=== PATIENT | female | born 1945 | race Caucasian/White ===

== ENCOUNTER 2018-06-06 05:02 | Emergency (ER) | payer OTHER ==
[2018-06-06] MEDS ORDERED: MECLIZINE HCL 12.5 MG TAB ONE (05:48)
[2018-06-06] MEDS ORDERED: NA CHLORIDE 0.9% 1,000 ML ONE ×2 (05:49→08:16)
[2018-06-06 06:10] LABS: Protime INR 0.97
[2018-06-06 06:11] LABS: Absolute Lymphocytes (CBC) 1.8 K/uL (0.7-4.9); Absolute Monocytes 0.5 K/uL (0.1-1.3); Absolute Neutrophil 6.1 K/uL (1.8-8.0); Basophils % 0.5 % (0-1.3); Eosinophils % 2.4 % (0-4.4); Hematocrit 37.3 % (36.0-45.0); MCH 29.4 pg (27.0-35.0); MCV 86.2 fL (80-100); MPV 7.7 fL (7.6-11.3); Monocytes % 5.7 % (3.3-12.3); RBC Red Blood Cell Count 4.32 M/uL (3.86-4.86)
[2018-06-06 06:13] LABS: Potassium 3.7 mmol/L (3.5-5.1)
[2018-06-06 07:41] LABS: Barbiturates NEGATIVE (NEGATIVE); Benzodiazepines NEGATIVE (NEGATIVE); Cocaine NEGATIVE (NEGATIVE); METHAMPHETAM NEGATIVE (NEGATIVE); Methadone NEGATIVE (NEGATIVE); Opiates NEGATIVE (NEGATIVE); Phencyclidine NEGATIVE (NEGATIVE); THC Cannibis NEGATIVE (NEGATIVE)
--- NOTE | 2018-06-06 08:03 | ER ---
Nurse's Notes [facility] Name: Sherry Russ Age: 72 yrs Sex: Female : 1945 Arrival Date: 06/06/2018 Time: 05:04 Bed 15 Private MD: Dandre Gaming F Diagnosis: Acute dizziness Presentation: 06/06 05:09 Presenting complaint: EMS states: Dizziness, vomiting and blurrier vision since 2300 ao last night. Symptoms are getting worst. Patient reports some type treatment in the eyes where they use "Quemo" a mix of medications injected in the eyes or the eye area. Transition of care: patient was not received from another setting of care. Onset of symptoms was June 05, 2018 at 23:00. Risk Assessment: Do you want to hurt yourself or someone else? Patient reports no desire to harm self or others. Initial Sepsis Screen: Does the patient meet any 2 criteria? No. Patient's initial sepsis screen is negative. Does the patient have a suspected source of infection? No. Patient's initial sepsis screen is negative. Care prior to arrival: Medication(s) given: Phenergan, 6.25. 05:09 Method Of Arrival: EMS: [facility] ao 05:09 Acuity: CHAD 3 ao Triage Assessment: 05:19 GI: Reports. ao Historical: - Allergies: 05:18 No Known Allergies; ao - Home Meds: 05:18 fluoxetine 10 mg Oral cap 2 caps once daily [Active]; ao - PMHx: 05:18 Anxiety; Depression; eye problems; ao - PSHx: 05:18 None; ao - Immunization history:: Adult Immunizations up to date. - Social history:: Smoking status: Patient/guardian denies using tobacco, Patient/guardian denies using alcohol, street drugs. - Ebola Screening: : Patient negative for fever greater than or equal to 101.5 degrees Fahrenheit, and additional compatible Ebola Virus Disease symptoms Patient denies exposure to infectious person Patient denies travel to an Ebola-affected area in the 21 days before illness onset. - Family history:: not pertinent. - Hospitalizations: : No recent hospitalization is reported. Screenin:18 Abuse screen: Denies threats or abuse. Denies injuries from another. Nutritional ao screening: No deficits noted. Tuberculosis screening: No symptoms or risk factors identified. Fall Risk None identified. 05:30 The patient has not been NPO before screening. The patient is alert, able to follow ao commands. The patient does not exhibit slurred or garbled speech The patient is not exhibiting difficulty speaking. The patient is exhibiting difficulty understanding words. The patient is able to swallow own secretions with no drooling or need for suction. Patient tolerated one teaspoon of water. No drooling, immediate coughing, gurgling, or clearing of the throat was noted. The patient tolerated 90mL of water. No drooling, immediate coughing, gurgling, or clearing of the throat was noted. The patient passed the bedside swallow screening. Oral medications may be given as ordered. Contact Physician for further diet orders. Assessment: 05:19 General: Appears in no apparent distress. comfortable, Behavior is calm, cooperative, ao appropriate for age. Pain: Denies pain. Neuro: Level of Consciousness is awake, alert, obeys commands, Oriented to person, place, time, situation, Appropriate for age Moves all extremities. Full function Speech is normal, Facial symmetry appears normal. Cardiovascular: Capillary refill < 3 seconds Patient's skin is warm and dry. Respiratory: Airway is patent Respiratory effort is even, unlabored, Respiratory pattern is regular, symmetrical. GI: Abdomen is non-distended. : No signs and/or symptoms were reported regarding the genitourinary system. EENT: Reports blurred vision in left eye. Derm: No signs and/or symptoms reported regarding the dermatologic system. Musculoskeletal: Circulation, motion, and sensation intact. Range of motion: limited in all extremities. 06:30 Reassessment: Patient appears in no apparent distress at this time. Patient and/or cc3 family updated on plan of care and expected duration. Pain level reassessed. Patient is alert, oriented x 3, equal unlabored respirations, skin warm/dry/pink. 07:28 Reassessment: Patient appears in no apparent distress at this time. No changes from la1 previously documented assessment. Patient and/or family updated on plan of care and expected duration. Pain level reassessed. Patient is alert, oriented x 3, equal unlabored respirations, skin warm/dry/pink. 07:55 Reassessment: Patient appears in no apparent distress at this time. No changes from la1 previously documented assessment. Patient and/or family updated on plan of care and expected duration. Pain level reassessed. Patient is alert, oriented x 3, equal unlabored respirations, skin warm/dry/pink. Vital Signs: 05:14 BP 159 / 59; Pulse 82; Resp 16; Temp 98.8(O); Pulse Ox 97% on R/A; Weight 74.84 kg (R); ao Height 5 ft. 4 in. (162.56 cm) (R); Pain 0/10; 06:45 BP 138 / 70; Pulse 86; Resp 19 S; Pulse Ox 96% on R/A; cc3 07:56 BP 124 / 74; Pulse 81; Resp 16; Pulse Ox 97% on R/A; la1 09:04 BP 120 / 80; Pulse 86; Resp 17; Pulse Ox 99% on R/A; la1 05:14 Body Mass Index 28.32 (74.84 kg, 162.56 cm) ao NIH Stroke Scale Scores: 08:19 NIHSS Score: 0 la1 ED Course: 05:04 Patient arrived in ED. am2 05:04 Dandre Gaming MD is Private Physician. am2 05:09 Chevy Mi RN is Primary Nurse. ao 05:09 Cedric Collins MD is Attending Physician. wa 05:14 Triage completed. ao 05:16 Arm band placed on right wrist. Patient placed in an exam room, on a stretcher, on ao pulse oximetry, Patient notified of wait time. 05:20 Patient has correct armband on for positive identification. Pulse ox on. NIBP on. ao 05:43 X-ray completed. Portable x-ray completed in exam room. Patient tolerated procedure jb2 well. 05:43 Stroke CXR 1 View In Process Unspecified. EDMS 06:[address] stretcher. kw1 06:04 Maintain EMS IV. Dressing intact. Good blood return noted. Site clean \\T\\ dry. Gauge \\T\\ ao site: 22 R Ac. 06:05 Report given to JERMAINE Fisher. ao 06:13 CT Stroke Brain w/o Contrast In Process Unspecified. EDMS 06:14 CT completed. Patient tolerated procedure well. Patient moved back from CT. kw1 07:00 Report given to JERMAINE Marie. cc3 07:03 Frank Pedraza RN is Primary Nurse. la1 08:39 Urine Dipstick--Ancillary (enter results) Sent. la1 09:41 No provider procedures requiring assistance completed. Patient transferred, IV remains la1 in place. Administered Medications: 05:45 Drug: NS 0.9% 1000 ml Route: IV; Rate: 1 bolus; Site: right antecubital; ao 08:18 Follow up: IV Status: Completed infusion la1 05:45 Drug: Meclizine 25 mg Route: PO; ao 06:30 Follow up: Response: No adverse reaction cc3 08:18 Drug: Aspirin Chewable Tablet 324 mg Route: PO; la1 08:18 Follow up: Response: No adverse reaction la1 08:18 Drug: foLIC Acid 1 mg Route: IVPB; Site: right antecubital; la1 08:18 Follow up: IV Status: Completed infusion la1 08:18 Drug: NS 0.9% 500 ml Route: IV; Rate: bolus; Site: right antecubital; la1 08:19 Follow up: IV Status: Completed infusion la1 08:18 Drug: NS 0.9% 1000 ml Route: IV; Rate: 125 ml/hr; Site: right antecubital; la1 08:19 Follow up: IV Status: Infusion continued upon transfer la1 Point of Care Testing: Blood Glucose: 06:03 Blood Glucose: 113 mg/dL; ao Ranges: Outcome: 08:02 ER care complete, transfer ordered by . jeniffer 09:41 Transferred by ground EMS to [facility]. la1 09:41 Condition: stable 09:41 Instructed on the need for transfer. 09:43 Patient left the ED. la1 NIH Stroke Scale - NIH Stroke Score Date: 06/06/2018 Time: 08:19 Total Score = 0 1a. Level of Consciousness (LOC) - 0(Alert) 1b. Level of Consciousness (LOC) (Year \\T\\ Age) - 0(Both) 1c. LOC Commands (Open \\T\\ Closes Eyes/Civil Drafting Technician) - 0(Both) 2. Best Gaze (Lateral Gaze Paresis) - 0(Normal) 3. Visual Field Loss - 0(No visual loss) 4. Facial Palsy - 0(Normal) 5a. Left Arm: Motor (10-second hold) - 0(No drift) 5b. Right Arm: Motor (10-second hold) - 0(No drift) 6a. Left Leg: Motor (5-second hold - always test supine) - 0(No drift) 6b. Right Leg: Motor (5-second hold - always test supine) - 0(No drift) 7. Limb Ataxia (finger/nose \\T\\ heel/rust - test with eyes open) - 0(Absent) 8. Sensory Loss (pinprick arms/legs/face) - 0(Normal) 9. Best Language: Aphasia (description/naming/reading) - 0(No aphasia) 10. Dysarthria (speech clarity - read or repeat words) - 0(Normal) 11. Extinction and Inattention (visual/tactile/auditory/spatial/personal) - 0(No abnormality) Initials: la1 Signatures: Dispatcher [employer] Todd Young2 Frank Pedraza RN RN la1 Chevy Mi RN RN ao Moreno, Amanda am2 Cedric Collins MD MD wa Wilhelm, Kimberly kw1 Natalia Vail cc3 Corrections: (The following items were deleted from the chart) 05:16 05:09 Care prior to arrival: None. ysabel grady
--- NOTE | 2018-06-06 08:04 | EDPHYS ---
Physician Documentation [facility] Name: Sherry Russ Age: 72 yrs Sex: Female : 1945 Arrival Date: 06/06/2018 Time: 05:04 Bed 15 Private MD: Dandre Gaming F ED Physician Cedric Collins HPI: 06/06 07:45 This 72 yrs old Female presents to ER via EMS with complaints of dizziness, wa Vomiting. 07:45 The patient presents with dizziness, sense of spinning. Onset: The symptoms/episode wa began/occurred just prior to arrival. Context: occurred at home, occurred while the patient was at rest, just prior to the episode the patient experienced no apparent symptoms, per EMS, pt began vomiting at their arrival. Modifying factors: The symptoms are alleviated by nothing, the symptoms are aggravated by movement of head. Associated signs and symptoms: Pertinent positives: vomiting, Pertinent negatives: focal weakness, headache. Severity of symptoms: At their worst the symptoms were moderate in the emergency department the symptoms are worse moderately. Patient's baseline: Neuro: alert and fully oriented, Motor: no deficits, Ambulation: walks without assistance, Speech: normal. The patient has not experienced similar symptoms in the past. The patient has not recently seen a physician. Historical: - Allergies: 05:18 No Known Allergies; ao - Home Meds: 05:18 fluoxetine 10 mg Oral cap 2 caps once daily [Active]; ao - PMHx: 05:18 Anxiety; Depression; eye problems; ao - PSHx: 05:18 None; ao - Immunization history:: Adult Immunizations up to date. - Social history:: Smoking status: Patient/guardian denies using tobacco, Patient/guardian denies using alcohol, street drugs. - Ebola Screening: : Patient negative for fever greater than or equal to 101.5 degrees Fahrenheit, and additional compatible Ebola Virus Disease symptoms Patient denies exposure to infectious person Patient denies travel to an Ebola-affected area in the 21 days before illness onset. - Family history:: not pertinent. - Hospitalizations: : No recent hospitalization is reported. ROS: 07:55 Constitutional: Negative for fever, chills, and weight loss, Eyes: Negative for injury, wa pain, redness, and discharge, ENT: Negative for injury, pain, and discharge, Neck: Negative for injury, pain, and swelling, Cardiovascular: Negative for chest pain, palpitations, and edema, Respiratory: Negative for shortness of breath, cough, wheezing, and pleuritic chest pain, Abdomen/GI: Negative for abdominal pain, nausea, vomiting, diarrhea, and constipation, Back: Negative for injury and pain, : Negative for injury, bleeding, discharge, and swelling, MS/Extremity: Negative for injury and deformity, Skin: Negative for injury, rash, and discoloration, Psych: Negative for depression, anxiety, suicide ideation, homicidal ideation, and hallucinations. 07:55 Neuro: Positive for dizziness, Negative for headache, loss of consciousness, seizure activity. 07:55 All other systems are negative. Exam: 07:57 Constitutional: This is a well developed, well nourished patient who is awake, alert, wa and in no acute distress. Head/Face: Normocephalic, atraumatic. Eyes: Pupils equal round and reactive to light, extra-ocular motions intact. Lids and lashes normal. Conjunctiva and sclera are non-icteric and not injected. Cornea within normal limits. Periorbital areas with no swelling, redness, or edema. ENT: Nares patent. No nasal discharge, no septal abnormalities noted. Tympanic membranes are normal and external auditory canals are clear. Oropharynx with no redness, swelling, or masses, exudates, or evidence of obstruction, uvula midline. Mucous membranes moist. Neck: Trachea midline, no thyromegaly or masses palpated, and no cervical lymphadenopathy. Supple, full range of motion without nuchal rigidity, or vertebral point tenderness. No Meningismus. Chest/axilla: Normal chest wall appearance and motion. Nontender with no deformity. No lesions are appreciated. Cardiovascular: Regular rate and rhythm with a normal S1 and S2. No gallops, murmurs, or rubs. Normal PMI, no JVD. No pulse deficits. Respiratory: Lungs have equal breath sounds bilaterally, clear to auscultation and percussion. No rales, rhonchi or wheezes noted. No increased work of breathing, no retractions or nasal flaring. Abdomen/GI: Soft, non-tender, with normal bowel sounds. No distension or tympany. No guarding or rebound. No evidence of tenderness throughout. Back: No spinal tenderness. No costovertebral tenderness. Full range of motion. Skin: Warm, dry with normal turgor. Normal color with no rashes, no lesions, and no evidence of cellulitis. MS/ Extremity: Pulses equal, no cyanosis. Neurovascular intact. Full, normal range of motion. Psych: Awake, alert, with orientation to person, place and time. Behavior, mood, and affect are within normal limits. 07:57 Eyes: Nystagmus: nystagmus with fast component noted, bilaterally. 07:57 Neuro: Orientation: is normal, appropriate for stated age, Mentation: is normal, Memory: is normal, Cranial nerves: grossly normal, Cerebellar function: normal finger to nose testing, heel to rust testing is normal, able to perform alternating rapid hand movements, Motor: is normal. Vital Signs: 05:14 BP 159 / 59; Pulse 82; Resp 16; Temp 98.8(O); Pulse Ox 97% on R/A; Weight 74.84 kg (R); ao Height 5 ft. 4 in. (162.56 cm) (R); Pain 0/10; 06:45 BP 138 / 70; Pulse 86; Resp 19 S; Pulse Ox 96% on R/A; cc3 07:56 BP 124 / 74; Pulse 81; Resp 16; Pulse Ox 97% on R/A; la1 09:04 BP 120 / 80; Pulse 86; Resp 17; Pulse Ox 99% on R/A; la1 05:14 Body Mass Index 28.32 (74.84 kg, 162.56 cm) ao NIH Stroke Scale Scores: 08:19 NIHSS Score: 0 la1 MDM: 05:09 Patient medically screened. nm 07:58 Differential diagnosis: CVA, idiopathic dizziness, vertigo. Data reviewed: vital signs, nm nurses notes. Test interpretation: by ED physician or midlevel provider: Head CT no acute process. 07:59 Test interpretation: by ED physician or midlevel provider: EKG: HR 84. non-specific wa ST-T changes. labs noted wnl. . Response to treatment: the patient's symptoms have mildly improved after treatment. ED course: improved, although still with significant symptoms. will transfer for further neuro eval, r/o cerebellar infarct. no MRI or neurology senior production supervisor the weekend for eval. 06/06 05:33 Order name: UDS nm 06/06 05:33 Order name: Basic Metabolic Panel 06/06 05:33 Order name: CBC with Diff; Complete Time: 07:33 nm 06/06 05:33 Order name: Protime (+inr); Complete Time: 07:33 nm 06/06 05:33 Order name: Urine Drug Screen; Complete Time: 08:04 EDMS 06/06 05:33 Order name: Basic Metabolic Panel; Complete Time: 07:33 EDMS 06/06 05:33 Order name: CT Stroke Brain w/o Contrast 06/06 05:33 Order name: Stroke CXR 1 View 06/06 07:47 Order name: Urine Dipstick--Ancillary (enter results) 06/06 05:33 Order name: EKG; Complete Time: 05:33 nm 06/06 05:33 Order name: Accucheck; Complete Time: 06:03 06/06 05:33 Order name: Cardiac monitoring; Complete Time: 05:47 06/06 05:33 Order name: EKG - Nurse/Tech; Complete Time: 06:47 nm 06/06 05:33 Order name: IV Saline Lock; Complete Time: 05:47 nm 06/06 05:33 Order name: Labs collected and sent; Complete Time: 05:47 06/06 05:33 Order name: NPO; Complete Time: 05:47 06/06 05:33 Order name: O2 Sat Monitoring; Complete Time: 05:47 nm Administered Medications: 05:45 Drug: NS 0.9% 1000 ml Route: IV; Rate: 1 bolus; Site: right antecubital; ao 08:18 Follow up: IV Status: Completed infusion la1 05:45 Drug: Meclizine 25 mg Route: PO; ao 06:30 Follow up: Response: No adverse reaction cc3 08:18 Drug: Aspirin Chewable Tablet 324 mg Route: PO; la1 08:18 Follow up: Response: No adverse reaction la1 08:18 Drug: foLIC Acid 1 mg Route: IVPB; Site: right antecubital; la1 08:18 Follow up: IV Status: Completed infusion la1 08:18 Drug: NS 0.9% 500 ml Route: IV; Rate: bolus; Site: right antecubital; la1 08:19 Follow up: IV Status: Completed infusion la1 08:18 Drug: NS 0.9% 1000 ml Route: IV; Rate: 125 ml/hr; Site: right antecubital; la1 08:19 Follow up: IV Status: Infusion continued upon transfer la1 Point of Care Testing: Blood Glucose: 06:03 Blood Glucose: 113 mg/dL; ysabel Ranges: Critical Glucose Levels:Adult <50 mg/dl or >400 mg/dl <40 mg/dl or >180 mg/dl Disposition: 06/06/18 08:02 Transfer ordered to [facility]. Diagnosis is Acute dizziness. - Reason for transfer: Higher level of care. - Accepting physician is [facility]. - Condition is Stable. - Problem is new. - Symptoms have improved. NIH Stroke Scale - NIH Stroke Score Date: 06/06/2018 Time: 08:19 Total Score = 0 1a. Level of Consciousness (LOC) - 0(Alert) 1b. Level of Consciousness (LOC) (Year \T\ Age) - 0(Both) 1c. LOC Commands (Open \T\ Closes Eyes/Pass Worker) - 0(Both) 2. Best Gaze (Lateral Gaze Paresis) - 0(Normal) 3. Visual Field Loss - 0(No visual loss) 4. Facial Palsy - 0(Normal) 5a. Left Arm: Motor (10-second hold) - 0(No drift) 5b. Right Arm: Motor (10-second hold) - 0(No drift) 6a. Left Leg: Motor (5-second hold - always test supine) - 0(No drift) 6b. Right Leg: Motor (5-second hold - always test supine) - 0(No drift) 7. Limb Ataxia (finger/nose \T\ heel/rust - test with eyes open) - 0(Absent) 8. Sensory Loss (pinprick arms/legs/face) - 0(Normal) 9. Best Language: Aphasia (description/naming/reading) - 0(No aphasia) 10. Dysarthria (speech clarity - read or repeat words) - 0(Normal) 11. Extinction and Inattention (visual/tactile/auditory/spatial/personal) - 0(No abnormality) Initials: la1 Signatures: Dispatcher [employer] Nayan Augustin MD MD cha Attema, Lee, RN RN la1 Chevy Mi RN RN ao Appiah, William, MD MD wa Cordel, Charlene cc3 Corrections: (The following items were deleted from the chart) 09:43 08:02 06/06/2018 08:02 Transfer ordered to [facility]. la1 Diagnosis is Acute dizziness. Reason for transfer: Higher level of care. [facility] Condition is Stable. Problem is new. Symptoms have improved. wa
[2018-06-06] MEDS ORDERED: ASPIRIN 81 MG CHEWABLE TABLET ONE (08:13)
[2018-06-06] MEDS ORDERED: FOLIC ACID 5 MG/ML VIAL ONE (08:16)
[2018-06-06 09:07] LABS: Urine Blood TRACE (NEG); Urine Glucose NEGATIVE (NEG); Urine Protein NEGATIVE (NEG)
--- NOTE | 2018-06-06 09:32 | RAD REPORT ---
EXAM DESCRIPTION: RAD - Chest Single View - 06/06/2018 5:43 am CLINICAL HISTORY: Shortness of breath, weakness, dizziness COMPARISON: None. TECHNIQUE: AP portable chest image was obtained 0537 hours . FINDINGS: Lungs are clear. Heart and vasculature are normal. No measurable pleural effusion and no p neumothorax. No acute bony abnormality seen. No acute aortic findings suspected. IMPRESSION: No acute cardiopulmonary process.
--- NOTE | 2018-06-06 09:33 | RAD REPORT ---
EXAM DESCRIPTION: CT - Ct Stroke Brain Wo Cont - 06/06/2018 6:50 am CLINICAL HISTORY: Weakness, dizziness, altered mental status A preliminary report was provided at the time of the study and reviewed prior to final report. CLINICAL HISTORY: None. TECHNIQUE: Axial 5 millimeter thick images of the head were obtained without IV contrast. All CT scans are performed using dose optimization technique as appropriate and may include automated exposure control or mA/KV adjustment according to patient size. FINDINGS: No intracranial hemorrhage, mass, or cerebral edema. No acute infarction identifiable. Mil d atrophy and chronic ischemic changes are present. Arterial and physiologic calcifications are prese nt. Glover matter-white matter differentiation is preserved. Visualized portions of the mastoid air cells, paranasal sinuses, and orbits are unremarkable. IMPRESSION: No CT evidence of acute intracranial process. Patient has mild atrophy and chronic ische patti change.
[2018-06-06 09:48] VITALS: TEMP 98.8
[2018-06-06 09:51] VITALS: BP 120/80; O2SAT 99
--- NOTE | 2018-06-08 10:15 | EKG ---
Test Date: 2018-06-06 Test Time: 06:42:05 Musical Instrument Maker Or Repairer: CINDY MEASUREMENT RESULTS: Intervals: Rate: 84 SC: 178 QRSD: 86 QT: 398 QTc: 470 Robert: P: 56 SC: 178 QRS: 33 T: -6 INTERPRETIVE STATEMENTS: Normal sinus rhythm Possible Left atrial enlargement Nonspecific T wave abnormality Prolonged QT Abnormal ECG No previous ECG available for comparison Electronically Signed On 06-08-18 10:13:59 CDT by Van [place]anna
== END 2018-06-06 09:43 | disposition short-term general hospital (02) ==
LOC: ER 05:02
DX: R42 Dizziness and giddiness (principal); F41.8 Other specified anxiety disorders
CPT/HCPCS: 36415; 70450; 71045; 80048; 80307 ×8; 81003; 82962; 85025; 85610; 93005; 96361; 96374; 99285; J7030 ×2

== ENCOUNTER 2019-03-07 00:56 | Observation (INO) | payer OTHER ==
--- OUTSIDE RECORDS SUMMARY | 2019-03-07 00:58 | XMS REPORT | Clinical Summary ---
:1945 Author Organization [facility] Address [address] [place] [address] Care Team Providers Name Role Phone Pcp, No Primary Care Provider Unavailable Allergies No Known Allergies Medications Medication Sig Dispensed Refills Start Date End Date Status fLUoxetine (PROZAC) 20 Take 20 mg by 0 Active MG capsule mouth daily. Active Problems Problem Noted Date Dizziness 06/06/2018 Encounters Date Type Specialty Care Team Description 06/06/2018 - Hospital Encounter Cardiology Mary Ellen Grigsby Depression, unspecified depression type; 06/08/2018 MD Melisa Dizziness; Sanford Rodriguez D Pain of right upper extremity; Viri Carcamo MD Vertigo; Peripheral vertigo, unspecified laterality after 03/06/2018 Social History Tobacco Use Types Packs/Day Years Used Date Never Smoker Smokeless Tobacco: Never Used Alcohol Use Drinks/Week oz/Week Comments No Sex Assigned at Date Recorded Not on file Job Start Date Occupation Industry Not on file Not on file Not on file Travel History Travel Start Travel End No recent travel history available. Last Filed Vital Signs Vital Sign Reading Time Taken Blood Pressure 156/67 06/08/2018 11:00 AM CDT Pulse 90 06/08/2018 11:00 AM CDT Temperature 35.8 C (96.5 F) 06/08/2018 11:00 AM CDT Respiratory Rate 20 06/08/2018 11:00 AM CDT Oxygen Saturation 96% 06/08/2018 11:00 AM CDT Inhaled Oxygen Concentration - - Weight 67.6 kg (149 lb) 06/06/2018 11:45 AM CDT Height 157.5 cm (5' 2") 06/06/2018 11:45 AM CDT Body Mass Index 27.25 06/06/2018 11:45 AM CDT Plan of Treatment Not on file Procedures Procedure Name Priority Date/Time Associated Comments Diagnosis RHYTHM STRIP - SCAN 12/04/2018 7:10 AM CDT REPORT OF PROCEDURE - 06/09/2018 12:50 ENDOSCOPY SCAN PM CDT RHYTHM STRIP - SCAN 06/09/2018 12:[address] BRAIN WITHOUT IV Routine 06/08/2018 8:00 Results for this CONTRAST AM CDT procedure are in the results section. HEPATIC FUNCTION PANEL Routine 06/08/2018 5:33 Results for this AM CDT procedure are in the results section. MAGNESIUM Routine 06/08/2018 5:33 Results for this AM CDT procedure are in the results section. LIPID PANEL Routine 06/08/2018 5:33 Results for this AM CDT procedure are in the results section. PROTHROMBIN TIME/INR Routine 06/08/2018 5:33 Results for this AM CDT procedure are in the results section. CALCIUM, IONIZED Routine 06/08/2018 5:33 Results for this AM CDT procedure are in the results section. BASIC METABOLIC PANEL Routine 06/08/2018 5:33 Results for this (7) AM CDT procedure are in the results section. MR MRA NECK WITHOUT IV CORBY 06/07/2018 9:03 Results for this CONTRAST PM CDT procedure are in the results section. MR MRA HEAD WITHOUT CORBY 06/07/2018 9:03 Results for this CONTRAST PM CDT procedure are in the results section. CBC W/PLT COUNT & AUTO Routine 06/07/2018 2:20 Results for this DIFFERENTIAL AM CDT procedure are in the results section. CBC W/PLT COUNT & AUTO Routine 06/07/2018 2:20 Results for this DIFFERENTIAL AM CDT procedure are in the results section. PROTHROMBIN TIME/INR Routine 06/07/2018 2:20 Results for this AM CDT procedure are in the results section. CALCIUM, IONIZED Routine 06/07/2018 2:20 Results for this AM CDT procedure are in the results section. COMPREHENSIVE Routine 06/06/2018 4:51 Results for this METABOLIC PANEL PM CDT procedure are in the results section. CBC (HEMOGRAM ONLY) Routine 06/06/2018 4:51 Results for this PM CDT procedure are in the results section. MR BRAIN WITHOUT IV STAT 06/06/2018 4:00 Results for this CONTRAST PM CDT procedure are in the results section. after 03/06/2018 Results RHYTHM STRIP - SCAN (12/04/2018 7:10 AM CDT)Only the most recent of2 resultswithin the time period is included. Narrative Performed At EKG-SCANNED (06/09/2018 12:50 PM CDT) Narrative Performed At CT brain without IV contrast (06/08/2018 8:00 AM CDT) Specimen Narrative Performed At FINAL REPORT [facility] CT head without contrast INDICATION: CVA, TIA. TECHNIQUE: Axial noncontrast CT images through the head were obtained. This exam was performed according to our departmental dose optimization program which includes automated exposure control, adjustment of the mA and/or kV according to patient size and/or use of iterative reconstruction technique. This study was done as part of a CTA head and neck, which was unsuccessful due to IV infiltration. COMPARISON: MRI brain 06/06/2018 FINDINGS: There is no acute intracranial hemorrhage or mass effect. Mild nonspecific white matter lucency suggest microvascular ischemia and is chronic appearing. Please note that CT is insensitive for early or small infarcts. There is generalized parenchymal volume loss without hydrocephalus or midline shift. There is a partially imaged C1-2 arthropathy. There is mild multifocal chronic sinus mucosal thickening with well aerated mastoid air cells. There has been right globe cataract surgery. The calvarium is intact. IMPRESSION: No acute intracranial hemorrhage or mass effect. Chronic appearing microvascular and involutional changes. Additional chronic findings as discussed above. Signed: Baldomero Goodwin MD Report Verified Date/Time:06/08/2018 08:11:29 Reading Location: [facility] C[facility] Neuro Reading Room Procedure Note Interface, External Ris In - 06/08/2018 8:16 AM CDT FINAL REPORT CT head without contrast INDICATION: CVA, TIA. TECHNIQUE: Axial noncontrast CT images through the head were obtained. This exam was performed according to our departmental dose optimization program which includes automated exposure control, adjustment of the mA and/or kV according to patient size and/or use of iterative reconstruction technique. This study was done as part of a CTA head and neck, which was unsuccessful due to IV infiltration. COMPARISON: MRI brain 06/06/2018 FINDINGS: There is no acute intracranial hemorrhage or mass effect. Mild nonspecific white matter lucency suggest microvascular ischemia and is chronic appearing. Please note that CT is insensitive for early or small infarcts. There is generalized parenchymal volume loss without hydrocephalus or midline shift. There is a partially imaged C1-2 arthropathy. There is mild multifocal chronic sinus mucosal thickening with well aerated mastoid air cells. There has been right globe cataract surgery. The calvarium is intact. IMPRESSION: No acute intracranial hemorrhage or mass effect. Chronic appearing microvascular and involutional changes. Additional chronic findings as discussed above. Signed: Baldomero Goodwin MD Report Verified Date/Time: 06/08/2018 08:11:29 Reading Location: [address] Neuro Reading Room Performing Organization Address City/[facility] Centercode Phone Number GE RIS Calcium, Ionized (06/08/2018 5:33 AM CDT)Only the most recent of2 resultswithin the time period is included. Calcium, Ion 1.14 1.12 - 1.27 mmol/L [facility] pH, Blood 7.41 [facility] Specimen Blood Performing Organization Address City/[facility] CentercoITS Compliance Phone Number [address] [address] CENTER Prothrombin time/INR (06/08/2018 5:33 AM CDT)Only the most recent of2 resultswithin the time period is included. Protime 13.3 11.7 - 14.[address] [facility] INR 1.0 <=5.9 [facility] Specimen Blood Narrative Performed At [facility] RECOMMENDED COUMADIN/WARFARIN INR THERAPY RANGES STANDARD DOSE: 2.0 - 3.0 Includes: PROPHYLAXIS for venous thrombosis, systemic embolization; TREATMENT for venous thrombosis and/or pulmonary embolus. HIGH RISK: Target INR is 2.5-3.5 for patients with mechanical heart valves. Performing Organization Address City/[facility] Centercode Phone Number [facility] [address] [place] [address] CENTER Magnesium (06/08/2018 5:33 AM CDT) Magnesium 2.1 1.6 - 2.6 mg/dL [facility] Specimen Blood Performing Organization Address City/[facility] Centercode Phone Number [address] [address] [place] Hepatic function panel (06/08/2018 5:33 AM CDT) Protein, Total 6.6 6.0 - 8.3 gm/dL [facility] Albumin 3.7 3.5 - 5.0 g/dL [facility] Total Bilirubin 0.5 0.2 - 1.2 mg/dL [facility] Bilirubin, Direct 0.2 0.1 - 0.5 mg/dL [facility] Alkaline Phosphatase 67 40 - 150 U/L [facility] AST 16 5 - 34 U/L [facility] ALT 11 6 - 55 U/L [facility] Specimen Blood Performing Organization Address City/State/Zipcode Phone Number [facility] [address] [place] [address] [phone] [place] Lipid panel (06/08/2018 5:33 AM CDT) Triglycerides 206 mg/dL [facility] Cholesterol 232 mg/dL [facility] HDL 47 mg/dL [facility] LDL Calculated 144 mg/dL [facility] Specimen Blood Narrative Performed At [facility] Triglyceride Reference Range: Low Risk <150 [id number] High Risk 200-499 Very High Risk>=500 Cholesterol Reference Range: Low Risk <200 [id number] High Risk>240 HDL Cholesterol Reference Range: Low Risk >=60 High Risk <40 LDL Cholesterol Reference Range: Optimal<100 Near [id number] Easd390-552 Very High >=190 Performing Organization Address City/[facility]/Zipcode Phone Number [facility] [address] [place] [address] [place] Basic metabolic panel (06/08/2018 5:33 AM CDT) Sodium 139 136 - 145 meq/L [facility] Potassium 3.9 3.5 - 5.1 meq/L [facility] Chloride 106 98 - 107 meq/L [facility] CO2 25 22 - 29 meq/L [facility] BUN 9 7 - 21 mg/dL [facility] Creatinine 0.71 0.57 - 1.25 mg/dL [facility] Glucose 90 70 - 105 mg/dL [facility] Calcium 9.4 8.4 - 10.2 mg/dL [facility] EGFR 80Comment: ESTIMATED GFR IS mL/min/1.73 sq m [facility] NOT ACCURATE CREATININE [facility] CENTER CLEARANCE IN PREDICTING GLOMERULAR FILTRATION RATE. ESTIMATED GFR IS NOT APPLICABLE FOR DIALYSIS PATIENTS. Specimen Blood Performing Organization Address City/[facility] Centercode Phone Number [facility] [address] [place] [address] [phone] [place] MRA neck without IV contrast (06/07/2018 9:03 PM CDT) Specimen Narrative Performed At FINAL REPORT [facility] MR, MRA, BRAIN, WITHOUT CONTRAST, MR, MRA, NECK, WITHOUT IV CONTRAST INDICATION: TIA Workup TECHNIQUE: 3-D time of flight MRA of the cranial and cervical circulation. 2-D time of flight MRA of the neck. 3D MIP angiographic post-processing was performed. Stenosis evaluation utilized NASCET criteria. COMPARISON: Correlation to noncontrast brain MRI of the same date FINDINGS: MRA BRAIN: Internal carotid arteries: Patent. Middle cerebral arteries: Patent to distal branches. Anterior cerebral arteries: Intact. Basilar system: Patent vertebrobasilar system. Posterior cerebral arteries:Patent beyond the quadrigeminal segments. Additional findings: None. MRA NECK: Common carotid arteries: Unremarkable. Bifurcations: No flow-limiting stenosis. Cervical internal carotid arteries: No flow limiting stenosis. Vertebral arteries: Slight left dominance. IMPRESSION: No flow limiting stenosis in the major branch vessels of the cervical or cranial circulation. Signed: JR Cortés Robert MD Report Verified Date/Time:06/07/2018 21:28:54 Reading Location: [address] Reading Room Procedure Note Interface, External Ris In - 06/07/2018 9:31 PM CDT FINAL REPORT MR, MRA, BRAIN, WITHOUT CONTRAST, MR, MRA, NECK, WITHOUT IV CONTRAST INDICATION: TIA Workup TECHNIQUE: 3-D time of flight MRA of the cranial and cervical circulation. 2-D time of flight MRA of the neck. 3D MIP angiographic post-processing was performed. Stenosis evaluation utilized NASCET criteria. COMPARISON: Correlation to noncontrast brain MRI of the same date FINDINGS: MRA BRAIN: Internal carotid arteries: Patent. Middle cerebral arteries: Patent to distal branches. Anterior cerebral arteries: Intact. Basilar system: Patent vertebrobasilar system. Posterior cerebral arteries:Patent beyond the quadrigeminal segments. Additional findings: None. MRA NECK: Common carotid arteries: Unremarkable. Bifurcations: No flow-limiting stenosis. Cervical internal carotid arteries: No flow limiting stenosis. Vertebral arteries: Slight left dominance. IMPRESSION: No flow limiting stenosis in the major branch vessels of the cervical or cranial circulation. Signed: JR Cortés Robert MD Report Verified Date/Time: 06/07/2018 21:28:54 Reading Location: [address] Reading Room Performing Organization Address City/State/Zipcode Phone Number [facility] MRA head without IV contrast (06/07/2018 9:03 PM CDT) Specimen Narrative Performed At FINAL REPORT [facility] MR, MRA, BRAIN, WITHOUT CONTRAST, MR, MRA, NECK, WITHOUT IV CONTRAST INDICATION: TIA Workup TECHNIQUE: 3-D time of flight MRA of the cranial and cervical circulation. 2-D time of flight MRA of the neck. 3D MIP angiographic post-processing was performed. Stenosis evaluation utilized NASCET criteria. COMPARISON: Correlation to noncontrast brain MRI of the same date FINDINGS: MRA BRAIN: Internal carotid arteries: Patent. Middle cerebral arteries: Patent to distal branches. Anterior cerebral arteries: Intact. Basilar system: Patent vertebrobasilar system. Posterior cerebral arteries:Patent beyond the quadrigeminal segments. Additional findings: None. MRA NECK: Common carotid arteries: Unremarkable. Bifurcations: No flow-limiting stenosis. Cervical internal carotid arteries: No flow limiting stenosis. Vertebral arteries: Slight left dominance. IMPRESSION: No flow limiting stenosis in the major branch vessels of the cervical or cranial circulation. Signed: JR Cortés Robert MD Report Verified Date/Time:06/07/2018 21:28:54 Reading Location: [address] Reading Room Procedure Note Interface, External Ris In - 06/07/2018 9:31 PM CDT FINAL REPORT MR, MRA, BRAIN, WITHOUT CONTRAST, MR, MRA, NECK, WITHOUT IV CONTRAST INDICATION: TIA Workup TECHNIQUE: 3-D time of flight MRA of the cranial and cervical circulation. 2-D time of flight MRA of the neck. 3D MIP angiographic post-processing was performed. Stenosis evaluation utilized NASCET criteria. COMPARISON: Correlation to noncontrast brain MRI of the same date FINDINGS: MRA BRAIN: Internal carotid arteries: Patent. Middle cerebral arteries: Patent to distal branches. Anterior cerebral arteries: Intact. Basilar system: Patent vertebrobasilar system. Posterior cerebral arteries:Patent beyond the quadrigeminal segments. Additional findings: None. MRA NECK: Common carotid arteries: Unremarkable. Bifurcations: No flow-limiting stenosis. Cervical internal carotid arteries: No flow limiting stenosis. Vertebral arteries: Slight left dominance. IMPRESSION: No flow limiting stenosis in the major branch vessels of the cervical or cranial circulation. Signed: JR Cortés Robert MD Report Verified Date/Time: 06/07/2018 21:28:54 Reading Location: [address] Reading Room Performing Organization Address City/State/Zipcode Phone Number [facility] CBC with platelet count + automated diff (06/07/2018 2:20 AM CDT) WBC 6.3 3.5 - 10.5 K/L [facility] RBC 3.95 3.93 - 5.22 M/L [facility] Hemoglobin 11.2 11.2 - 15.7 GM/DL [facility] Hematocrit 35.3 34.1 - 44.9 % [facility] MCV 89.4 79.4 - 94.[address] [facility] MCH 28.4 25.6 - 32.[address] [facility] MCHC 31.7 (L) 32.2 - 35.5 GM/DL [facility] RDW 13.3 11.7 - 14.4 % [facility] Platelets 276 150 - 450 K/CU MM [facility] MPV 9.2 (L) 9.4 - 12.[address] [facility] nRBC 0 0 - 0 /[address] [facility] % Neutros 46 % [facility] % Lymphs 39 % [facility] % Monos 10 % [facility] % Eos 4 % [facility] % Baso 1 % [facility] # Neutros 2.90 1.56 - 6.13 K/L [facility] # Lymphs 2.44 1.18 - 3.74 K/L [facility] # Monos 0.63 (H) 0.24 - 0.36 K/L [facility] # Eos 0.26 0.04 - 0.36 K/L [facility] # Baso 0.03 0.01 - 0.08 K/L [facility] Immature Granulocytes-Relative 0 0 - 1 % [facility] Specimen Blood Performing Organization Address City/State/Zipcode Phone Number [place] [phone] [place] [address] [phone] [place] CBC (Hemogram only) (06/06/2018 4:51 PM CDT) WBC 7.6 3.5 - 10.5 K/L [facility] RBC 3.91 (L) 3.93 - 5.22 M/L [facility] Hemoglobin 11.4 11.2 - 15.7 GM/DL [facility] Hematocrit 34.6 34.1 - 44.9 % [facility] MCV 88.5 79.4 - 94.[address] [facility] MCH 29.2 25.6 - 32.[address] [facility] MCHC 32.9 32.2 - 35.5 GM/DL [facility] RDW 13.3 11.7 - 14.4 % [facility] Platelets 264 150 - 450 K/CU MM [facility] MPV 9.2 (L) 9.4 - 12.[address] [facility] nRBC 0 0 - 0 /[address] [facility] Specimen Blood Performing Organization Address City/State/Zipcode Phone Number [facility] [address] [place] [address] [place] Comprehensive metabolic panel (06/06/2018 4:51 PM CDT) Protein, Total 6.5 6.0 - 8.3 gm/dL [facility] Albumin 3.7 3.5 - 5.0 g/dL [facility] Alkaline Phosphatase 68 40 - 150 U/L [facility] Total Bilirubin 0.4 0.2 - 1.2 mg/dL [facility] Sodium 138 136 - 145 meq/L [facility] Potassium 3.6 3.5 - 5.1 meq/L [facility] Chloride 106 98 - 107 meq/L [facility] CO2 25 22 - 29 meq/L [facility] BUN 12 7 - 21 mg/dL [facility] Creatinine 0.73 0.57 - 1.25 mg/dL [facility] Glucose 104 70 - 105 mg/dL [facility] Calcium 9.6 8.4 - 10.2 mg/dL [facility] AST 16 5 - 34 U/L [facility] ALT 12 6 - 55 U/L [facility] EGFR 78Comment: ESTIMATED GFR mL/min/1.[address] [facility] IS NOT ACCURATE [facility] CREATININE CLEARANCE IN PREDICTING GLOMERULAR FILTRATION RATE. ESTIMATED GFR IS NOT APPLICABLE FOR DIALYSIS PATIENTS. Specimen Blood Performing Organization Address City/State/Zipcode Phone Number [facility] [address] [place] [address] CENTER MR brain without IV contrast (06/06/2018 4:00 PM CDT) Specimen Narrative Performed At FINAL REPORT [employer] [facility] MRI brain without contrast INDICATION: CVA, TIA TECHNIQUE: Multiplanar, multisequence MR imaging of the brain was performed utilizing the following imaging sequences: Axial T2, FLAIR, GRE, and DWI; sagittal and coronal T1 COMPARISON: None available FINDINGS: There is no acute infarct, hematoma, extra-axial collection, hydrocephalus, or mass effect. Mild nonspecific chronic white matter signal changes suggest microvascular ischemia. The major vascular flow voids are maintained. There is generalized parenchymal volume loss. There are cervical spine degenerative changes and mild C1-2 arthropathy. There has been right globe cataract surgery. There is mild multifocal chronic sinus mucosal disease with well aerated mastoid air cells. The sella is unremarkable. The marrow signal is heterogeneous in a nonspecific fashion. IMPRESSION: 1. No evidence of acute infarct, hemorrhage, or hydrocephalus. 2. Mild chronic white matter changes, likely of microvascular etiology. 3. Additional chronic and involutional findings as discussed. Signed: Baldomero Goodwin MD Report Verified Date/Time:06/06/2018 16:29:20 Reading Location: [facility] [id number] Neuro Reading Room Procedure Note Interface, External Ris In - 06/06/2018 4:31 PM CDT FINAL REPORT MRI brain without contrast INDICATION: CVA, TIA TECHNIQUE: Multiplanar, multisequence MR imaging of the brain was performed utilizing the following imaging sequences: Axial T2, FLAIR, GRE, and DWI; sagittal and coronal T1 COMPARISON: None available FINDINGS: There is no acute infarct, hematoma, extra-axial collection, hydrocephalus, or mass effect. Mild nonspecific chronic white matter signal changes suggest microvascular ischemia. The major vascular flow voids are maintained. There is generalized parenchymal volume loss. There are cervical spine degenerative changes and mild C1-2 arthropathy. There has been right globe cataract surgery. There is mild multifocal chronic sinus mucosal disease with well aerated mastoid air cells. The sella is unremarkable. The marrow signal is heterogeneous in a nonspecific fashion. IMPRESSION: 1. No evidence of acute infarct, hemorrhage, or hydrocephalus. 2. Mild chronic white matter changes, likely of microvascular etiology. 3. Additional chronic and involutional findings as discussed. Signed: Baldomero Goodwin MD Report Verified Date/Time: 06/06/2018 16:29:20 Reading Location: [facility] [id number] Neuro Reading Room Performing Organization Address City/State/Zipcode Phone Number GE RIS after 03/06/2018 Insurance Payer Benefit Plan / Group Subscriber ID Type Phone Address [employer] - MEDICARE MGD [employer] MEDICARE ADV xxxxxxxxx [facility] Contracted CARE Advance Directives For more information, please contact:[address], [place] [phone] Code Status Date Activated Date Inactivated Comments Full Code 06/06/2018 11:43 AM 06/08/2018 5:48 PM This code status was determined by: Patient
--- OUTSIDE RECORDS SUMMARY | 2019-03-07 00:59 | XMS REPORT | Summary of Care ---
:1945 Author Organization [facility] Neurology [place] Address [address] [place] [address]- Encounter HQ Encntr_alias(FIN) [id number] Date(s): 08/10/18 - 08/11/18 [facility] [address] [place] [address]- [phone] Vital Signs No data available for this section Problem List Condition Effective Dates Status Health Status Informant Cervical spondylosis(Confirmed) Active Insomnia(Confirmed) Active Vertigo(Confirmed) Active Allergies, Adverse Reactions, Alerts No Known Medication Allergies Medications No data available for this section Results No data available for this section Immunizations No data available for this section Procedures No data available for this section Social History Social History Type Response Smoking Status Never smoker; Exposure to Tobacco Smoke Unable to obtain; Cigarette Smoking Last 365 Days Unable to obtain; Reg Smoking Cessation Counseling No entered on: 01/26/19 Assessment and Plan No data available for this section
--- OUTSIDE RECORDS SUMMARY | 2019-03-07 00:59 | XMS REPORT ---
:1945 Author Organization [facility] Address [address] [place] [address] Dr. Caldwell [address] [place] [id number] Care Team Providers Name Role Phone SCARLET MARTEL Unavailable Unavailable Problems This patient has no known problems. Allergies, Adverse Reactions, Alerts This patient has no known allergies or adverse reactions. Medications This patient has no known medications. Results Test Description Test Time Test Comments Text Results Atomic Results Result Comments CT, BRAIN, WITHOUT CONTRAST 2018-06-08 08:11:[address] head without contrast INDICATION: [...] to IV infiltration. COMPARISON: MRI brain 06/06/2018 FINDINGS:There is no acute intracranial hemorrhage or mass [...] findings as discussed above. Signed: Baldomero Goodwin Verified Date/Time: 06/08/2018 08:11:29 Reading Location: [address] Neuro Reading Room [facility] 2018-06-08 06:22:00 Test Item Value Reference Range Comments MAGNESIUM (BEAKER) (test lkma=306) 2.1 mg/dL 1.6-2.6 BASIC METABOLIC [id number] 06:22:00 Test Item Value Reference Range Comments SODIUM (BEAKER) (test 139 meq/L 136-145 zdwb=966) POTASSIUM (BEAKER) (test 3.9 meq/L 3.5-5.1 sovn=943) CHLORIDE (BEAKER) (test 106 meq/L 98-107 zzzz=236) CO2 (BEAKER) (test 25 meq/L 22-29 bumk=881) BLOOD UREA NITROGEN 9 mg/dL 7-21 (BEAKER) (test xngd=563) CREATININE (BEAKER) (test 0.71 mg/dL 0.57-1.25 ldxl=967) GLUCOSE RANDOM (BEAKER) 90 mg/dL 70-105 (test tzez=975) CALCIUM (BEAKER) (test 9.4 mg/dL 8.4-10.2 fkle=827) EGFR (BEAKER) (test 80 mL/min/1.73 sq m ESTIMATED GFR IS NOT iokd=8001) ACCURATE CREATININE CLEARANCE IN PREDICTING GLOMERULAR FILTRATION RATE. ESTIMATED GFR IS NOT APPLICABLE FOR DIALYSIS PATIENTS. LIPID [id number] 06:22:00 Test Item Value Reference Range Comments TRIGLYCERIDES (BEAKER) (test vuuq=789) 206 mg/dL CHOLESTEROL (BEAKER) (test udji=896) 232 mg/dL HDL CHOLESTEROL (BEAKER) (test yaud=745) 47 mg/dL LDL CHOLESTEROL CALCULATED (BEAKER) (test 144 mg/dL gsbp=517) Triglyceride Reference Range: Low Risk <150 Borderline 150- 199 High Risk 200-499 Very High Risk >=500Cholesterol Reference Range: Low Risk <200 Borderline 200-239 High Risk > 240HDL Cholesterol Reference Range: Low Risk >=60 High Risk <40LDL Cholesterol Reference Range: Optimal <100 Near Optimal 100-129 Borderline 130-159 High 160-189 Very High >=190HEPATIC FUNCTION [id number] 06:22:00 Test Item Value Reference Range Comments TOTAL PROTEIN (BEAKER) (test qlhi=641) 6.6 gm/dL 6.0-8.3 ALBUMIN (BEAKER) (test gfgj=5332) 3.7 g/dL 3.5-5.0 BILIRUBIN TOTAL (BEAKER) (test pxrc=998) 0.5 mg/dL 0.2-1.2 BILIRUBIN DIRECT (BEAKER) (test eyvb=228) 0.2 mg/dL 0.1-0.5 ALKALINE PHOSPHATASE (BEAKER) (test ealm=908) 67 U/L 40-150 AST (SGOT) (BEAKER) (test mqlc=301) 16 U/L 5-34 ALT (SGPT) (BEAKER) (test rtgj=236) 11 U/L 6-55 CALCIUM, [id number] 06:20:00 Test Item Value Reference Range Comments CALCIUM IONIZED (BEAKER) (test zpez=415) 1.14 mmol/L 1.12-1.27 PH, BLOOD (BEAKER) (test pbkb=3208) 7.41 PROTHROMBIN TIME/[id number] 06:01:00 Test Item Value Reference Range Comments PROTIME (BEAKER) (test zsne=438) 13.3 seconds 11.7-14.7 INR (BEAKER) (test xxxc=882) 1.0 <=5.9 RECOMMENDED COUMADIN/WARFARIN INR THERAPY RANGESSTANDARD DOSE: 2.0 - 3.0 Includes: PROPHYLAXIS forvenous thrombosis, systemic embolization; TREATMENT for venous thrombosis and/or pulmonary embolus.HIGH RISK: Target INR is 2.5-3.5 for patients with mechanical heart valves.MR, MRA, BRAIN, WITHOUT [id number] 21:28:00FINAL REPORT MR, MRA, BRAIN, WITHOUT CONTRAST, MR, MRA, NECK, WITHOUT IV CONTRAST INDICATION: TIA Workup TECHNIQUE: 3 -D time of flight MRA of the cranial and cervical circulation. 2-D time of flight MRA of the neck. 3D MIP angiographic post-processing was performed. Stenosis evaluation utilized NASCET criteria. COMPARISON: Correlation to noncontrast brain MRI of the same date FINDINGS: MRA BRAIN:Internal carotid arteries: Patent. Middle cerebral arteries: Patent to distal branches.Anterior cerebral arteries: Intact.Basilar system: Patent vertebrobasilar system.Posterior cerebral arteries:Patent beyond the quadrigeminal segments.Additional findings: None. MRA NECK:Common carotid arteries: Unremarkable. Bifurcations: No flow-limiting stenosis. Cervical internal carotid arteries: No flow limiting stenosis.Vertebral arteries: Slight left dominance. IMPRESSION: No flow limiting stenosis in the major branch vessels of the cervical or cranial circulation. Signed: JR Cortés Robert MDReport Verified Date/Time: 06/07/2018 21:28:54 Reading Location: [address] Reading Room MR, MRA, NECK, WITHOUT IV [id number] 21:28: 00FINAL REPORT MR, MRA, BRAIN, WITHOUT CONTRAST, MR, MRA , NECK, WITHOUT IV CONTRAST INDICATION: TIA Workup TECHNIQUE: 3-D time of flight MRA of the cranial and cervical circulation. 2-D time of flight MRA of the neck. 3D MIP angiographic post-processing was performed. Stenosis evaluation utilized NASCET criteria. COMPARISON: Correlation to noncontrast brain MRI of the same date FINDINGS: MRA BRAIN:Internal carotid arteries: Patent. Middle cerebral arteries: Patent to distal branches.Anterior cerebral arteries: Intact.Basilar system: Patent vertebrobasilar system.Posterior cerebral arteries:Patent beyond the quadrigeminal segments.Additional findings: None. MRA NECK:Common carotid arteries: Unremarkable. Bifurcations: No flow- limiting stenosis. Cervical internal carotid arteries: No flow limiting stenosis.Vertebral arteries: Slight left dominance. IMPRESSION: No flow limiting stenosis in the major branch vessels of the cervical or cranial circulation. Signed: JR Cortés Robert MDReport Verified Date/Time: 21:28:54 Reading Location: [address] Reading Room CALCIUM, [id number] 03:12:00 Test Item Value Reference Range Comments CALCIUM IONIZED (BEAKER) (test vfgi=445) 1.15 mmol/L 1.12-1.27 PH, BLOOD (BEAKER) (test zzpb=6694) 7.37 PROTHROMBIN TIME/[id number] 02:47:00 Test Item Value Reference Range Comments PROTIME (BEAKER) (test bucg=720) 13.0 seconds 11.7-14.7 INR (BEAKER) (test jewh=431) 1.0 <=5.9 RECOMMENDED COUMADIN/WARFARIN INR THERAPY RANGESSTANDARD DOSE: 2.0 - 3.0 Includes: PROPHYLAXIS forvenous thrombosis, systemic embolization; TREATMENT for venous thrombosis and/or pulmonary embolus.HIGH RISK: Target INR is 2.5-3.5 for patients with mechanical heart valves.CBC W/PLT COUNT & AUTO [id number] 02:37:00 Test Item Value Reference Range Comments WHITE BLOOD CELL COUNT (BEAKER) (test qmrk=587) 6.3 K/ L 3.5-10.5 RED BLOOD CELL COUNT (BEAKER) (test cmvn=032) 3.95 M/ L 3.93-5.22 HEMOGLOBIN (BEAKER) (test hhcv=177) 11.2 GM/DL 11.2-15.7 HEMATOCRIT (BEAKER) (test anrh=736) 35.3 % 34.1-44.9 MEAN CORPUSCULAR VOLUME (BEAKER) (test uixz=598) 89.4 fL 79.4-94.8 MEAN CORPUSCULAR HEMOGLOBIN (BEAKER) (test 28.4 pg 25.6-32.2 ihyc=051) MEAN CORPUSCULAR HEMOGLOBIN CONC (BEAKER) (test 31.7 GM/DL 32.2-35.5 vynj=444) RED CELL DISTRIBUTION WIDTH (BEAKER) (test 13.3 % 11.7-14.4 wmbb=952) PLATELET COUNT (BEAKER) (test ctju=996) 276 K/CU MM 150-450 MEAN PLATELET VOLUME (BEAKER) (test ksab=931) 9.2 fL 9.4-12.3 NUCLEATED RED BLOOD CELLS (BEAKER) (test 0 /100 WBC 0-0 jfdv=284) NEUTROPHILS RELATIVE PERCENT (BEAKER) (test 46 % syig=375) LYMPHOCYTES RELATIVE PERCENT (BEAKER) (test 39 % zrsx=671) MONOCYTES RELATIVE PERCENT (BEAKER) (test 10 % witb=920) EOSINOPHILS RELATIVE PERCENT (BEAKER) (test 4 % yjgf=252) BASOPHILS RELATIVE PERCENT (BEAKER) (test 1 % vuzj=140) NEUTROPHILS ABSOLUTE COUNT (BEAKER) (test 2.90 K/ L 1.56-6.13 axqe=811) LYMPHOCYTES ABSOLUTE COUNT (BEAKER) (test 2.44 K/ L 1.18-3.74 mgge=870) MONOCYTES ABSOLUTE COUNT (BEAKER) (test 0.63 K/ L 0.24-0.36 gmup=988) EOSINOPHILS ABSOLUTE COUNT (BEAKER) (test 0.26 K/ L 0.04-0.36 wpnu=033) BASOPHILS ABSOLUTE COUNT (BEAKER) (test 0.03 K/ L 0.01-0.08 ypgv=677) IMMATURE GRANULOCYTES-RELATIVE PERCENT (BEAKER) 0 % 0-1 (test xosv=3839) COMPREHENSIVE METABOLIC [id number] 17:20:00 Test Item Value Reference Range Comments TOTAL PROTEIN (BEAKER) 6.5 gm/dL 6.0-8.3 (test mmxs=116) ALBUMIN (BEAKER) (test 3.7 g/dL 3.5-5.0 xeps=6613) ALKALINE PHOSPHATASE 68 U/L 40-150 (BEAKER) (test zbnx=174) BILIRUBIN TOTAL (BEAKER) 0.4 mg/dL 0.2-1.2 (test hzbe=015) SODIUM (BEAKER) (test 138 meq/L 136-145 asec=727) POTASSIUM (BEAKER) (test 3.6 meq/L 3.5-5.1 chtj=735) CHLORIDE (BEAKER) (test 106 meq/L 98-107 gvxl=239) CO2 (BEAKER) (test 25 meq/L 22-29 xezv=669) BLOOD UREA NITROGEN 12 mg/dL 7-21 (BEAKER) (test sbzl=484) CREATININE (BEAKER) (test 0.73 mg/dL 0.57-1.25 grlp=054) GLUCOSE RANDOM (BEAKER) 104 mg/dL 70-105 (test yalk=062) CALCIUM (BEAKER) (test 9.6 mg/dL 8.4-10.2 ansp=337) AST (SGOT) (BEAKER) (test 16 U/L 5-34 gaiz=545) ALT (SGPT) (BEAKER) (test 12 U/L 6-55 alyx=022) EGFR (BEAKER) (test 78 mL/min/1.73 sq m ESTIMATED GFR IS NOT dneh=4915) ACCURATE CREATININE CLEARANCE IN PREDICTING GLOMERULAR FILTRATION RATE. ESTIMATED GFR IS NOT APPLICABLE FOR DIALYSIS PATIENTS. CBC (HEMOGRAM ONLY)2018-06-06 17:03:00 Test Item Value Reference Range Comments WHITE BLOOD CELL COUNT (BEAKER) (test vuhx=562) 7.6 K/ L 3.5-10.5 RED BLOOD CELL COUNT (BEAKER) (test wqdv=552) 3.91 M/ L 3.93-5.22 HEMOGLOBIN (BEAKER) (test uvld=709) 11.4 GM/DL 11.2-15.7 HEMATOCRIT (BEAKER) (test mhxo=923) 34.6 % 34.1-44.9 MEAN CORPUSCULAR VOLUME (BEAKER) (test bvdd=456) 88.5 fL 79.4-94.8 MEAN CORPUSCULAR HEMOGLOBIN (BEAKER) (test 29.2 pg 25.6-32.2 ywhg=758) MEAN CORPUSCULAR HEMOGLOBIN CONC (BEAKER) (test 32.9 GM/DL 32.2-35.5 njse=081) RED CELL DISTRIBUTION WIDTH (BEAKER) (test 13.3 % 11.7-14.4 nchy=987) PLATELET COUNT (BEAKER) (test dywu=219) 264 K/CU MM 150-450 MEAN PLATELET VOLUME (BEAKER) (test ygjt=273) 9.2 fL 9.4-12.3 NUCLEATED RED BLOOD CELLS (BEAKER) (test 0 /100 WBC 0-0 sjih=647) MR, BRAIN, WITHOUT [id number] 16:29:00FINAL REPORT MRI brain without contrast INDICATION: CVA, TIA TECHNIQUE: Multiplanar , multisequence MR imaging of the brain was performed utilizing the following imaging sequences: Axial T2, FLAIR, GRE, and DWI; sagittal and coronal T1 COMPARISON: None available FINDINGS:There isno acute infarct, hematoma, extra- axial collection, hydrocephalus, or mass effect. Mild nonspecific chronic white matter signal changes suggest microvascular ischemia. The major vascular flow voids aremaintained. There is generalized parenchymal volume loss. There [...] and involutional findings as discussed. Signed: Baldomero Goodwineport Verified Date/Time: 06/06/2018 16:29:20 Reading Location: [facility] C013V Neuro Reading Room Electronically signed by: BALDOMERO GOODWIN M.D. on 2017 04:29 PM
--- OUTSIDE RECORDS SUMMARY | 2019-03-07 00:59 | XMS REPORT | Summary of Care ---
:1945 Author Organization [facility] Neurology [place] Address [address] [place] [address]- Encounter HQ Clarer_bear(FIN) [id number] Date(s): 06/16/18 - 06/16/18 [facility] [address] [place] [address]- [phone] Discharge Disposition: Home or Self Care Attending Physician: Logan Milligan MD Referring Physician: Logan Milligan MD Vital Signs Most recent to oldest [Reference Range]: 1 Height 165.1 cm (06/16/18 10:15 AM) Blood Pressure [90-140/60-90 mmHg] 101/56 mmHg (06/16/18 10:15 AM) Peripheral Pulse Rate [60-100 bpm] 98 bpm (06/16/18 10:15 AM) Weight 66.818 kg (06/16/18 10:15 AM) Body Mass Index 24.51 m2 (06/16/18 10:15 AM) Problem List Condition Effective Dates Status Health Status Informant Vertigo(Confirmed) Active Allergies, Adverse Reactions, Alerts No Known Medication Allergies Medications PROzac 20 mg oral capsule 20 mg=1 cap, PO, Daily, # 30 cap, 1 Refill(s) Start Date: 06/16/18 Status: Ordered Results No data available for this section Immunizations No data available for this section Procedures No data available for this section Social History Social History Type Response Smoking Status Never smoker; Exposure to Tobacco Smoke Unable to obtain; Cigarette Smoking Last 365 Days Unable to obtain; Reg Smoking Cessation Counseling No entered on: 07/28/18 Assessment and Plan No data available for this section
--- OUTSIDE RECORDS SUMMARY | 2019-03-07 00:59 | XMS REPORT | Continuity of Care Document ---
:1945 Author Organization [facility] Care Team Providers Name Role Phone [employer] Unavailable Unavailable Problems Problem Status Onset Classification Date Comments Source Date Reported Cervical Active Problem 03/01/2019 [facility] spondylosis [facility] Insomnia Active Problem 03/01/2019 [facility] Vertigo Active Problem 03/01/2019 [facility] Medications Medication Details Route Status Patient Ordering Order Source Instructions Provider Date Fluoxetine 20 20 mg=1 Active 06/16/20 [facility] Oral cap, PO, 18 Neuro Capsule Daily, # [Prozac] 30 cap, 1 Refill(s) Allergies, Adverse Reactions, Alerts Substance Category Reaction Severity Reaction Status Date Comments Source type Reported No Known Assertion Drug [facility] Medication allergy Neuro Allergies Immunizations No Data Provided for This Section Results No Data Provided for This Section Pathology Reports No Data Provided for This Section Diagnostic Reports No Data Provided for This Section Consultation Notes No Data Provided for This Section Discharge Summaries No Data Provided for This Section History and Physicals No Data Provided for This Section Vital Signs Vital Sign Value Date Comments Source Height 157.48 cm 01/26/2019 [facility] Weight 66.818 01/26/2019 [facility] BMI Calculated 26.94 01/26/2019 [facility] Heart Rate 91 01/26/2019 [facility] Respitory Rate 16 01/26/2019 [facility] Systolic (mm Hg) 76 01/26/2019 [facility] Diastolic (mm Hg) 51 01/26/2019 [facility] Heart Rate 82 07/28/2018 [facility] Systolic (mm Hg) 110 07/28/2018 [facility] Diastolic (mm Hg) 64 07/28/2018 [facility] BMI Calculated 26.94 07/28/2018 [facility] Height 157.48 cm 07/28/2018 [facility] Weight 66.818 07/28/2018 [facility] Systolic (mm Hg) 101 06/16/2018 [facility] Diastolic (mm Hg) 56 06/16/2018 [facility] Heart Rate 98 06/16/2018 [facility] Height 165.1 cm 06/16/2018 [facility] Neuro Weight 66.818 06/16/2018 [facility] Neuro BMI Calculated 24.51 06/16/2018 [facility] Neuro Encounters Location Location Encounter Encounter Reason Attending ADM DC Status Source Details Type Number For Provider Date Date Visit Outpatient [id number] YAJAIRA 06/16 [facility] Outpatient [id number] Yajaira 06/16 06/17 [facility] Neurology [facility] [place] Outpatient [id number] YAJAIRA 07/28 [facility] MNA Outpatient [id number] Yajaira 07/28 07/29 [facility] Neurology [facility] [place] MNA Outside [id number] 08/10 08/12 [facility] Neurology [facility] [place] Records Outpatient [id number] Yajaira 01/26 [facility] MNA Outpatient [id number] Yajaira 01/26 01/27 [facility] Neurology [facility] [place] Outpatient [id number] Yajaira 07/27 [facility] [place] Procedures No Data Provided for This Section Assessment and Plan No Data Provided for This Section Plan of Care No Data Provided for This Section Social History Social History Date Source Social History TypeResponse 01/26/2019 [facility] Neuro Smoking Status Never smoker; Exposure to Tobacco Smoke Unable to obtain; Cigarette Smoking Last 365 Days Unable to obtain; Reg Smoking Cessation Counseling No entered on: 01/26/19 Family History No Data Provided for This Section Advance Directives No Data Provided for This Section Functional Status No Data Provided for This Section
--- OUTSIDE RECORDS SUMMARY | 2019-03-07 00:59 | XMS REPORT | Summary of Care ---
:1945 Author Organization [facility] Neurology [place] Address [address] [place] [address]- Encounter HQ Calvin_bear(FIN) [id number] Date(s): 07/28/18 - 07/28/18 [facility] [address] [place] [address]- [phone] Discharge Disposition: Home or Self Care Attending Physician: Logan Milligan MD Referring Physician: Logan Milligan MD Vital Signs Most recent to oldest [Reference Range]: 1 Height 157.48 cm (07/28/18 10:15 AM) Blood Pressure [90-140/60-90 mmHg] 110/64 mmHg (07/28/18 10:15 AM) Peripheral Pulse Rate [60-100 bpm] 82 bpm (07/28/18 10:15 AM) Weight 66.818 kg (07/28/18 10:15 AM) Body Mass Index 26.94 m2 (07/28/18 10:15 AM) Problem List Condition Effective Dates Status Health Status Informant Cervical spondylosis(Confirmed) Active Insomnia(Confirmed) Active Vertigo(Confirmed) Active Allergies, Adverse Reactions, Alerts No Known Medication Allergies Medications No Known Medications Results No data available for this section [...]
--- OUTSIDE RECORDS SUMMARY | 2019-03-07 00:59 | XMS REPORT | Summary of Care ---
:1945 Author Organization [facility] Neurology [place] Address [address] [place] [address]- Encounter HQ Encntr_aliamy(FIN) [id number] Date(s): 01/26/19 - 01/26/19 [facility] [address] [place] [address]- [phone] Discharge Disposition: Home or Self Care Attending Physician: Logan Milligan MD Referring Physician: Logan Milligan MD Vital Signs Most recent to oldest [Reference Range]: 1 Height 157.48 cm (01/26/19 10:26 AM) Blood Pressure [90-140/60-90 mmHg] 76/51 mmHg *LOW* (01/26/19 10:26 AM) Respiratory Rate [14-20 BRMIN] 16 BRMIN (01/26/19 10:26 AM) Peripheral Pulse Rate [60-100 bpm] 91 bpm (01/26/19 10:26 AM) Weight 66.818 kg (01/26/19 10:26 AM) Body Mass Index 26.94 m2 (01/26/19 10:26 AM) Problem List Condition Effective Dates Status [...]
[2019-03-07 01:21] LABS: Urine Blood TRACE (NEG); Urine Glucose NEGATIVE (NEG); Urine Protein 1+ (NEG)
[2019-03-07] MEDS ORDERED: MECLIZINE HCL 12.5 MG TAB ONE (02:05)
[2019-03-07] MEDS ORDERED: NA CHLORIDE 0.9% 500 ML ONE (02:05)
[2019-03-07] MEDS ORDERED: FAMOTIDINE 20 MG/2 ML VIAL IV ONE (02:05)
[2019-03-07] MEDS ORDERED: ONDANSETRON 4 MG/2 ML VIAL ONE (02:09)
[2019-03-07 03:12] LABS: Basophils % 0.3 % (0-1.3); Eosinophils % 0.4 % (0-4.4); Lymphocytes % 8.6 % (15.3-44.8); MPV 7.6 fL (7.6-11.3); Monocytes % 4.6 % (3.3-12.3); RBC Red Blood Cell Count 4.61 M/uL (3.86-4.86)
[2019-03-07 03:19] LABS: Protime INR 1.01
[2019-03-07 03:32] LABS: ALT/SGPT 20 U/L (12-78); AST/SGOT 17 U/L (15-37); Albumin 3.6 g/dL (3.4-5.0); Alkaline Phosphatase 75 U/L (45-117); BUN Blood Urea Nitrogen 15 mg/dL (7-18); Bicarbonate 29 mmol/L (21-32); Bilirubin Direct 0.1 mg/dL (0-0.2); Bilirubin Total 0.4 mg/dL (0.2-1.0); Glucose Level 108 mg/dL (74-106); Magnesium 2.2 mg/dL (1.8-2.4); NT PRO-BNP 127 pg/mL (<450); Potassium 3.6 mmol/L (3.5-5.1); Protein, Total 7.3 g/dL (6.4-8.2); Sodium Level 138 mmol/L (136-145); Troponin (Emerg Dept Use Only) < 0.02 ng/mL (0.0-0.045)
[2019-03-07] MEDS ORDERED: DIAZEPAM 10 MG/2 ML INJ SYRINGE ONE (03:37)
[2019-03-07 04:11] LABS: Blood Morphology Comment NOT SEEN (NOT SEEN); Platelet Estimate ADEQ; Urine White Blood Cell Casts OK
--- NOTE | 2019-03-07 05:57 | EKG ---
Test Date: 2019-03-07 Test Time: 01:40:47 Milling/Polishing Operator: TIM MEASUREMENT RESULTS: Intervals: Rate: 90 VT: 178 QRSD: 88 QT: 394 QTc: 481 [place]: P: 61 VT: 178 QRS: 54 T: 14 INTERPRETIVE STATEMENTS: Normal sinus rhythm ST & T wave abnormality, consider anterior ischemia Prolonged QT Abnormal ECG Compared to ECG 06/06/2018 06:42:05 ST (T wave) deviation now present Possible ischemia now present T-wave abnormality no longer present Electronically Signed On 03-07-19 05:56:49 CDT by [place]
--- NOTE | 2019-03-07 06:43 | ER ---
Nurse's Notes [facility] Name: Sherry Russ Age: 73 yrs Sex: Female : 1945 Arrival Date: 03/07/2019 Time: 01:06 Bed 17 Private MD: Diagnosis: Other peripheral vertigo, unspecified ear Presentation: 03/07 01:16 Presenting complaint: Patient states: Patient states they had a vertigo attack eb1 yesterday afternoon. Patient began to have nausea and vomitting at this time. Transition of care: patient was not received from another setting of care. Onset of symptoms was March 06, 2019. Risk Assessment: Do you want to hurt yourself or someone else? Patient reports no desire to harm self or others. Initial Sepsis Screen: Does the patient meet any 2 criteria? No. Patient's initial sepsis screen is negative. Does the patient have a suspected source of infection? No. Patient's initial sepsis screen is negative. Care prior to arrival: None. 01:16 Method Of Arrival: EMS: [facility] eb1 01:16 Acuity: CHAD 3 eb1 Triage Assessment: 01:28 General: Appears in no apparent distress. uncomfortable, slender, well groomed, well eb1 developed, well nourished, Behavior is calm, cooperative, appropriate for age. Pain: Complains of pain in forehead, right cheek and left cheek Pain began 1 day ago. EENT: Reports nasal congestion. Neuro: No deficits noted. Cardiovascular: No deficits noted. Respiratory: No deficits noted. GI: Abdomen is flat, non-distended, Pt is actively vomiting bile, Bowel sounds present X 4 quads. Abd is soft and non tender X 4 quads. Reports nausea, vomiting. : No deficits noted. No signs and/or symptoms were reported regarding the genitourinary system. Derm: No deficits noted. No signs and/or symptoms reported regarding the dermatologic system. Musculoskeletal: No deficits noted. No signs and/or symptoms reported regarding the musculoskeletal system. Historical: - Allergies: :28 Penicillins; eb1 01:28 Methadone; eb1 - Home Meds: 01:27 fluoxetine 10 mg Oral cap 2 caps once daily [Active]; eb1 - PMHx: 01:27 Hypertension; Anxiety; Depression; eye problems; Hyperlipidemia; eb1 07:32 vertigo; aa5 - PSHx: 01:27 Hysterectomy; Tonsillectomy; back sx; eb1 - Immunization history:: Adult Immunizations up to date. - Social history:: Smoking status: Patient/guardian denies using tobacco. - Ebola Screening: : Patient negative for fever greater than or equal to 101.5 degrees Fahrenheit, and additional compatible Ebola Virus Disease symptoms Patient denies exposure to infectious person Patient denies travel to an Ebola-affected area in the 21 days before illness onset. Screenin:53 Abuse screen: Denies threats or abuse. Denies injuries from another. Nutritional eb1 screening: No deficits noted. Tuberculosis screening: No symptoms or risk factors identified. Fall Risk None identified. Assessment: 01:15 General: Appears in no apparent distress. uncomfortable, slender, well groomed, well eb1 developed, well nourished, Behavior is calm, cooperative, appropriate for age. Pain: Denies pain. Neuro: No deficits noted. Cardiovascular: No deficits noted. Respiratory: No deficits noted. GI: Abdomen is flat, non-distended, Pt is actively vomiting clear fluid, Bowel sounds present X 4 quads. Abd is soft and non tender X 4 quads. Reports nausea, vomiting. : No deficits noted. No signs and/or symptoms were reported regarding the genitourinary system. EENT: No deficits noted. No signs and/or symptoms were reported regarding the EENT system. Derm: No deficits noted. No signs and/or symptoms reported regarding the dermatologic system. Musculoskeletal: No deficits noted. No signs and/or symptoms reported regarding the musculoskeletal system. 02:00 Reassessment: Patient appears in no apparent distress at this time. No changes from eb1 previously documented assessment. Patient and/or family updated on plan of care and expected duration. Pain level reassessed. 02:54 Reassessment: Patient appears in no apparent distress at this time. No changes from eb1 previously documented assessment. Patient and/or family updated on plan of care and expected duration. Pain level reassessed. 03:48 Reassessment: Patient appears in no apparent distress at this time. No changes from eb1 previously documented assessment. Patient and/or family updated on plan of care and expected duration. Pain level reassessed. 07:32 Reassessment: Pt lying down in bed with eyes closed, respirations even and unlabored, aa5 skin is pink/warm/dry. Pt easy to awaken to verbal stimuli, pt is A\\T\\O x4, pt states "I still feel a little dizzy but I am not nauseated anymore and I haven't vomited". Denies pain. Awaiting room assignment, pt notified of wait time, pt verbalized understanding. . Vital Signs: 00:30 BP 161 / 85; Pulse 56; Resp 20; Temp 98.8; Pulse Ox 99% ; Pain 5/10; eb1 02:00 BP 137 / 69; Pulse 93; Resp 15; Temp 98.7; Pulse Ox 98% ; Pain 0/10; eb1 03:15 BP 111 / 56; Pulse 93; Resp 16; Temp 98.2; Pulse Ox 99% ; eb1 04:42 BP 126 / 55; Pulse 93; Resp 16; Temp 98.4(O); Pulse Ox 95% ; Pain 0/10; eb1 05:47 BP 121 / 73; Pulse 93; Resp 16; Temp 98.2; Pulse Ox 98% ; Pain 4/10; eb1 06:21 BP 138 / 70; Pulse 90; Resp 16; Temp 98.2(O); Pulse Ox 95% ; Pain 2/10; eb1 07:32 BP 126 / 66; Pulse 92; Resp 16 S; Temp 98.0(TE); Pulse Ox 96% on R/A; Pain 0/10; aa5 NIH Stroke Scale Scores: 06:33 NIHSS Score: 0 gs ED Course: 01:06 Patient arrived in ED. ds1 01:17 Nayan Joiner PA is PHCP. cp 01:17 Matthew Ribeiro MD is Attending Physician. cp 01:19 Triage completed. eb1 01:31 Arm band placed on right wrist. eb1 01:43 Radiology exam delayed due to EKG/labs being done at this time. kw1 02:17 CT Head Brain wo Cont In Process Unspecified. EDMS 02:54 Patient has correct armband on for positive identification. Bed in low position. eb1 03:33 Basic Metabolic Panel Sent. eb1 03:34 CBC with Diff Sent. eb1 04:41 No apparent distress. Assisted patient in walking around room. Patient states they are eb1 still dizzy. 06:42 Grace Schroeder MD is Hospitalizing Provider. 07:00 Report received from JERMAINE Lawson. [facility] 07:05 Jo Reyes RN is Primary Nurse. [facility] 07:52 No provider procedures requiring assistance completed. Patient admitted, IV remains in aa5 place. Administered Medications: 02:25 Drug: Zofran 4 mg Route: IVP; Site: right wrist; eb1 03:16 Follow up: Response: Nausea is decreased eb1 02:25 Drug: Pepcid 20 mg Route: IVP; Site: right wrist; eb1 03:16 Follow up: Response: No adverse reaction eb1 02:25 Drug: Meclizine 25 mg Route: PO; eb1 03:16 Follow up: Response: No adverse reaction eb1 02:25 Drug: NS 0.9% 500 ml Route: IV; Rate: 250 ml/hr; Site: right wrist; eb1 04:42 Follow up: IV Status: Completed infusion eb1 03:27 Drug: Diazepam 2 mg Route: IVP; Site: right wrist; eb1 Outcome: 06:43 Decision to Hospitalize by Provider. 07:52 Admitted to Tele accompanied by tech, via wheelchair, with chart, Report called to odell Marlow RN 07:52 Condition: stable 07:52 Instructed on the need for admit, Demonstrated understanding of instructions. 07:53 [facility] left the ED. [facility] NIH Stroke Scale - NIH Stroke Score Date: 03/07/2019 Time: 06:33 Total Score = 0 1a. Level of Consciousness (LOC) - 0(Alert) 1b. Level of Consciousness (LOC) (Year \\T\\ Age) - 0(Both) 1c. LOC Commands (Open \\T\\ Closes Eyes/Sensor Specialist) - 0(Both) 2. Best Gaze (Lateral Gaze Paresis) - 0(Normal) 3. Visual Field Loss - 0(No visual loss) 4. Facial Palsy - 0(Normal) 5a. Left Arm: Motor (10-second hold) - 0(No drift) 5b. Right Arm: Motor (10-second hold) - 0(No drift) 6a. Left Leg: Motor (5-second hold - always test supine) - 0(No drift) 6b. Right Leg: Motor (5-second hold - always test supine) - 0(No drift) 7. Limb Ataxia (finger/nose \\T\\ heel/rust - test with eyes open) - 0(Absent) 8. Sensory Loss (pinprick arms/legs/face) - 0(Normal) 9. Best Language: Aphasia (description/naming/reading) - 0(No aphasia) 10. Dysarthria (speech clarity - read or repeat words) - 0(Normal) 11. Extinction and Inattention (visual/tactile/auditory/spatial/personal) - 0(No abnormality) Initials: Signatures: Dispatcher [employer] Sharri Nino ds1 Jo Reyes, RN RN aa5 Nayan Joiner PA PA cp Starr, Gregory, MD MD gs Wilhelm, Kimberly kw1 Lulu Espinosa RN RN eb1
--- NOTE | 2019-03-07 06:44 | EDPHYS ---
Physician Documentation [facility] Name: Sherry Russ Age: 73 yrs Sex: Female : 1945 Arrival Date: 03/07/2019 Time: 01:06 Bed 17 Private MD: ED Physician Matthew Ribeiro HPI: 03/07 01:31 This 73 yrs old Female presents to ER via EMS with complaints of Dizziness, cp Nausea, Vomiting. 01:31 The patient presents with generalized weakness, feeling off balance, sense of spinning. cp Onset: The symptoms/episode began/occurred yesterday morning. Associated signs and symptoms: Pertinent positives: headache, nausea, vomiting. 01:35 Patient reports symptoms are similar to when diagnosed with vertigo. cp Historical: - Allergies: 01:28 Penicillins; eb1 01:28 Methadone; eb1 - Home Meds: 01:27 fluoxetine 10 mg Oral cap 2 caps once daily [Active]; eb1 - PMHx: 01:27 Hypertension; Anxiety; Depression; eye problems; Hyperlipidemia; eb1 07:32 vertigo; aa5 - PSHx: 01:27 Hysterectomy; Tonsillectomy; back sx; eb1 - Immunization history:: Adult Immunizations up to date. - Social history:: Smoking status: Patient/guardian denies using tobacco. - Ebola Screening: : Patient negative for fever greater than or equal to 101.5 degrees Fahrenheit, and additional compatible Ebola Virus Disease symptoms Patient denies exposure to infectious person Patient denies travel to an Ebola-affected area in the 21 days before illness onset. ROS: 01:35 Constitutional: Negative for body aches, chills, fever, poor PO intake. cp 01:35 Eyes: Positive for photophobia. cp 01:35 ENT: Negative for drainage from ear(s), ear pain, sore throat, difficulty swallowing, difficulty handling secretions. 01:35 Neck: Negative for injury or acute deformity, stiffness, tenderness. 01:35 Respiratory: Negative for cough, shortness of breath, wheezing. 01:35 Abdomen/GI: Positive for nausea, vomiting, Negative for abdominal pain, diarrhea, constipation. 01:35 : Negative for urinary symptoms. 01:35 Skin: Negative for cellulitis, rash. 01:35 Neuro: Positive for dizziness, headache, Negative for altered mental status, numbness, syncope, weakness. 01:35 All other systems are negative. Exam: 01:42 Constitutional: The patient appears in no acute distress, alert, awake, cp non-diaphoretic, non-toxic, well developed, well nourished, uncomfortable. 01:42 Head/Face: Normocephalic, atraumatic. cp 01:42 Eyes: Periorbital structures: appear normal, Pupils: equal, round, and reactive to light and accomodation, Extraocular movements: intact throughout, Conjunctiva: normal, no exudate, no injection, Sclera: no appreciated abnormality, Lids and lashes: appear normal, bilaterally, Nystagmus: nystagmus with fast component noted, bilaterally. 01:42 ENT: External ear(s): are unremarkable, Ear canal(s): are normal, clear, TM's: bulging, is not appreciated, bilaterally, dullness, bilaterally, erythema, is not appreciated, bilaterally, Nose: is normal, Mouth: Lips: moist, Oral mucosa: pink and intact, moist, Posterior pharynx: is normal, airway is patent, no erythema, no exudate, Voice: is normal. 01:42 Neck: ROM/movement: is normal, is supple, without pain, no range of motions limitations, no meningismus, no nuchal rigidity. 01:42 Chest/axilla: Inspection: normal, Palpation: is normal, no crepitus, no tenderness. 01:42 Cardiovascular: Rate: bradycardic, Rhythm: regular, Edema: is not appreciated, JVD: is not appreciated. 01:42 Respiratory: the patient does not display signs of respiratory distress, Respirations: normal, no use of accessory muscles, no retractions, no splinting, no tachypnea, labored breathing, is not present, Breath sounds: are clear throughout, no decreased breath sounds, no stridor, no wheezing. 01:42 Abdomen/GI: Inspection: abdomen appears normal, Palpation: abdomen is soft and non-tender, in all quadrants. 01:42 Skin: cellulitis, is not appreciated, no rash present. 01:42 Neuro: Orientation: to person, place \T\ time. Mentation: is normal, Cerebellar function: Romberg testing is negative, normal finger to nose testing, Motor: moves all fours, strength is normal, Sensation: no obvious gross deficits. 01:45 ECG was reviewed by the Attending Physician. cp Vital Signs: 00:30 BP 161 / 85; Pulse 56; Resp 20; Temp 98.8; Pulse Ox 99% ; Pain 5/10; eb1 02:00 BP 137 / 69; Pulse 93; Resp 15; Temp 98.7; Pulse Ox 98% ; Pain 0/10; eb1 03:15 BP 111 / 56; Pulse 93; Resp 16; Temp 98.2; Pulse Ox 99% ; eb1 04:42 BP 126 / 55; Pulse 93; Resp 16; Temp 98.4(O); Pulse Ox 95% ; Pain 0/10; eb1 05:47 BP 121 / 73; Pulse 93; Resp 16; Temp 98.2; Pulse Ox 98% ; Pain 4/10; eb1 06:21 BP 138 / 70; Pulse 90; Resp 16; Temp 98.2(O); Pulse Ox 95% ; Pain 2/10; eb1 07:32 BP 126 / 66; Pulse 92; Resp 16 S; Temp 98.0(TE); Pulse Ox 96% on R/A; Pain 0/10; aa5 NIH Stroke Scale Scores: 06:33 NIHSS Score: 0 gs MDM: 01:31 Patient medically screened. cp 03:12 ED course: head CT negative for acute findings. cp 06:33 Data reviewed: vital signs, nurses notes, lab test result(s), EKG, radiologic studies. gs Other consultation: ddx-vertigo, dehydration, cva, pt is not tpa candidate nihss 0. 03/07 01:17 Order name: Urine Dipstick--Ancillary (enter results); Complete Time: 03:12 mw2 03/07 03:12 Interpretation: Normal except: UBLD TRACE; UPROT 1+. cp 03/07 01:30 Order name: Basic Metabolic Panel cp 03/07 01:30 Order name: CBC with Diff cp 03/07 01:30 Order name: LFT's; Complete Time: 04:25 cp 03/07 01:30 Order name: Magnesium; Complete Time: 04:25 cp 03/07 01:30 Order name: NT PRO-BNP; Complete Time: 04:25 cp 03/07 01:30 Order name: PT-INR; Complete Time: 04:25 cp 03/07 01:30 Order name: Troponin (emerg Dept Use Only); Complete Time: 04:25 cp 03/07 01:31 Order name: Urine Microscopic Only 03/07 01:32 Order name: Basic Metabolic Panel; Complete Time: 04:25 [facility] 03/07 01:32 Order name: CBC with Automated Diff; Complete Time: 04:25 ED[facility] 03/07 04:11 Order name: CBC Smear Scan; Complete Time: 04:25 EDHI 03/07 07:14 Order name: Troponin I [facility] 03/07 07:15 Order name: Troponin I [facility] 03/07 01:30 Order name: EKG; Complete Time: 01:33 cp 03/07 01:30 Order name: Cardiac monitoring; Complete Time: 02:45 cp 03/07 01:30 Order name: EKG - Nurse/Tech; Complete Time: 01:52 03/07 01:30 Order name: IV Saline Lock; Complete Time: 01:52 cp 03/07 01:30 Order name: Labs collected and sent; Complete Time: 01:52 03/07 01:30 Order name: O2 Per Protocol; Complete Time: 01:52 03/07 01:31 Order name: CT Head Brain wo Cont 03/07 07:14 Order name: CONS Pharmacy Consult [facility] 03/07 07:14 Order name: CONS Physician Consult [facility] 03/07 07:15 Order name: Regular [facility] 03/07 07:18 Order name: Physical Therapy Consult [facility] 03/07 01:30 Order name: O2 Sat Monitoring; Complete Time: 01:52 03/07 01:31 Order name: Urine Dipstick-Ancillary (obtain specimen); Complete Time: 02:45 cp EC:45 Rate is 90 beats/min. Rhythm is regular. KS interval is normal. QRS interval is normal. cp QT interval is prolonged at 394 msec. Interpreted by me. Reviewed by me. Administered Medications: 02:25 Drug: Zofran 4 mg Route: IVP; Site: right wrist; eb1 03:16 Follow up: Response: Nausea is decreased eb1 02:25 Drug: Pepcid 20 mg Route: IVP; Site: right wrist; eb1 03:16 Follow up: Response: No adverse reaction eb1 02:25 Drug: Meclizine 25 mg Route: PO; eb1 03:16 Follow up: Response: No adverse reaction eb1 02:25 Drug: NS 0.9% 500 ml Route: IV; Rate: 250 ml/hr; Site: right wrist; eb1 04:42 Follow up: IV Status: Completed infusion eb1 03:27 Drug: Diazepam 2 mg Route: IVP; Site: right wrist; eb1 Disposition: 03/07/19 06:43 Hospitalization ordered by Grace Schroeder for Observation. Preliminary diagnosis is Other peripheral vertigo, unspecified ear. - Bed requested for Telemetry/MedSurg (observation). - Status is Observation. aa5 - Condition is Stable. - Problem is an acute exacerbation. - Symptoms are unchanged. UTI on Admission? No NIH Stroke Scale - NIH Stroke Score Date: 03/07/2019 Time: 06:33 Total Score = 0 1a. Level of Consciousness (LOC) - 0(Alert) 1b. Level of Consciousness (LOC) (Year \T\ Age) - 0(Both) 1c. LOC Commands (Open \T\ Closes Eyes/Cardroom Plastic Card Grader) - 0(Both) 2. Best Gaze (Lateral Gaze Paresis) - 0(Normal) 3. Visual Field Loss - 0(No visual loss) 4. Facial Palsy - 0(Normal) 5a. Left Arm: Motor (10-second hold) - 0(No drift) 5b. Right Arm: Motor (10-second hold) - 0(No drift) 6a. Left Leg: Motor (5-second hold - always test supine) - 0(No drift) 6b. Right Leg: Motor (5-second hold - always test supine) - 0(No drift) 7. Limb Ataxia (finger/nose \T\ heel/rust - test with eyes open) - 0(Absent) 8. Sensory Loss (pinprick arms/legs/face) - 0(Normal) 9. Best Language: Aphasia (description/naming/reading) - 0(No aphasia) 10. Dysarthria (speech clarity - read or repeat words) - 0(Normal) 11. Extinction and Inattention (visual/tactile/auditory/spatial/personal) - 0(No abnormality) Initials: Addendum: 03/09/2019 09:45 Co-signature as Attending Physician, Matthew Ribeiro MD. Signatures: Dispatcher [employer] Jo Vaughan RN RN aa5 Nayan Joiner PA PA Matthew Lozano MD MD gs Botello, Elizabeth eb Basinger, Emily, RN RN eb1 Corrections: (The following items were deleted from the chart) 03/07 01:33 01:31 This 73 yrs old Female presents to ER via EMS with complaints cp of Nausea, Vomiting. cp 07:14 06:43 Hospitalization Ordered by Grace Schroeder MD for Observation. Preliminary eb diagnosis is Other peripheral vertigo, unspecified ear. Bed requested for Telemetry/MedSurg (observation). Status is Observation. Condition is Stable. Problem is an acute exacerbation. Symptoms are unchanged. UTI on Admission? No. gs 07:40 07:14 03/07/2019 06:43 Hospitalization Ordered by Grace Schroeder MD for eb Observation. Preliminary diagnosis is Other peripheral vertigo, unspecified ear. Bed requested for Telemetry/MedSurg (observation). Status is Observation. Condition is Stable. Problem is an acute exacerbation. Symptoms are unchanged. UTI on Admission? No. eb 07:53 07:40 03/07/2019 06:43 Hospitalization Ordered by Grace Schroeder MD for aa5 Observation. Preliminary diagnosis is Other peripheral vertigo, unspecified ear. Bed requested for Telemetry/MedSurg (observation). Status is Observation. Condition is Stable. Problem is an acute exacerbation. Symptoms are unchanged. UTI on Admission? No. eb
[2019-03-07] MEDS ORDERED: ACETAMINOPHEN 500 MG TAB PO PRN (07:06)
[2019-03-07] MEDS ORDERED: MORPHINE 2 MG/ML SYR IV PRN (07:06)
[2019-03-07] MEDS: MECLIZINE HCL 12.5 MG TAB PO SCH ×3 (08:44→21:47)
[2019-03-07] MEDS: NA CHLORIDE 0.9% 1,000 ML IV SCH ×2 (08:44→17:01)
[2019-03-07 08:47] VITALS: BMI 26.5
[2019-03-07 09:04] VITALS: O2SAT 98
[2019-03-07] MEDS: ONDANSETRON 4 MG/2 ML VIAL IV PRN ×2 (09:21→17:06)
--- NOTE | 2019-03-07 11:14 | P.HP ---
Certification for Inpatient Patient admitted to: Observation With expected LOS: <2 Midnights Patient will require the following post-hospital care: None Practitioner: I am a practitioner with admitting privileges, knowledge of patient current condition, hospital course, and medical plan of care. Services: Services provided to patient in accordance with Admission requirements found in Title 42 Section 412.3 of the Code of Federal Regulations Patient History Date of Service: 03/07/19 Reason for admission: Vertigo History of Present Illness: Patient is a 73-year-old female who came to the hospital with vertigo. Patient felt the room spinning and was unable to get her balance. This happened to her before about 6-9 months ago. At that time she was transferred to [facility] for a stroke workup. She had multiple imaging studies performed. However, she was going to get an MRA with contrast but her IV was not working so that was not performed. She has followed up with our local neurologist, Dr. Milligan. She has had some cervical spine issues in the past. Patient decided to come for evaluation because she was having real bad vertigo. She had vomiting and could not get her balance. She was admitted to the hospital for further workup. Allergies codeine [Codeine] Allergy (Intermediate, Verified 07/19/12 18:02) Anaphylaxis Sulfa (Sulfonamide Antibiotics) [Sulfa(Sulfonamide Antibiotics)] Allergy ( Intermediate, Verified 07/19/12 18:02) Hives/Rash No Known Allergi Allergy (Uncoded 12/06/16 02:09) Unknown No Known Allergies Allergy (Uncoded 08/24/17 11:07) Unknown Home Medications: Fluoxetine HCl [Prozac] 1 tab PO DAILY 03/07/19 - Past Medical/Surgical History Has patient received pneumonia vaccine in the past: Yes Diabetic: No -: hypotension -: irritable bowel syndrome -: cataract -: depression -: anxiety -: cataract surgery - Family History Mother Notes: osteoporosis - Social History Smoking Status: Never smoker Alcohol use: No CD- Drugs: Yes Caffeine use: Yes Place of Residence: Home Review of Systems 10-point ROS is otherwise unremarkable Physical Examination - Vital Signs Temperature: 97.7 F Blood Pressure: 147/92 Pulse: 87 Respirations: 18 Pulse Ox (%): 98 - Physical Exam General: Alert, In no apparent distress, Oriented x3 HEENT: Atraumatic, PERRLA, Mucous membr. moist/pink, EOMI, Sclerae nonicteric Neck: Supple, 2+ carotid pulse no bruit, No LAD, Without JVD or thyroid abnormality Respiratory: Clear to auscultation bilaterally, Normal air movement Cardiovascular: Regular rate/rhythm, Normal S1 S2, No murmurs Gastrointestinal: Normal bowel sounds, Soft and benign, Non-distended, No tenderness Musculoskeletal: No clubbing, No swelling, No tenderness Integumentary: No rashes Neurological: Normal gait, Normal speech, Normal strength at 5/5 x4 extr, Normal tone, Sensation intact, Cranial nerves 3-12 intact, Normal affect Lymphatics: No axilla or inguinal lymphadenopathy - Studies Laboratory Data (last 24 hrs) 03/07/19 03:05: PT 11.9, INR 1.01 03/07/19 03:05: WBC 12.0 H, Hgb 13.1, Hct 40.0, Plt Count 269 03/07/19 03:05: Sodium 138, Potassium 3.6, BUN 15, Creatinine 0.76, Glucose 108 H, Magnesium 2.2, Total Bilirubin 0.4, AST 17, ALT 20, Alkaline Phosphatase 75 Assessment & Plan - Problems (Diagnosis) (1) Vertigo Current Visit: Yes Status: Acute (2) Nausea & vomiting Current Visit: Yes Status: Acute - Plan Plan: 1. IV hydration 2. Antivert 3. Monitor electrolytes 4. Neurology consultation pending 5. Discuss with Neurology regarding ENT consultation 6. May need MRI 7. GI and DVT prophylaxis Discharge Plan: Home Plan to discharge in: 48 Hours - Advance Directives Does patient have a Living Will: Yes Does patient have a Durable POA for Healthcare: Yes - Code Status/Comfort Care Code Status Assessed: Yes Code Status: Full Code Critical Care: No Time Spent Managing PTS Care (In Minutes): 45
[2019-03-07] MEDS: FLUOXETINE 20 MG CAP PO SCH (13:24)
[2019-03-07 19:28] LABS: Urine Appearance CLEAR; Urine Bilirubin NEGATIVE (NEG); Urine Blood TRACE (NEG); Urine Color YELLOW; Urine Glucose NEGATIVE (NEG); Urine Protein NEGATIVE (NEG); Urine Specific Gravity 1.015 (1.005-1.030); Urine Urobilinogen 0.2 mg/dL (0.2-1.0)
[2019-03-07 19:59] LABS: Urine Bacteria NONE SEEN /HPF (<20); Urine Culture Reflex Order NOT NEEDED; Urine RBC <5 /HPF (NONE SEEN)
--- NOTE | 2019-03-07 21:22 | PN ---
Date of Progress Note: 03/07/2019 Subjective: The patient is seen and examined. Chart reviewed and case discussed with RN and Dr. Rashmi bernard. The patient states that she is still having some episodes of vertigo, especially with movement. Medications: List reviewed. Physical Examination: Vital Signs: Temperature 98, heart rate 92, blood pressure 126/66, respirations 16, O2 96% on room a ir. General: Awake, alert, oriented x3. Elderly female, not in any acute distress. CV: S1, S2. Regular rate and rhythm. Peripheral pulses present. Respiratory: Moving air well bilaterally. No wheezing or stridor. No use of accessory muscles. Gastrointestinal: Abdomen is soft, nontender, nondistended. Positive bowel sounds. No guarding or rigidity. Extremities: No clubbing, cyanosis, or edema. Neuro: Cranial nerves 2-12 intact grossly. No focal neurological deficit. Speech is normal. Skin: No rashes. Normal skin turgor. Laboratory Data: Troponin level less than 0.[address] scan does not show any acute abnormaliti es. Assessment And Plan: A 73-year-old female with: 1.Vertigo, may be related to benign paroxysmal positional vertigo versus brainstem stroke. Apprecia te Dr. Milligan's input. We will continue with physical therapy. Apply Dottie maneuver. Neurology jef mmends MRA, MRI of the brain to rule out cerebrovascular accident. Fall precautions. 2.Intractable nausea, vomiting, likely related to above. We will continue antiemetics and meclizine . 3.Irritable bowel syndrome, stable. 4.Major depressive disorder, on SSRI, single episode, currently in remission. 5.Leukocytosis with neutrophilia, unclear etiology. We will continue to monitor. No apparent signs of infection. PLAN: Discharge once cleared by Neurology and CVA has been ruled out. Resume home medications as ap propriate. SA/MODL Voice ID: [id number] Report ID: [id number]
--- NOTE | 2019-03-07 21:25 | CON ---
Date of Consultation: 03/07/2019 Time: 1600. Reason: Vertigo. History: This is a 73-year-old lady who has had a history of intermittent labyrinthine-type vertigo for quite sometime, history of cervical spondylosis. She recalls she had dental work done on and then by Friday, started developing vertigo with a twisting, spinning sensation with associated nausea. No diplopia. No dysarthria. No perioral numbness. There was some imbalance and gait atax ia to go with the vertigo proper, but no other posterior fossa, ischemic signs or symptoms. Problem did not resolve so she came to the emergency department, where again, they were unable to get the pro blem to resolve completely. Standard labs were unremarkable. CT scan of the brain also unremarkable . She was admitted and she was volume depleted and ataxic, on a fall risk. She has been able ambula te some with therapy with a rolling walker, although she is still not fully back to baseline, but she is not having spontaneous emesis. Consultation was requested. Past Medical History: She has a history of vertigo, cervical spondylosis, and depression. Home Medications: Prozac. Allergies: CODEINE, SULFA. Social History: Does not drink. Normally independent with activities of daily living. Family History: Negative. Review of Systems: General: Generally healthy. Eyes: Negative. Ears, nose, Throat: As alluded to. Cardiovascular: Negative. Pulmonary: Negative. GI: Nausea with the episode. : Negative. Musculoskeletal: Negative. Neurologic: As noted. Psychiatric: Depression. Endocrine: Negative. Hematologic: Negative. Physical Examination: Vital Signs: 98.5, 89, 18, 141/72. General: She is a pleasant lady, lying in bed, in no distress. Son at the bedside. Awake, alert, o riented to time, person, place, and situation. HEENT: Pupils are equal, round, reactive. Ocular motion full. Murguia full. Tympanic membranes dem onstrated bilateral cerumen impaction. Pupils reactive. Ocular motion full without nystagmus. Visu al murguia full to confrontation bilaterally. Facial strength and sensation are normal. Tongue protr udes evenly. Soft palate elevates symmetrically bilaterally. Extremities: Strength is full. Sensation intact. Reflexes 1/4 symmetric. Toes are downgoing. Cer ebellar exam: Demonstrates no amiryn-khwt-koxkkr ataxia. She has been able to ambulate with therapy . Impression: Vertigo, likely labyrinthine. Plan: We will get a brain MRI, MRA head and neck as well. Check B12, sedimentation rate, thyroid-st imulating hormone. Continue the Antivert as you are doing. Thank you for the consult. We will continue to follow with you. EDIN Voice ID: [id number] Report ID: [id number]
[2019-03-08] MEDS: NA CHLORIDE 0.9% 1,000 ML IV SCH ×2 (02:36→13:23)
[2019-03-08 06:00] LABS: Absolute Lymphocytes (CBC) 2.2 K/uL (0.7-4.9); Basophils % 0.5 % (0-1.3); Eosinophils % 3.1 % (0-4.4); Hematocrit 34.7 % (36.0-45.0); MPV 8.1 fL (7.6-11.3); Monocytes % 8.8 % (3.3-12.3)
[2019-03-08 06:35] LABS: Albumin 2.9 g/dL (3.4-5.0); Bilirubin Total 0.4 mg/dL (0.2-1.0); Potassium 3.7 mmol/L (3.5-5.1); Thyroid Stimulating Hormone 1.73 uIU/mL (0.360-3.740)
[2019-03-08] MEDS: MECLIZINE HCL 12.5 MG TAB PO SCH ×2 (07:38→13:22)
[2019-03-08] MEDS: ONDANSETRON 4 MG/2 ML VIAL IV PRN ×2 (07:38→11:28)
[2019-03-08] MEDS: FLUOXETINE 20 MG CAP PO SCH ×2 (07:39→13:25)
[2019-03-08] MEDS ORDERED: ONDANSETRON 4 MG/2 ML VIAL IV PRN (11:28)
--- NOTE | 2019-03-08 11:51 | RAD REPORT ---
EXAM DESCRIPTION: CT - Head Brain Wo Cont - 03/07/2019 3:14 am CLINICAL HISTORY: DIZZINESS COMPARISON: None available TECHNIQUE: Axial CT of the head obtained from the skull apex to the skull base without contrast. FINDINGS: No acute intracranial hemorrhage identified. No mass, mass effect, shift of the midline, a bnormal extra-axial fluid collection or CT evidence of acute ischemic change identified. The ventricu lar system is unremarkable. No acute abnormalities of the supratentorial white matter, basal gangli a, cerebellum, or brainstem. The visualized paranasal sinuses and the mastoids are clear. No skull fracture identified. Visualized orbits and globes are unremarkable. DLP: 05.9 mGy-cm IMPRESSION: 1. No acute intracranial abnormality identified. This exam was performed according to our departmental dose-optimization program, which includes autom ated exposure control, adjustment of the mA and/or kV according to patient size and/or use of iterati ve reconstruction technique. Electronically signed by: Wilmer Hidalgo 03/07/2019 2:31 AM CDT Due to temporary technical issues with the PACS/Fluency reporting system, reports are being signed by the in house radiologist as a courtesy to ensure prompt reporting. The interpreting radiologist is f ully responsible for the content of the report.
--- NOTE | 2019-03-08 13:20 | RAD REPORT ---
EXAM DESCRIPTION: MRI - Brain W/Wo Cont - 03/08/2019 1:02 pm CLINICAL HISTORY: vertigo Headache, drowsiness, CVA COMPARISON: MRA Head Wo Cont dated 03/08/2019; Head Brain Wo Cont dated 03/07/2019; Ct Stroke Brain Wo Cont dated 06/06/2018; [id number] dated 06/20/2014 TECHNIQUE: Multi-sequence, multiplanar MR imaging of the brain was performed with contrast. FINDINGS: No intracranial hemorrhage, hydrocephalus, or extra-axial fluid collection.A few nonspecif ic T2 and FLAIR hyperintensities in the periventricular region noted. No edema or shift of midline st ructures. No intracranial mass. DWI is negative for acute CVA. The midline structures are normally formed. Mastoid air cells and paranasal sinuses are clear. Post-contrast images show no abnormal enhancement to suggest tumor or infection. IMPRESSION: Negative for acute CVA or other acute intracranial abnormality. No pathologic post-contrast enhancement suspected.
--- NOTE | 2019-03-08 13:23 | RAD REPORT ---
EXAM DESCRIPTION: MRI - MRA Head Wo Cont - 03/08/2019 1:01 pm CLINICAL HISTORY: vertigo Headache, drowsiness, CVA COMPARISON: Head Brain Wo Cont dated 03/07/2019 FINDINGS: 3D noncontrast [id number] MR angiography of the [employer] [place] was performed. No aneurysm, flow-limiting stenosis or vascular malformation is seen. Forward flow seen in codominant vertebral arteries. The visualized dural venous sinuses appear patent. IMPRESSION: No significant flow abnormality of the [employer] [place] [employer] [place] is identified.
--- NOTE | 2019-03-08 13:25 | RAD REPORT ---
EXAM DESCRIPTION: MRI - MRA Neck W/Wo Cont - 03/08/2019 1:01 pm CLINICAL HISTORY: vertigo Headache, drowsiness, CVA symptomology COMPARISON: Brain W/Wo Cont dated 03/08/2019; MRA Head Wo Cont dated 03/08/2019 FINDINGS: Contrast enhance 2D [id number] MR angiography of the neck vessels was performed. A left aortic arch is identified with normal origin pattern of the great vessels. Both common carotid arteries and subclavian arteries are widely patent. No significant internal carotid artery stenosis is identified. Antegrade flow is seen in both vertebr al arteries, left-sided dominant. IMPRESSION: No significant flow abnormality of neck vessels.
[2019-03-08 16:01] VITALS: BP 133/72; TEMP 97.9
--- NOTE | 2019-03-09 06:03 | DS ---
Date of Discharge: 03/08/2019 Consultants: Dr. Milligan with Neurology. Discharge Diagnoses: 1.Vertigo. 2.Nausea, vomiting. 3.Irritable bowel syndrome. 4.Overweight, body mass index 26. 5.Major depressive disorder, on SSRI. Hospital Course: The patient is a 73-year-old female with past medical history of depression, has hinton d chronic vertigo, comes in with inability to ambulate too well and having significant balance issues . Patient has been following up with neurologist, Dr. Milligan, as an outpatient. Patient was admitted to the hospital for further workup. Initial workup including head CT scan was negative. Dr. Milligan recommended MRI of the brain as well as neck MRA, which did not show any acute CVA or other issues. She had a mild elevated white blood cell count of 12,000. UA and chest x-ray were clear. This was l ikely reactive. Her WBC count normalized. She worked well with PT and was recommended to have PT at home. Her vertigo improved. Patient may have benign positional vertigo. Patient was feeling well. She was then cleared for discharge and was sent home in a stable condition. Activity: Fall precautions, ambulate with assist. Diet: Heart healthy. Followup: Follow up with primary care physician in 2 to 3 days. Follow up with neurologist, Dr. Rashmi bernard, in 2 weeks. Return to ER for worsening condition. Medications: As per medication reconciliation list. Physical Examination: General: Awake, alert, oriented x3. No acute distress. Elderly female. CV: S1, S2. No murmurs. Respiratory: Moving air well bilaterally. Abdomen: Soft, nontender, nondistended. Positive bowel sounds. Extremities: No clubbing, cyanosis, or edema. Neurologic: Nonfocal. SA/MODL Voice ID: [id number] Report ID: [id number]
== END 2019-03-08 20:25 | disposition home or self-care (01) ==
LOC: ER 00:56 → INTOOBSV 07:06 → ERHOLD 07:06 → 4TH 07:52
PROVIDERS: ADMIT Hospitalist; ATTEND Family Medicine
DX: R42 Dizziness and giddiness (principal); R11.2 Nausea with vomiting, unspecified; F32.9 Major depressive disorder, single episode, unspecified; F41.9 Anxiety disorder, unspecified; K58.9 Irritable bowel syndrome, unspecified; Z79.899 Other long term (current) drug therapy; E66.3 Overweight; Z68.26 Body mass index [BMI] 26.0-26.9, adult
CPT/HCPCS: 96361; 93005; 85025 ×2; 81001; 80048; 36415 ×2; 83735; 82550; 85610; 80061; 80076; 85652; 84443; 81003; 84484 ×3; 82607; 80053; 83880; 70450; 70553; 70544; 70549; 97161; 97167; 96375; 96374; 99285; A9577; J3360; J7030 ×4; J2405 ×5; G0378 ×2; 70551

== ENCOUNTER 2020-06-23 07:36 | Emergency (ER) | payer OTHER ==
--- OUTSIDE RECORDS SUMMARY | 2020-06-23 07:39 | XMS REPORT | Clinical Summary ---
:1945 Author Organization [facility] Address [address] [place] [address] Care Team Providers Name Role Phone Pcp, No Primary Care Provider Unavailable Allergies No Known Allergies Medications Medication Sig Dispensed Refills Start Date End Date Status fLUoxetine (PROZAC) 20 Take 20 mg by 0 Active MG capsule mouth daily. Active Problems Problem Noted Date Dizziness 06/06/2018 Social History Tobacco Use Types Packs/Day Years Used Date Never Smoker Smokeless Tobacco: Never Used Alcohol Use Drinks/Week oz/Week Comments No Sex Assigned at Date Recorded Not on file Last Filed Vital Signs Not on file Plan of Treatment Not on file Results Not on fileafter 06/23/2019 Insurance Payer Benefit Plan / Subscriber ID Effective Phone Address T ype Group Dates HUMANA - HUMANA [id number] 2017-Prese Maps Contracted MEDICARE MGD MEDICARE ADV nt CARE Advance Directives For more information, please contact: [phone] Code Status Date Activated Date Inactivated Comments Full Code 06/06/2018 11:43 AM 06/08/2018 5:48 PM This code status was determined by: Patient
--- OUTSIDE RECORDS SUMMARY | 2020-06-23 07:40 | XMS REPORT | Continuity of Care Document ---
:1945 Author Organization [facility] Care Team Providers Name Role Phone [facility] Unavailable Un available Problems Problem Status Onset Classification Date Comments Sourc e Date Reported Cervical Active Problem 11/07/2019 [facility] spondylosis Neuro (disorder) Insomnia Active Problem 11/07/2019 [facility] (disorder) [facility] Vertigo Active Problem 11/07/2019 [facility] (finding) Neuro Medications Medication Details Route Status Patient Ordering Order Source Instructions Provider Date Fluoxetine 20 20 mg = 1 Active 06/16/20 [facility] Oral cap, PO, 18 Neuro Capsule Daily, # [Prozac] 30 cap, 1 Refill(s) Allergies, Adverse Reactions, Alerts Substance Category Reaction Severity Reaction Status Date Comments S ource type Reported No Known Assertion Drug Misch er Medication allergy Neuro Allergies Immunizations No Data [...] Signs Vital Sign Value Date Comments Source Systolic (mm Hg) 126 [facility]04[facility] [place] [facility] Diastolic (mm Hg) 71 11/04/2019 [facility] Heart Rate 83 11/04/2019 [facility] Respitory Rate 16 11/04/2019 [facility] Height 157.48 cm 11/04/2019 [facility] Weight 68.636 11/04/2019 [facility] BMI Calculated 27.68 11/04/2019 [facility] Systolic (mm Hg) 103 05/06/2019 [facility] [place] [facility] Diastolic (mm Hg) 65 05/06/2019 [facility] Heart Rate 84 05/06/2019 [facility] Respitory Rate 84 05/06/2019 [facility] Height 157.48 cm 05/06/2019 [facility] Weight 67.273 05/06/2019 [facility] BMI Calculated 27.13 05/06/2019 [facility] Height 157.48 cm 01/26/2019 [facility] Weight 66.818 01/26/2019 [facility] BMI Calculated 26.94 01/26/2019 [facility] Heart Rate 91 01/26/2019 [facility] Respitory Rate 16 01/26/2019 [facility] Systolic (mm Hg) 76 01/26/2019 [facility] [place] Diastolic (mm Hg) 51 01/26/2019 [facility] Heart Rate 82 07/28/2018 [facility] Systolic (mm Hg) 110 07/28/2018 [facility] [place] Diastolic (mm Hg) 64 07/28/2018 [facility] BMI Calculated 26.94 07/28/2018 [facility] Height 157.48 cm 07/28/2018 [facility] Weight 66.818 07/28/2018 [facility] Systolic (mm Hg) 101 06/16/2018 [facility] [place] Diastolic (mm Hg) 56 06/16/2018 [facility] Heart Rate 98 06/16/2018 [facility] Height 165.1 cm 06/16/2018 [facility] Weight 66.818 06/16/2018 [facility] BMI Calculated 24.51 06/16/2018 [facility] Encounters Location Location Encounter Encounter Reason Attending ADM PA Stat us Source Details Type Number For Provider Date Date Visit Outpatient [id number] YAJAIRA 06/16 [facility] [place] [facility] Outpatient [id number] Yajaira 06/16 06/17 [facility]2017 [facility] [place] Outpatient [id number] YAJAIRA 07/28 [facility] [place] [facility] Outpatient [id number] Yajaira 07/28 07/29 [facility] /2017 [facility] [place] MNA Outside [id number] 08/10 08/12 [facility] /2017 [facility] [place] Records Outpatient [id number] Yajaira 01/26 [facility] [place] [facility] Outpatient [id number] Yajaira 01/26 01/27 [facility] /2018 [facility] [place] Outpatient [id number] Yajaira 05/05 [facility] [place] MNA Ambulatory [id number] Yajaira 05/05 05/05 [facility] Neurology Pre-Reg [facility] /2018 [facility] [place] Outpatient [id number] Yajaira 05/06 [facility] [place] [facility] Outpatient [id number] Yajaira 05/06 05/07 [facility] [place] Outpatient [id number] Yajaira 07/27 Active [facility] [place] [facility] Ambulatory [id number] Yajaira 07/27 07/27 [facility] [place] Outpatient [id number] Yajaira 11/03 Active [facility]2019 [place] [facility] Outpatient [id number] Yajaira 11/03 11/04 [facility] [place] Outpatient [id number] Yajaira 08/03 Active [facility] [place] Outpatient [id number] Yajaira 08/03 Active [facility] [place] Procedures No Data Provided for This Section Assessment and Plan No Data Provided for This Section Plan of Care No Data Provided for This Section Social History Social History Date Source Social History TypeResponse 11/04/2019 [facility] Smoking Status Never smoker; Exposure to Tobacco Smoke Unable to obtain; Cigarette Smoking Last 365 Days Unable to obtain; Reg Smoking Cessation Counseling No entered on: 11/04/19 Family History No Data Provided for This Section Advance Directives No Data Provided for This Section Functional Status No Data Provided for This Section
--- OUTSIDE RECORDS SUMMARY | 2020-06-23 07:40 | XMS REPORT | Continuity of Care Document ---
:1945 Author Organization [facility] t Address [address] [place] [address] Care Team Providers Name Role Phone Pcp Primary Care Physician Unavailable Cedric Milligan Attending Clinician Melisa MARTEL Attending Clinician Unavailable Melisa MARTEL Admitting Clinician Unavailable Problems Condition Condition Condition Status Onset Resolution Last Treating Co mments Source Name Details Category Date Date Treatment Clinician Date Dizziness Dizziness Disease Active 2017-[address] [facility] Cervical Problem Active 2019-11-07 [facility] spondylosi 00:20:18 l s Cervical Cal n (disorder) spondylosi s (disorder) Active Problem 11/07/2019 [facility] Insomnia Problem Active 2019-11-07 [facility] (disorder) 00:20:18 l Insomnia Cal n (disorder) Active Problem 11/07/2019 [facility] Vertigo Problem Active 2019-11-07 [facility] ni (finding) 00:20:18 l Vertigo [facility] (finding) [facility] Allergies, Adverse Reactions, Alerts Allergy Allergy Status Severity Reaction(s) Onset Inactive Treating Comm ents Source Name Type Date Date Clinician No Known No Known Active [facility] l on on [facility]ain Allergie Allergie s s Social History Social Habit Start Date Stop Date Quantity Comments Source Sex Assigned At [facility] Tobacco use and 2018-06-06 2018-06-06 Never used [facility] - exposure 00:00:00 00:00:00 [facility] Alcohol intake 2018-06-06 2018-06-[address] [facility] - 00:[facility]:00 00:00:00 non-drinker of Medical Ce nter alcohol (finding) Smoking Status Start Date Stop Date Source Social History [facility] Medications Ordered Filled Start Stop Current Ordering Indication Dosage Frequency Signature Comments Components Source Medication Medication Date Date Medication? Clinician (SIG) Name Name Fluoxetine 2017-08 Yes 20 mg = 1 Me moria 20 MG Oral 0-23 cap, PO, l Capsule 15:45: Daily, # Cal n [Prozac] 00 30 cap, 1 Refill(s) fLUoxetine 2017-08 Yes 20mg QD Take [address] (PROZAC) 20 0-15 by mouth [facility] - MG capsule 15:48: daily. Medic al [facility] Center Vital Signs Vital Name Observation Time Observation Value Comments Source Systolic (mm Hg) 2019-11-04 16:37:00 [facility] Diastolic (mm Hg) 2019-11-04 16:37:00 [facility] Heart Rate 2019-11-04 16:37:00 [facility] Respitory Rate 2019-11-04 16:37:00 [facility] Height 2019-11-04 16:37:00 157.48 cm [facility] Weight 2019-11-04 16:37:00 [facility] BMI Calculated 2019-11-04 16:37:00 [facility] Systolic (mm Hg) 2019-05-06 16:30:00 [facility] [place] Diastolic (mm Hg) 2019-05-06 16:30:00 [facility] Heart Rate 2019-05-06 16:30:00 [facility] Respitory Rate 2019-05-06 16:30:00 [facility] Height 2019-05-06 16:30:00 157.48 cm [facility] Weight 2019-05-06 16:30:00 [facility] BMI Calculated 2019-05-06 16:30:00 [facility] Height 2019-01-26 15:26:00 157.48 cm [facility] Weight 2019-01-26 15:26:00 [facility] BMI Calculated 2019-01-26 15:26:00 [facility] Heart Rate 2019-01-26 15:26:00 [facility] Respitory Rate 2019-01-26 15:26:00 [facility] Systolic (mm Hg) 2019-01-26 15:26:00 [facility]ain Diastolic (mm Hg) 2019-01-26 15:26:00 [facility] Heart Rate 2018-07-28 16:15:00 [facility] Systolic (mm Hg) 2018-07-28 16:15:00 [facility]ain Diastolic (mm Hg) 2018-07-28 16:15:00 [facility] BMI Calculated 2018-07-28 16:15:00 [facility] Height 2018-07-28 16:15:00 157.48 cm [facility] Weight 2018-07-28 16:15:00 [facility] Systolic (mm Hg) 2018-06-16 15:15:00 Clark rial [place] Diastolic (mm Hg) 2018-06-16 15:15:00 [facility] Heart Rate 2018-06-16 15:15:00 [facility] Height 2018-06-16 15:15:00 165.1 cm [facility] Weight 2018-06-16 15:15:00 [facility] BMI Calculated 2018-06-16 15:15:00 [facility] Procedures This patient has no known procedures. Encounters Start End Encounter Admission Attending Care Care Encounter Source Date/Time Date/Time Type Type Clinicians Facility Department ID 2019-11-04 2019-11-04 Outpatient LOREN MilliganSCHJORGE MHMISCHER [id number] 11:30:00 23:59:59 [place] 06 Cedric 2019-07-27 2019-07-27 Outpatient LOREN MilliganSCHER MHMISCHER [id number] 10:00:00 10:00:00 [place] 03 Cedric 2019-05-06 2019-05-06 Outpatient LOREN MilliganSCHER MHMISCHER [id number] 11:30:00 23:59:59 [place] 05 Cedric 2019-05-05 2019-05-05 Outpatient LOREN MilliganSCHJORGE MHMISCHER [id number] 14:15:00 14:15:00 [place] 04 Cedric 2019-01-26 2019-01-26 Outpatient LOREN MilliganSCHER MHMISCHER [id number] 10:15:00 23:59:59 [place] 02 Cedric 2018-08-10 2018-08-11 Outpatient MHMISCHER MHMISCHER [id number] 16:10:00 23:59:59 00 2018-07-28 2018-07-28 Outpatient JABARI Milligan [id number] 10:15:00 23:59:59 [place] 01 Cedric 2018-06-16 2018-06-16 Outpatient JABARI Milligan [id number] 09:45:00 23:59:59 [place] 00 Cedric Results Test Description Test Time Test Comments Results Result Sourc e Comments CT, BRAIN, WITHOUT 2018-06-08 FINAL REPORT PATIENT CONTRAST 08:11:00 ID: [id number] CT head without contrast INDICATION: CVA, TIA. [...] findings as discussed above. Signed: Baldomero Goodwin [facility] Verified Date/Time: 06/08/2018 08:11:29 Reading Location: [facility] B1 C013V Neuro Reading Room ESIUM 2018-06-08 06:22:00 Test Item Value Reference Range Interpretation Comme nts MAGNESIUM (BEAKER) (test code = 627) 2.1 mg/dL 1.6-2.6 BASIC METABOLIC [id number] 06:22:00 Test Item Value Reference Range Interpretation Comments SODIUM (BEAKER) 139 meq/L 136-145 (test code = 381) POTASSIUM (BEAKER) 3.9 meq/L 3.5-5.1 (test code = 379) CHLORIDE (BEAKER) 106 meq/L 98-107 (test code = 382) CO2 (BEAKER) (test 25 meq/L 22-29 code = 355) BLOOD UREA NITROGEN 9 mg/dL 7-21 (BEAKER) (test code = 354) CREATININE (BEAKER) 0.71 mg/dL 0.57-1.25 (test code = 358) GLUCOSE RANDOM 90 mg/dL 70-105 (BEAKER) (test code = 652) CALCIUM (BEAKER) 9.4 mg/dL 8.4-10.2 (test code = 697) EGFR (BEAKER) (test 80 mL/min/1.73 ESTIMA KALEY GFR IS code = 1092) sq m NOT ACCURATE CREATININE CLEARANCE IN PREDICTING GLOMERULAR FILTRATION RATE . ESTIMATED GFR I S NOT APPLICABLE FOR DIALYSIS PATIEN TS. LIPID [id number] 06:22:00 Test Item Value Reference Range Interpretation Comments TRIGLYCERIDES (BEAKER) (test code = 206 mg/dL 540) CHOLESTEROL (BEAKER) (test code = 232 mg/dL 631) HDL CHOLESTEROL (BEAKER) (test code 47 mg/dL = 976) LDL CHOLESTEROL CALCULATED (BEAKER) 144 mg/dL (test code = 633) Triglyceride Reference Range: Low Risk <150 Borderline 150-199 High Risk 200-499 Very High Risk >=500Cholesterol Reference Range: Low Risk <200 Borderline 200-239 High Risk >240HDL Cholesterol Reference Range: Low Risk >=60 High Risk <40LDL Cholesterol Reference Range: Optimal <100 Near Optimal 100-129 Borderline 130-159 High 160-189 Very High >=190HEPATIC FUNCTION [id number] 06:22:00 Test Item Value Reference Range Interpretation Comments TOTAL PROTEIN (BEAKER) (test code = 6.6 gm/dL 6.0-8.3 770) ALBUMIN (BEAKER) (test code = 1145) 3.7 g/dL 3.5-5.0 BILIRUBIN TOTAL (BEAKER) (test code 0.5 mg/dL 0.2-1.2 = 377) BILIRUBIN DIRECT (BEAKER) (test 0.2 mg/dL 0.1-0.5 code = 706) ALKALINE PHOSPHATASE (BEAKER) (test 67 U/L 40-150 code = 346) AST (SGOT) (BEAKER) (test code = 16 U/L 5-34 353) ALT (SGPT) (BEAKER) (test code = 11 U/L 6-55 347) CALCIUM, [id number] 06:20:00 Test Item Value Reference Range Interpretation Comments CALCIUM IONIZED (BEAKER) (test 1.14 mmol/L 1.12-1.27 code = 698) PH, BLOOD (BEAKER) (test code = 7.41 1810) PROTHROMBIN [id number] 06:01:00 Test Item Value Reference Range Interpretation Comments PROTIME (BEAKER) (test code = 13.3 seconds 11.7-14.7 759) INR (BEAKER) (test code = 370) 1.0 <=5.9 RECOMMENDED COUMADIN/WARFARIN INR THERAPY RANGESSTANDARD DOSE: 2.0 - 3.0 Includes: PROPHYLAXIS forvenous thrombosis, systemic embolization; TREATMENT for venous thrombosis and/or pulmonary embolus.HIGH RISK: Target INR is 2.5-3.5 for patients with mechanical heart valves.MR, MRA, BRAIN, WITHOUT CONTRAST 2018-06-07 21:28:00FINAL REPORT MR, MRA, BRAIN, WITHOUT CONTRAST, [...] or cranial circulation. Signed: JR Cortés Robert MDRepst. [facility] Verified Date/Time: 06/07/2018 21:28:54 Reading Location: [address] on Reading Room MR, MRA, NECK, WITHOUT IV [id number] 21:28:00FINAL REPORT MR, MRA, BRAIN, WITHOUT CONTRAST, MR, MRA, NECK, WITHOUT IV CONTRAST INDICATION: TIA Workup TECHNIQUE: 3-D time of flight MRA of the cranial and cervical circulation. 2-D time of flight MRA of the neck. 3D MIP angiographic post-processing was performed. Stenosis evaluation utilized NASCET criteria. COMPARISON: Correlation to noncontrast brain MRI of the same date FI NDINGS: MRA BRAIN:Internal carotid arteries: Patent. Middle cerebral [...] the cervical or cranial circulation. Signed: JR Milana, Bonifacio Jang Verified Date/Time: 06/07/2018 21:28:54 Reading Location: [address] Reading Room CALCIUM, [id number] 03:12:00 Test Item Value Reference Range Interpretation Comments CALCIUM IONIZED (BEAKER) (test 1.15 mmol/L 1.12-1.27 code = 698) PH, BLOOD (BEAKER) (test code = 7.37 1810) PROTHROMBIN [id number] 02:47:00 Test Item Value Reference Range Interpretation Comments PROTIME (BEAKER) (test code = 13.0 seconds 11.7-14.7 759) INR (BEAKER) (test code = 370) 1.0 <=5.9 RECOMMENDED COUMADIN/WARFARIN INR THERAPY RANGESSTANDARD DOSE: 2.0 - 3.0 Includes: PROPHYLAXIS forvenous thrombosis, systemic embolization; TREATMENT for venous thrombosis and/or pulmonary embolus.HIGH RISK: Target INR is 2.5-3.5 for patients with mechanical heart valves.CBC W/PLT COUNT & AUTO DIFFERENTIAL 2018-06-07 02:37:00 Test Item Value Reference Range Interpretation Comments WHITE BLOOD CELL COUNT (BEAKER) 6.3 K/ L 3.5-10.5 (test code = 775) RED BLOOD CELL COUNT (BEAKER) 3.95 M/ L 3.93-5.22 (test code = 761) HEMOGLOBIN (BEAKER) (test code = 11.2 GM/DL 11.2-15.7 410) HEMATOCRIT (BEAKER) (test code = 35.3 % 34.1-44.9 411) MEAN CORPUSCULAR VOLUME (BEAKER) 89.4 fL 79.4-94.8 (test code = 753) MEAN CORPUSCULAR HEMOGLOBIN 28.4 pg 25.6-32.2 (BEAKER) (test code = 751) MEAN CORPUSCULAR HEMOGLOBIN CONC 31.7 GM/DL 32.2-35.5 L (BEAKER) (test code = 752) RED CELL DISTRIBUTION WIDTH 13.3 % 11.7-14.4 (BEAKER) (test code = 412) PLATELET COUNT (BEAKER) (test 276 K/CU MM 150-450 code = 756) MEAN PLATELET VOLUME (BEAKER) 9.2 fL 9.4-12.3 L (test code = 754) NUCLEATED RED BLOOD CELLS 0 /100 WBC 0-0 (BEAKER) (test code = 413) NEUTROPHILS RELATIVE PERCENT 46 % (BEAKER) (test code = 429) LYMPHOCYTES RELATIVE PERCENT 39 % (BEAKER) (test code = 430) MONOCYTES RELATIVE PERCENT 10 % (BEAKER) (test code = 431) EOSINOPHILS RELATIVE PERCENT 4 % (BEAKER) (test code = 432) BASOPHILS RELATIVE PERCENT 1 % (BEAKER) (test code = 437) NEUTROPHILS ABSOLUTE COUNT 2.90 K/ L 1.56-6.13 (BEAKER) (test code = 670) LYMPHOCYTES ABSOLUTE COUNT 2.44 K/ L 1.18-3.74 (BEAKER) (test code = 414) MONOCYTES ABSOLUTE COUNT (BEAKER) 0.63 K/ L 0.24-0.36 H (test code = 415) EOSINOPHILS ABSOLUTE COUNT 0.26 K/ L 0.04-0.36 (BEAKER) (test code = 416) BASOPHILS ABSOLUTE COUNT (BEAKER) 0.03 K/ L 0.01-0.08 (test code = 417) IMMATURE GRANULOCYTES-RELATIVE 0 % 0-1 PERCENT (BEAKER) (test code = 2801) COMPREHENSIVE METABOLIC [id number] 17:20:00 Test Item Value Reference Range Interpretation Comments TOTAL PROTEIN 6.5 gm/dL 6.0-8.3 (BEAKER) (test code = 770) ALBUMIN (BEAKER) 3.7 g/dL 3.5-5.0 (test code = 1145) ALKALINE PHOSPHATASE 68 U/L 40-150 (BEAKER) (test code = 346) BILIRUBIN TOTAL 0.4 mg/dL 0.2-1.2 (BEAKER) (test code = 377) SODIUM (BEAKER) (test 138 meq/L 136-145 code = 381) POTASSIUM (BEAKER) 3.6 meq/L 3.5-5.1 (test code = 379) CHLORIDE (BEAKER) 106 meq/L 98-107 (test code = 382) CO2 (BEAKER) (test 25 meq/L 22-29 code = 355) BLOOD UREA NITROGEN 12 mg/dL 7-21 (BEAKER) (test code = 354) CREATININE (BEAKER) 0.73 mg/dL 0.57-1.25 (test code = 358) GLUCOSE RANDOM 104 mg/dL 70-105 (BEAKER) (test code = 652) CALCIUM (BEAKER) 9.6 mg/dL 8.4-10.2 (test code = 697) AST (SGOT) (BEAKER) 16 U/L 5-34 (test code = 353) ALT (SGPT) (BEAKER) 12 U/L 6-55 (test code = 347) EGFR (BEAKER) (test 78 mL/min/1.73 ESTIMA KALEY GFR IS code = 1092) sq m NOT ACCURATE CREATININE CLEARANCE IN PREDICTING GLOMERULAR FILTRATION RATE . ESTIMATED GFR I S NOT APPLICABLE FOR DIALYSIS PATIEN TS. CBC (HEMOGRAM ONLY)2018-06-06 17:03:00 Test Item Value Reference Range Interpretation Comments WHITE BLOOD CELL COUNT (BEAKER) 7.6 K/ L 3.5-10.5 (test code = 775) RED BLOOD CELL COUNT (BEAKER) 3.91 M/ L 3.93-5.22 L (test code = 761) HEMOGLOBIN (BEAKER) (test code = 11.4 GM/DL 11.2-15.7 410) HEMATOCRIT (BEAKER) (test code = 34.6 % 34.1-44.9 411) MEAN CORPUSCULAR VOLUME (BEAKER) 88.5 fL 79.4-94.8 (test code = 753) MEAN CORPUSCULAR HEMOGLOBIN 29.2 pg 25.6-32.2 (BEAKER) (test code = 751) MEAN CORPUSCULAR HEMOGLOBIN CONC 32.9 GM/DL 32.2-35.5 (BEAKER) (test code = 752) RED CELL DISTRIBUTION WIDTH 13.3 % 11.7-14.4 (BEAKER) (test code = 412) PLATELET COUNT (BEAKER) (test 264 K/CU MM 150-450 code = 756) MEAN PLATELET VOLUME (BEAKER) 9.2 fL 9.4-12.3 L (test code = 754) NUCLEATED RED BLOOD CELLS 0 /100 WBC 0-0 (BEAKER) (test code = 413) MR, BRAIN, WITHOUT [id number] 16:29:00FINAL REPORT MRI brain without contrast INDICATION: [...] air cells. The sella is unremarkable. The tiarra ow signal is heterogeneous in a nonspecific fashion. IMPRESSION: 1. No evidence of acute infarct, hemorrhage, or hydrocephalus. 2. Mild chronic white matter changes, likely of microvascular etiology. 3. Additional chronic and involutional findings as discussed. Signed: Baldomero Goodwin MDReport Queta ified Date/Time: 06/06/2018 16:29:20 Reading Location: [address] Neuro Reading Room
[2020-06-23] MEDS ORDERED: HYDROCODONE/APAP 7.5/325 MG TAB ONE (08:35)
[2020-06-23] MEDS ORDERED: METHOCARBAMOL 1,000 MG/10 ML VIAL IV ONE (08:35)
[2020-06-23] MEDS ORDERED: NA CHLORIDE 0.9% 100 ML IV ONE (08:35)
[2020-06-23] MEDS ORDERED: KETOROLAC 30 MG/ML INJ ONE (08:35)
[2020-06-23] MEDS ORDERED: METHYLPREDNISOLONE 125 MG INJ ONE (08:35)
[2020-06-23] MEDS ORDERED: ONDANSETRON 4 MG/2 ML VIAL ONE (09:24)
--- NOTE | 2020-06-23 09:27 | EDPHYS ---
Physician Documentation [facility] Name: Sherry Russ Age: 74 yrs Sex: Female : 1945 Arrival Date: 06/23/2020 Time: 07:39 Bed 6 Private MD: ED Physician Balta Rapp HPI: 06/23 11:48 This 74 yrs old Female presents to ER via Ambulatory with complaints of Stiff kdr Neck. 11:48 The patient or guardian complains of decreased range of motion, pain, that is acute. kdr The symptoms are located on the scalp, right posterior aspect of neck and right lateral aspect of neck. Onset: The symptoms/episode began/occurred acutely, yesterday. 11:56 Context: The problem was sustained at home, The neck injury/problem resulted from from kdr unknown cause. Associated signs and symptoms: Pertinent positives: This patient does not have any pertinent positive signs or symptoms associated with neck pain. Pertinent negatives: chills, constipation, headache, nausea, weakness. The pain does not radiate. Modifying factors: The symptoms are alleviated by nothing. the symptoms are aggravated by movement. Severity of symptoms: At their worst the symptoms were moderate, severe, incapacitating, in the emergency department the symptoms are unchanged. The patient has experienced similar episodes in the past, several times, today's symptoms are similar, to previous ;last six months. The patient has not recently seen a physician. Historical: - Allergies: 07:58 No Known Allergies; jl7 - Home Meds: 07:58 fluoxetine 10 mg Oral cap 2 caps once daily [Active]; jl7 - PMHx: 07:55 Anxiety; Depression; eye problems; Hyperlipidemia; Hypertension; Vertigo; jl7 - PSHx: 07:58 None; jl7 - Immunization history:: Adult Immunizations up to date. - Social history:: Smoking status: Patient denies any tobacco usage or history of. ROS: 11:56 Constitutional: Negative for fever, chills, and weight loss, Eyes: Negative for injury, kdr pain, redness, and discharge, Cardiovascular: Negative for chest pain, palpitations, and edema, Respiratory: Negative for shortness of breath, cough, wheezing, and pleuritic chest pain, Abdomen/GI: Negative for abdominal pain, nausea, vomiting, diarrhea, and constipation, Back: Negative for injury and pain, MS/Extremity: Negative for injury and deformity, Skin: Negative for injury, rash, and discoloration, Neuro: Negative for headache, weakness, numbness, tingling, and seizure activity. Psych: Negative for depression, anxiety, suicide ideation, homicidal ideation, and hallucinations, Allergy/Immunology: Negative for hives, rash, and allergies, Endocrine: Negative for neck swelling, polydipsia, polyuria, polyphagia, and marked weight changes, Hematologic/Lymphatic: Negative for swollen nodes, abnormal bleeding, and unusual bruising. 11:56 Neck: Positive for pain with movement, pain at rest, of the right posterior aspect of neck and right lateral aspect of neck. Exam: 11:56 Constitutional: This is a well developed, well nourished patient who is awake, alert, kdr and in no acute distress. Head/Face: Normocephalic, atraumatic. Eyes: Pupils equal round and reactive to light, extra-ocular motions intact. Lids and lashes normal. Conjunctiva and sclera are non-icteric and not injected. Cornea within normal limits. Periorbital areas with no swelling, redness, or edema. Neck: Trachea midline, no thyromegaly or masses palpated, and no cervical lymphadenopathy. Supple, full range of motion without nuchal rigidity, or vertebral point tenderness. No Meningismus. Chest/axilla: Normal chest wall appearance and motion. Nontender with no deformity. No lesions are appreciated. Cardiovascular: Regular rate and rhythm with a normal S1 and S2. No gallops, murmurs, or rubs. Normal PMI, no JVD. No pulse deficits. Respiratory: Lungs have equal breath sounds bilaterally, clear to auscultation and percussion. No rales, rhonchi or wheezes noted. No increased work of breathing, no retractions or nasal flaring. Abdomen/GI: Soft, non-tender, with normal bowel sounds. No distension or tympany. No guarding or rebound. No evidence of tenderness throughout. Back: No spinal tenderness. No costovertebral tenderness. Full range of motion. Skin: Warm, dry with normal turgor. Normal color with no rashes, no lesions, and no evidence of cellulitis. MS/ Extremity: Pulses equal, no cyanosis. Neurovascular intact. Full, normal range of motion. Neuro: Awake and alert, GCS 15, oriented to person, place, time, and situation. Cranial nerves II-XII grossly intact. Motor strength 5/5 in all extremities. Sensory grossly intact. Cerebellar exam normal. Normal gait. Psych: Awake, alert, with orientation to person, place and time. Behavior, mood, and affect are within normal limits. Vital Signs: 07:58 BP 141 / 69; Pulse 99; Resp 18; Temp 98.0; Pulse Ox 98% on R/A; Weight 61.23 kg; Height em 5 ft. 2 in. (157.48 cm); Pain 8/10; 07:58 Body Mass Index 24.69 (61.23 kg, 157.48 cm) em MDM: 09:27 Patient medically screened. kdr 11:56 Data reviewed: vital signs, nurses notes. Counseling: I had a detailed discussion with kdr the patient and/or guardian regarding: the historical points, exam findings, and any diagnostic results supporting the discharge/admit diagnosis, the need for outpatient follow up. ED course: The patient had significant relief with interventions given and was happy with the care provided and the plan for discharge and follow-up. Administered Medications: 08:30 Drug: Malaga (7.5 mg-325 mg) 1 tabs Route: PO; em 09:54 Follow up: Response: No adverse reaction; Marked relief of symptoms; Pain is decreased em 08:34 Drug: TORadol - Ketorolac 15 mg Route: IVP; Site: right hand; em 09:54 Follow up: Response: No adverse reaction; Marked relief of symptoms; Pain is decreased em 08:35 Drug: SOLU-Medrol 125 mg Route: IVP; Site: right hand; em 09:54 Follow up: Response: No adverse reaction; Marked relief of symptoms; Pain is decreased em 08:37 Drug: Robaxin 1 grams Route: IVPB; Infused Over: 1 hrs; Site: right hand; em 09:53 Follow up: Response: No adverse reaction; Marked relief of symptoms; IV Status: em Completed infusion; IV Intake: 100ml 09:13 Drug: Zofran (Ondansetron) 4 mg Route: IVP; Site: right hand; jl7 09:59 Follow up: Response: No adverse reaction; Marked relief of symptoms; Nausea is decreasedem Disposition: 06/23/20 09:27 Discharged to Home. Impression: Neck muscle spasm, Torticollis. - Condition is Stable. - Discharge Instructions: Acute Torticollis, Adult, Neck Exercises. - Prescriptions for Ibuprofen 600 mg Oral Tablet - take 1 tablet by ORAL route every 6 hours As needed take with food; 30 tablet. Prednisone 20 mg Oral Tablet - take 1 tablet by ORAL route once daily for 5 days; 5 tablet. Robaxin 500 mg Oral Tablet - take 2 tablets by ORAL route every 6 hours As needed; 24 tablet. Tramadol 50 mg Oral Tablet - take 1 tablet by ORAL route every 8 hours as needed; 12 tablet. Zofran 4 mg Oral Tablet - take 1 tablet by ORAL route every 4-6 hours As needed; 12 tablet. - Medication Reconciliation Form, Thank You Letter, Prescription Opioid Use form. - Follow up: Private Physician; When: 2 - 3 days; Reason: If symptoms return, Further diagnostic work-up, Recheck today's complaints, Continuance of care, Re-evaluation by your physician. - Problem is an acute exacerbation. - Symptoms have improved. Signatures: Balta Rapp MD MD kdr José Manuel Chu, RN RN em Tracey Castro RN RN jl7 Corrections: (The following items were deleted from the chart) 07:58 07:55 Allergies: Methadone; jl7 jl7 07:58 07:55 Allergies: PENICILLINS; jl7 jl7 07:58 07:55 PSHx: Hysterectomy; jl7 jl7 07:58 07:55 PSHx: Tonsillectomy; jl7 jl7 07:58 07:55 PSHx: back sx; jl7 jl7 09:28 09:27 06/23/2020 09:27 Discharged to Home. Impression: Neck muscle spasm. Condition is kdr Stable. Forms are Medication Reconciliation Form, Thank You Letter, Antibiotic Education, Prescription Opioid Use. Follow up: Private Physician; When: 2 - 3 days; Reason: If symptoms return, Further diagnostic work-up, Recheck today's complaints, Continuance of care, Re-evaluation by your physician. Problem is an acute exacerbation. Symptoms have improved. kdr 09:59 09:28 06/23/2020 09:27 Discharged to Home. Impression: Neck muscle spasm; Torticollis. em Condition is Stable. Discharge Instructions: Acute Torticollis, Adult. Forms are Medication Reconciliation Form, Thank You Letter, Antibiotic Education, Prescription Opioid Use. Follow up: Private Physician; When: 2 - 3 days; Reason: If symptoms return, Further diagnostic work-up, Recheck today's complaints, Continuance of care, Re-evaluation by your physician. Problem is an acute exacerbation. Symptoms have improved. kdr 11:59 11:48 Onset: The symptoms/episode began/occurred acutely, kdr kdr
--- NOTE | 2020-06-23 09:27 | ER ---
Nurse's Notes [facility] Name: Sherry Russ Age: 74 yrs Sex: Female : 1945 Arrival Date: 06/23/2020 Time: 07:39 Bed 6 Private MD: Diagnosis: Neck muscle spasm;Torticollis Presentation: 06/23 07:58 Chief complaint: Patient states: stiff neck since yesterday morning, reports em aching/spasms that radiates into right shoulder, denies chest pain, nausea or dizzinesss. Coronavirus screen: Client denies travel out of the [place] in the last 14 days. Ebola Screen: Patient negative for fever greater than or equal to 101.5 degrees Fahrenheit, and additional compatible Ebola Virus Disease symptoms Patient denies exposure to infectious person. Patient denies travel to an Ebola-affected area in the 21 days before illness onset. No symptoms or risks identified at this time. Initial Sepsis Screen: Does the patient meet any 2 criteria? No. Patient's initial sepsis screen is negative. Does the patient have a suspected source of infection? No. Patient's initial sepsis screen is negative. Risk Assessment: Do you want to hurt yourself or someone else? Patient reports no desire to harm self or others. Onset of symptoms was June 22, 2020. 07:58 Method Of Arrival: Ambulatory em 07:58 Acuity: CHAD 3 em Historical: - Allergies: 07:58 No Known Allergies; jl7 - Home Meds: 07:58 fluoxetine 10 mg Oral cap 2 caps once daily [Active]; jl7 - PMHx: 07:55 Anxiety; Depression; eye problems; Hyperlipidemia; Hypertension; Vertigo; jl7 - PSHx: 07:58 None; jl7 - Immunization history:: Adult Immunizations up to date. - Social history:: Smoking status: Patient denies any tobacco usage or history of. Screenin:56 Abuse screen: Denies threats or abuse. Denies injuries from another. Nutritional jl7 screening: No deficits noted. Tuberculosis screening: No symptoms or risk factors identified. Fall Risk None identified. Assessment: 07:58 General: Appears in no apparent distress. uncomfortable, Behavior is calm, cooperative, em appropriate for age, Denies fever. Pain: Complains of pain in neck Pain radiates to right supraclavicular area Pain currently is 8 out of 10 on a pain scale. Quality of pain is described as aching, spasms Pain began 1 day ago. Aggravated by repositioning. Neuro: Level of Consciousness is awake, alert, obeys commands, Oriented to person, place, time, situation, Appropriate for age Denies dizziness. Cardiovascular: Capillary refill < 3 seconds Patient's skin is warm and dry. Respiratory: Airway is patent Respiratory effort is even, unlabored, Respiratory pattern is regular, symmetrical. GI: Patient currently denies nausea, vomiting. Derm: Skin is intact, is healthy with good turgor, Skin is pink, warm \T\ dry. Musculoskeletal: Capillary refill < 3 seconds, Range of motion: intact in all extremities. 09:31 Reassessment: Patient appears in no apparent distress at this time. Patient and/or em family updated on plan of care and expected duration. Pain level reassessed. Patient is alert, oriented x 3, equal unlabored respirations, skin warm/dry/pink. Patient states feeling better. Patient states symptoms have improved. Vital Signs: 07:58 BP 141 / 69; Pulse 99; Resp 18; Temp 98.0; Pulse Ox 98% on R/A; Weight 61.23 kg; Height em 5 ft. 2 in. (157.48 cm); Pain 8/10; 07:58 Body Mass Index 24.69 (61.23 kg, 157.48 cm) em ED Course: 07:39 Patient arrived in ED. as 07:51 Marvin Baker, RN is Primary Nurse. bp 07:52 Primary Nurse role handed off by Marvin Baker RN em 07:52 José Manuel Chu, JERMAINE is Primary Nurse. em 07:55 Balta Rapp MD is Attending Physician. kdr 07:56 Arm band placed on right wrist. jl7 07:56 Patient has correct armband on for positive identification. Bed in low position. Call jl7 light in reach. Side rails up X 1. Pulse ox on. NIBP on. 08:00 Triage completed. em 08:32 Inserted saline lock: 22 gauge in right hand, using aseptic technique. em 09:52 No provider procedures requiring assistance completed. IV discontinued, intact, em bleeding controlled, No redness/swelling at site. Pressure dressing applied. Administered Medications: 08:30 Drug: Stonewall (7.5 mg-325 mg) 1 tabs Route: PO; em 09:54 Follow up: Response: No adverse reaction; Marked relief of symptoms; Pain is decreased em 08:34 Drug: TORadol - Ketorolac 15 mg Route: IVP; Site: right hand; em 09:54 Follow up: Response: No adverse reaction; Marked relief of symptoms; Pain is decreased em 08:35 Drug: SOLU-Medrol 125 mg Route: IVP; Site: right hand; em 09:54 Follow up: Response: No adverse reaction; Marked relief of symptoms; Pain is decreased em 08:37 Drug: Robaxin 1 grams Route: IVPB; Infused Over: 1 hrs; Site: right hand; em 09:53 Follow up: Response: No adverse reaction; Marked relief of symptoms; IV Status: em Completed infusion; IV Intake: 100ml 09:13 Drug: Zofran (Ondansetron) 4 mg Route: IVP; Site: right hand; [facility] 09:59 Follow up: Response: No adverse reaction; Marked relief of symptoms; Nausea is decreasedem Intake: 09:53 IV: 100ml; Total: 100ml. em Outcome: 09:27 Discharge ordered by . kdr 09:52 Discharged to home via wheelchair, with family. em 09:52 Condition: improved 09:52 Discharge instructions given to patient, family, Instructed on discharge instructions, follow up and referral plans. medication usage, Demonstrated understanding of instructions, follow-up care, medications, Prescriptions given X 4. 09:59 Patient left the ED. em Signatures: Balta Rapp MD MD kdr Munoz, Edgar, RN RN em Genie Chambers Jahala, RN RN jl7 Marvin Baker RN RN bp Corrections: (The following items were deleted from the chart) 07:58 07:55 Allergies: Methadone; [facility] 07:58 07:55 Allergies: PENICILLINS; [facility] 07:58 07:55 PSHx: Hysterectomy; [facility] 07:58 07:55 PSHx: Tonsillectomy; [facility] 07:58 07:55 PSHx: back sx; [facility]
[2020-06-23 10:07] VITALS: BP 141/69; TEMP 98; O2SAT 98
== END 2020-06-23 09:59 | disposition home or self-care (01) ==
LOC: ER 07:36
DX: M43.6 Torticollis (principal); M62.838 Other muscle spasm; I10 Essential (primary) hypertension; F41.8 Other specified anxiety disorders
CPT/HCPCS: 96365; 96375; 99284; J2930; J2405; J2800

== ENCOUNTER 2020-10-15 06:26 | Emergency (ER) | payer OTHER ==
--- OUTSIDE RECORDS SUMMARY | 2020-10-15 06:29 | XMS REPORT | Clinical Summary ---
:1945 Author Organization [facility] Address [address] [place] [address] Care Team Providers Name Role Phone Pcp, No MD Primary Care Provider Unavailable Allergies No Known [...] Signs Not on file Plan of Treatment Health Maintenance Due Date Last Done Comments PNEUMOCOCCAL 65+ YRS (1 of 1 - [id number] PCV13) 12/16/2008 MEDICARE ANNUAL WELLNESS (YEAR 2 or FIRST YEAR if no 08/26/2018 IPPE) INFLUENZA VACCINE (#1) 2020 Results Not on fileafter 10/15/2019 Insurance Payer Benefit Plan / Subscriber ID Effective Phone Address T ype Group Dates HUMANA - HUMANA [id number] 2017-Prese Maps Contracted MEDICARE MGD MEDICARE ADV nt CARE Advance Directives For more information, please contact: [phone] Type Date Recorded Patient [employer] Fire[employer] Explanati on Advance Directives 06/09/2018 12:32 PM Code Status Date Activated Date Inactivated Comments Full Code 06/06/2018 11:43 AM 06/08/2018 5:48 PM This code status was determined by: Patient
--- OUTSIDE RECORDS SUMMARY | 2020-10-15 06:29 | XMS REPORT | Continuity of Care Document ---
:1945 Author Organization [facility] Care Team Providers Name Role Phone [employer] Information Red Dot Payment Unavailable Un available Problems Problem Status Onset Classification Date Comments Sourc e Date Reported Cervical Active Problem 09/08/2020 [facility] spondylosis Neuro (disorder) Insomnia Active Problem 09/08/2020 [facility] (disorder) Neuro Vertigo Active Problem 09/08/2020 [facility] (finding) Neuro Medications Medication Details Route Status Patient Ordering Order Source Instructions Provider Date baclofen 10 10 mg = 1 Active 07/05/20 [facility] mg oral tab, PO, 20 Neuro tablet Bedtime, # 30 tab, 3 Refill(s), Pharmacy: [facility] 149, 157.48, cm, 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, Height, 66.818, kg, 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, Weight Fluoxetine 20 20 mg = 1 Active 06/16/20 [facility] MG Oral cap, PO, 18 Neuro Capsule Daily, # 30 [Prozac] cap, 1 Refill(s) Allergies, Adverse Reactions, Alerts [...] Value Date Comments Source Systolic (mm Hg) 105 09/05/2020 [facility] [place] ro Diastolic (mm Hg) 66 09/05/2020 [facility] uro Heart Rate 35 09/05/2020 [facility] Height 157.48 cm 09/05/2020 [facility] Weight 60 09/05/2020 [facility] BMI Calculated 24.19 09/05/2020 [facility] Systolic (mm Hg) 111 07/05/2020 [facility] [place] ro Diastolic (mm Hg) 70 07/05/2020 [facility] Ne uro Heart Rate 88 07/05/2020 [facility] Neuro Respitory Rate 16 07/05/2020 [facility] Height 157.48 cm 07/05/2020 [facility] Weight 66.818 07/05/2020 [facility] BMI Calculated 26.94 07/05/2020 [facility] Systolic (mm Hg) 126 11/04/2019 [facility] [place] ro Diastolic (mm Hg) 71 11/04/2019 [facility] Ne uro Heart Rate 83 11/04/2019 [facility] Neuro Respitory Rate 16 11/04/2019 [facility] Height 157.48 cm 11/04/2019 [facility] Weight 68.636 11/04/2019 [facility] BMI Calculated 27.68 11/04/2019 [facility] Systolic (mm Hg) 103 05/06/2019 [facility] [place] ro Diastolic (mm Hg) 65 05/06/2019 [facility] Ne uro Heart Rate 84 05/06/2019 [facility] Neuro Respitory Rate 84 05/06/2019 [facility] Height 157.48 cm 05/06/2019 [facility] Weight 67.273 05/06/2019 [facility] BMI Calculated 27.13 05/06/2019 [facility] Height 157.48 cm 01/26/2019 [facility] Neuro Weight 66.818 01/26/2019 [facility] Neuro BMI Calculated 26.94 01/26/2019 [facility] Neuro Heart Rate 91 01/26/2019 [facility] Respitory Rate 16 01/26/2019 [facility] Neuro [...] Location Encounter Encounter Reason Attending ADM DC Stat us Source Details Type Number For Provider Date Date Visit Outpatient [id number] YAJAIRA [facility]16 [facility] [id number] Yajaira 06/16 06/17 [facility] [place] [place] Neurology Kre /2017 [facility] [place] Outpatient [id number] YAJAIRA 07/28 Active [facility] [place] MNA Outpatient [id number] Yajaira 07/28 07/29 [facility] [place] [place] Neurology Kre /2017 [facility] [place] MNA Outside [id number] 08/10 08/12 [facility] Neurology [facility] /2017 [facility] [place] Records Outpatient [id number] Yajaira 01/26 Active [facility] [place] MNA Outpatient [id number] Yajaira 01/26 01/27 [facility] [place] [place] Neurology Kre /2018 [facility] [place] Outpatient [id number] Yajaira 05/05 Active [facility] [place] MNA Ambulatory [id number] Yajaira 05/05 05/05 [facility] [place] [place] Neurology Pre-Reg Kre /2018 [facility] [place] Outpatient [id number] Yajaira 05/06 Active [facility] [place] MNA Outpatient [id number] Yajaira 05/06 05/07 [facility] [place] [place] Neurology Kre [facility] [place] Outpatient [id number] Yajaira 07/27 Active [facility] MNA Ambulatory [id number] Yajaira 07/27 07/27 [facility] Neu[facility] Pre-Reg Kre [facility] [place] Outpatient [id number] Yajaira 11/03 Active [facility] MNA Outpatient [id number] Yajaira 11/03 11/04 [facility] [place] [place] Neurology Kre /2019 [facility] [place] Outpatient [id number] Yajaira 07/05 [facility] [place] [facility] [id number] Yajaira 07/05 07/06 [facility] [place] [place] Neurology [place] /2019 [facility] [place] Outpatient [id number] Yajaira 08/03 [facility] [id number] Yajaira 08/03 Active [facility] Ambulatory [id number] Yajaira 08/03 08/03 [facility] [place] [place] Neurology Pre-Reg [place] /2019 [facility] [place] MNA Ambulatory [id number] Yajaira 08/03 08/03 [facility] Pre-Reg Kre [facility] [place] Outpatient [id number] Yajaira 09/05 Active [facility] [place] MNA Outpatient [id number] Yajaira 09/05 09/06 [facility] Neurology [facility] /2020 [facility] [place] Outpatient [id number] Yajaira 12/05 Active [facility] [place] Procedures No Data Provided for This Section Assessment and Plan No Data Provided for This Section Plan of Care No Data Provided for This Section Social History Social History Date Source Social History TypeResponse 09/05/2020 [facility] Neur o Smoking Status Never smoker; Exposure to Tobacco Smoke Unable to obtain; Cigarette Smoking Last 365 Days Unable to obtain; Reg Smoking Cessation Counseling No entered on: 09/05/20 Family History No Data Provided for This Section Advance Directives No Data Provided for This Section Functional Status No Data Provided for This Section
--- OUTSIDE RECORDS SUMMARY | 2020-10-15 06:30 | XMS REPORT | Continuity of Care Document ---
:1945 Author Organization [facility] t Address [address] [place] [address] Care Team Providers Name Role Phone Pcp MD Primary Care Physician Unavailable Cedric Milligan Attending Clinician Melisa MARTEL Attending Clinician Unavailable Melisa MARTEL Admitting Clinician Unavailable Problems Condition Condition Condition Status Onset Resolution Last Treating Co mments Source Name Details Category Date Date Treatment Clinician Date Dizziness Dizziness Disease Active 2017-[address] [facility] [address] [facility] Cervical Problem Active 2020-09-08 Mem [facility] spondylosi 02:02:51 l s Cervical Cal n (disorder) spondylosi s (disorder) Active Problem 09/08/2020 [facility] Neuro Insomnia Problem Active 2020-09-08 Mem oria (disorder) 02:02:51 l Insomnia Cal n (disorder) [facility] Vertigo Problem Active 2020-09-08 Clark ni (finding) 02:02:51 l Vertigo Mason (finding) Active Problem 09/08/2020 [facility] Neuro Allergies, Adverse Reactions, Alerts Allergy Allergy Status Severity Reaction(s) Onset Inactive Treating Comm ents Source Name Type Date Date Clinician No Known No Known Active Memori a Medicati Medicati l on on Zain Allergie Allergie s s Social History Social Habit Start Date Stop Date Quantity Comments Source Sex Assigned At [facility] Tobacco use and 2018-06-06 2018-06-06 Never used [facility] - exposure 00:00:00 00:00:00 [facility] Alcohol intake 2018-06-06 2018-06-06 Current [facility] [place] [facility] - 00:00:00 00:00:00 non-drinker of Medical Ce nter alcohol (finding) Smoking Status Start Date Stop Date Source Never smoker [facility] Medications Ordered Filled Start Stop Current Ordering Indication Dosage Frequency Signature Comments Components Source Medication Medication Date Date Medication? 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, Weight Fluoxetine 2017-08 Yes 20 mg = 1 [...] Observation Value Comments Source Systolic (mm Hg) 2020-09-05 16:02:00 Clark rial Zain Diastolic (mm Hg) 2020-09-05 16:02:00 [facility] orial Zain Heart Rate 2020-09-05 16:02:00 [facility] Height 2020-09-05 16:02:00 157.48 cm [facility] Weight 2020-09-05 16:02:00 [facility] BMI Calculated 2020-09-05 16:02:00 Memori al Zain Systolic (mm Hg) 2020-07-05 16:41:00 [facility] rial Zain Diastolic (mm Hg) 2020-07-05 16:41:00 Mem orial Mason Heart Rate 2020-07-05 [facility] 2020-07-05 16:41:00 Memori al Zain Height 2020-07-05 16:41:00 157.48 cm [facility] Weight 2020-07-05 16:41:00 [facility] BMI Calculated 2020-07-05 16:41:00 [facility] al Zain Weight 2019-11-04 16:37:00 [facility] BMI Calculated 2019-11-04 16:37:00 Memori al Mason Systolic (mm Hg) 2019-11-04 16:37:00 Clark rial Zain Diastolic (mm Hg) 2019-11-04 16:37:00 Mem orial Zain Heart Rate 2019-11-04 16:37:00 [facility] Respitory Rate 2019-11-04 16:37:00 [facility] Height 2019-11-04 16:37:00 157.48 cm [facility] Systolic (mm Hg) 2019-05-06 16:30:00 [place] rial Mason Diastolic (mm Hg) 2019-05-06 16:30:00 Mem orial Zain Heart Rate 2019-05-06 16:30:00 [facility] Respitory Rate 2019-05-06 16:30:00 [facility] Height 2019-05-06 16:30:00 157.48 cm [facility] Weight 2019-05-06 16:30:00 [facility] BMI Calculated 2019-05-06 16:30:00 [facility] al [facility] Height 2019-01-26 15:26:00 157.48 cm [facility] Weight 2019-01-26 15:26:00 [facility] BMI Calculated 2019-01-26 15:26:00 Memori al [facility] Heart Rate 2019-01-26 15:26:00 [facility] Respitory Rate 2019-01-26 15:26:00 Memori al [place] Systolic (mm Hg) 2019-01-26 15:26:00 Clark rial Mason Diastolic (mm Hg) 2019-01-26 15:26:00 Mem orial Zain Heart Rate 2018-07-28 16:15:00 [facility]ain Systolic (mm Hg) 2018-07-28 16:15:00 [place] rial Zain Diastolic (mm Hg) 2018-07-28 16:15:00 Mem orial Mason BMI Calculated 2018-07-28 16:15:00 Memori al [facility] Height 2018-07-28 16:15:00 157.48 cm [facility] Weight 2018-07-28 16:15:00 [facility]ain Systolic (mm Hg) 2018-06-16 15:15:00 Clark rial Zain Diastolic (mm Hg) 2018-06-16 15:15:00 Mem orial Zain Heart Rate 2018-06-16 15:15:00 Lonny Pittman Height 2018-06-16 15:15:00 165.1 cm Lonny Pittman Weight 2018-06-16 15:15:00 Lonny Pittman BMI Calculated 2018-06-16 15:15:00 Jossy Ramos Procedures This patient has no known procedures. Plan of Care Planned Activity Planned Date Details Comments Source Future Scheduled 2020-04-25 INFLUENZA VACCINE (#1[facility]00 [code = INFLUENZA Medical Ce nter VACCINE (#1)] Future Scheduled 2018-08-[address] [facility] - Test 00:00:00 WELLNESS (YEAR 2 or Medical Center FIRST YEAR if no IPPE) [code = MEDICARE ANNUAL WELLNESS (YEAR 2 or FIRST YEAR if no IPPE)] Future Scheduled 2008-12-16 PNEUMOCOCCAL 65+ YRS [facility] - Test 00:00:00 (1 of 1 - Medical Center [id number] PCV13) [code = PNEUMOCOCCAL 65+ YRS (1 of 1 - [id number] PCV13)] Encounters Start End Encounter Admission Attending Care Care Encounter Source Date/Time Date/Time Type Type Clinicians Facility Department ID 2020-09-05 2020-09-05 Outpatient JABARI MilliganSCHER [id number] 10:00:00 23:59:59 [place] 10 Cedric 2020-08-03 2020-08-03 Outpatient JABARI MilliganSCHER [id number] 10:30:00 10:30:00 [place] 08 Cedric 2020-08-03 2020-08-03 Outpatient LOREN MilliganSCHJORGE PIMENTELSCHER [id number] 10:30:00 10:30:00 [place] 07 Cedric 2020-07-05 2020-07-05 Outpatient JABARI MilliganSCHER [id number] 10:45:00 23:59:59 [place] 09 Cedric 2019-11-04 2019-11-04 Outpatient LOREN MilliganSCHJORGE PIMENTELSCHER [id number] 11:30:00 23:59:59 [place] 06 Cedric 2019-07-27 2019-07-27 Outpatient JABARI MilliganMISCHER [id number] 10:00:00 10:00:00 [place] 03 Cedric 2019-05-06 2019-05-06 Outpatient JABARI MilliganER [id number] 11:30:00 23:59:59 [place] 05 Cedric 2019-05-05 2019-05-05 Outpatient JABARI MilliganER [id number] 14:15:00 14:15:00 [place] 04 Cedric 2019-01-26 2019-01-26 Outpatient JABARI MilliganER [id number] 10:15:00 23:59:59 [place] Cedric 2018-08-10 2018-08-11 Outpatient JABARI PIMENTELSCHER [id number] 16:10:00 23:59:59 00 2018-07-28 2018-07-28 Outpatient JABARI MilliganER [id number] 10:15:00 23:59:59 [place] Cedric 2018-06-16 2018-06-16 Outpatient JABARI Milligan [id number] 09:45:00 23:59:59 [place] 00 Cedric Results Test Description Test Time Test Comments Results Result Sourc e Comments CT, BRAIN, WITHOUT 2018-06-08 FINAL REPORT PATIENT CONTRAST 08:11:00 ID: [id number] CT head without contrast INDICATION: CVA, TIA. [...] findings as discussed above. Signed: Baldomero Goodwin MDReport Verified Date/Time: 06/08/2018 08:11:29 Reading Location: [facility] C013V Neuro Reading Room ESIUM 2018-06-08 06:22:00 Test Item Value Reference Range Interpretation Comme nts MAGNESIUM (BEAKER) (test code = 627) 2.1 mg/dL 1.6-2.6 BASIC METABOLIC [id number] 06:22:00 Test Item Value Reference Range Interpretation [...] NOT APPLICABLE FOR DIALYSIS PATIEN TS. LIPID [id number] 06:22:00 Test Item Value Reference Range Interpretation [...] 130-159 High 160-189 Very High >=190HEPATIC FUNCTION [id number] 06:22:00 Test Item Value Reference Range Interpretation [...] code = 11 U/L 6-55 347) CALCIUM, [id number] 06:20:00 Test Item Value Reference Range Interpretation Comments CALCIUM IONIZED (BEAKER) (test 1.14 mmol/L 1.12-1.27 code = 698) PH, BLOOD (BEAKER) (test code = 7.41 1810) PROTHROMBIN [id number] 06:01:00 Test Item Value Reference Range Interpretation Comments PROTIME (BEAKER) (test code = 13.3 seconds 11.7-14.7 759) INR (BEAKER) (test code = 370) 1.0 <=5.9 RECOMMENDED COUMADIN/WARFARIN INR THERAPY RANGESSTANDARD DOSE: 2.0 - 3.0 Includes: PROPHYLAXIS forvenous thrombosis, systemic embolization; TREATMENT for venous thrombosis and/or pulmonary embolus.HIGH RISK: Target INR is 2.5-3.5 for patients with mechanical heart valves.MR, MRA, BRAIN, WITHOUT [id number] 21:28:00FINAL REPORT MR, MRA, BRAIN, WITHOUT CONTRAST, [...] arteries: Slight left dominance. IMPRESSION: No flow limiti ng stenosis in the major branch vessels of the cervical or cranial circulation. Signed: JR Cortés Robert MDReport Verified Date/Time: 06/07/2018 21:28:54 Reading Location: [address] Reading Room MR, MRA, NECK, WITHOUT IV [id number] 21:28:00FINAL REPORT MR, MRA, BRAIN, WITHOUT CONTRAST, MR, MRA, NECK, WITHOUT IV CONTRAST INDICATION: TIA Workup TECHNIQUE: 3-D time of flight MRA of the cranial and cervical circulation. 2-D time of flight MRA of the neck. 3D MIP angiographic post- processing was performed. Stenosis evaluation utilized NASCET criteria. [...] MDReport Verified Date/Time: 06/07/2018 21:28:54 Reading Location: [address] Reading Room CALCIUM, [id number] 03:12:00 Test Item Value Reference Range Interpretation Comments CALCIUM IONIZED (BEAKER) (test 1.15 mmol/L 1.12-1.27 code = 698) PH, BLOOD (BEAKER) (test code = 7.37 1810) PROTHROMBIN [id number] 02:47:00 Test Item Value Reference Range Interpretation [...] (BEAKER) (test code = 2801) COMPREHENSIVE METABOLIC [id number] 17:20:00 Test Item Value Reference Range Interpretation [...] (test code = 413) MR, BRAIN, WITHOUT [id number] 16:29:00FINAL REPORT MRI brain without contrast INDICATION: [...] Queta ified Date/Time: 06/06/2018 16:29:20 Reading Location: [facility] C013V Neuro Reading Room
[2020-10-15] MEDS ORDERED: dexAMETHasone 10 MG/ML VIAL ONE (07:57)
[2020-10-15] MEDS ORDERED: MEPERIDINE HCL 25 MG/ML SYR ONE (07:58)
--- NOTE | 2020-10-15 08:00 | ER ---
Nurse's Notes [facility] Name: Sherry Russ Age: 74 yrs Sex: Female : 1945 Arrival Date: 10/15/2020 Time: 06:27 Bed 13 Private MD: Diagnosis: Muscle spasm of back;Torticollis Presentation: 10/15 07:13 Chief complaint: Patient states: don't know when it happened, but feels like a pulled iw muscle or strain in neck and right shoulder, has arthritis, has been hurting since Friday night, had to move a lot of stuff in garage. Coronavirus screen: At this time, the client does not indicate any symptoms associated with coronavirus-19. Ebola Screen: Patient negative for fever greater than or equal to 101.5 degrees Fahrenheit, and additional compatible Ebola Virus Disease symptoms Patient denies exposure to infectious person. Patient denies travel to an Ebola-affected area in the 21 days before illness onset. No symptoms or risks identified at this time. Initial Sepsis Screen: Does the patient meet any 2 criteria? No. Patient's initial sepsis screen is negative. Does the patient have a suspected source of infection? No. Patient's initial sepsis screen is negative. Risk Assessment: Do you want to hurt yourself or someone else? Patient reports no desire to harm self or others. Onset of symptoms was October 12, 2020. 07:13 Method Of Arrival: Wheelchair iw 07:13 Acuity: CHAD 3 iw Historical: - Allergies: 07:16 No Known Allergies; iw - Home Meds: 07:16 fluoxetine 10 mg Oral cap 2 caps once daily [Active]; baclofen 10 mg Oral tab nightly iw [Active]; - PMHx: 07:16 Anxiety; Depression; eye problems; Hyperlipidemia; Hypertension; Vertigo; iw - PSHx: 07:16 None; iw - Immunization history:: Adult Immunizations up to date. - Social history:: Smoking status: Patient denies any tobacco usage or history of. - Family history:: not pertinent. - Hospitalizations: : No recent hospitalization is reported. Screenin:40 Abuse screen: Denies threats or abuse. Denies injuries from another. Nutritional jl7 screening: No deficits noted. Tuberculosis screening: No symptoms or risk factors identified. Fall Risk None identified. Assessment: 07:40 General: Appears in no apparent distress. uncomfortable, Behavior is calm, cooperative, jl7 appropriate for age. Pain: Complains of pain in right shoulder, posterior neck Pain currently is 2 out of 10 on a pain scale. at worst was 8 out of 10 on a pain scale. Pain began 2-3 days ago. Is intermittent. Neuro: Level of Consciousness is awake, alert, obeys commands, Oriented to person, place, time, situation. Cardiovascular: Patient's skin is warm and dry. Respiratory: Airway is patent Respiratory effort is even, unlabored, Respiratory pattern is regular, symmetrical. Derm: Skin is pink, warm \T\ dry. Musculoskeletal: Reports pain in right shoulder and posterior neck. Vital Signs: 07:13 BP 117 / 57; Pulse 86; Resp 16; Temp 98.7; Pulse Ox 98% ; Weight 61.23 kg; Height 5 ft. iw 2 in. (157.48 cm); Pain 7/10; 07:40 BP 112 / 61; Pulse 83; Resp 15; Pulse Ox 98% ; jl7 08:09 BP 114 / 93; Pulse 85; Resp 15; Pulse Ox 98% ; jl7 07:13 Body Mass Index 24.69 (61.23 kg, 157.48 cm) iw ED Course: 06:27 Patient arrived in ED. cf2 07:15 Triage completed. iw 07:16 Arm band placed on. iw 07:18 Twan Corona MD is Attending Physician. rn 07:20 Tracey Castro RN is Primary Nurse. jl7 07:40 Patient has correct armband on for positive identification. Bed in low position. Call jl7 light in reach. Side rails up X 1. Pulse ox on. NIBP on. 08:09 No provider procedures requiring assistance completed. Patient did not have IV access jl7 during this emergency room visit. Administered Medications: 07:43 Drug: Demerol 25 mg Route: IM; Site: right deltoid; jl7 08:10 Follow up: Response: No adverse reaction jl7 08:10 Follow up: Response: Medication administered at discharge. jl7 07:45 Drug: Decadron 10 mg Route: IM; Site: right deltoid; jl7 08:10 Follow up: Response: No adverse reaction jl7 08:10 Follow up: Response: Medication administered at discharge. jl7 Outcome: 07:59 Discharge ordered by . kurt 08:09 Discharged to home via wheelchair, with family. jl7 08:09 Condition: stable 08:09 Discharge instructions given to patient, family, Instructed on discharge instructions, follow up and referral plans. medication usage, Demonstrated understanding of instructions, follow-up care, medications, Prescriptions given X 1. 08:11 Patient left the ED. jl7 Signatures: Andreia Turner RN RN Twan Corona MD MD rn Leal, Jahala, RN RN jl7 Johnnie Rubio cf2
--- NOTE | 2020-10-15 08:00 | EDPHYS ---
Physician Documentation [facility] Name: Sherry Russ Age: 74 yrs Sex: Female : 1945 Arrival Date: 10/15/2020 Time: 06:27 Bed 13 Private MD: ED Physician Twan Corona HPI: 10/15 07:54 This 74 yrs old Female presents to ER via Wheelchair with complaints of rn Shoulder Pain, Neck Pain, <24hrs Old, Back Pain. 07:54 The patient or guardian complains of pain. neck and shoulder blade area. Onset: The rn symptoms/episode began/occurred 2 day(s) ago. Modifying factors: the symptoms are alleviated by The symptoms are aggravated by lifting weight, movement. Severity of symptoms: At their worst the symptoms were moderate, in the emergency department the symptoms have improved. The patient has experienced similar episodes in the past. The patient has not recently seen a physician. Reports water leak in garage, had to move a lot of heavy stuff in garage on Friday, next day felt muscle pain of back/neck/shoulder blade area, hurts to move and lift things, has had similar problems in past. No chest pain/sob/fever/focal weakness. Improved with tramadol at home, also takes baclofen for chronic muscle spasm and neck problems.. Historical: - Allergies: 07:16 No Known Allergies; iw - Home Meds: 07:16 fluoxetine 10 mg Oral cap 2 caps once daily [Active]; baclofen 10 mg Oral tab nightly iw [Active]; - PMHx: 07:16 Anxiety; Depression; eye problems; Hyperlipidemia; Hypertension; Vertigo; iw - PSHx: 07:16 None; iw - Immunization history:: Adult Immunizations up to date. - Social history:: Smoking status: Patient denies any tobacco usage or history of. - Family history:: not pertinent. - Hospitalizations: : No recent hospitalization is reported. ROS: 07:54 Constitutional: Negative for fever, chills, and weight loss, Eyes: Negative for injury, rn pain, redness, and discharge, Neck: + neck pain with movement Cardiovascular: Negative for chest pain, palpitations, and edema, Respiratory: Negative for shortness of breath, cough, wheezing, and pleuritic chest pain, Abdomen/GI: Negative for abdominal pain, nausea, vomiting, diarrhea, and constipation, Back: + upper back pain and pain near right shoulder blade MS/Extremity: Negative for injury and deformity, Skin: Negative for injury, rash, and discoloration, Neuro: Negative for headache, weakness, numbness, tingling, and seizure. Exam: 07:54 Constitutional: This is a well developed, well nourished patient who is awake, alert, rn and in no acute distress. Head/Face: Normocephalic, atraumatic. Neck: Trachea midline, no masses palpated, and no cervical lymphadenopathy. No Meningismus. Mild tenderness of trapezius and mild pain with turning head either way. Chest/axilla: Normal chest wall appearance and motion. Nontender with no deformity. No lesions are appreciated. Cardiovascular: Regular rate and rhythm. No pulse deficits. Respiratory: No increased work of breathing, no retractions or nasal flaring. MS/ Extremity: Pulses equal, no cyanosis. Neurovascular intact. Painful ROM right shoulder and shoulder blade region, no swelling or masses. Neuro: Awake and alert, GCS 15, oriented to person, place, time, and situation. Cranial nerves II-XII grossly intact. Motor strength 5/5 in all extremities. Sensory grossly intact. Cerebellar exam normal. Normal gait. Vital Signs: 07:13 BP 117 / 57; Pulse 86; Resp 16; Temp 98.7; Pulse Ox 98% ; Weight 61.23 kg; Height 5 ft. iw 2 in. (157.48 cm); Pain 7/10; 07:40 BP 112 / 61; Pulse 83; Resp 15; Pulse Ox 98% ; jl7 08:09 BP 114 / 93; Pulse 85; Resp 15; Pulse Ox 98% ; jl7 07:13 Body Mass Index 24.69 (61.23 kg, 157.48 cm) iw MDM: 07:18 Patient medically screened. rn 07:54 Differential diagnosis: DJD, tendonitis, muscle spasm. Data reviewed: vital signs, rn nurses notes, old medical records, and as a result, I will discharge patient. Counseling: I had a detailed discussion with the patient and/or guardian regarding: the historical points, exam findings, and any diagnostic results supporting the discharge/admit diagnosis, the need for outpatient follow up, to return to the emergency department if symptoms worsen or persist or if there are any questions or concerns that arise at home. Response to treatment: the patient's symptoms have markedly improved after treatment, and as a result, I will discharge patient. Special discussion: I discussed with the patient/guardian in detail that at this point there is no indication for admission to the hospital. It is understood, however, that if the symptoms persist or worsen the patient needs to return immediately for re-evaluation. Administered Medications: 07:43 Drug: Demerol 25 mg Route: IM; Site: right deltoid; jl7 08:10 Follow up: Response: No adverse reaction jl7 08:10 Follow up: Response: Medication administered at discharge. jl7 07:45 Drug: Decadron 10 mg Route: IM; Site: right deltoid; jl7 08:10 Follow up: Response: No adverse reaction jl7 08:10 Follow up: Response: Medication administered at discharge. jl7 Disposition: 10/15/20 07:59 Discharged to Home. Impression: Muscle spasm of back, Torticollis. - Condition is Stable. - Discharge Instructions: Muscle Cramps and Spasms, Acute Torticollis, Adult, Back Exercises, [id number]. - Prescriptions for Medrol (Manny) 4 mg Oral Tablets, Dose Pack - take 1 tablet by ORAL route as directed - follow package instructions; 1 packet. - Medication Reconciliation Form, Thank You Letter, Antibiotic Education, Prescription Opioid Use form. - Follow up: Private Physician; When: As needed; Reason: Recheck today's complaints, Re-evaluation by your physician. - Problem is an acute exacerbation. - Symptoms have improved. Signatures: Andreia Turner RN RN iw Nieto, Roman, MD MD rn Leal, Jahala, RN RN jl7 Corrections: (The following items were deleted from the chart) 08:11 07:59 10/15/2020 07:59 Discharged to Home. Impression: Muscle spasm of back; jl7 Torticollis. Condition is Stable. Forms are Medication Reconciliation Form, Thank You Letter, Antibiotic Education, Prescription Opioid Use. Follow up: Private Physician; When: As needed; Reason: Recheck today's complaints, Re-evaluation by your physician. Problem is an acute exacerbation. Symptoms have improved. rn
[2020-10-15 08:16] VITALS: TEMP 98.7; O2SAT 98
[2020-10-15 08:18] VITALS: BP 114/93
== END 2020-10-15 08:11 | disposition home or self-care (01) ==
LOC: ER 06:26
DX: M43.6 Torticollis (principal); M62.830 Muscle spasm of back; I10 Essential (primary) hypertension; F41.8 Other specified anxiety disorders; E78.5 Hyperlipidemia, unspecified
CPT/HCPCS: 96372; 99283; J1100; J2175

== ENCOUNTER 2020-10-17 00:26 | Emergency (ER) | payer OTHER ==
--- OUTSIDE RECORDS SUMMARY | 2020-10-17 00:29 | XMS REPORT | Clinical Summary ---
:1945 Author Organization [facility] Address [address] [place] [address] Care Team Providers Name Role Phone Pcp, [...] PNEUMOCOCCAL 65+ YRS (1 of 1 - [id number] PCV13) 12/16/2008 MEDICARE ANNUAL WELLNESS (YEAR 2 or FIRST YEAR if no 08/26/2018 IPPE) INFLUENZA VACCINE (#1) 2020 Results Not on fileafter 10/17/2019 Insurance Payer Benefit Plan / Subscriber ID Effective Phone Address T ype Group Dates HUMANA - HUMANA [id number] 2017-Prese Maps Contracted MEDICARE MGD MEDICARE ADV nt CARE Advance Directives For more information, please contact: [phone] Type Date Recorded Patient 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
--- OUTSIDE RECORDS SUMMARY | 2020-10-17 00:29 | XMS REPORT | Continuity of Care Document ---
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, Weight Fluoxetine 20 20 mg = 1 [...] ro Diastolic (mm Hg) 66 09/05/2020 [facility] Heart Rate 35 09/05/2020 [facility] Height 157.48 cm 09/05/2020 [facility] Weight 60 09/05/2020 [facility] BMI Calculated 24.19 09/05/2020 [facility] Systolic (mm Hg) 111 07/05/2020 [facility] [...] [facility] Heart Rate 91 01/26/2019 [facility] Respitory Rate 16 01/26/2019 [facility] [...] Number For Provider Date Date Visit Outpatient [id number] YAJAIRA [facility]/16 [facility] [id number] Yajaira 06/16 06/17 [facility] /2017 [facility] [place] Outpatient [id number] YAJAIRA 07/28 Active [facility] [place] [facility] Outpatient [id number] Yajaira 07/28 07/29 [facility] Kre /2017 [facility] [place] [facility] Outside [id number] 08/10 08/[address] [facility] /2017 [facility] [place] Records Outpatient [id number] Yajaira 01/26 Active [facility] [place] [facility] Outpatient [id number] Yajaira 01/26 01/27 [facility] Kre /2018 [facility] [place] Outpatient [id number] Yajaira 05/05 Active [facility] [place] [facility] Ambulatory [id number] Yajaira 05/05 05/05 [facility] Pre-Reg [facility] /2018 [facility] [place] Outpatient [id number] Yajaira 05/06 Active [facility] [place] [facility] Outpatient [id number] Yajaira 05/06 05/07 [facility] [place] Outpatient [id number] Yajaira 07/27 Active [facility] Ambulatory [id number] Yajaira 07/27 07/27 [facility] Pre[facility] [place] Outpatient [id number] Yajaira 11/03 Active [facility] Outpatient [id number] Yajaira 11/03 11/04 [facility] Kre /2019 [facility] [place] Outpatient [id number] Yajaira 07/05 [facility] [place] [facility] [id number] Yajaira 07/05 07/06 [facility] [place] /2019 [facility] [place] Outpatient [id number] Yajaira 08/03 [facility] [id number] Yajaira 08/03 [facility] [id number] Yajaira 08/03 08/03 [facility] Pre-Reg [place] /2019 [facility] [place] [facility] Ambulatory [id number] Yajaira 08/03 08/03 [facility] Pre-Reg [facility] [place] Outpatient [id number] Yajaira 09/05 Active [facility] [place] [facility] Outpatient [id number] Yajaira 09/05 09/06 [facility] /2020 Neuro [place] Outpatient [id number] Yajaira 12/[address] [facility] [place] Procedures No Data Provided for This Section [...]
--- OUTSIDE RECORDS SUMMARY | 2020-10-17 00:30 | XMS REPORT | Continuity of Care Document ---
:1945 Author Organization [facility] t Address [address] [place] [address] Care Team Providers Name Role Phone Pcp MD Primary Care Physician Unavailable Cedric Milligan Attending Clinician Melisa MARTEL Attending Clinician Unavailable Melisa MARTEL Admitting Clinician Unavailable Problems Condition Condition Condition Status Onset Resolution Last Treating Co mments Source Name Details Category Date Date Treatment Clinician Date Dizziness Dizziness Disease Active 2017-[address] [facility] St 0[facility]13 [facility] Cervical Problem Active 2020-09-08 [facility] spondylosi 02:02:51 l s Cervical Cal n (disorder) spondylosi s (disorder) Active Problem 09/08/2020 [facility] Insomnia Problem Active 2020-09-08 [facility] (disorder) 02:02:51 l Insomnia Cal n (disorder) Active Problem 09/08/2020 [facility] Vertigo Problem Active 2020-09-08 [place] [facility] (finding) 02:02:51 l Vertigo [place] (finding) Active Problem 09/08/2020 [facility] Allergies, Adverse Reactions, Alerts Allergy Allergy Status Severity Reaction(s) Onset Inactive Treating Comm ents Source Name Type Date Date Clinician No Known No Known Active Memori a Medicati Medicati l on on Zain Allergie Allergie s s Social History Social Habit Start Date Stop Date Quantity Comments Source Sex Assigned [facility] Tobacco use and 2018-06-06 2018-06-06 Never used [facility] - exposure 00:00:00 00:00:00 [facility] Alcohol intake 2018-06-06 2018-06-[address] [facility] St [place] - 00:00:00 00:00:00 non-drinker of Medical Ce nter alcohol (finding) Smoking Status Start Date Stop Date Source Never smoker [facility] Medications Ordered Filled Start Stop Current Ordering Indication Dosage Frequency Signature Comments Components Source Medication Medication Date Date Medication? 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 orial [facility]ain Heart Rate 2020-09-05 16:02:[address] [facility] Height 2020-09-05 16:02:[address] [facility] Weight 2020-09-05 16:02:[address] [facility] BMI Calculated 2020-09-05 16:02:00 Mem[facility] al [facility] Systolic (mm Hg) 2020-07-05 16:41:00 [place] rial [place]ain Diastolic (mm Hg) 2020-07-05 16:41:00 Mem orial [place] Heart Rate 2020-07-05 16:41:00 [facility] 2020-07-05 16:41:00 [facility] Height 2020-07-05 16:41:[address] [facility] Weight 2020-07-05 16:41:[address] [facility] BMI Calculated 2020-07-05 16:41:00 [facility] Weight 2019-11-04 16:37:00 [facility] BMI Calculated 2019-11-04 16:37:00 [facility] [place] Systolic (mm Hg) 2019-11-04 16:37:00 [place] rial Zain Diastolic (mm Hg) 2019-11-04 16:37:00 Mem orial [place] Heart Rate 2019-11-04 16:37:00 [facility] [place] Respitory Rate 2019-11-04 16:37:00 [facility] [place] Height 2019-11-04 16:37:00 157.48 cm [facility] [place] Systolic (mm Hg) 2019-05-06 16:30:00 [place] rial [place] Diastolic (mm Hg) 2019-05-06 16:30:00 Mem orial [place] Heart Rate 2019-05-06 16:30:00 [facility] [place] Respitory Rate 2019-05-06 16:30:00 [facility] [place] Height 2019-05-06 16:30:00 157.48 cm [facility] Weight 2019-05-06 16:30:00 [facility] BMI Calculated 2019-05-06 16:30:00 [facility] [place] Height 2019-01-26 15:26:00 157.48 cm [facility] Weight 2019-01-26 15:26:00 [facility] [place] BMI Calculated 2019-01-26 15:26:00 [facility] [place] Heart Rate 2019-01-26 15:26:00 [facility] Respitory Rate 2019-01-26 15:26:00 [facility] [place] Systolic (mm Hg) 2019-01-26 15:26:00 [place] rial [place] Diastolic (mm Hg) 2019-01-26 15:26:00 Mem orial [place] Heart Rate 2018-07-28 16:15:00 [facility] Systolic (mm Hg) 2018-07-28 16:15:00 [place] rial [facility] Diastolic (mm Hg) 2018-07-28 16:15:00 Mem orial [place] BMI Calculated 2018-07-28 16:15:00 [facility] [place] Height 2018-07-28 16:15:00 157.48 cm [facility] [place] Weight 2018-07-28 16:15:00 [facility] Systolic (mm [...] 00:00:00 (1 of 1 - [facility] [id number] PCV13) [code = PNEUMOCOCCAL 65+ YRS (1 of 1 - [id number] PCV13)] Encounters Start End Encounter Admission Attending Care Care Encounter Source Date/Time Date/Time Type Type Clinicians Facility Department ID 2020-09-05 2020-09-05 Outpatient JABARI MilliganSCHER [id number] 10:00:00 23:59:59 [place] 10 Cedric 2020-08-03 2020-08-03 Outpatient JABARI MilliganSCHER [id number] 10:30:00 10:30:00 [place] 08 Cedric 2020-08-03 2020-08-03 Outpatient LOREN MilliganSCHJORGE PIMENTELSCHER [id number] 10:30:00 10:30:00 [place] 07 Cedric 2020-07-05 2020-07-05 Outpatient JABARI MilliganSCHER [id number] 10:45:00 23:59:59 [place] 09 Cedric 2019-11-04 2019-11-04 Outpatient LOREN MilliganSCHJORGE PIMENTELSCHER [id number] 11:30:00 23:59:59 [place] 06 Cedric 2019-07-27 2019-07-27 Outpatient JABARI MilliganMISCHER [id number] 10:00:00 10:00:00 [place] 03 Cedric 2019-05-06 2019-05-06 Outpatient JABARI MilliganER [id number] 11:30:00 23:59:59 [place] 05 Cedric 2019-05-05 2019-05-05 Outpatient JABARI MilliganER [id number] 14:15:00 14:15:00 [place] 04 Cedric 2019-01-26 2019-01-26 Outpatient JABARI MilliganER [id number] 10:15:00 23:59:59 [place] Cedric 2018-08-10 2018-08-11 Outpatient JABARI PIMENTELSCHER [id number] 16:10:00 23:59:59 00 2018-07-28 2018-07-28 Outpatient JABARI MilliganER [id number] 10:15:00 23:59:59 [place] Cedric 2018-06-16 2018-06-16 Outpatient JABARI Milligan [id number] 09:45:00 23:59:59 [place] 00 Cedric Results Test Description Test Time Test Comments Results Result Sourc e Comments CT, BRAIN, WITHOUT 2018-06-08 FINAL REPORT PATIENT CONTRAST 08:11:00 ID: [id number] CT head without contrast INDICATION: CVA, TIA. [...] MDReport Verified Date/Time: 06/08/2018 08:11:29 Reading Location: [facility] C013V Neuro Reading Room ESIUM 2018-06-08 06:22:00 Test Item Value Reference Range Interpretation Comme nts MAGNESIUM (BEAKER) (test code = 627) 2.1 mg/dL 1.6-2.6 BASIC METABOLIC [id number] 06:22:00 Test Item Value Reference Range Interpretation [...] NOT APPLICABLE FOR DIALYSIS PATIEN TS. LIPID [id number] 06:22:00 Test Item Value Reference Range Interpretation [...] 130-159 High 160-189 Very High >=190HEPATIC FUNCTION [id number] 06:22:00 Test Item Value Reference Range Interpretation [...] code = 11 U/L 6-55 347) CALCIUM, [id number] 06:20:00 Test Item Value Reference Range Interpretation Comments CALCIUM IONIZED (BEAKER) (test 1.14 mmol/L 1.12-1.27 code = 698) PH, BLOOD (BEAKER) (test code = 7.41 1810) PROTHROMBIN TIME/[id number] 06:01:00 Test Item Value Reference Range Interpretation Comments PROTIME (BEAKER) (test code = 13.3 seconds 11.7-14.7 759) INR (BEAKER) (test code = 370) 1.0 <=5.9 RECOMMENDED COUMADIN/WARFARIN INR THERAPY RANGESSTANDARD DOSE: 2.0 - 3.0 Includes: PROPHYLAXIS forvenous thrombosis, systemic embolization; TREATMENT for venous thrombosis and/or pulmonary embolus.HIGH RISK: Target INR is 2.5-3.5 for patients with mechanical heart valves.MR, MRA, BRAIN, WITHOUT [id number] 21:28:00FINAL REPORT MR, MRA, BRAIN, WITHOUT CONTRAST, [...] MDReport Verified Date/Time: 06/07/2018 21:28:54 Reading Location: [address] Reading Room MR, MRA, NECK, WITHOUT IV [id number] 21:28:00FINAL REPORT MR, MRA, BRAIN, WITHOUT CONTRAST, [...] MDReport Verified Date/Time: 06/07/2018 21:28:54 Reading Location: [address] Reading Room CALCIUM, [id number] 03:12:00 Test Item Value Reference Range Interpretation Comments CALCIUM IONIZED (BEAKER) (test 1.15 mmol/L 1.12-1.27 code = 698) PH, BLOOD (BEAKER) (test code = 7.37 1810) PROTHROMBIN TIME/[id number] 02:47:00 Test Item Value Reference Range Interpretation [...] (BEAKER) (test code = 2801) COMPREHENSIVE METABOLIC [id number] 17:20:00 Test Item Value Reference Range Interpretation [...] (test code = 413) MR, BRAIN, WITHOUT [id number] 16:29:00FINAL REPORT MRI brain without contrast INDICATION: [...] Queta ified Date/Time: 06/06/2018 16:29:20 Reading Location: [facility] C013V Neuro Reading Room
[2020-10-17 01:32] LABS: Absolute Lymphocytes (CBC) 1.7 K/uL (0.7-4.9); Basophils % 0.2 % (0-1.3); Hematocrit 34.6 % (36.0-45.0); Lymphocytes % 13.3 % (15.3-44.8); MPV 8.8 fL (7.6-11.3); RBC Red Blood Cell Count 4.07 M/uL (3.86-4.86)
[2020-10-17 01:34] LABS: Protime INR 0.88
[2020-10-17 01:42] LABS: ALT/SGPT 20 U/L (12-78); AST/SGOT 17 U/L (15-37); Albumin 3.4 g/dL (3.4-5.0); Alkaline Phosphatase 75 U/L (45-117); BUN Blood Urea Nitrogen 17 mg/dL (7-18); Bicarbonate 24 mmol/L (21-32); Bilirubin Direct < 0.1 mg/dL (0-0.2); Bilirubin Total 0.4 mg/dL (0.2-1.0); CKMB Creatine Kinase MB 2.9 ng/mL (0.3-3.6); Creatine Phosphokinase 97 U/L (26-192); Glucose Level 150 mg/dL (74-106); Lipase 155 U/L (73-393); NT PRO-BNP 6340 pg/mL (<450); Potassium 3.9 mmol/L (3.5-5.1); Protein, Total 7.2 g/dL (6.4-8.2); Sodium Level 130 mmol/L (136-145); Troponin (Emerg Dept Use Only) 0.03 ng/mL (0.0-0.045)
--- NOTE | 2020-10-17 02:57 | EDPHYS ---
Physician Documentation [facility] Name: Sherry Russ Age: 74 yrs Sex: Female : 1945 Arrival Date: 10/17/2020 Time: 00:27 Bed 25 Private MD: ED Physician Abdulaziz Ibarra HPI: 10/17 03:10 This 74 yrs old Female presents to ER via EMS with complaints of Shortness Of tw4 Breath. 03:10 The patient has shortness of breath at rest. Onset: The symptoms/episode began/occurred tw4 just prior to arrival, today. Duration: The symptoms are continuous, but are markedly better than the original presentation. The patient's shortness of breath has no apparent modifying factors. Associated signs and symptoms: The patient has no apparent associated signs or symptoms. Severity of symptoms: At their worst the symptoms were moderate in the emergency department the symptoms have resolved. pt received albuterol TELERADIOLOGIST by EMS. Historical: - Allergies: 00:40 No Known Allergies; wh - Home Meds: 00:40 baclofen 10 mg Oral tab nightly [Active]; fluoxetine 10 mg Oral cap 2 caps once daily wh [Active]; - PMHx: 00:40 Anxiety; Depression; eye problems; Hyperlipidemia; Hypertension; Vertigo; wh - Immunization history:: Adult Immunizations up to date. - Social history:: Smoking status: Patient denies any tobacco usage or history of. ROS: 03:10 Constitutional: Negative for fever, chills, and weight loss, Eyes: Negative for injury, tw4 pain, redness, and discharge, Cardiovascular: Negative for chest pain, palpitations, and edema, Abdomen/GI: Negative for abdominal pain, nausea, vomiting, diarrhea, and constipation, Back: Negative for injury and pain, MS/Extremity: Negative for injury and deformity, Skin: Negative for injury, rash, and discoloration, Neuro: Negative for headache, weakness, numbness, tingling, and seizure. 03:10 Respiratory: Positive for shortness of breath. Exam: 03:10 Constitutional: This is a well developed, well nourished patient who is awake, alert, tw4 and in no acute distress. Head/Face: Normocephalic, atraumatic. Chest/axilla: Normal chest wall appearance and motion. Nontender with no deformity. No lesions are appreciated. Cardiovascular: Regular rate and rhythm with a normal S1 and S2. No gallops, murmurs, or rubs. Normal PMI, no JVD. No pulse deficits. Respiratory: Lungs have equal breath sounds bilaterally, clear to auscultation and percussion. No rales, rhonchi or wheezes noted. No increased work of breathing, no retractions or nasal flaring. Abdomen/GI: Soft, non-tender, with normal bowel sounds. No distension or tympany. No guarding or rebound. No evidence of tenderness throughout. Back: No spinal tenderness. No costovertebral tenderness. Full range of motion. MS/ Extremity: Pulses equal, no cyanosis. Neurovascular intact. Full, normal range of motion. Neuro: Awake and alert, GCS 15, oriented to person, place, time, and situation. Cranial nerves II-XII grossly intact. Motor strength 5/5 in all extremities. Sensory grossly intact. Cerebellar exam normal. Normal gait. Vital Signs: 00:37 BP 138 / 80; Pulse 105; Resp 20; Temp 97.8; Pulse Ox 95% on R/A; Weight 61.23 kg; Height 5 ft. 2 in. (157.48 cm); 02:00 BP 130 / 76; Pulse 98; Resp 18; Pulse Ox 95% on R/A; 03:00 BP 118 / 62; Pulse 96; Resp 18; Pulse Ox 95% on R/A; wh 00:37 Body Mass Index 24.69 (61.23 kg, 157.48 cm) MDM: 00:37 Patient medically screened. tw4 04:25 Differential diagnosis: Anemia Anxiety Reaction Myocardial Infarction pneumonia. Data tw4 reviewed: vital signs, nurses notes. Data interpreted: Pulse oximetry: Interpretation: normal. Counseling: I had a detailed discussion with the patient and/or guardian regarding: the historical points, exam findings, and any diagnostic results supporting the discharge/admit diagnosis. Special discussion: I discussed with the patient/guardian in detail that at this point there is no indication for admission to the hospital. It is understood, however, that if the symptoms persist or worsen the patient needs to return immediately for re-evaluation. 10/17 00:36 Order name: Blood Culture Adult (2) tw4 10/17 00:36 Order name: BMP; Complete Time: 02:51 tw4 10/17 02:51 Interpretation: Normal except: NA 130; GLUC 150; GFR 76; CL 96. 10/17 00:36 Order name: CBC with Diff; Complete Time: 02:51 10/17 02:52 Interpretation: Normal except: WBC 12.60; HCT 34.6; HGB 11.5; MN% 2.6; LYM% 13.3; MICHAEL% tw4 83.8; NEUT A 10.6. 10/17 00:36 Order name: Ckmb; Complete Time: 02:51 10/17 02:54 Interpretation: Within normal limits: CKMB 2.9. 10/17 00:36 Order name: CPK; Complete Time: 02:51 10/17 02:54 Interpretation: Within normal limits: CPK 97. 10/17 00:36 Order name: D-Dimer; Complete Time: 02:51 10/17 02:54 Interpretation: Within normal limits: D-DIMER 448. 10/17 00:36 Order name: Hepatic Function; Complete Time: 02:51 10/17 02:52 Interpretation: Normal except: A/G 0.9; GLOB 3.8. 10/17 00:36 Order name: Lipase; Complete Time: 02:51 10/17 02:54 Interpretation: Within normal limits: LIP 155. 10/17 00:36 Order name: Magnesium; Complete Time: 02:51 10/17 02:54 Interpretation: Within normal limits: MG 2.0. 10/17 00:36 Order name: NT PRO-BNP; Complete Time: 02:51 10/17 02:52 Interpretation: Normal except: NT PRO-BNP 6340. 10/17 00:36 Order name: PT-INR; Complete Time: 02:51 10/17 02:54 Interpretation: Within normal limits: PT 10.1. 10/17 00:36 Order name: Ptt, Activated; Complete Time: 02:51 10/17 02:54 Interpretation: Normal except: PTT 23.2. 10/17 00:36 Order name: Troponin (emerg Dept Use Only); Complete Time: 02:51 10/17 02:55 Interpretation: Within normal limits: TROPED 0.03. /23 00:37 Order name: Blood Culture [facility] 10/17 00:36 Order name: XRAY CXR (1 view) 10/17 00:36 Order name: EKG; Complete Time: 00:38 10/17 00:36 Order name: Cardiac monitoring; Complete Time: 01:07 10/17 00:36 Order name: EKG - Nurse/Tech; Complete Time: 01:07 10/17 00:36 Order name: IV Saline Lock; Complete Time: 01:07 10/17 00:36 Order name: Labs collected and sent; Complete Time: 01:07 10/17 00:36 Order name: O2 Per Protocol; Complete Time: :10/17 00:36 Order name: O2 Sat Monitoring; Complete Time: : Administered Medications: No medications were administered Disposition: 10/17/20 02:56 Discharged to Home. Impression: Anxiety disorder, unspecified, Acute bronchospasm. - Condition is Stable. - Discharge Instructions: Bronchospasm, Adult, Generalized Anxiety Disorder. - Prescriptions for Medrol (Manny) 4 mg Oral Tablets, Dose Pack - take 1 tablet by ORAL route as directed - follow package instructions; 1 packet. Albuterol Sulfate 90 mcg/actuation - inhale 1-2 puff by INHALATION route every 4-6 hours; 1 Inhaler. - Medication Reconciliation Form, Thank You Letter, Antibiotic Education, Prescription Opioid Use form. - Follow up: Private Physician; When: Upon discharge from the Emergency Department; Reason: Recheck today's complaints, Continuance of care, Re-evaluation by your physician. - Problem is new. - Symptoms have improved. Signatures: Dispatcher [employer] [facility] Laura Flores RN RN Abdulaziz Ibarra MD MD tw4 Corrections: (The following items were deleted from the chart) 03:31 02:56 10/17/2020 02:56 Discharged to Home. Impression: Anxiety disorder, unspecified; Acute bronchospasm. Condition is Stable. Forms are Medication Reconciliation Form, Thank You Letter, Antibiotic Education, Prescription Opioid Use. Follow up: Private Physician; When: Upon discharge from the Emergency Department; Reason: Recheck today's complaints, Continuance of care, Re-evaluation by your physician. Problem is new. Symptoms have improved. tw4
--- NOTE | 2020-10-17 02:57 | ER ---
Nurse's Notes [facility] Name: Sherry uRss Age: 74 yrs Sex: Female : 1945 Arrival Date: 10/17/2020 Time: 00:27 Bed 25 Private MD: Diagnosis: Anxiety disorder, unspecified;Acute bronchospasm Presentation: 10/17 00:37 Chief complaint: EMS states: Pt C/O SOB and panic attack. Pt was Tachypneic at home, wh was given A \T\ A. Pt states she feels better after. Coronavirus screen: Client denies travel out of the [place] in the last 14 days. shortness of breath. Ebola Screen: Patient negative for fever greater than or equal to 101.5 degrees Fahrenheit, and additional compatible Ebola Virus Disease symptoms Patient denies exposure to infectious person. Initial Sepsis Screen: Does the patient meet any 2 criteria? HR > 90 bpm. Does the patient have a suspected source of infection? No. Patient's initial sepsis screen is negative. Risk Assessment: Do you want to hurt yourself or someone else? Patient reports no desire to harm self or others. Onset of symptoms was October 17, 2020. 00:37 Method Of Arrival: EMS: [facility] 00:37 Acuity: CHAD 3 00:40 Care prior to arrival: Medication(s) given: Albuterol Neb Atrovent Neb IV initiated. 20 wh GA, in the right antecubital area, Med neb given. Oxygen administered. via nasal cannula. Triage Assessment: 00:41 Respiratory: Reports shortness of breath cough that is Onset: The symptoms/episode wh began/occurred just prior to arrival, the patient reports symptoms have resolved. Historical: - Allergies: 00:40 No Known Allergies; wh - Home Meds: 00:40 baclofen 10 mg Oral tab nightly [Active]; fluoxetine 10 mg Oral cap 2 caps once daily wh [Active]; - PMHx: 00:40 Anxiety; Depression; eye problems; Hyperlipidemia; Hypertension; Vertigo; wh - Immunization history:: Adult Immunizations up to date. - Social history:: Smoking status: Patient denies any tobacco usage or history of. Screenin:40 Abuse screen: Denies threats or abuse. Denies injuries from another. Nutritional wh screening: No deficits noted. Tuberculosis screening: No symptoms or risk factors identified. Fall Risk None identified. Assessment: 00:41 General: Appears in no apparent distress. Behavior is calm, cooperative. Pain: Denies pain. Neuro: Level of Consciousness is awake, alert, obeys commands, Oriented to person, place, time, situation. Cardiovascular: Heart tones S1 S2 Rhythm is regular. Respiratory: Airway is patent Respiratory effort is even, unlabored, Respiratory pattern is regular, symmetrical, Breath sounds with wheezes. GI: Abdomen is flat, non-distended. : No signs and/or symptoms were reported regarding the genitourinary system. EENT: No signs and/or symptoms were reported regarding the EENT system. Derm: Skin is intact, is healthy with good turgor, Skin is pink, warm \T\ dry. normal. Musculoskeletal: Circulation, motion, and sensation intact. 02:00 Reassessment: Patient appears in no apparent distress at this time. No changes from previously documented assessment. Patient and/or family updated on plan of care and expected duration. Pain level reassessed. Patient is alert, oriented x 3, equal unlabored respirations, skin warm/dry/pink. 03:25 Reassessment: Patient appears in no apparent distress at this time. Patient and/or family updated on plan of care and expected duration. Pain level reassessed. Patient is alert, oriented x 3, equal unlabored respirations, skin warm/dry/pink. Vital Signs: 00:37 BP 138 / 80; Pulse 105; Resp 20; Temp 97.8; Pulse Ox 95% on R/A; Weight 61.23 kg; Height 5 ft. 2 in. (157.48 cm); 02:00 BP 130 / 76; Pulse 98; Resp 18; Pulse Ox 95% on R/A; 03:00 BP 118 / 62; Pulse 96; Resp 18; Pulse Ox 95% on R/A; 00:37 Body Mass Index 24.69 (61.23 kg, 157.48 cm) ED Course: 00:27 Patient arrived in ED. cl3 00:37 Abdulaziz Ibarra MD is Attending Physician. tw4 00:37 Laura Flores, RN is Primary Nurse. 00:39 Triage completed. 00:41 Patient has correct armband on for positive identification. Bed in low position. Call light in reach. Side rails up X 1. advertising specialist on. Pulse ox on. NIBP on. 00:42 Arm band placed on right wrist. 00:42 Maintain EMS IV. Dressing intact. Good blood return noted. Site clean \T\ dry. 01:00 XRAY CXR (1 view) In Process Unspecified. EDMS 03:30 No provider procedures requiring assistance completed. IV discontinued, intact, bleeding controlled, No redness/swelling at site. Administered Medications: No medications were administered Outcome: 02:56 Discharge ordered by MD. mendoza 03:30 Discharged to home via wheelchair, with family. 03:30 Condition: stable 03:30 Discharge instructions given to patient, family, Instructed on discharge instructions, follow up and referral plans. medication usage, POC Demonstrated understanding of instructions, follow-up care, medications, POC Prescriptions given X 1. 03:31 Patient left the ED. Signatures: Dispatcher [employer] Laura Wagner RN RN Abdulaziz Ibarra MD MD tw4 Phil [id number]
[2020-10-17 05:44] VITALS: TEMP 97.8; O2SAT 95
[2020-10-17 05:47] VITALS: BP 118/62
--- NOTE | 2020-10-17 08:58 | RAD REPORT ---
EXAM DESCRIPTION: Milly Single View10/17/2020 1:00 am CLINICAL HISTORY: Shortness of breath COMPARISON: 2018 FINDINGS: [id number] bilateral pulmonary opacities. The heart is mildly to moderately enlarged IMPRESSION: These findings probably represent CHF
--- NOTE | 2020-10-17 23:58 | EKG ---
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
== END 2020-10-17 03:31 | disposition home or self-care (01) ==
LOC: ER 00:26
DX: J98.01 Acute bronchospasm (principal); F41.8 Other specified anxiety disorders; I10 Essential (primary) hypertension; E78.5 Hyperlipidemia, unspecified
CPT/HCPCS: 36415; 71045; 80048; 80076; 82550; 82553; 83690; 83735; 83880; 84484; 85025; 85379; 85610; 85730; 87040; 93005; 99284

== ENCOUNTER 2020-12-16 09:47 | Emergency (ER) | payer OTHER ==
--- OUTSIDE RECORDS SUMMARY | 2020-12-16 09:51 | XMS REPORT | Continuity of Care Document ---
:1945 Author Organization [facility] t Address [address] [place] [address] Care Team Providers Name Role Phone Pcp MD Primary Care Physician Unavailable Cedric Milligan Attending Clinician Melisa MARTEL Attending Clinician Unavailable Melisa MARTEL Admitting Clinician Unavailable Problems Condition Condition Condition Status Onset Resolution Last Treating Co mments Source Name Details Category Date Date Treatment Clinician Date Dizziness Dizziness Disease Active 2017-08 [facility] Cervical Problem Active 2020-12-08 [facility] spondylosi 01:58:30 l s Cervical Cal n (disorder) spondylosi s (disorder) Active Problem 12/08/2020 [facility] Insomnia Problem Active 2020-12-08 Mem [facility] (disorder) 01:58:30 l Insomnia Cal n (disorder) Active Problem 12/08/2020 [facility] Vertigo Problem Active 2020-12-08 [facility] (finding) 01:58:30 l Vertigo [facility] (finding) [facility] Allergies, Adverse Reactions, Alerts Allergy Allergy Status Severity Reaction(s) Onset Inactive Treating Comm ents Source Name Type Date Date Clinician No Known No Known Active [facility] Medicati l on on Zain Allergie Allergie s s Social History Social Habit Start Date Stop Date Quantity Comments Source Sex Assigned At [facility] Tobacco use and 2018-06-06 2018-06-06 Never used [facility] - exposure 00:00:00 00:00:00 [facility] Alcohol intake 2018-06-06 2018-06-[address] [facility] - 00:00:00 00:00:00 non-drinker of Medical Ce nter alcohol (finding) Smoking Status Start Date Stop Date Source [facility]ations Ordered Filled Start Stop Current Ordering Indication Dosage Frequency Signature Comments Components Source Medication Medication Date Date Medication? 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, Weight Fluoxetine 2017-08 Yes 20 mg = [...] Observation Value Comments Source Systolic (mm Hg) 2020-12-05 14:55:00 [facility] Diastolic (mm Hg) 2020-12-05 14:55:00 [facility] Heart Rate 2020-12-05 14:55:00 [facility] Respitory Rate 2020-12-05 14:55:00 [facility] [place] Weight 2020-12-05 14:55:00 [facility] Systolic (mm Hg) 2020-09-05 16:02:00 [facility] Diastolic (mm Hg) 2020-09-05 16:02:00 [facility] [place] Heart Rate 2020-09-05 16:02:00 [facility] [place] Height 2020-09-05 16:02:00 157.48 cm [facility] Weight 2020-09-05 16:02:00 [facility] BMI Calculated 2020-09-05 16:02:00 [facility] [place] Respitory Rate 2020-07-05 16:41:00 [facility] [place] Height 2020-07-05 16:41:00 157.48 cm [facility] Weight 2020-07-05 16:41:00 [facility] BMI Calculated 2020-07-05 16:41:00 [facility] [place] Systolic (mm Hg) 2020-07-05 16:41:00 [place] [facility] [place] Diastolic (mm Hg) 2020-07-05 16:41:00 [facility] [place] Heart Rate 2020-07-05 16:41:00 [facility] [place] Systolic (mm Hg) 2019-11-04 16:37:00 [place] [facility] [place] Diastolic (mm Hg) 2019-11-04 16:37:00 [facility] [place] Heart Rate 2019-11-04 16:37:00 [facility] [place] Respitory Rate 2019-11-04 16:37:00 [facility] [place] Height 2019-11-04 16:37:00 157.48 cm [facility] Weight 2019-11-04 16:37:00 [facility] [place] BMI Calculated 2019-11-04 16:37:00 [facility] [place] Systolic (mm Hg) 2019-05-06 16:30:00 [place] [facility] [place] Diastolic (mm Hg) 2019-05-06 16:30:00 [facility] [place] Heart Rate 2019-05-06 16:30:00 [facility] [place] Respitory Rate 2019-05-06 16:30:00 [facility] [place] Height 2019-05-06 16:30:00 157.48 cm [facility] Weight 2019-05-06 16:30:00 [facility] BMI Calculated 2019-05-06 16:30:00 [facility] [place] Height 2019-01-26 15:26:00 157.48 cm [facility] Weight 2019-01-26 15:26:00 [facility] BMI Calculated 2019-01-26 15:26:00 [facility] [place] Heart Rate 2019-01-26 15:26:00 [facility] [place] Respitory Rate 2019-01-26 15:26:00 [facility] [place] Systolic (mm Hg) 2019-01-26 15:26:00 [place] [facility] [place] Diastolic (mm Hg) 2019-01-26 15:26:00 [facility] [place] Heart Rate 2018-07-28 16:15:00 [facility] Systolic (mm Hg) 2018-07-28 16:15:00 [place] [facility] [place] Diastolic (mm Hg) 2018-07-28 16:15:00 [facility] [place] BMI Calculated 2018-07-28 16:15:00 [facility] [place] Height 2018-07-28 16:15:00 157.48 cm [facility] [place] Weight 2018-07-28 16:15:00 [facility] [place] Systolic (mm Hg) 2018-06-16 15:15:00 [place] [facility] [place] Diastolic (mm Hg) 2018-06-16 15:15:00 [facility] [place] Heart Rate 2018-06-16 15:15:00 [facility] [place] Height 2018-06-16 15:15:00 165.1 cm [facility] [place] Weight 2018-06-16 15:15:00 [facility] [place] BMI Calculated 2018-06-16 15:15:00 [facility] [place] Procedures This patient has no known procedures. [...] 00:00:00 (1 of 1 - [facility] [id number] PCV13) [code = PNEUMOCOCCAL 65+ YRS (1 of 1 - [id number] PCV13)] Encounters Start End Encounter Admission Attending Care Care Encounter Source Date/Time Date/Time Type Type Clinicians Facility Department ID 2020-12-05 2020-12-05 Outpatient JABARI Milligan [id number] 10:00:00 23:59:59 [place] 11 Cedric 2020-09-05 2020-09-05 Outpatient JABARI Milligan [id number] 10:00:00 23:59:59 [place] 10 Cedric 2020-08-03 2020-08-03 Outpatient JABARI Milligan [id number] 10:30:00 10:30:00 [place] 07 Cedric 2020-08-03 2020-08-03 Outpatient Chel MHMISCHER MHMISCHER [id number] 10:30:00 10:30:00 [place] 08 Cedric 2020-07-05 2020-07-05 Outpatient Chel MHMISCHER MHMISCHER [id number] 10:45:00 23:59:59 [place] Cedric 2019-11-04 2019-11-04 Outpatient MARIBETH MilliganMISCHER MHMISCHER [id number] 11:30:00 23:59:59 [place] Cedric 2019-07-27 2019-07-27 Outpatient MARIBETH MilliganMISCHER MHMISCHER [id number] 10:00:00 10:00:00 [facility] Cedric 2019-05-06 2019-05-06 Outpatient Chel MHMISCHER MHMISCHER [id number] 11:30:00 23:59:59 [place] 05 Cedric 2019-05-05 2019-05-05 Outpatient Chel MHMISCHER MHMISCHER [id number] 14:15:00 14:15:00 [place] 04 Cedric 2019-01-26 2019-01-26 Outpatient MARIBETH MilliganMISCHER MHMISCHER [id number] 10:15:00 23:59:59 [place] Cedric 2018-08-10 2018-08-11 Outpatient MHMISCHER MHMISCHER [id number] 16:10:00 23:59:59 00 2018-07-28 2018-07-28 Outpatient Chel, MHMISCHER MHMISCHER [id number] 10:15:00 23:59:59 [place] Cedric 2018-06-16 2018-06-16 Outpatient MARIBETH MilliganMISCHER MHMISCHER [id number] 09:45:00 23:59:59 [place] 00 Cedric Results Test Description Test Time Test Comments Results Result Sour e Comments CT, BRAIN, WITHOUT 2018-06-08 FINAL REPORT PATIENT CONTRAST 08:11:00 ID: [id number] CT head without contrast INDICATION: CVA, TIA. [...] MDReport Verified Date/Time: 06/08/2018 08:11:29 Reading Location: [facility] C013V Neuro Reading Room ESIUM 2018-06-08 06:22:00 Test Item Value Reference Range Interpretation Comme nts MAGNESIUM (BEAKER) (test code = 627) 2.1 mg/dL 1.6-2.6 BASIC METABOLIC [id number] 06:22:00 Test Item Value Reference Range Interpretation Comments SODIUM (BEAKER) 139 meq/L 136-145 (test code = 381) POTASSIUM (BEAKER) 3.9 meq/L 3.5-5.1 (test code = 379) CHLORIDE (BEAKER) 106 meq/L 98-107 (test code = 382) CO2 (BEAKER) (test 25 meq/L 22- code = 355) BLOOD UREA NITROGEN 9 [...] NOT APPLICABLE FOR DIALYSIS PATIEN TS. LIPID [id number] 06:22:00 Test Item Value Reference Range Interpretation [...] 130-159 High 160-189 Very High >=190HEPATIC FUNCTION [id number] 06:22:00 Test Item Value Reference Range Interpretation [...] code = 11 U/L 6-55 347) CALCIUM, [id number] 06:20:00 Test Item Value Reference Range Interpretation Comments CALCIUM IONIZED (BEAKER) (test 1.14 mmol/L 1.12-1.27 code = 698) PH, BLOOD (BEAKER) (test code = 7.41 1810) PROTHROMBIN [id number] 06:01:00 Test Item Value Reference Range Interpretation Comments PROTIME (BEAKER) (test code = 13.3 seconds 11.7-14.7 759) INR (BEAKER) (test code = 370) 1.0 <=5.9 RECOMMENDED COUMADIN/WARFARIN INR THERAPY RANGESSTANDARD DOSE: 2.0 - 3.0 Includes: PROPHYLAXIS forvenous thrombosis, systemic embolization; TREATMENT for venous thrombosis and/or pulmonary embolus.HIGH RISK: Target INR is 2.5-3.5 for patients with mechanical heart valves.MR, MRA, BRAIN, WITHOUT [id number] 21:28:00FINAL REPORT MR, MRA, BRAIN, WITHOUT CONTRAST, [...] MDReport Verified Date/Time: 06/07/2018 21:28:54 Reading Location: [address] Reading Room MR, MRA, NECK, WITHOUT IV [id number] 21:28:00FINAL REPORT MR, MRA, BRAIN, WITHOUT CONTRAST, [...] MDReport Verified Date/Time: 06/07/2018 21:28:54 Reading Location: [address] Reading Room CALCIUM, [id number] 03:12:00 Test Item Value Reference Range Interpretation Comments CALCIUM IONIZED (BEAKER) (test 1.15 mmol/L 1.12-1.27 code = 698) PH, BLOOD (BEAKER) (test code = 7.37 1810) PROTHROMBIN [id number] 02:47:00 Test Item Value Reference Range Interpretation [...] (BEAKER) (test code = 2801) COMPREHENSIVE METABOLIC [id number] 17:20:00 Test Item Value Reference Range Interpretation [...] (test code = 413) MR, BRAIN, WITHOUT [id number] 16:29:00FINAL REPORT MRI brain without contrast INDICATION: [...] Queta ified Date/Time: 06/06/2018 16:29:20 Reading Location: [facility] C013V Neuro Reading Room
[2020-12-16] MEDS ORDERED: CLINDAMYCIN IV 150 MG/ML (4 mL) VIAL ONE (11:02)
[2020-12-16] MEDS ORDERED: TETANUS & DIPHTHERIA TOX,ADULT 0.5 ML VIAL ONE (11:02)
--- NOTE | 2020-12-16 11:19 | EDPHYS ---
Physician Documentation [facility] Name: Sherry Russ Age: 75 yrs Sex: Female : 1945 Arrival Date: 12/16/2020 Time: 09:51 Bed 3 Private MD: ED Physician Nayan Maynard HPI: 12/16 10:30 This 75 yrs old Female presents to ER via Ambulatory with complaints of pm1 Facial Swelling. 10:30 The patient is experiencing tearing, swelling, to the left eye, caused by Possibly from pm1 moisturizer, alden lauder or [place]. Onset: The symptoms/episode began/occurred 1 week(s) ago. Duration: the symptoms are continuous. Aggravated by nothing. Alleviated by nothing. Associated signs and symptoms: Pertinent negatives: fever, headache, vision changes. Patient does not utilize any form of vision correction. Severity of symptoms: in the emergency department the symptoms have improved mildly. The patient has experienced similar episodes in the past, a few times. The patient has not recently seen a physician. Historical: - Allergies: 10:07 No Known Allergies; ss - PMHx: 10:07 Anxiety; Depression; eye problems; Hyperlipidemia; Hypertension; Vertigo; ss - Immunization history:: Adult Immunizations up to date. - Social history:: Smoking status: Patient denies any tobacco usage or history of. ROS: 10:30 Constitutional: Negative for fever, chills, and weight loss. pm1 10:30 Cardiovascular: Negative for chest pain, palpitations, and edema, Respiratory: Negative for shortness of breath, cough, wheezing, and pleuritic chest pain, MS/Extremity: Negative for injury and deformity, Skin: Negative for injury, rash, and discoloration. 10:30 Neuro: Negative for headache, weakness, numbness, tingling, and seizure. 10:30 Eyes: Positive for itching, swelling, tearing, of the left eye. Exam: 10:30 Constitutional: This is a well developed, well nourished patient who is awake, alert, pm1 and in no acute distress. Head/Face: Normocephalic, atraumatic. 10:30 Skin: Warm, dry with normal turgor. Normal color with no rashes, no lesions, and no evidence of cellulitis. MS/ Extremity: Pulses equal, no cyanosis. Neurovascular intact. Full, normal range of motion. 10:30 Eyes: Periorbital structures: swelling, that is mild, on the medial canthus of left eye and left lower eyelid, Pupils: no acute changes, Extraocular movements: no pain with all cardinal murguia of gaze, Conjunctiva: no acute changes, no chemosis, no excoriation, no exudate, no injection. 10:30 Cardiovascular: Exam negative for acute changes, Rate: normal, Rhythm: regular, Pulses: no pulse deficits are appreciated. 10:30 Respiratory: Exam negative for acute changes, respiratory distress, shortness of breath, Breath sounds: are clear throughout. 10:30 Neuro: Exam negative for acute changes, Orientation: is normal, Mentation: is normal, Motor: is normal, moves all fours, Sensation: is normal, no obvious gross deficits, Gait: not applicable unable to assess. Vital Signs: 10:05 BP 91 / 59; Pulse 92; Resp 16; Temp 97.5(TE); Pulse Ox 99% on R/A; Weight 61.23 kg; ss Height 5 ft. 2 in. (157.48 cm); Pain 4/10; 10:08 BP 102 / 55; ss 10:05 Body Mass Index 24.69 (61.23 kg, 157.48 cm) ss MDM: 10:11 Patient medically screened. pm1 10:30 Refusal of service: The patient/guardian displays adequate decision making capability pm1 and despite a detailed discussion of alternatives, benefits, risks, and consequences refuses: CT Scan, all lab tests, Patient does not want me to get a CT scan of her face and perform labs. Explained to her this is necessary to evalute for the presence of periorbital cellulitis. Patient reports onset after using a face cream so it is possible that the lower left preseptal swelling is allergic in nature versus infective. Explained to the patient that without a work up it is difficult to diagnose. She just wants to get antibiotic therapy and forego the workup. 11:02 Data reviewed: vital signs. Data interpreted: Pulse oximetry: on room air is 99 %. pm1 Interpretation: normal. Counseling: I had a detailed discussion with the patient and/or guardian regarding: the historical points, exam findings, and any diagnostic results supporting the discharge/admit diagnosis, the need for outpatient follow up, for definitive care, an opthalmologist, to return to the emergency department if symptoms worsen or persist or if there are any questions or concerns that arise at home. Administered Medications: 11:03 Drug: Tetanus-Diphtheria Toxoid Adult 0.5 ml {Through Operator: [employer]. Exp: hb 10/14/2022. Lot #: [id number]. } Route: IM; Site: left deltoid; 11:04 Drug: Clindamycin 600 mg Route: IM; Site: left ventrogluteal; hb Disposition: 12/17 08:12 Co-signature as Attending Physician, Nayan Maynard MD I agree with the assessment and [facility] plan of care. Disposition: 12/16/20 11:18 Discharged to Home. Impression: Preseptal swelling left eye. - Condition is Stable. - Prescriptions for Clindamycin HCl 300 mg Oral Capsule - take 1 capsule by ORAL route every 6 hours for 10 days; 40 capsule. - Medication Reconciliation Form, Thank You Letter, Antibiotic Education, Prescription Opioid Use form. - Follow up: Emergency Department; When: As needed; Reason: Worsening of condition. Follow up: Leola Guerrero MD; When: 2 - 3 days; Reason: Recheck today's complaints, Continuance of care, Re-evaluation by your physician. - Problem is new. - Symptoms have improved. Signatures: Shelli Dodd RN RN sv Anderson, Corey, MD MD cha Smirch, Shelby, RN RN Dwayne Schroeder, NOELLE SUPERVISOR FINISHING ROOM pm1 Radha Sierra RN RN Corrections: (The following items were deleted from the chart) 12/16 11:38 11:18 12/16/2020 11:18 Discharged to Home. Impression: Preseptal swelling left eye. sv Condition is Stable. Forms are Medication Reconciliation Form, Thank You Letter, Antibiotic Education, Prescription Opioid Use. Follow up: Emergency Department; When: As needed; Reason: Worsening of condition. Follow up: Leola Guerrero; When: 2 - 3 days; Reason: Recheck today's complaints, Continuance of care, Re-evaluation by your physician. Problem is new. Symptoms have improved. pm1
--- NOTE | 2020-12-16 11:19 | ER ---
Nurse's Notes [facility] Name: Sherry Russ Age: 75 yrs Sex: Female : 1945 Arrival Date: 12/16/2020 Time: 09:51 Bed 3 Private MD: Diagnosis: Preseptal swelling left eye Presentation: 12/16 10:05 Chief complaint: Patient states: Redness and swelling under L eye that began 1 week ss ago. Has recently gotten worse. Pt denies fever. Coronavirus screen: Client denies travel out of the [place] in the last 14 days. Ebola Screen: Patient denies exposure to infectious person. Patient denies travel to an Ebola-affected area in the 21 days before illness onset. Initial Sepsis Screen: Does the patient meet any 2 criteria? No. Patient's initial sepsis screen is negative. Does the patient have a suspected source of infection? No. Patient's initial sepsis screen is negative. Risk Assessment: Do you want to hurt yourself or someone else? Patient reports no desire to harm self or others. Onset of symptoms was December 10, 2020. 10:05 Method Of Arrival: Ambulatory ss 10:05 Acuity: CHAD 4 ss Historical: - Allergies: 10:07 No Known Allergies; ss - PMHx: 10:07 Anxiety; Depression; eye problems; Hyperlipidemia; Hypertension; Vertigo; ss - Immunization history:: Adult Immunizations up to date. - Social history:: Smoking status: Patient denies any tobacco usage or history of. Screenin:16 Abuse screen: Denies threats or abuse. Denies injuries from another. Nutritional sv screening: No deficits noted. Tuberculosis screening: No symptoms or risk factors identified. Fall Risk None identified. Assessment: 11:00 General: Appears in no apparent distress. comfortable, Behavior is calm, cooperative, sv appropriate for age. Pain: Denies pain. Neuro: Level of Consciousness is awake, alert, obeys commands, Oriented to person, place, time, situation, Gait is steady. Respiratory: Respiratory effort is even, unlabored, Respiratory pattern is regular, symmetrical. EENT: Lid(s) redness and swelling noted. Vital Signs: 10:05 BP 91 / 59; Pulse 92; Resp 16; Temp 97.5(TE); Pulse Ox 99% on R/A; Weight 61.23 kg; ss Height 5 ft. 2 in. (157.48 cm); Pain 4/10; 10:08 BP 102 / 55; ss 10:05 Body Mass Index 24.69 (61.23 kg, 157.48 cm) ED Course: 09:51 Patient arrived in ED. mr 10:07 Triage completed. ss 10:07 Arm band placed on right wrist. ss 10:10 Dwayne Schroeder NP is PHCP. pm1 10:10 Nayan Maynard MD is Attending Physician. pm1 10:16 Shelli Dodd, JERMAINE is Primary Nurse. sv 10:16 Nurse Practitioner and/or Physician Farm Laborer to see patient. sv 10:16 Patient has correct armband on for positive identification. Bed in low position. Call sv light in reach. Adult w/ patient. Door closed. Head of bed elevated. 11:14 Leola Guerrero MD is Referral Physician. pm1 11:38 No provider procedures requiring assistance completed. Patient did not have IV access sv during this emergency room visit. Administered Medications: 11:03 Drug: Tetanus-Diphtheria Toxoid Adult 0.5 ml {Chute Operator: [employer]. Exp: hb 10/14/2022. Lot #: [id number]. } Route: IM; Site: left deltoid; 11:04 Drug: Clindamycin 600 mg Route: IM; Site: left ventrogluteal; hb Outcome: 11:18 Discharge ordered by . pm1 11:38 Patient left the ED. sv 11:38 Discharged to home ambulatory, with family. sv 11:38 Condition: stable 11:38 Discharge instructions given to patient, Instructed on discharge instructions, follow up and referral plans. medication usage, Demonstrated understanding of instructions, follow-up care, medications, Prescriptions given X 1. Signatures: Shelli Dodd, JERMAINE DEAN Vinita Douglass Kristen Reece RN RN Dwayne Schroeder NP C D STRIPPER pm1 Radha Sierra RN RN Corrections: (The following items were deleted from the chart) 10:08 10:05 Acuity: CHAD 3 [facility]
[2020-12-16 11:43] VITALS: TEMP 97.5; O2SAT 99
[2020-12-16 11:44] VITALS: BP 102/55
== END 2020-12-16 11:38 | disposition home or self-care (01) ==
LOC: ER 09:47
DX: H02.846 Edema of left eye, unspecified eyelid (principal); I10 Essential (primary) hypertension; Z23 Encounter for immunization
CPT/HCPCS: 90714; S0077; 90471; 96372; 99283

== ENCOUNTER 2020-12-18 16:12 | Inpatient (IN) | payer OTHER ==
--- OUTSIDE RECORDS SUMMARY | 2020-12-18 16:18 | XMS REPORT | Continuity of Care Document ---
:1945 Author Organization [facility] t Address [address] [place] [address] Care Team Providers Name Role Phone Pcp MD Primary Care Physician Unavailable Cedric Milligan Attending Clinician Melisa MARTEL Attending Clinician Unavailable Melisa MARTEL Admitting Clinician Unavailable Problems Condition Condition Condition Status Onset Resolution Last Treating Co mments Source Name Details Category Date Date Treatment Clinician Date Dizziness Dizziness Disease Active 2017-[address] [facility] [address] [facility] - 00:[facility]: [...] l Vertigo Zain (finding) Active [facility] Allergies, Adverse Reactions, Alerts Allergy Allergy Status Severity Reaction(s) Onset Inactive Treating Comm ents Source Name Type Date Date Clinician No Known No Known Active [facility] Medicati l on on Zain Allergie Allergie s s Social History Social Habit Start Date Stop Date Quantity Comments Source Sex Assigned At [facility] Tobacco use and 2018-06-06 2018-06-06 Never used [facility] - exposure 00:00:00 00:00:00 [facility] Alcohol intake 2018-06-06 2018-06-[address] [facility] - 00:00:00 00:00:00 non-drinker of Medical Ce nter alcohol (finding) Smoking Status Start Date Stop Date Source [facility] Medications Ordered Filled Start Stop Current Ordering Indication Dosage Frequency Signature Comments Components Source Medication Medication Date Date Medication? Clinician (SIG) Name Name baclofen 10 2019-08 Yes 10 mg = 1 M emoria mg oral 1-11 tab, PO, l tablet 17:19: Bedtime, # Anne nn 00 30 tab, 3 Refill(s), Pharmacy: [facility] 149, 157.48, cm, 07/05/20 11:07:00 [employer], Height, 66.818, kg, 07/05/20 11:07:00 [employer], Weight Fluoxetine 2017-08 Yes 20 mg = [...] Zain Respitory Rate 2020-12-05 14:55:00 [facility] [place] Weight 2020-12-05 14:55:00 [facility] Systolic (mm Hg) 2020-09-05 16:02:00 [facility] Diastolic (mm Hg) 2020-09-05 16:02:00 [facility] [place] Heart Rate 2020-09-05 16:02:00 [facility] Height 2020-09-05 16:02:00 157.48 cm [facility] Weight 2020-09-05 16:02:00 [facility]ain BMI Calculated 2020-09-05 16:02:00 Mem[facility] al [place] Respitory Rate 2020-07-05 16:41:00 [facility] [place] Height 2020-07-05 16:41:00 157.48 cm [facility] Weight 2020-07-05 16:41:00 [facility] BMI Calculated 2020-07-05 16:41:00 [facility] [place] Systolic (mm Hg) 2020-07-05 16:41:00 [facility] [place] Diastolic (mm Hg) 2020-07-05 16:41:00 [facility] [place] Heart Rate 2020-07-05 16:41:00 [facility] Systolic (mm Hg) 2019-11-04 16:37:00 [facility] [place] Diastolic (mm Hg) 2019-11-04 16:37:00 Mem orial [facility] Heart Rate 2019-11-04 16:37:00 [facility] [place] Respitory Rate 2019-11-04 16:37:00 [facility] [place] Height 2019-11-04 16:37:00 157.48 cm [facility] Weight 2019-11-04 16:37:00 [facility] [place] BMI Calculated 2019-11-04 16:37:00 [facility] [place] Systolic (mm Hg) 2019-05-06 16:30:00 [facility] [place] Diastolic (mm Hg) 2019-05-06 16:30:00 Mem orial [place] Heart Rate 2019-05-06 16:30:00 [facility] Respitory Rate 2019-05-06 16:30:00 [facility] [place] Height 2019-05-06 16:30:00 157.48 cm [facility] Weight 2019-05-06 16:30:00 [facility] BMI Calculated 2019-05-06 16:30:00 [facility] [place] Height 2019-01-26 15:26:00 157.48 cm [facility] Weight 2019-01-26 15:26:00 [facility] BMI Calculated 2019-01-26 15:26:00 [facility] [place] Heart Rate 2019-01-26 15:26:00 [facility] [place] Respitory Rate 2019-01-26 15:26:00 [facility] [place] Systolic (mm Hg) 2019-01-26 15:26:00 [facility] [place] Diastolic (mm Hg) 2019-01-26 15:26:00 Mem orial [facility] Heart Rate 2018-07-28 16:15:00 [facility] [place] Systolic (mm Hg) 2018-07-28 16:15:00 [place] [facility] [place] Diastolic (mm Hg) 2018-07-28 16:15:00 Mem orial [place] BMI Calculated 2018-07-28 16:15:00 [facility] [place] Height 2018-07-28 16:15:00 157.48 cm [facility] [place] Weight 2018-07-28 16:15:00 [facility] [place] Systolic (mm Hg) 2018-06-16 15:15:00 [place] [facility] [place] Diastolic (mm Hg) 2018-06-16 15:15:00 Mem orial [facility] Heart Rate 2018-06-16 15:15:00 [facility] [place] Height 2018-06-16 15:15:00 165.1 cm [facility] [place] Weight 2018-06-16 15:15:00 [facility] [place] BMI Calculated 2018-06-16 15:15:00 Mem[facility] al [place] Procedures This patient has no known procedures. [...] 00:00:00 (1 of 1 - [facility] [id number] PCV13) [code = PNEUMOCOCCAL 65+ YRS (1 of 1 - [id number] PCV13)] Encounters Start End Encounter Admission Attending Care Care Encounter Source Date/Time Date/Time Type Type Clinicians Facility Department ID 2020-12-05 2020-12-05 Outpatient JABARI Milligan [id number] 10:00:00 23:59:59 [place] 11 Cedric 2020-09-05 2020-09-05 Outpatient JABARI Milligan [id number] 10:00:00 23:59:59 [place] 10 Cedric 2020-08-03 2020-08-03 Outpatient JABARI Milligan [id number] 10:30:00 10:30:00 [place] 07 Cedric 2020-08-03 2020-08-03 Outpatient Chel MHMISCHER MHMISCHER [id number] 10:30:00 10:30:00 [place] 08 Cedric 2020-07-05 2020-07-05 Outpatient Chel MHMISCHER MHMISCHER [id number] 10:45:00 23:59:59 [place] Cedric 2019-11-04 2019-11-04 Outpatient MARIBETH MilliganMISCHER MHMISCHER [id number] 11:30:00 23:59:59 [place] Cedric 2019-07-27 2019-07-27 Outpatient MARIBETH MilliganMISCHER MHMISCHER [id number] 10:00:00 10:00:00 [place] Cedric 2019-05-06 2019-05-06 Outpatient Chel MHMISCHER MHMISCHER [id number] 11:30:00 23:59:59 [place] 05 Cedric 2019-05-05 2019-05-05 Outpatient Chel MHMISCHER MHMISCHER [id number] 14:15:00 14:15:00 [place] 04 Cedric 2019-01-26 2019-01-26 Outpatient MARIBETH MilliganMISCHER MHMISCHER [id number] 10:15:00 23:59:59 [place] Cedric 2018-08-10 2018-08-11 Outpatient MHMISCHER MHMISCHER [id number] 16:10:00 23:59:59 00 2018-07-28 2018-07-28 Outpatient Chel, MHMISCHER MHMISCHER [id number] 10:15:00 23:59:59 [place] Cedric 2018-06-16 2018-06-16 Outpatient MARIBETH MilliganMISCHER MHMISCHER [id number] 09:45:00 23:59:59 [place] 00 Cedric Results Test Description Test Time Test Comments Results Result Sour e Comments CT, BRAIN, WITHOUT 2018-06-08 FINAL REPORT PATIENT CONTRAST 08:11:00 ID: [id number] CT head without contrast INDICATION: CVA, TIA. [...] MDReport Verified Date/Time: 06/08/2018 08:11:29 Reading Location: [facility] C013V Neuro Reading Room ESIUM 2018-06-08 06:22:00 Test Item Value Reference Range Interpretation Comme nts MAGNESIUM (BEAKER) (test code = 627) 2.1 mg/dL 1.6-2.6 BASIC METABOLIC [id number] 06:22:00 Test Item Value Reference Range Interpretation [...] NOT APPLICABLE FOR DIALYSIS PATIEN TS. LIPID [id number] 06:22:00 Test Item Value Reference Range Interpretation [...] 130-159 High 160-189 Very High >=190HEPATIC FUNCTION [id number] 06:22:00 Test Item Value Reference Range Interpretation [...] code = 11 U/L 6-55 347) CALCIUM, [id number] 06:20:00 Test Item Value Reference Range Interpretation Comments CALCIUM IONIZED (BEAKER) (test 1.14 mmol/L 1.12-1.27 code = 698) PH, BLOOD (BEAKER) (test code = 7.41 1810) PROTHROMBIN [id number] 06:01:00 Test Item Value Reference Range Interpretation Comments PROTIME (BEAKER) (test code = 13.3 seconds 11.7-14.7 759) INR (BEAKER) (test code = 370) 1.0 <=5.9 RECOMMENDED COUMADIN/WARFARIN INR THERAPY RANGESSTANDARD DOSE: 2.0 - 3.0 Includes: PROPHYLAXIS forvenous thrombosis, systemic embolization; TREATMENT for venous thrombosis and/or pulmonary embolus.HIGH RISK: Target INR is 2.5-3.5 for patients with mechanical heart valves.MR, MRA, BRAIN, WITHOUT [id number] 21:28:00FINAL REPORT MR, MRA, BRAIN, WITHOUT CONTRAST, [...] Verified Date/Time: 06/07/2018 21:28:54 Reading Location: [address] Reading Room MR, MRA, NECK, WITHOUT IV [id number] 21:28:00FINAL REPORT MR, MRA, BRAIN, WITHOUT CONTRAST, [...] Verified Date/Time: 06/07/2018 21:28:54 Reading Location: [address] Reading Room CALCIUM, [id number] 03:12:00 Test Item Value Reference Range Interpretation Comments CALCIUM IONIZED (BEAKER) (test 1.15 mmol/L 1.12-1.27 code = 698) PH, BLOOD (BEAKER) (test code = 7.37 1810) PROTHROMBIN [id number] 02:47:00 Test Item Value Reference Range Interpretation [...] (BEAKER) (test code = 2801) COMPREHENSIVE METABOLIC [id number] 17:20:00 Test Item Value Reference Range Interpretation [...] (test code = 413) MR, BRAIN, WITHOUT [id number] 16:29:00FINAL REPORT MRI brain without contrast INDICATION: [...] Queta ified Date/Time: 06/06/2018 16:29:20 Reading Location: [facility] C013V Neuro Reading Room
[2020-12-18 19:19] LABS: Potassium 3.9 mmol/L (3.5-5.1)
[2020-12-18] MEDS ORDERED: FENTANYL CITR 100 MCG/2 ML ONE (19:36)
[2020-12-18] MEDS ORDERED: VANCOMYCIN 1 GM/VIAL ONE (19:36)
[2020-12-18] MEDS ORDERED: CEFAZOLIN/SWI 1gm 1 GM/10 ML SYR ONE ×2 (19:36→23:56)
[2020-12-18] MEDS ORDERED: METRONIDAZOLE 500mg IVPB 500 MG/100 ML BAG IV ONE (19:36)
[2020-12-18] MEDS ORDERED: NA CHLORIDE 0.9% 250 ML ONE (19:36)
--- NOTE | 2020-12-18 20:03 | RAD REPORT ---
EXAM DESCRIPTION: CTFacial Bones W Con Mpr12/18/2020 7:49 pm CLINICAL HISTORY: Left eye swelling and pain COMPARISON: None. TECHNIQUE: Computed axial tomography of the face obtained with coronal and sagittal reconstruction. 50 cc Isovue-[address] scans are performed using dose optimization technique as appropriate and may include automated exposure control or mA/KV adjustment according to patient size. FINDINGS: Left preseptal swelling. 1.5 centimeter subperiosteal abscess is present within the medial aspect of the left orbit anteriorly . It abuts left globe and nasal cavity. Mild ethmoid sinusitis is present. The left globe is normal size and density IMPRESSION: 1.5 centimeters subperiosteal abscess within the left orbit .
[2020-12-18 20:04] LABS: Absolute Lymphocytes (CBC) 2.2 K/uL (0.7-4.9); Basophils % 0.6 % (0-1.3); Hematocrit 35.9 % (36.0-45.0); Lymphocytes % 23.5 % (15.3-44.8); MPV 8.4 fL (7.6-11.3); RBC Red Blood Cell Count 4.22 M/uL (3.86-4.86)
--- NOTE | 2020-12-18 20:36 | EDPHYS ---
Physician Documentation [facility] Name: Sherry Russ Age: 75 yrs Sex: Female : 1945 Arrival Date: 12/18/2020 Time: 16:[address] Private MD: Jesus Garcia P ED Physician Nayan Maynard HPI: 12/18 18:19 This 75 yrs old Female presents to ER via Ambulatory with complaints of Left pm1 eye swelling and pain. 18:19 The patient is experiencing pain, and swelling, to the left eye, caused by an unknown pm1 mechanism, possibly from cosmetics. Onset: The symptoms/episode began/occurred 9 day(s) ago. Duration: the symptoms are continuous. Aggravated by nothing. Alleviated by nothing. Associated signs and symptoms: Pertinent negatives: fever, headache. Severity of symptoms: in the emergency department the symptoms are worse. The patient has experienced a previous episode, many years ago, Similar symptoms resulting in dacryocystitis and surrgery. The patient has been recently seen by a physician: an opthalmologist, Dr. Garcia, earlier today, Instructed to come to the ER for admission and IV antibiotic therapy. Historical: - Allergies: 16:28 Codeine; gets weird; ll1 - PMHx: 16:28 Anxiety; Depression; eye problems; Hyperlipidemia; Hypertension; Vertigo; ll1 - PSHx: 16:28 eye sx; ll1 - Immunization history:: Client reports receiving the 2nd dose of the Covid vaccine, Last tetanus immunization: up to date Flu vaccine is up to date. - Social history:: Smoking status: Patient denies any tobacco usage or history of. ROS: 18:19 Constitutional: Negative for fever, chills, and weight loss. pm1 18:19 Eyes: Positive for pain, swelling, of the left inner canthus and left lower eyelid. 18:19 ENT: Negative for injury, pain, and discharge. pm1 18:19 Cardiovascular: Negative for chest pain, palpitations, and edema, Respiratory: Negative for shortness of breath, cough, wheezing, and pleuritic chest pain, Abdomen/GI: Negative for abdominal pain, nausea, vomiting, diarrhea, and constipation, MS/Extremity: Negative for injury and deformity. 18:19 Neuro: Negative for headache, weakness, numbness, tingling, and seizure. 18:19 Eyes: Positive for tearing, Negative for discharge, vision loss, visual disturbance. 18:19 Skin: Positive for swelling, of the left lower eyelid and left inner canthus. Exam: 18:19 Constitutional: This is a well developed, well nourished patient who is awake, alert, pm1 and in no acute distress. Head/Face: Normocephalic, atraumatic. 18:19 MS/ Extremity: Pulses equal, no cyanosis. Neurovascular intact. Full, normal range of motion. 18:19 Eyes: Periorbital structures: swelling, that is moderate, on the left lower eyelid and left inner canthus, Pupils: no acute changes, normal size, normal reaction to light, Extraocular movements: nonpainful, Conjunctiva: normal, no acute changes, no exudate, no injection, no abnormal tearing. 18:19 Cardiovascular: Exam negative for acute changes, Rate: normal, Rhythm: regular, Pulses: no pulse deficits are appreciated. 18:19 Respiratory: Exam negative for acute changes, respiratory distress, shortness of breath, Breath sounds: are clear throughout. 18:19 Neuro: Exam negative for acute changes, Orientation: is normal, Mentation: is normal, Motor: is normal, moves all fours, Gait: is steady, at a normal pace, without difficulty. Vital Signs: 16:21 BP 110 / 75; Pulse 100; Resp 17; Temp 98.2; Pulse Ox 99% on R/A; Weight 61.23 kg; ll1 Height 5 ft. 2 in. (157.48 cm); Pain 9/10; 19:30 BP 125 / 71; Pulse 89; Resp 16; Pulse Ox 100% on R/A; zb 20:30 BP 113 / 99; Pulse 94; Resp 16; Pulse Ox 100% on R/A; zb 21:30 BP 123 / 73; Pulse 94; Resp 16; Pulse Ox 100% on R/A; zb 22:00 BP 139 / 84; Pulse 93; Resp 16; Pulse Ox 96% on R/A; zb 23:12 BP 131 / 68; Pulse 91; Resp 16; Pulse Ox 98% on R/A; zb 16:21 Body Mass Index 24.69 (61.23 kg, 157.48 cm) ll1 MDM: 18:02 Patient medically screened. pm1 18:46 Data reviewed: vital signs. Data interpreted: Pulse oximetry: on room air is 99 %. pm1 Interpretation: normal. 20:12 Physician consultation: Jesus Garcia MD regarding consult, patient's condition, pm1 recommends transfer to another facility if patient is agreeable to transfer for definite care with abscess drainage and DCR. Patient has been recommended DCR in the past multiple times for her chronic issue. He is aware that the patient has a preference to avoid surgical intervention and she wants to try IV antibiotic therapy first. If she is not agreeable to being transferred he would like admission to the hospitalist and he will see her in the morning. 20:27 Counseling: I had a detailed discussion with the patient and/or guardian regarding: the pm1 historical points, exam findings, and any diagnostic results supporting the discharge/admit diagnosis, lab results, radiology results, the need to transfer to another facility, Patient does not want to be transferred and would like to try antibiotic therapy prior to any type of surgical intervention. Discussed with her that surgical intervention would be highly likely after discussing her findings with Dr. Garcia. If patient would not agree to be transferred tonight, he will evaluate her tomorrow morning. 20:35 Physician consultation: Jesus Garcia MD regarding informed Dr. Garcia that I discussed pm1 with the patient at length the benefits of transfer and that she refused transfer. He will see her in the morning and manage her care. 12/18 18:16 Order name: CBC with Diff; Complete Time: 20:26 pm12/18 18:16 Order name: BMP; Complete Time: 19:25 pm12/18 18:16 Order name: Blood Culture Adult (2) pm1 12/18 20:36 Order name: Comprehensive Metabolic Panel [facility] 12/18 20:36 Order name: CBC with Automated Diff [facility] 12/18 18:16 Order name: CT Facial Bones W/ Con \T\ Mpr; Complete Time: 20:06 pm12/18 20:36 Order name: Comprehensive Metabolic Panel [facility] 12/18 20:36 Order name: Magnesium [facility] 12/18 20:36 Order name: Magnesium [facility] 12/18 20:36 Order name: CBC with Automated Diff [facility] 12/18 20:37 Order name: Urinalysis [facility] 12/18 20:50 Order name: SARS-COV-2 RT PCR; Complete Time: 20:55 EDMS 12/18 18:16 Order name: IV Saline Lock; Complete Time: 19:12 pm1 12/18 19:22 Order name: Labs - recollect needed: cbc; Complete Time: 19:37 mw2 12/18 20:36 Order name: Heart Healthy EDMS 12/18 20:36 Order name: NPO EDMS Administered Medications: 19:30 Drug: fentaNYL (PF) 25 mcg {Note: RASS 0.} Route: IVP; Site: right antecubital; zb 20:00 Follow up: Response: No adverse reaction; No change in condition; Pain is decreased; zb RASS: Alert and Calm (0) 19:38 Drug: Ancef (cefazolin) 1 grams Route: IVPB; Site: right antecubital; zb 20:00 Follow up: Response: No adverse reaction; IV Status: Completed infusion; IV Intake: 20mlzb 20:00 Drug: metroNIDAZOLE 500 mg Volume: 100 ml; Route: IVPB; Infused Over: 30 mins; Site: zb right antecubital; 20:30 Follow up: Response: No adverse reaction; Marked relief of symptoms; IV Status: zb Completed infusion; IV Intake: 100ml 20:56 Drug: vancoMYCIN 1 grams Route: IVPB; Infused Over: 2 hrs; Site: right antecubital; zb 23:32 Follow up: Response: No adverse reaction; IV Status: Completed infusion; IV Intake: zb 250ml Disposition: 12/19 07:24 Co-signature as Attending Physician, Nayan Maynard MD I agree with the assessment and raquel plan of care. Disposition: 12/18/20 20:36 Hospitalization ordered by Albaro Corona for Inpatient Admission. Preliminary diagnosis is Subperiosteal abscess within left orbit. - Bed requested for Telemetry/MedSurg (Inpatient). - Status is Inpatient Admission. iw - Condition is Stable. - Problem is new. - Symptoms have improved. Signatures: Dispatcher [employer] EDWY Yuni Frederick, Nayan Mcdaniels RN, MD MD cha Williams, Irene, RN RN iw Dwayne Schroeder, CHINA PAINTER CHINA PAINTER pm1 Claritza Bonilla mw2 Rigoberto Uribe RN RN ll1 Brown, Gemma, RN RN zb Corrections: (The following items were deleted from the chart) 12/18 19:57 18:32 CORONAVIRUS+MR.LAB.BRZ ordered. EDMS EDMS 20:37 20:36 Hospitalization Ordered by Albaro Corona MD for Inpatient Admission. Preliminary dw diagnosis is Subperiosteal abscess within left orbit. Bed requested for Telemetry/MedSurg (Inpatient). Status is Inpatient Admission. Condition is Stable. Problem is new. Symptoms have improved. pm1 20:37 20:37 12/18/2020 20:36 Hospitalization Ordered by Albaro Corona MD for Inpatient dw Admission. Preliminary diagnosis is Subperiosteal abscess within left orbit. Bed requested for [facility] ER HOLD. Status is Inpatient Admission. Condition is Stable. Problem is new. Symptoms have improved. dw 23:20 20:37 12/18/2020 20:36 Hospitalization Ordered by Albaro Corona MD for Inpatient dw Admission. Preliminary diagnosis is Subperiosteal abscess within left orbit. Bed requested for [facility] ER HOLD. Status is Inpatient Admission. Condition is Stable. Problem is new. Symptoms have improved. dw 23:49 23:20 12/18/2020 20:36 Hospitalization Ordered by Albaro Corona MD for Inpatient iw Admission. Preliminary diagnosis is Subperiosteal abscess within left orbit. Bed requested for Telemetry/MedSurg (Inpatient). Status is Inpatient Admission. Condition is Stable. Problem is new. Symptoms have improved. dw
--- NOTE | 2020-12-18 20:36 | ER ---
Nurse's Notes [facility] Name: Sherry Russ Age: 75 yrs Sex: Female : 1945 Arrival Date: 12/18/2020 Time: 16:[address] Private MD: Jesus Garcia P Diagnosis: Subperiosteal abscess within left orbit Presentation: 12/18 16:21 Chief complaint: Patient states: L eye redness, swelling, pain has gotten worse since ll1 her visit here Friday. States she started her antibiotics on Friday, states the site is not getting better. Saw Dr. Copeland today, he sent her in for IV antibiotics (ancef, vancomycin, and flagyl) and possible admission. Coronavirus screen: Client denies travel out of the [place] in the last 14 days. At this time, the client does not indicate any symptoms associated with coronavirus-19. Ebola Screen: Patient denies travel to an Ebola-affected area in the 21 days before illness onset. Initial Sepsis Screen: Does the patient meet any 2 criteria? No. Patient's initial sepsis screen is negative. Does the patient have a suspected source of infection? Yes: Skin breakdown/wound. Risk Assessment: Do you want to hurt yourself or someone else? Patient reports no desire to harm self or others. Onset of symptoms was December 15, 2020. 16:21 Method Of Arrival: Ambulatory ll1 16:21 Acuity: CHAD 3 ll1 Historical: - Allergies: 16:28 Codeine; gets weird; ll1 - PMHx: 16:28 Anxiety; Depression; eye problems; Hyperlipidemia; Hypertension; Vertigo; ll1 - PSHx: 16:28 eye sx; ll1 - Immunization history:: Client reports receiving the 2nd dose of the Covid vaccine, Last tetanus immunization: up to date Flu vaccine is up to date. - Social history:: Smoking status: Patient denies any tobacco usage or history of. Screenin:43 Abuse screen: Denies threats or abuse. Denies injuries from another. Nutritional zb screening: No deficits noted. Tuberculosis screening: No symptoms or risk factors identified. Fall Risk None identified. Assessment: 17:30 General: Appears in no apparent distress. uncomfortable, Behavior is calm, cooperative, zb appropriate for age, Denies fever, feeling ill, fatigue. Pain: Complains of pain in left lower eyelid and left inner canthus Pain does not radiate. Pain currently is 5 out of 10 on a pain scale. Quality of pain is described as burning, sharp, Pain began alondra. Neuro: Level of Consciousness is awake, alert, obeys commands, Oriented to person, place, time, situation. Cardiovascular: Patient's skin is warm and dry. Respiratory: Airway is patent Respiratory effort is even, unlabored, Respiratory pattern is regular, symmetrical. GI: Abdomen is round. :. EENT: Sclera/Cornea are reddened in left eye Lid(s) swelling noted . EENT: Reports pain in left inner canthus Denies blurred vision. Derm: Skin is normal, redness noted near periorbital region of eye. 18:30 Reassessment: Patient appears in no apparent distress at this time. Patient and/or zb family updated on plan of care and expected duration. Pain level reassessed. Patient is alert, oriented x 3, equal unlabored respirations, skin warm/dry/pink. patient wanted to eat. 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 patient npo til CT results. notified patient. 19:30 Reassessment: Patient appears in no apparent distress at this time. Patient and/or zb family updated on plan of care and expected duration. Pain level reassessed. Patient is alert, oriented x 3, equal unlabored respirations, skin warm/dry/pink. no change at this time. IV medication infusing. 20:30 Reassessment: Patient appears in no apparent distress at this time. Patient and/or zb family updated on plan of care and expected duration. Pain level reassessed. Patient is alert, oriented x 3, equal unlabored respirations, skin warm/dry/pink. iv fluid infusing. 20:59 Reassessment: hospitalist at bedside. zb 22:00 Reassessment: Patient appears in no apparent distress at this time. Patient and/or zb family updated on plan of care and expected duration. Pain level reassessed. Patient is alert, oriented x 3, equal unlabored respirations, skin warm/dry/pink. 23:31 Reassessment: Patient appears in no apparent distress at this time. Patient and/or zb family updated on plan of care and expected duration. Pain level reassessed. Patient is alert, oriented x 3, equal unlabored respirations, skin warm/dry/pink. report given to JERMAINE camacho. patient c/o of pain. Vital Signs: 16:21 BP 110 / 75; Pulse 100; Resp 17; Temp 98.2; Pulse Ox 99% on R/A; Weight 61.23 kg; ll1 Height 5 ft. 2 in. (157.48 cm); Pain 9/10; 19:30 BP 125 / 71; Pulse 89; Resp 16; Pulse Ox 100% on R/A; zb 20:30 BP 113 / 99; Pulse 94; Resp 16; Pulse Ox 100% on R/A; zb 21:30 BP 123 / 73; Pulse 94; Resp 16; Pulse Ox 100% on R/A; zb 22:00 BP 139 / 84; Pulse 93; Resp 16; Pulse Ox 96% on R/A; zb 23:12 BP 131 / 68; Pulse 91; Resp 16; Pulse Ox 98% on R/A; zb 16:21 Body Mass Index 24.69 (61.23 kg, 157.48 cm) ll1 ED Course: 16:15 Patient arrived in ED. am2 16:15 Jesus Garcia MD is Private Physician. am2 16:21 Arm band placed on. ll1 16:26 Triage completed. ll1 18:02 Dwayne Schroeder NP is PHCP. pm1 18:02 Nayan Maynard MD is Attending Physician. pm1 18:35 Gemma Weir RN is Primary Nurse. zb 19:00 Inserted saline lock: 20 gauge in right antecubital area, using aseptic technique. zb 19:30 Initial lab(s) drawn, Lab(s) recollected, by ma, sent to lab. First set of blood zb cultures drawn by ma, Second set of blood cultures drawn by ma, COVID swab sent to lab. 19:43 Patient has correct armband on for positive identification. Call light in reach. Side zb rails up X 1. Pulse ox on. NIBP on. Door closed. Noise minimized. 19:49 CT Facial Bones W/ Con \T\ Mpr In Process Unspecified. EDMS 20:36 Albaro Corona MD is Hospitalizing Provider. pm1 23:35 Report given to JERMAINE Camacho. zb 23:35 No provider procedures requiring assistance completed. Patient admitted, IV remains in zb place. Administered Medications: 19:30 Drug: fentaNYL (PF) 25 mcg {Note: RASS 0.} Route: IVP; Site: right antecubital; zb 20:00 Follow up: Response: No adverse reaction; No change in condition; Pain is decreased; zb RASS: Alert and Calm (0) 19:38 Drug: Ancef (cefazolin) 1 grams Route: IVPB; Site: right antecubital; zb 20:00 Follow up: Response: No adverse reaction; IV Status: Completed infusion; IV Intake: 20mlzb 20:00 Drug: metroNIDAZOLE 500 mg Volume: 100 ml; Route: IVPB; Infused Over: 30 mins; Site: zb right antecubital; 20:30 Follow up: Response: No adverse reaction; Marked relief of symptoms; IV Status: zb Completed infusion; IV Intake: 100ml 20:56 Drug: vancoMYCIN 1 grams Route: IVPB; Infused Over: 2 hrs; Site: right antecubital; zb 23:32 Follow up: Response: No adverse reaction; IV Status: Completed infusion; IV Intake: zb 250ml Intake: 20:00 IV: 20ml; Total: 20ml. zb 20:30 IV: 100ml; Total: 120ml. zb 23:32 IV: 250ml; Total: 370ml. zb Outcome: 20:36 Decision to Hospitalize by Provider. pm1 23:36 Admitted to Med/surg accompanied by tech, room 402, with chart, Report called to lacy camacho RN 23:36 Condition: stable 23:36 Instructed on the need for admit. 23:49 Patient left the ED. iw Signatures: Dispatcher [employer] EDNJ Andreia Turner RN RN iw Marinas, Patrick, NP CLAIMS ADJUSTOR pm1 Mary Jane Wheat am2 Rigoberto Uribe RN RN ll1 Gemma Weir RN RN zb Corrections: (The following items were deleted from the chart) 23:37 23:36 Admitted to Med/surg accompanied by tech, room 406, with chart, Report called to lacy camacho RN zjavi
[2020-12-18] MEDS: MORPHINE 2 MG/ML SYR IV PRN (23:45)
[2020-12-18] MEDS ORDERED: MORPHINE 2 MG/ML SYR ONE (23:57)
[2020-12-19] MEDS ORDERED: CEFAZOLIN/NS 1gm 1 GM/50 ML BAG IVPB SCH (01:00)
--- NOTE | 2020-12-19 01:31 | P.HP ---
Certification for Inpatient Patient admitted to: Inpatient With expected LOS: >2 Midnights Patient will require the following post-hospital care: None Practitioner: I am a practitioner with admitting privileges, knowledge of patient current condition, hospital course, and medical plan of care. Services: Services provided to patient in accordance with Admission requirements found in Title 42 Section 412.3 of the Code of Federal Regulations Patient History Date of Service: 12/19/20 Reason for admission: Left subperiosteal abscess History of Present Illness: 75-year-old female with history of depression, cataracts presents emergency department for swelling and redness of left eye. Patient was seen in the emergency department recently prescribed antibiotics and sent to follow up with Ophthalmology. Patient reports seeing Ophthalmology yesterday who referred her back to the emergency department for IV antibiotics, CT, labs and possible admission. Patient was evaluated in the emergency department, labs significant for white blood cell count 9.5 hemoglobin 11.8 hematocrit 35.9 sodium 134, CT facial bones performed demonstrates 1.5 cm subperiosteal abscess within the left orbit. On exam patient noted to have significant redness, swelling to the left eye. Patient reports that this began and has increased throughout time . Case was discussed with ophthalmology by ED provider, ophthalmology recommends transfer to tertiary center for further management, patient declined transfer and prefers admission with IV antibiotics, this was again discussed with ophthalmology who will consult with patient. Allergies codeine [Codeine] Allergy (Intermediate, Verified 07/19/12 18:02) Anaphylaxis Sulfa (Sulfonamide Antibiotics) [Sulfa(Sulfonamide Antibiotics)] Allergy (Intermediate, Verified 07/19/12 18:02) Hives/Rash No Known Allergi Allergy (Uncoded 12/06/16 02:09) Unknown No Known Allergies Allergy (Uncoded 08/24/17 11:07) Unknown Home Medications: Fluoxetine HCl [Prozac] 1 tab PO DAILY 03/07/19 Meclizine HCl [Antivert*] 25 mg PO TID #30 tab 03/08/19 - Past Medical/Surgical History Diabetic: No -: cataract -: depression -: anxiety -: cataract surgery Psychosocial/ Personal History: Patient lives at home with family - Family History Mother Notes: osteoporosis - Social History Smoking Status: Never smoker Alcohol use: No CD- Drugs: Yes Caffeine use: Yes Place of Residence: Home Review of Systems 10-point ROS is otherwise unremarkable Eyes: Pain, Redness, As per HPI Physical Examination - Vital Signs Temperature: 98.2 F Blood Pressure: 131/68 Pulse: 91 Respirations: 16 Pulse Ox (%): 100 - Physical Exam General: Alert, In no apparent distress HEENT: Atraumatic, PERRLA, Mucous membr. moist/pink, Other (Redness, swelling inferior to the left eye), EOMI Neck: Supple, 2+ carotid pulse no bruit, No LAD Respiratory: Clear to auscultation bilaterally, Normal air movement Cardiovascular: Regular rate/rhythm, Normal S1 S2 Gastrointestinal: Normal bowel sounds, No tenderness Musculoskeletal: No tenderness Integumentary: No rashes Neurological: Normal speech, Normal strength at 5/5 x4 extr, Normal tone, Normal affect - Studies Laboratory Data (last 24 hrs) 12/18/20 19:29: WBC 9.50, Hgb 11.8 L, Hct 35.9 L, Plt Count 267 12/18/20 18:54: Sodium 134 L, Potassium 3.9, BUN 13, Creatinine 0.73, Glucose 98 Assessment and Plan - Plan Assessment Left subperiosteal abscess Anxiety/depression Plan Left subperiosteal abscess: Continue with IV antibiotics as recommended by ophthalmology Flagyl, vancomycin, ancef. Ophthalmology consult in place. NPO after midnight in case of surgical intervention, patient does upper for surgical intervention and also does not want to be transferred. Ophthalmology aware of this, will discuss further with patient tomorrow morning. DVT prophylaxis with SCDs. Anxiety/depression: Continue home medications. Discharge Plan: Home Plan to discharge in: Greater than 2 days - Advance Directives Does patient have a Living Will: Yes Does patient have a Durable POA for Healthcare: Yes - Code Status/Comfort Care Code Status Assessed: Yes (Full code) Critical Care: No Time Spent Managing Pts Care (In Minutes): 55
[2020-12-19] MEDS: METRONIDAZOLE 500mg IVPB 500 MG/100 ML BAG IV SCH ×3 (02:33→16:17)
[2020-12-19 03:43] VITALS: BMI 24.7
[2020-12-19 03:59] LABS: Absolute Lymphocytes (CBC) 2.2 K/uL (0.7-4.9); Basophils % 0.5 % (0-1.3); Lymphocytes % 26.3 % (15.3-44.8); MPV 8.1 fL (7.6-11.3); RBC Red Blood Cell Count 4.12 M/uL (3.86-4.86)
[2020-12-19 04:38] LABS: Albumin 3.1 g/dL (3.4-5.0); Bilirubin Total 0.7 mg/dL (0.2-1.0); Potassium 3.8 mmol/L (3.5-5.1); Protein, Total 6.6 g/dL (6.4-8.2)
[2020-12-19] MEDS: MORPHINE 2 MG/ML SYR IV PRN (07:41)
[2020-12-19] MEDS: ONDANSETRON 4 MG/2 ML VIAL IV PRN (07:49)
[2020-12-19] MEDS ORDERED: NA CHLORIDE 0.9% 500 ML ONE (07:51)
[2020-12-19] MEDS ORDERED: KCL 20 MEQ/100 mL IVPB 20 MEQ/100 ML BAG IV SCH (09:00)
[2020-12-19] MEDS: CEFAZOLIN/SWI 1gm 1 GM/10 ML SYR IV SCH ×2 (09:32→16:17)
--- NOTE | 2020-12-19 14:06 | P.PN ---
Subjective Date of Service: 12/19/20 Primary Care Provider: opthalmology-Dr. Garcia Chief Complaint: Left subperiosteal abscess Subjective: Doing well Physical Examination - Vital Signs Temperature: 98.5 F Blood Pressure: 99/53 Pulse: 86 Respirations: 18 Pulse Ox (%): 96 - Studies Laboratory Data (last 24 hrs) 12/18/20 19:29: WBC 9.50, Hgb 11.8 L, Hct 35.9 L, Plt Count 267 12/18/20 18:54: Sodium 134 L, Potassium 3.9, BUN 13, Creatinine 0.73, Glucose 98 Assessment & Plan Discharge Plan: Home Plan to discharge in: 48 Hours Physician Review Additional Text: Physical exam: Patient is alert, cooperative. No focal deficits. Face: Erythema, swelling to the inner medial aspect of the left eye. Left subperiosteal abscess Heart: Regular rate and rhythm Lungs: Clear to auscultation Abdomen: Soft nontender nondistended Impression: 1.5 cm subperiosteal abscess within the left orbit Anxiety with depression Plan 1.5 cm subperiosteal abscess within the left orbit: Continue IV antibiotic therapy at this time. Patient currently on IV Flagyl, vancomycin and Ancef. Spoke with ophthalmology. Ophthalmology to evaluate patient later today. Ophthalmology to consider surgical intervention. Patient seems amenable to surgical intervention if needed. Patient did not want to be transferred last night to outside facility. If this is recommended patient would consider this option as well. Await further recommendations from ophthalmology. Anticipate discharge in 48 to 72 hours. Anxiety/depression: Continue home medications. Time Spent Managing Pts Care (In Minutes): 55
[2020-12-19] MEDS: VANCOMYCIN/NS 1 gm 1 GM/250 ML BAG IVPB SCH (20:08)
[2020-12-20] MEDS: CEFAZOLIN/SWI 1gm 1 GM/10 ML SYR IV SCH ×3 (01:06→16:21)
[2020-12-20] MEDS: METRONIDAZOLE 500mg IVPB 500 MG/100 ML BAG IV SCH ×3 (01:06→16:21)
[2020-12-20 02:13] LABS: Urine Appearance CLEAR (Clear); Urine Bilirubin NEGATIVE (Negataive); Urine Blood TRACE (Negative); Urine Color DK YELLOW (Yellow); Urine Glucose NEGATIVE (Negative); Urine Protein NEGATIVE (Negative); Urine Specific Gravity 1.025 (1.005-1.030); Urine Urobilinogen 0.2 mg/dL (0.2-1.0)
[2020-12-20 02:21] LABS: Urine Microscopic Reflex ORDER UMIC
[2020-12-20 04:11] LABS: Urine Bacteria <20 /HPF (<20); Urine RBC <5 /HPF (NONE SEEN); Urine Urothelial Cells <5 /HPF (NONE SEEN)
[2020-12-20 04:14] LABS: Absolute Lymphocytes (CBC) 1.7 K/uL (0.7-4.9); Basophils % 0.7 % (0-1.3); Lymphocytes % 27.9 % (15.3-44.8); MPV 8.1 fL (7.6-11.3); RBC Red Blood Cell Count 3.75 M/uL (3.86-4.86)
[2020-12-20 04:24] LABS: Potassium 3.9 mmol/L (3.5-5.1)
[2020-12-20] MEDS ORDERED: POTASSIUM 25 MEQ EFFERV TAB PO ONE (09:00)
--- NOTE | 2020-12-20 10:12 | RAD REPORT ---
EXAM DESCRIPTION: CTFacial Bones W Con Mpr/ 9:56 am CLINICAL HISTORY: Orbital abscess COMPARISON: December 20, 2020 TECHNIQUE: Computed axial tomography of the face obtained with coronal and sagittal reconstruction. 50 cc Isovue-[address] scans are performed using dose optimization technique as appropriate and may include automated exposure control or mA/KV adjustment according to patient size. FINDINGS: 1.4 centimeters subperiosteal abscess within the medial aspect of the left orbit slightly diminished in size. Previously it measured 1.5 centimeters. It now contains increased density. Hounsf [place]eld unit 130 On the prior exam it had a low-density center. Hounsfield unit 37 No other significant change since the prior exam Mild fluid is present within the ethmoid sinus. IMPRESSION: Slight decrease in the size of a 1.4 centimeter left orbital abscess. The density within the abscess has increased.
--- NOTE | 2020-12-20 15:46 | P.PN ---
Subjective Date of Service: 12/20/20 Primary Care Provider: opthalmology-Dr. Garcia Chief Complaint: Left subperiosteal abscess Subjective: Improving Physical Examination - Vital Signs Temperature: 98.1 F Blood Pressure: 104/51 Pulse: 85 Respirations: 16 Pulse Ox (%): 97 Assessment & Plan Discharge Plan: Home Plan to discharge in: 48 Hours Physician Review Additional Text: Physical exam: Patient is alert, cooperative. No focal deficits. Face: Erythema, swelling to the inner medial aspect of the left eye. Left subperiosteal abscess. Improvement noted Heart: Regular rate and rhythm Lungs: Clear to auscultation Abdomen: Soft nontender nondistended Impression: 1.5 cm subperiosteal abscess within the left orbit Anxiety with depression Plan 1.5 cm subperiosteal abscess within the left orbit: Improvement noted. Continue IV antibiotic therapy. Case discussed with ophthalmology yesterday. Ophthalmology wants to continue with antibiotic therapy. Ophthalmology to consider surgical intervention likely later today or tomorrow. CT scan shows improvement. We will continue with medication. Cultures pending. Anticipate improvement and likely discharge over the next 48 hours. Advance care planning addressed in detail. Patient wishes to go home at discharge.-30 minutes Anxiety/depression: Continue home medications. Time Spent Managing Pts Care (In Minutes): 55
[2020-12-20] MEDS: VANCOMYCIN/NS 1 gm 1 GM/250 ML BAG IVPB SCH (20:28)
[2020-12-21] MEDS: METRONIDAZOLE 500mg IVPB 500 MG/100 ML BAG IV SCH ×3 (01:04→16:07)
[2020-12-21] MEDS: CEFAZOLIN/SWI 1gm 1 GM/10 ML SYR IV SCH ×3 (01:04→16:07)
[2020-12-21 03:56] LABS: Absolute Lymphocytes (CBC) 1.5 K/uL (0.7-4.9); Basophils % 0.6 % (0-1.3); Hematocrit 33.7 % (36.0-45.0); Lymphocytes % 22.8 % (15.3-44.8); MPV 8.3 fL (7.6-11.3); RBC Red Blood Cell Count 3.94 M/uL (3.86-4.86)
[2020-12-21] MEDS: ONDANSETRON 4 MG/2 ML VIAL IV PRN (07:52)
--- NOTE | 2020-12-21 15:49 | P.PN ---
Subjective Date of Service: 12/21/20 Primary Care Provider: opthalmology-Dr. Garcia Chief Complaint: Left subperiosteal abscess Subjective: Improving, Doing well Physical Examination - Vital Signs Temperature: 97.3 F Blood Pressure: 128/77 Pulse: 95 Respirations: 16 Pulse Ox (%): 95 Assessment & Plan Discharge Plan: Home Plan to discharge in: 24 Hours Physician Review Additional Text: Physical exam: Patient is alert, cooperative. No focal deficits. Face: Erythema, swelling to the inner medial aspect of the left eye continues to improve. Heart: Regular rate and rhythm Lungs: Clear to auscultation Abdomen: Soft nontender nondistended Impression: 1.5 cm subperiosteal abscess within the left orbit Anxiety with depression Plan 1.5 cm subperiosteal abscess within the left orbit: Patient continues to improve. Clinically stable. Continue IV antibiotic therapy. Spoke with ophthalmology. Ophthalmology wants to continue with IV antibiotic therapy. Culture still negative. Possible discharge as early as tomorrow with oral antibiotic therapy if okay with ophthalmology. Anxiety/depression: Continue home medications. Time Spent Managing Pts Care (In Minutes): 55
[2020-12-21] MEDS: FLUOXETINE 20 MG CAP PO SCH ×2 (21:48→21:49)
[2020-12-21] MEDS: VANCOMYCIN/NS 1 gm 1 GM/250 ML BAG IVPB SCH (22:30)
[2020-12-22] MEDS: CEFAZOLIN/SWI 1gm 1 GM/10 ML SYR IV SCH ×3 (01:04→16:20)
[2020-12-22] MEDS: METRONIDAZOLE 500mg IVPB 500 MG/100 ML BAG IV SCH ×3 (01:04→16:20)
[2020-12-22 04:11] LABS: Absolute Lymphocytes (CBC) 1.5 K/uL (0.7-4.9); Basophils % 0.7 % (0-1.3); Hematocrit 35.5 % (36.0-45.0); Lymphocytes % 21.7 % (15.3-44.8); MPV 7.9 fL (7.6-11.3); RBC Red Blood Cell Count 4.11 M/uL (3.86-4.86)
[2020-12-22 04:23] LABS: Potassium 3.9 mmol/L (3.5-5.1)
[2020-12-22] MEDS: ONDANSETRON 4 MG/2 ML VIAL IV PRN (07:43)
[2020-12-22] MEDS: FLUOXETINE 20 MG CAP PO SCH (07:43)
[2020-12-22] MEDS ORDERED: POTASSIUM CL SA 10 MEQ TAB PO ONE (08:00)
--- NOTE | 2020-12-22 11:55 | P.PN ---
Subjective Date of Service: 12/22/20 Primary Care Provider: opthalmology-Dr. Garcia Chief Complaint: Left subperiosteal abscess Subjective: Doing well Physical Examination - Vital Signs Temperature: 98 F Blood Pressure: 110/58 Pulse: 91 Respirations: 16 Pulse Ox (%): 96 Assessment & Plan Discharge Plan: Home Plan to discharge in: 24 Hours Physician Review Additional Text: Physical exam: Patient is alert, cooperative. No focal deficits. Face: No significant erythema. Swelling significantly improved to the inner medial aspect of the left eye. No exudate noted. Heart: Regular rate and rhythm Lungs: Clear to auscultation Abdomen: Soft nontender nondistended Impression: 1.5 cm subperiosteal abscess within the left orbit Anxiety with depression Plan 1.5 cm subperiosteal abscess within the left orbit: Patient continues to improve. Clinically stable. Continue IV antibiotic therapy. So far cultures negative. Spoke with ophthalmology yesterday. Possible discharge as early as today with oral antibiotic therapy if okay with ophthalmology. Anxiety/depression: Continue home medications. Time Spent Managing Pts Care (In Minutes): 55
[2020-12-22] MEDS: ACETAMINOPHEN 500 MG TAB PO PRN ×2 (12:37→20:34)
[2020-12-22] MEDS ORDERED: VANCOMYCIN 1.25 GM in NA CHLORIDE 0.9% 250 ML IV SCH (21:00)
[2020-12-23] MEDS ORDERED: LORazepam 2 MG/ML VIAL IV ONE (00:15)
[2020-12-23] MEDS: LACTOBACILLUS/ACIDOPHILUS TAB PO SCH ×2 (00:27→08:12)
[2020-12-23] MEDS: METRONIDAZOLE 500mg IVPB 500 MG/100 ML BAG IV SCH ×2 (00:28→08:13)
[2020-12-23] MEDS: CEFAZOLIN/SWI 1gm 1 GM/10 ML SYR IV SCH ×2 (00:28→08:13)
--- NOTE | 2020-12-23 07:57 | P.DS ---
Admission Date: 12/18/20 Discharge Date: 12/23/20 Primary Care Provider: Opthalmology-Dr. Garcia Disposition: ROUTINE DISCHARGE Discharge Condition: GOOD Reason for Admission: Left subperiosteal abscess Consultations: Ophthalmology-Dr. Garcia Procedures: COVID: Negative CT scan: FINDINGS: Left preseptal swelling. 1.5 centimeter subperiosteal abscess is present within the medial aspect of the left orbit anteriorly. It abuts left globe and nasal cavity. Mild ethmoid sinusitis is present. The left globe is normal size and density IMPRESSION: 1.5 centimeters subperiosteal abscess within the left orbit Follow up CT scan: COMPARISON: December 20, 2020 TECHNIQUE: Computed axial tomography of the face obtained with coronal and sagittal reconstruction. 50 cc Isovue-[address] scans are performed using dose optimization technique as appropriate and may include automated exposure control or mA/KV adjustment according to patient size. FINDINGS: 1.4 centimeters subperiosteal abscess within the medial aspect of the left orbit slightly diminished in size. Previously it measured 1.5 centimeters. It now contains ncreased density. Hounsfield unit 130 On the prior exam it had a low-density center. Hounsfield unit 37 No other significant change since the prior exam Mild fluid is present within the ethmoid sinus. IMPRESSION: Slight decrease in the size of a 1.4 centimeter left orbital abscess. The density within the abscess has increased. Medical Problem List: 1.5 cm subperiosteal abscess within the left orbit Anxiety with depression Brief History of Present Illness: 75-year-old female with history of depression, cataracts presents emergency department for swelling and redness of left eye. Patient was seen in the emergency department recently prescribed antibiotics and sent to follow up with Ophthalmology. Patient reports seeing Ophthalmology yesterday who referred her back to the emergency department for IV antibiotics, CT, labs and possible admission. Patient was evaluated in the emergency department, labs significant for white blood cell count 9.5 hemoglobin 11.8 hematocrit 35.9 sodium 134, CT facial bones performed demonstrates 1.5 cm subperiosteal abscess within the left orbit. On exam patient noted to have significant redness, swelling to the left eye. Patient reports that this began and has increased throughout time. Case was discussed with ophthalmology by ED provider, ophthalmology recommends transfer to tertiary center for further management, patient declined transfer and prefers admission with IV antibiotics, this was again discussed with ophthalmology who will consult with patient. Patient admitted for treatment. Hospital Course: Patient was admitted for 1.5 cm subperiosteal abscess within the left orbit. Patient had seen ophthalmology with failed outpatient treatment. Ophthalmology initially had wanted the patient to be transferred for possible IV antibiotic th erapy and debridement. Patient preferred to stay locally with IV antibiotic therapy. During the course of her stay patient improved. Patient remained on IV antibiotic therapy. No significant erythema, pain, or swelling noted at discharge. At discharge ophthalmology recommend that the patient continue with Augmentin 875 mg 1 pill twice daily and Bactrim DS 1 pill twice daily for at least 7 days. Patient will be provided lactobacillus 1 pill 3 times a day as well. The patient will follow up with ophthalmology this week to follow-up his hospitalization and continue her care. Patient may still require further ophthalmology intervention. This can be further addressed as an outpatient. Patient with anxiety and depression. At discharge she will continue with her medications including Prozac 10 mg daily, triazolam 0.25 mg at bedtime, and baclofen 10 mg at bedtime. Vital Signs/Physical Exam: Temp Pulse Resp BP Pulse Ox 97.3 F 87 18 137/65 90 L 12/23/20 04:00 12/23/20 04:00 12/23/20 04:00 12/23/20 04:00 12/23/20 04:00 General: Alert, In no apparent distress, Oriented x3, Cooperative HEENT: Atraumatic, Other (No significant erythema, swelling, or pain to the left eye or orbital region.) Neck: Supple Respiratory: Clear to auscultation bilaterally, Normal air movement Cardiovascular: Normal pulses, Regular rate/rhythm Gastrointestinal: Normal bowel sounds, Soft and benign, Non-distended, No tenderness, No masses, No rebound, No guarding Musculoskeletal: No erythema, No tenderness, No warmth Integumentary: No tenderness/swelling, No erythema, No warmth, No cyanosis Neurological: Normal speech, Normal strength at 5/5 x4 extr, Normal tone, Normal affect Laboratory Data at Discharge: WBC 6.90 K/uL (4.3-10.9) 12/22/20 03:54 Hgb 11.7 g/dL (12.0-15.0) L 12/22/20 03:54 Hct 35.5 % (36.0-45.0) L 12/22/20 03:54 Plt Count 281 K/uL (152-406) 12/22/20 03:54 Sodium 136 mmol/L (136-145) 12/23/20 04:00 Potassium 4.0 mmol/L (3.5-5.1) 12/23/20 04:00 BUN 9 mg/dL (7-18) 12/23/20 04:00 Creatinine 0.68 mg/dL (0.55-1.3) 12/23/20 04:00 Glucose 99 mg/dL (74-106) 12/23/20 04:00 Magnesium 2.0 mg/dL (1.8-2.4) 12/22/20 03:54 Total Bilirubin 0.7 mg/dL (0.2-1.0) 12/19/20 03:36 AST 11 U/L (15-37) L 12/19/20 03:36 ALT 13 U/L (12-78) 12/19/20 03:36 Alkaline Phosphatase 75 U/L (45-117) 12/19/20 03:36 Home Medications: Fluoxetine HCl [Prozac] 1 cap PO DAILY 12/19/20 Triazolam 1 tab PO BEDTIME 12/19/20 Baclofen [Lioresal*] 10 mg PO BEDTIME 12/21/20 Amox/Clavulanate [Augmentin 875-125 Tab] 1 each PO BID #14 tab 12/23/20 Lactobacillus Acidophilus [Acidophilus Lactobacilli] 1 each PO TID #28 capsule 12/23/20 Sulfamethoxazole/Trimethoprim [Bactrim Ds Tablet] 1 each PO BID #14 tablet 12/23/20 New Medications: Lactobacillus Acidophilus [Acidophilus Lactobacilli] 1 each PO TID #28 capsule Amox/Clavulanate [Augmentin 875-125 Tab] 1 each PO BID #14 tab Sulfamethoxazole/Trimethoprim [Bactrim Ds Tablet] 1 each PO BID #14 tablet Physician Discharge Instructions: Patient was admitted for 1.5 cm subperiosteal abscess within the left orbit. Patient had seen ophthalmology with failed outpatient treatment. Ophthalmology initially had wanted the patient to be transferred for possible IV antibiotic therapy and debridement. Patient preferred to stay locally with IV antibiotic therapy. During the course of her stay patient improved. Patient remained on IV antibiotic therapy. No significant erythema, pain, or swelling noted at discharge. At discharge ophthalmology recommend that the patient continue with Augmentin 875 mg 1 pill twice daily and Bactrim DS 1 pill twice daily for at least 7 days. Patient will be provided lactobacillus 1 pill 3 times a day as well. The patient will follow up with ophthalmology this week to follow-up his hospitalization and continue her care. Patient may still require further ophthalmology intervention. This can be further addressed as an outpatient. Patient with anxiety and depression. At discharge she will continue with her medications including Prozac 10 mg daily, triazolam 0.25 mg at bedtime, and baclofen 10 mg at bedtime. Diet: AHA Activity: Ad lyn Followup: Jesus Garcia MD [Primary Care Provider] - Time spent managing pt's care (in minutes): 55
[2020-12-23] MEDS: ONDANSETRON 4 MG/2 ML VIAL IV PRN (08:18)
[2020-12-23 09:09] VITALS: O2SAT 92
[2020-12-23 12:22] VITALS: BP 126/63; TEMP 97.7
--- NOTE | 2021-01-11 13:58 | CON ---
Addendum: Just make a note that this patient was seen by me multiple times in the hospital for her a dmission for an infection and multiple notes are available in the chart. SCOTT/MARGARITAL Voice ID: [id number] Report ID: [id number]
== END 2020-12-23 13:00 | disposition home or self-care (01) | DRG 122 ==
LOC: ER 16:12 → ERHOLD 21:01 → 4TH 23:58
PROVIDERS: ADMIT Family Medicine; ATTEND Family Medicine
DX: H05.022 Osteomyelitis of left orbit (principal); F41.8 Other specified anxiety disorders; I10 Essential (primary) hypertension; E78.5 Hyperlipidemia, unspecified; Z88.5 Allergy status to narcotic agent; Z88.1 Allergy status to other antibiotic agents; Z79.899 Other long term (current) drug therapy; Z20.822 Contact with and (suspected) exposure to COVID-19
CPT/HCPCS: 36415; 70487; 76377; 80048; 80053; 80202; 81003; 81015; 83735; 85025; 87040; 87070; 87075; 87077; 87086; 87088; 87186; 87205; 90471; 90714; 96365; 96367; 96372; 96375; 99283; 99285; J0690; J2270; J2405; J3010; J3370; J3480; J7040; J7050; Q9967; S0077; U0003

== ENCOUNTER 2020-12-26 15:53 | Inpatient (IN) | payer OTHER ==
--- OUTSIDE RECORDS SUMMARY | 2020-12-26 15:55 | XMS REPORT | Continuity of Care Document ---
:1945 Author Organization [facility] t Address [address] [place] [address] Care Team Providers Name Role Phone Pcp [...] l Vertigo Zain (finding) Active [facility]2020 [facility] Allergies, Adverse Reactions, Alerts Allergy Allergy Status Severity Reaction(s) Onset Inactive Treating Comm ents Source Name Type Date Date Clinician No Known No Known Active Memori a Medicati Medicati l on on Ava Allergie Allergie s s Social History Social Habit Start Date Stop Date Quantity Comments Source Sex Assigned At [facility] Tobacco use and 2018-06-06 2018-06-06 Never used [facility] - exposure 00:00:00 00:00:00 [facility] Alcohol intake 2018-06-06 2018-06-[address] [facility] - 00:00:00 00:00:00 non-drinker of Medical Ce nter alcohol (finding) Smoking Status Start Date Stop Date Source [facility] Medications Ordered Filled Start Stop Current Ordering Indication Dosage Frequency Signature Comments Components Source Medication Medication Date Date Medication? Clinician (SIG) Name Name baclofen 10 2019-08 Yes 10 mg = 1 M emoria mg oral 1-11 tab, PO, l tablet 17:19: Bedtime, # Anne nn 00 30 tab, 3 Refill(s), Pharmacy: [facility] 149, 157.48, cm, 07/05/20 11:07:00 [employer], Height, 66.818, kg, 07/05/20 11:07:00 [employer], Weight Fluoxetine 2017-08 Yes 20 mg = [...] Systolic (mm Hg) 2020-12-05 14:55:00 Clark rial Ava Diastolic (mm Hg) 2020-12-05 14:55:00 Mem o[facility] Ava Heart Rate 2020-12-05 14:55:00 [facility] Respitory Rate 2020-12-05 14:55:00 Memori al Zain Weight 2020-12-05 14:55:00 [facility] A[facility] Systolic (mm Hg) 2020-09-05 16:02:00 [facility] rial Zain Diastolic (mm Hg) 2020-09-05 16:02:00 Mem o[facility] Zain Heart Rate 2020-09-05 16:02:00 [facility] Height 2020-09-05 16:02:00 157.48 cm [facility] A[facility] Weight 2020-09-05 16:02:00 [facility] Ava BMI Calculated 2020-09-05 16:02:00 Memori al Ava Respitory Rate 2020-07-05 16:41:00 Mem[facility] al Ava Height 2020-07-05 16:41:00 157.48 cm [facility] Weight 2020-07-05 16:41:00 [facility] BMI Calculated 2020-07-05 16:41:00 [facility] Zain Systolic (mm Hg) 2020-07-05 16:41:00 [facility] rial Zain Diastolic (mm Hg) 2020-07-05 16:41:00 Mem o[facility] Ava Heart Rate 2020-07-05 16:41:00 [facility] Systolic (mm Hg) 2019-11-04 16:37:00 [facility] rial Ava Diastolic (mm Hg) 2019-11-04 16:37:00 [facility] o[facility] Ava Heart Rate 2019-11-04 16:37:00 [facility] Ava Respitory Rate 2019-11-04 16:37:00 [facility] Zain Height 2019-11-04 16:37:00 157.48 cm [facility] Weight 2019-11-04 16:37:00 [facility] Ava BMI Calculated 2019-11-04 16:37:00 [facility] Zain Systolic (mm Hg) 2019-05-06 16:30:00 [facility] rial Ava Diastolic (mm Hg) 2019-05-06 16:30:00 Mem o[facility] Zain Heart Rate 2019-05-06 16:30:00 [facility] Respitory Rate 2019-05-06 16:30:00 [facility] Zain Height 2019-05-06 16:30:00 157.48 cm [facility] Weight 2019-05-06 16:30:00 [facility] BMI Calculated 2019-05-06 16:30:00 [facility] Zain Height 2019-01-26 15:26:00 157.48 cm [facility] Weight 2019-01-26 15:26:00 [facility] BMI Calculated 2019-01-26 15:26:00 [facility] Ava Heart Rate 2019-01-26 15:26:00 [facility] Respitory Rate 2019-01-26 15:26:00 [facility] Zain Systolic (mm Hg) 2019-01-26 15:26:00 [facility] rial Zain Diastolic (mm Hg) 2019-01-26 15:26:00 Mem orial Zain Heart Rate 2018-07-28 16:15:00 [facility] Ava Systolic (mm Hg) 2018-07-28 16:15:00 Clark rial Zain Diastolic (mm Hg) 2018-07-28 16:15:00 Mem orial Ava BMI Calculated 2018-07-28 16:15:00 [facility] Ava Height 2018-07-28 16:15:00 157.48 cm [facility] Weight 2018-07-28 16:15:00 [facility] A[facility] Systolic (mm Hg) 2018-06-16 15:15:00 Clark rial Zain Diastolic (mm Hg) 2018-06-16 15:15:00 Mem orial Zain Heart Rate 2018-06-16 15:15:00 [facility] Ava Height 2018-06-16 15:15:00 165.1 cm [facility] Weight 2018-06-16 15:15:00 [facility] Ava BMI Calculated 2018-06-16 15:15:00 Memori al Zain [...] 00:00:00 (1 of 1 - [facility] [id number] PCV13) [code = PNEUMOCOCCAL 65+ YRS (1 of 1 - [id number] PCV13)] Encounters Start End Encounter Admission Attending Care Care Encounter Source Date/Time Date/Time Type Type Clinicians Facility Department ID 2020-12-05 2020-12-05 Outpatient JABARI Milligan [id number] 10:00:00 23:59:59 [place] 11 Cedric 2020-09-05 2020-09-05 Outpatient JABARI MilliganSCHJORGE [id number] 10:00:00 23:59:59 [facility] 10 Cedric 2020-08-03 2020-08-03 Outpatient JABARI MilliganSCHJORGE [id number] 10:30:00 10:30:00 [facility] 07 Cedric 2020-08-03 2020-08-03 Outpatient Chel, MHMISCHER MHMISCHER [id number] 10:30:00 10:30:00 [facility] 08 Cedric 2020-07-05 2020-07-05 Outpatient Chel MHMISCHER MHMISCHER [id number] 10:45:00 23:59:59 [facility] Cedric 2019-11-04 2019-11-04 Outpatient MARIBETH MilliganMISCHER MHMISCHER [id number] 11:30:00 23:59:59 [facility] Cedric 2019-07-27 2019-07-27 Outpatient MARIBETH MilliganMISCHER MHMISCHER [id number] 10:00:00 10:00:00 [facility] Cedric 2019-05-06 2019-05-06 Outpatient Chel MHMISCHER MHMISCHER [id number] 11:30:00 23:59:59 [facility] 05 Cedric 2019-05-05 2019-05-05 Outpatient Chel MHMISCHER MHMISCHER [id number] 14:15:00 14:15:00 [facility] Cedric 2019-01-26 2019-01-26 Outpatient MARIBETH MilliganMISCHER MHMISCHER [id number] 10:15:00 23:59:59 [facility] Cedric 2018-08-10 2018-08-11 Outpatient MHMISCHER MHMISCHER [id number] 16:10:00 23:59:59 00 2018-07-28 2018-07-28 Outpatient Chel, MHMISCHER MHMISCHER [id number] 10:15:00 23:59:59 [facility] Cedric 2018-06-16 2018-06-16 Outpatient Chel MHMISCHER MHMISCHER [id number] 09:45:00 23:59:59 [facility] 00 Cedric Results Test Description Test Time Test Comments Results Result Sour e Comments CT, BRAIN, WITHOUT 2018-06-08 FINAL REPORT PATIENT CONTRAST 08:11:00 ID: [id number] CT head without contrast INDICATION: CVA, TIA. [...] MDReport Verified Date/Time: 06/08/2018 08:11:29 Reading Location: [facility] C013V Neuro Reading Room ESIUM 2018-06-08 06:22:00 Test Item Value Reference Range Interpretation Comme nts MAGNESIUM (BEAKER) (test code = 627) 2.1 mg/dL 1.6-2.6 BASIC METABOLIC [id number] 06:22:00 Test Item Value Reference Range Interpretation Comments SODIUM (BEAKER) 139 meq/L 136-145 (test code = 381) POTASSIUM (BEAKER) 3.9 meq/L 3.5-5.1 (test code = 379) CHLORIDE (BEAKER) 106 meq/L 98-107 (test code = 382) CO2 (BEAKER) (test 25 meq/L - code = 355) BLOOD UREA NITROGEN 9 [...] NOT APPLICABLE FOR DIALYSIS PATIEN TS. LIPID [id number] 06:22:00 Test Item Value Reference Range Interpretation [...] 130-159 High 160-189 Very High >=190HEPATIC FUNCTION [id number] 06:22:00 Test Item Value Reference Range Interpretation [...] code = 11 U/L 6-55 347) CALCIUM, [id number] 06:20:00 Test Item Value Reference Range Interpretation Comments CALCIUM IONIZED (BEAKER) (test 1.14 mmol/L 1.12-1.27 code = 698) PH, BLOOD (BEAKER) (test code = 7.41 1810) PROTHROMBIN [id number] 06:01:00 Test Item Value Reference Range Interpretation Comments PROTIME (BEAKER) (test code = 13.3 seconds 11.7-14.7 759) INR (BEAKER) (test code = 370) 1.0 <=5.9 RECOMMENDED COUMADIN/WARFARIN INR THERAPY RANGESSTANDARD DOSE: 2.0 - 3.0 Includes: PROPHYLAXIS forvenous thrombosis, systemic embolization; TREATMENT for venous thrombosis and/or pulmonary embolus.HIGH RISK: Target INR is 2.5-3.5 for patients with mechanical heart valves.MR, MRA, BRAIN, WITHOUT [id number] 21:28:00FINAL REPORT MR, MRA, BRAIN, WITHOUT CONTRAST, [...] MDReport Verified Date/Time: 06/07/2018 21:28:54 Reading Location: [address] Reading Room MR, MRA, NECK, WITHOUT IV [id number] 21:28:00FINAL REPORT MR, MRA, BRAIN, WITHOUT CONTRAST, [...] MDReport Verified Date/Time: 06/07/2018 21:28:54 Reading Location: [address] Reading Room CALCIUM, [id number] 03:12:00 Test Item Value Reference Range Interpretation Comments CALCIUM IONIZED (BEAKER) (test 1.15 mmol/L 1.12-1.27 code = 698) PH, BLOOD (BEAKER) (test code = 7.37 1810) PROTHROMBIN [id number] 02:47:00 Test Item Value Reference Range Interpretation [...] (BEAKER) (test code = 2801) COMPREHENSIVE METABOLIC [id number] 17:20:00 Test Item Value Reference Range Interpretation [...] (test code = 413) MR, BRAIN, WITHOUT [id number] 16:29:00FINAL REPORT MRI brain without contrast INDICATION: [...] Queta ified Date/Time: 06/06/2018 16:29:20 Reading Location: [facility] C013V Neuro Reading Room
[2020-12-26 16:34] LABS: Absolute Lymphocytes (CBC) 0.8 K/uL (0.7-4.9); Basophils % 0.2 % (0-1.3); Hematocrit 33.2 % (36.0-45.0); Lymphocytes % 9.2 % (15.3-44.8); MPV 8.4 fL (7.6-11.3)
[2020-12-26 16:41] LABS: Protime INR 1.14
[2020-12-26 17:01] LABS: Albumin 3.6 g/dL (3.4-5.0); Bilirubin Direct 0.1 mg/dL (0-0.2); Bilirubin Total 0.4 mg/dL (0.2-1.0); CKMB Creatine Kinase MB 13.7 ng/mL (0.3-3.6); Potassium 3.6 mmol/L (3.5-5.1); Protein, Total 7.3 g/dL (6.4-8.2); Troponin (Emerg Dept Use Only) 0.07 ng/mL (0.0-0.045)
[2020-12-26 17:21] LABS: Blood Morphology Comment NOT SEEN (NOT SEEN); Platelet Estimate ADEQ; Platelets, Giant PRESENT; White Blood Cell Scan OK (OK)
[2020-12-26] MEDS ORDERED: LEVALBUTEROL 1.25 MG/3 ML NEB ONE (17:35)
[2020-12-26] MEDS ORDERED: NA CHLORIDE 0.9% 500 ML ONE (17:35)
[2020-12-26] MEDS ORDERED: FUROSEMIDE 40 MG/4 ML VIAL ONE (17:41)
[2020-12-26] MEDS ORDERED: IPRATROPIUM BROM 0.5MG/2.5ML ONE (17:41)
--- NOTE | 2020-12-26 17:49 | RAD REPORT ---
EXAM DESCRIPTION: Milly Single View12/26/2020 4:42 pm CLINICAL HISTORY: Shortness of breath COMPARISON: September 2020 FINDINGS: Mrrv-vj-uojbkiet bilateral pulmonary opacities. Small pleural effusions. The heart is enlarged IMPRESSION: These findings probably represent CHF
[2020-12-26 18:03] LABS: Urine Blood 2+ (Negative); Urine Glucose 1+ (Negative); Urine Protein 2+ (Negative); Urine Specific Gravity >=1.030 (1.005-1.030); Urine pH 5.5 (5.0-7.0)
--- NOTE | 2020-12-26 18:27 | ER ---
Nurse's Notes [facility] Name: Sherry Russ Age: 75 yrs Sex: Female : 1945 Arrival Date: 12/26/2020 Time: 15:58 Bed 23 Private MD: Diagnosis: Dyspnea;Acute pulmonary edema;Hyponatremia;Elevated Troponin Presentation: 12/26 15:49 Chief complaint: EMS states: called out for dyspnea that started today. On EMS arrival sv O2 sat was 85% RA HR-122. Pt is being treated for a left eye infection at this time, was seen here in the ER. Coronavirus screen: Client denies travel out of the [place] in the last 14 days. At this time, the client does not indicate any symptoms associated with coronavirus-19. Ebola Screen: No symptoms or risks identified at this time. Initial Sepsis Screen: Does the patient meet any 2 criteria? RR > 20 per min. HR > 90 bpm. Yes Does the patient have a suspected source of infection? Yes: Other: eye infection. Risk Assessment: Do you want to hurt yourself or someone else? Patient reports no desire to harm self or others. Onset of symptoms was December 26, 2020. 15:49 Method Of Arrival: EMS: [facility] sv 15:49 Acuity: CHAD 2 sv Triage Assessment: 15:49 General: Appears in no apparent distress. uncomfortable, well developed, Behavior is sv calm, cooperative, appropriate for age. Pain: Denies pain. Neuro: Level of Consciousness is awake, alert, obeys commands, Oriented to person, place, time, situation, Speech is normal. Cardiovascular: Patient's skin is warm and dry. Pulses are palpable in right brachial artery and left brachial artery Rhythm is sinus tachycardia. Respiratory: Reports shortness of breath at rest on exertion Airway is patent Respiratory effort is even, unlabored, Respiratory pattern is regular, symmetrical, Onset: The symptoms/episode began/occurred today, the patient has mild shortness of breath. Derm: Skin is intact, Skin is pale, Bruising that is dark purple, on dorsal aspect of left forearm. Musculoskeletal: Range of motion: intact in all extremities. Historical: - Allergies: 16:02 Codeine; gets weird; sv - PMHx: 16:02 Anxiety; Depression; eye problems; Hyperlipidemia; Hypertension; Vertigo; sv - PSHx: 16:02 eye sx; sv - Immunization history:: Adult Immunizations. - Social history:: Smoking status: . Screenin:19 Abuse screen: Denies threats or abuse. Denies injuries from another. Nutritional sv screening: No deficits noted. Tuberculosis screening: No symptoms or risk factors identified. Fall Risk None identified. Assessment: 16:02 Reassessment: Code Sepsis called. sv 16:40 Reassessment: Patient appears in no apparent distress at this time. No changes from sv previously documented assessment. Patient and/or family updated on plan of care and expected duration. Pain level reassessed. Patient is alert, oriented x 3, equal unlabored respirations, skin warm/dry/pink. See triage assessment. 17:28 Reassessment: Pt's IVF changed to 50 mls/hr per Kizzy DRAKE. sv 18:23 Reassessment: Patient appears in no apparent distress at this time. Patient and/or sv family updated on plan of care and expected duration. Pain level reassessed. Patient is alert, oriented x 3, equal unlabored respirations, skin warm/dry/pink. 19:18 Reassessment: hospitalist at bedside examining the patient. mg2 Vital Signs: 15:49 BP 118 / 92; Pulse 108; Resp 23; Temp 97.8; Pulse Ox 96% ; Pain 0/10; sv 16:25 BP 141 / 93; Pulse 109; Resp 25; Pulse Ox 96% on 3 lpm NC; sv 17:00 BP 139 / 82; Pulse 111; Resp 24; Pulse Ox 100% ; sv 18:24 BP 139 / 86; Pulse 105; Resp 24; Pulse Ox 98% on 3 lpm NC; sv 19:19 BP 128 / 80; Pulse 103; Resp 18; Pulse Ox 98% on 3 lpm NC; mg2 21:54 Weight 61.23 kg; Height 5 ft. 2 in. (157.48 cm); mg2 21:54 Body Mass Index 24.69 (61.23 kg, 157.48 cm) mg2 ED Course: 15:49 chemical engineering technologist on. Pulse ox on. NIBP on. sv 15:55 Patient has correct armband on for positive identification. Placed in gown. Bed in low sv position. Call light in reach. Side rails up X2. Door closed. Warm blanket given. Head of bed elevated. 15:55 Arm band placed on. sv 15:58 Patient arrived in ED. sv 15:58 Shelli Dodd RN is Primary Nurse. sv 16:01 Triage completed. sv 16:10 First set of blood cultures drawn by me. Inserted saline lock: 20 gauge in left sv antecubital area, using aseptic technique. Blood collected. Flushed left antecubital with 5 ml normal saline. 16:20 Kizzy Mcclure FNP-C is PHCP. kb 16:20 Nayan Maynard MD is Attending Physician. kb 16:23 Amylase, Serum Sent. sv 16:23 Basic Metabolic Panel Sent. sv 16:23 Blood Culture Adult (2) Sent. sv 16:23 CBC with Diff Sent. sv 16:23 Ckmb Sent. sv 16:23 CPK Sent. sv 16:23 Lactate Sent. sv 16:23 LFT's Sent. sv 16:24 Second set of blood cultures drawn by lab staff. sv 16:41 Awaiting lab results, Awaiting radiology results. sv 16:42 Chest Single View XRAY Sent. sv 16:43 Chest Single View XRAY In Process Unspecified. EDMS 16:54 Nurse Practitioner and/or Physician Fbi Profiler to see patient. sv 18:27 Stuart Campa is Hospitalizing Provider. kb 19:03 Report given to Sergei DEAN and Merry DEAN. sv 19:10 Primary Nurse role handed off by Shelli Dodd RN sv 20:16 Sergei Garcia RN is Primary Nurse. mg2 21:54 No provider procedures requiring assistance completed. Patient admitted, IV remains in mg2 place. 12/27 06:48 Primary Nurse role handed off by Sergei Garcia RN tt3 18:51 PHCP role handed off by Kizzy Mcclure FNP-C aa5 Administered Medications: 12/26 17:21 Drug: Xopenex (levalbuterol) 1.25 mg Route: Inhalation; sv 17:21 Drug: NS 0.9% 500 ml Route: IV; Rate: bolus; Site: left antecubital; sv 20:16 Follow up: Response: No adverse reaction; IV Status: Completed infusion; IV Intake: mg2 500ml 17:28 Drug: AtroVENT (ipratropium) Aerosol 0.5 mg Route: Inhalation; sv 17:28 Drug: Lasix (furosemide) 40 mg Route: IVP; Site: left antecubital; sv 17:31 Follow up: Response: No adverse reaction sv Intake: 18:23 PO: 200ml (Water); Total: 200ml. sv 20:16 IV: 500ml; Total: 700ml. mg2 Output: 18:23 Urine: 100ml (Voided); Total: 100ml. sv Outcome: 18:27 Decision to Hospitalize by Provider. kb 21:54 Admitted to ER Hold. Please see [facility] for further documentation. mg2 21:54 Condition: stable 21:54 Instructed on the need for admit, Demonstrated understanding of instructions. 12/27 19:22 Patient left the ED. iw Signatures: Dispatcher [employer] EDMS Kizzy Mcclure, SALVAGE MECHANIC-C SALVAGE MECHANIC-Shelli Souza, RN RN Andreia Turk, RN RN iw Jo Reyes RN RN aa5 Sergei Garcia RN RN mg2 Judson Flores tt3 Corrections: (The following items were deleted from the chart) 18:51 18:50 Patient left the ED. aaColumba aa5
--- NOTE | 2020-12-26 18:27 | EDPHYS ---
Physician Documentation [facility] Name: Sherry Russ Age: 75 yrs Sex: Female : 1945 Arrival Date: 12/26/2020 Time: 15:58 Bed 23 Private MD: ED Physician Nayan Maynard HPI: 12/26 20:54 This 75 yrs old Female presents to ER via EMS with complaints of Breathing kb Difficulty. 20:54 The patient has shortness of breath at rest. Onset: The symptoms/episode began/occurred kb and became worse today. Duration: The symptoms are continuous. The patient's shortness of breath is aggravated by nothing, is alleviated by nothing. Associated signs and symptoms: The patient has no apparent associated signs or symptoms. Severity of symptoms: At their worst the symptoms were moderate in the emergency department the symptoms are unchanged. The patient has experienced similar episodes in the past. The patient has not recently seen a physician. Pt reports she has been having episodes of dyspnea since September. States today the symptoms got much worse and she was having anxiety.. Historical: - Allergies: 16:02 Codeine; gets weird; sv - PMHx: 16:02 Anxiety; Depression; eye problems; Hyperlipidemia; Hypertension; Vertigo; sv - PSHx: 16:02 eye sx; sv - Immunization history:: Adult Immunizations. - Social history:: Smoking status: . ROS: 20:52 Constitutional: Negative for fever, chills, and weight loss, Cardiovascular: Negative kb for chest pain, palpitations, and edema, Abdomen/GI: Negative for abdominal pain, nausea, vomiting, diarrhea, and constipation, MS/Extremity: Negative for injury and deformity, Skin: Negative for injury, rash, and discoloration, Neuro: Negative for headache, weakness, numbness, tingling, and seizure. 20:52 Respiratory: Positive for shortness of breath. Exam: 20:52 Constitutional: This is a well developed, well nourished patient who is awake, alert, kb and in no acute distress. Head/Face: Normocephalic, atraumatic. Cardiovascular: Regular rate and rhythm with a normal S1 and S2. No gallops, murmurs, or rubs. No pulse deficits. Abdomen/GI: Soft, non-tender. No distention Skin: Warm, dry with normal turgor. Normal color. MS/ Extremity: Pulses equal, no cyanosis. Neurovascular intact. Full, normal range of motion. Neuro: Awake and alert, GCS 15, oriented to person, place, time, and situation. Moves all extremities. Normal gait. 20:52 Constitutional: The patient appears anxious. 20:52 Respiratory: mild respiratory distress is noted, Respirations: labored breathing, Breath sounds: decreased breath sounds, are located in both bases. Vital Signs: 15:49 BP 118 / 92; Pulse 108; Resp 23; Temp 97.8; Pulse Ox 96% ; Pain 0/10; sv 16:25 BP 141 / 93; Pulse 109; Resp 25; Pulse Ox 96% on 3 lpm NC; sv 17:00 BP 139 / 82; Pulse 111; Resp 24; Pulse Ox 100% ; sv 18:24 BP 139 / 86; Pulse 105; Resp 24; Pulse Ox 98% on 3 lpm NC; sv 19:19 BP 128 / 80; Pulse 103; Resp 18; Pulse Ox 98% on 3 lpm NC; mg2 21:54 Weight 61.23 kg; Height 5 ft. 2 in. (157.48 cm); mg2 21:54 Body Mass Index 24.69 (61.23 kg, 157.48 cm) mg2 MDM: 16:20 Patient medically screened. kb 17:39 Data reviewed: vital signs, nurses notes. Data interpreted: Pulse oximetry: on room air kb is 100 %. Interpretation: normal. Counseling: I had a detailed discussion with the patient and/or guardian regarding: the historical points, exam findings, and any diagnostic results supporting the discharge/admit diagnosis, lab results, radiology results, the need for further work-up and treatment in the hospital. 12/26 16:03 Order name: Amylase, Serum sv 12/26 16:03 Order name: Basic Metabolic Panel 12/26 16:03 Order name: Blood Culture Adult (2) 12/26 16:03 Order name: CBC with Diff sv 12/26 16:03 Order name: Ckmb sv 12/26 16:03 Order name: CPK sv 12/26 16:03 Order name: Lactate sv 12/26 16:03 Order name: LFT's sv 12/26 16:03 Order name: Lipase; Complete Time: 17:10 sv 12/26 16:03 Order name: Procalcitonin; Complete Time: 17:39 sv 12/26 16:03 Order name: Protime (+inr); Complete Time: 16:42 sv 12/26 16:03 Order name: Ptt, Activated; Complete Time: 16:42 sv 12/26 16:03 Order name: Troponin (emerg Dept Use Only); Complete Time: 17:10 sv 12/26 16:03 Order name: Urine Microscopic Only; Complete Time: 18:59 sv 12/26 16:03 Order name: Amylase; Complete Time: 17:10 EDMS 12/26 16:03 Order name: Basic Metabolic Panel; Complete Time: 17:10 EDMS 12/26 16:03 Order name: Blood Culture EDMS 12/26 16:03 Order name: CBC with Automated Diff; Complete Time: 17:26 EDMS 12/26 16:03 Order name: CKMB Creatine Kinase MB; Complete Time: 17:10 EDMS 12/26 16:03 Order name: Creatine Phosphokinase; Complete Time: 17:10 EDMS 12/26 16:03 Order name: Lactate; Complete Time: 17:10 EDMS 12/26 16:03 Order name: Liver (Hepatic) Function; Complete Time: 17:10 EDMS 12/26 17:21 Order name: CBC Smear Scan; Complete Time: 17:26 EDMS 04 18:04 Order name: Urine Dipstick-Ancillary; Complete Time: 18:09 EDMS 04 18:43 Order name: SARS-COV-2 RT PCR; Complete Time: 18:45 EDMS 04 19:49 Order name: ABG Arterial Blood Gas; Complete Time: 22:26 EDMS 12/26 20:42 Order name: Lactate Sepsis 2 HR Follow-up; Complete Time: 20:45 EDMS 12/26 23:01 Order name: Troponin I; Complete Time: 23:22 EDMS 12/26 23:01 Order name: NT PRO-BNP; Complete Time: 23:22 EDMS 12/26 16:03 Order name: Chest Single View XRAY; Complete Time: 17:55 sv 12/26 16:03 Order name: Cardiac monitoring; Complete Time: 16:24 sv 12/26 16:03 Order name: EKG - Nurse/Tech; Complete Time: 16:42 sv 12/26 16:03 Order name: IV Saline Lock - Large Bore; Complete Time: 16:24 sv 12/26 16:03 Order name: Labs collected and sent; Complete Time: 16:24 sv 12/26 16:03 Order name: O2 Per Protocol; Complete Time: 16:24 sv 12/26 16:03 Order name: O2 Sat Monitoring; Complete Time: 16:24 sv 12/26 17:23 Order name: Misc. Order: change NS bolus to 50cc/hr; Complete Time: 17:31 kb 12/26 19:42 Order name: CONS Physician Consult EDMS 12/26 19:47 Order name: Extrem Venous W Compress Alexsander; Complete Time: 21:13 EDMS 12/26 23:01 Order name: T4 Free; Complete Time: 23:22 EDMS 12/26 23:01 Order name: Thyroid Stimulating Hormone; Complete Time: 23:22 EDMS 12/27 05:06 Order name: CBC with Automated Diff EDMS 12/27 05:21 Order name: Troponin I EDMS 12/27 05:31 Order name: Comprehensive Metabolic Panel EDMS 12/27 05:31 Order name: Phosphorus EDMS 12/27 05:31 Order name: Lipid Profile EDMS 12/27 05:31 Order name: Magnesium EDMS 05 05:33 Order name: Hemoglobin A1c EDMS 05/ 08:24 Order name: Glucose, Ancillary Testing EDMS 12/27 12:31 Order name: Glucose, Ancillary Testing EDMS 05/ 15:16 Order name: Troponin I EDMS 05/ 16:11 Order name: Glucose, Ancillary Testing EDMS 05/ 17:33 Order name: Basic Metabolic Panel EDMS Administered Medications: 17:21 Drug: Xopenex (levalbuterol) 1.25 mg Route: Inhalation; sv 17:21 Drug: NS 0.9% 500 ml Route: IV; Rate: bolus; Site: left antecubital; sv 20:16 Follow up: Response: No adverse reaction; IV Status: Completed infusion; IV Intake: mg2 500ml 17:28 Drug: AtroVENT (ipratropium) Aerosol 0.5 mg Route: Inhalation; sv 17:28 Drug: Lasix (furosemide) 40 mg Route: IVP; Site: left antecubital; sv 17:31 Follow up: Response: No adverse reaction sv Disposition: 12/28 09:32 Co-signature as Attending Physician, Nayan Maynard MD I agree with the assessment and raquel plan of care. Disposition: 12/26/20 18:27 Hospitalization ordered by Stuart Campa for Inpatient Admission. Preliminary diagnosis are Dyspnea, Acute pulmonary edema, Hyponatremia, Elevated Troponin. - Bed requested for Telemetry/MedSurg (Inpatient). - Status is Inpatient Admission. iw - Condition is Stable. - Problem is new. - Symptoms are unchanged. Signatures: Dispatcher [employer] EDNC Kizzy Mcclure, ELECTRIC MOTOR TESTER ASSEMBLER-C ELECTRIC MOTOR TESTER ASSEMBLER-Ckb Concepcion Abernathy Stephanie, RN Nayan Kruger MD MD cha Williams, Irene, RN JERMAINE iw Jo Reyes RN JERMAINE aa5 Kellee Haro RN RN Sergei Garcia RN mg2 Corrections: (The following items were deleted from the chart) 12/26 17:54 17:07 CORONAVIRUS+MR.LAB.BRZ ordered. [facility] 21:24 18:27 Hospitalization Ordered by Stuart Campa for Inpatient Admission. Preliminary cg diagnosis is Dyspnea; Acute pulmonary edema; Hyponatremia; Elevated Troponin. Bed requested for Telemetry/MedSurg (Inpatient). Status is Inpatient Admission. Condition is Stable. Problem is new. Symptoms are unchanged. kb 12/27 17:36 05 21:24 12/26/2020 18:27 Hospitalization Ordered by Stuart Campa for Inpatient bd Admission. Preliminary diagnosis is Dyspnea; Acute pulmonary edema; Hyponatremia; Elevated Troponin. Bed requested for [facility] ER HOLD. Status is Inpatient Admission. Condition is Stable. Problem is new. Symptoms are unchanged. cg 12/27 18:50 17:36 12/26/2020 18:27 Hospitalization Ordered by Stuart Capma for Inpatient aa5 Admission. Preliminary diagnosis is Dyspnea; Acute pulmonary edema; Hyponatremia; Elevated Troponin. Bed requested for Telemetry/MedSurg (Inpatient). Status is Inpatient Admission. Condition is Stable. Problem is new. Symptoms are unchanged. bd 19:22 18:50 12/26/2020 18:27 Hospitalization Ordered by Stuart Campa for Inpatient iw Admission. Preliminary diagnosis is Dyspnea; Acute pulmonary edema; Hyponatremia; Elevated Troponin. Bed requested for Telemetry/MedSurg (Inpatient). Status is Inpatient Admission. Condition is Stable. Problem is new. Symptoms are unchanged. aa5
[2020-12-26 18:52] LABS: Urine Bacteria <20 /HPF (<20)
[2020-12-26 18:53] LABS: Urine Amorphous Sediment 2+ /HPF (NONE SEEN); Urine Mucus 3+ /HPF (NONE SEEN)
--- NOTE | 2020-12-26 21:12 | RAD REPORT ---
EXAM DESCRIPTION: USExtrem Venous W Compress Bil12/26/2020 9:05 pm CLINICAL HISTORY: Leg swelling COMPARISON: none FINDINGS: The common femoral, superficial femoral, popliteal and posterior tibial veins bilaterally are compressible and demonstrate augmentation. Doppler demonstrates good flow. IMPRESSION: No evidence of deep venous thrombosis involving either lower extremity.
[2020-12-26 21:26] LABS: Arterial Blood Carboxyhemoglob 1.2 % (0-1.5); Blood Gas Oxyhemoglobin 93.7 % (94-97); Blood O2 Saturation 95.8 % (92-98.5)
[2020-12-26] MEDS ORDERED: ACETAMINOPHEN 500 MG TAB PO PRN (21:47)
[2020-12-26] MEDS ORDERED: LORAZEPAM 0.5 MG TABLET PO PRN (21:47)
[2020-12-26] MEDS ORDERED: ALBUTEROL 2.5 MG/3 ML NEB SOL NEB PRN (21:47)
[2020-12-26] MEDS ORDERED: ONDANSETRON 4 MG/2 ML VIAL IV PRN (21:47)
[2020-12-26] MEDS: INSULIN -REGULAR HUMAN 50 UNIT/0.5 ML ML SQ SCH (21:47)
[2020-12-26] MEDS ORDERED: FUROSEMIDE 40 MG/4 ML VIAL IV ONE (22:00)
[2020-12-26 22:02] VITALS: BMI 24.7
[2020-12-26 23:01] LABS: Thyroid Stimulating Hormone 1.65 uIU/mL (0.360-3.740); Troponin I 0.09 ng/mL (0.0-0.045)
--- NOTE | 2020-12-27 02:53 | P.HP ---
Certification for Inpatient Patient admitted to: Inpatient With expected LOS: >2 Midnights Patient will require the following post-hospital care: None Practitioner: I am a practitioner with admitting privileges, knowledge of patient current condition, hospital course, and medical plan of care. Services: Services provided to patient in accordance with Admission requirements found in Title 42 Section 412.3 of the Code of Federal Regulations Patient History Date of Service: 12/27/20 Primary Care Provider: none Reason for admission: CHF exacerbation History of Present Illness: Ms. Russ is a 75 yo F with anxiety and depression here today for increased SOB and BRUNER since 12/23. She presented to the ED with O2 sats of 85%, improved to 97% on 4L O2. She says the SOB is worse when she tries to sleep. Reports nausea. Denies night sweats, chills, cough, edema, PND, orthopnea. Reports some relief with rescue inhaler. She was recently discharged from the hospital on 12/23 after treatment of a subperiosteal abscess within the left orbit. CXR consistent with CHF. Na 119. Cl 84. HCO3 20. GFR 67. Glu 214. Lactate 2.3. Trop 0.07. 2+ blood, 5-10 RBCs, 3+ mucus, 2+ protein in UA. Allergies No Known Allergies Allergy (Verified 12/19/20 06:21) Home Medications: Fluoxetine HCl [Prozac] 1 cap PO DAILY 12/19/20 Triazolam 1 tab PO BEDTIME 12/19/20 Baclofen [Lioresal*] 10 mg PO BEDTIME 12/21/20 Amox/Clavulanate [Augmentin 875-125 Tab] 1 each PO BID #14 tab 12/23/20 Lactobacillus Acidophilus [Acidophilus Lactobacilli] 1 each PO TID #28 capsule 12/23/20 Sulfamethoxazole/Trimethoprim [Bactrim Ds Tablet] 1 each PO BID #14 tablet 12/23/20 - Past Medical/Surgical History Has patient received pneumonia vaccine in the past: No Diabetic: No -: cataract -: depression -: anxiety -: cataract surgery Psychosocial/ Personal History: Patient lives at home with family - Family History Mother Notes: osteoporosis - Social History Smoking Status: Never smoker Alcohol use: No CD- Drugs: No Caffeine use: Yes Place of Residence: Home Review of Systems General: Malaise, As per HPI Eyes: Unremarkable ENT: Unremarkable Respiratory: Shortness of Breath, SOB with Excertion, Wheezing, As per HPI Cardiovascular: Unremarkable Gastrointestinal: Nausea, As per HPI Genitourinary: Unremarkable Musculoskeletal: Unremarkable Integumentary: Unremarkable Neurological: Unremarkable Lymphatics: Unremarkable Physical Examination - Vital Signs Temperature: 97.8 F Blood Pressure: 127/81 Pulse: 98 Pulse Ox (%): 98 - Physical Exam General: Alert, In no apparent distress, Oriented x3, Cooperative HEENT: Atraumatic, Normocephalic, PERRLA, Mucous membr. moist/pink, Sclerae nonicteric Neck: Supple, 2+ carotid pulse no bruit, JVD not distended, No Thyromegaly, No LAD Respiratory: Normal air movement, Crackles/rales Cardiovascular: Normal pulses, Regular rate/rhythm, Normal S1 S2, No gallops, No rubs, No murmurs, Edema Capillary refill: <2 Seconds Gastrointestinal: Normal bowel sounds, Soft and benign, Non-distended, No ascites, No tenderness, No masses, No rebound, No guarding Musculoskeletal: No clubbing, No swelling, No contractures, No erythema, No tenderness, No warmth Integumentary: No rashes, No breakdown, No significant lesion, No tenderness/swelling, No erythema, No warmth, No cyanosis Neurological: Normal speech, Normal strength at 5/5 x4 extr, Normal tone, Sensation intact, Cranial nerves 3-12 intact, Normal affect Lymphatics: No axilla or inguinal lymphadenopathy - Studies Laboratory Data (last 24 hrs) 12/26/20 16:10: PT 13.1 H, INR 1.14, APTT 25.7 12/26/20 16:10: WBC 8.50 D, Hgb 11.0 L, Hct 33.2 L, Plt Count 328 12/26/20 16:10: Sodium 119 L*, Potassium 3.6, BUN 15, Creatinine 0.83, Glucose 214 H, Total Bilirubin 0.4, AST 36, ALT 27, Alkaline Phosphatase 64, Amylase 22 L, Lipase 100 Assessment and Plan - Problems (Diagnosis) (1) Hyponatremia Current Visit: Yes Status: Acute (2) CHF exacerbation Current Visit: Yes Status: Acute Qualifiers: Heart failure type: unspecified Qualified Code(s): I50.9 - Heart failure, unspecified (3) Anxiety and depression Current Visit: Yes Status: Chronic (4) Hematuria Current Visit: Yes Status: Acute Qualifiers: Hematuria type: asymptomatic microscopic Qualified Code(s): R31.21 - Asymptomatic microscopic hematuria - Plan Cardiology consulted continue IV Lasix BID, fluid restrict 1500 cc daily, daily weights and I&Os on telemetry, trend troponins and EKG continue O2 as needed Nephrology consulted bladder and renal ultrasound pending, urine protein&cr ratio pending A1c, lipid panel pending continue home antibiotics, continue home medications Discharge Plan: Home Plan to discharge in: 72 Hours - Advance Directives Does patient have a Living Will: No Does patient have a Durable POA for Healthcare: No - Code Status/Comfort Care Code Status Assessed: Yes (full code) Critical Care: No Time Spent Managing Pts Care (In Minutes): 70
[2020-12-27 05:01] LABS: Absolute Lymphocytes (CBC) 1.9 K/uL (0.7-4.9); Basophils % 0.3 % (0-1.3); Hematocrit 28.8 % (36.0-45.0); Lymphocytes % 17.6 % (15.3-44.8); MPV 8.4 fL (7.6-11.3); RBC Red Blood Cell Count 3.43 M/uL (3.86-4.86)
[2020-12-27 05:21] LABS: Albumin 3.3 g/dL (3.4-5.0); Bilirubin Total 0.4 mg/dL (0.2-1.0); Magnesium 1.8 mg/dL (1.8-2.4); Potassium 3.8 mmol/L (3.5-5.1); Protein, Total 6.4 g/dL (6.4-8.2)
[2020-12-27] MEDS ORDERED: LORAZEPAM 0.5 MG TABLET ONE (07:11)
[2020-12-27] MEDS: INSULIN -REGULAR HUMAN 50 UNIT/0.5 ML ML SQ SCH ×4 (07:30→21:00)
[2020-12-27] MEDS ORDERED: PNEUMOCOCCAL VACCINE 0.5 ML IMVAC ONE ×2 (08:00→18:21)
[2020-12-27] MEDS ORDERED: ALBUTEROL 2.5 MG/3 ML NEB SOL ONE (08:23)
[2020-12-27] MEDS ORDERED: FUROSEMIDE 40 MG/4 ML VIAL ONE ×2 (08:55→18:20)
[2020-12-27] MEDS ORDERED: MORPHINE 2 MG/ML SYR ONE (08:55)
[2020-12-27] MEDS ORDERED: ONDANSETRON 4 MG/2 ML VIAL ONE (08:58)
[2020-12-27] MEDS: FUROSEMIDE 40 MG/4 ML VIAL IV SCH ×2 (09:00→17:00)
--- NOTE | 2020-12-27 09:02 | P.CNS ---
Date of Consult: 12/27/20 Reason for Consult: Hyponatremia Requesting Physician: keyona rubi Primary Care Provider: none Chief Complaint: CHF exacerbation History of Present Illness: Ms. Russ is a 75 yo F with anxiety and depression here today for increased SOB and BRUNER since 12/23. She presented to the ED with O2 sats of 85%, improved to 97% on 4L O2. She says the SOB is worse when she tries to sleep. Reports nausea. Denies night sweats, chills, cough, edema, PND, orthopnea. Reports some relief with rescue inhaler. She was recently discharged from the hospital on 12/23 after treatment of a subperiosteal abscess within the left orbit. CXR consistent with CHF. Allergies No Known Allergies Allergy (Verified 12/19/20 06:21) Home medications list reviewed: Yes Home Medications: Fluoxetine HCl [Prozac] 1 cap PO DAILY 12/19/20 Triazolam 1 tab PO BEDTIME 12/19/20 Baclofen [Lioresal*] 10 mg PO BEDTIME 12/21/20 Amox/Clavulanate [Augmentin 875-125 Tab] 1 each PO BID #14 tab 12/23/20 Lactobacillus Acidophilus [Acidophilus Lactobacilli] 1 each PO TID #28 capsule 12/23/20 Sulfamethoxazole/Trimethoprim [Bactrim Ds Tablet] 1 each PO BID #14 tablet 12/23/20 - Past Medical/Surgical History Diabetic: No -: cataract -: depression -: anxiety -: depression -: anxiety -: cataract surgery Psychosocial/ Personal History: Patient lives at home with family - Family History Mother Notes: osteoporosis - Social History Smoking Status: Never smoker Alcohol use: No CD- Drugs: No Caffeine use: Yes Place of Residence: Home Review of Systems 10-point ROS is otherwise unremarkable General: Weakness, Malaise Respiratory: SOB with Excertion Cardiovascular: Edema Neurological: Weakness Physical Examination Temp Pulse Resp BP Pulse Ox 97.6 F 94 H 18 119/78 98 12/27/20 04:00 12/27/20 04:00 12/27/20 04:00 12/27/20 04:00 12/27/20 04:00 General: Alert, Oriented x3, Cooperative, Mild distress HEENT: Atraumatic, Mucous membr. moist/pink Neck: Supple Respiratory: Expiratory wheezes Cardiovascular: Regular rate/rhythm, No rubs, Edema Gastrointestinal: Soft and benign, Non-distended, No guarding Musculoskeletal: No clubbing Integumentary: No rashes, No cyanosis Neurological: Normal speech Laboratory Data (last 24 hrs) 12/26/20 16:10: PT 13.1 H, INR 1.14, APTT 25.7 12/26/20 16:10: WBC 8.50 D, Hgb 11.0 L, Hct 33.2 L, Plt Count 328 12/26/20 16:10: Sodium 119 L*, Potassium 3.6, BUN 15, Creatinine 0.83, Glucose 214 H, Total Bilirubin 0.4, AST 36, ALT 27, Alkaline Phosphatase 64, Amylase 22 L, Lipase 100 Imagings Data: EXAM DESCRIPTION: Milly Single View12/26/2020 4:42 pm CLINICAL HISTORY: Shortness of breath COMPARISON: September 2020 FINDINGS: [id number] bilateral pulmonary opacities. Small pleural effusions. The heart is enlarged IMPRESSION: These findings probably represent CHF Conclusions/Impression: Hypervolemia Hyponatremia -Continue furosemide -Fluid restriction -Recheck BMP this evening Proteinuria -Repeat UA in the morning -Follow up renal ultrasound Hematuria -Repeat UA in the morning -Follow up renal ultrasound Diastolic CHF, A/C -Continue furosemide -Fluid restriction IFG -Monitor BG Anemia in chronic illness -Monitor H&H Thank you kindly for the consultation.
[2020-12-27] MEDS ORDERED: MORPHINE 2 MG/ML SYR IV ONE (09:37)
[2020-12-27 17:26] LABS: Potassium 3.4 mmol/L (3.5-5.1)
--- NOTE | 2020-12-27 17:49 | P.PN ---
Subjective Date of Service: 12/27/20 Primary Care Provider: none Chief Complaint: CHF exacerbation Patient is quite anxious. Sodium level has improved. Her troponin slightly elevated but trended flat. She reports some improvement in the shortness of breath. Physical Examination - Vital Signs Temperature: 97 F Blood Pressure: 106/59 Pulse: 106 Respirations: 18 Pulse Ox (%): 99 - Physical Exam General: Alert, Other (Anxious) HEENT: Mucous membr. moist/pink, Sclerae nonicteric Neck: JVD not distended, No Thyromegaly Respiratory: Normal air movement, Other (Mild scattered rales) Cardiovascular: No edema, Normal S1 S2, Other (Tachycardia.) Gastrointestinal: Normal bowel sounds, Soft and benign, Non-distended, No tenderness Musculoskeletal: No swelling, No tenderness Integumentary: No rashes, No erythema Neurological: Normal speech, Normal strength at 5/5 x4 extr Assessment And Plan - Current Problems (Diagnosis) (1) Acute diastolic CHF (congestive heart failure) Current Visit: Yes Status: Acute (2) Hyponatremia Current Visit: Yes Status: Acute (3) Anxiety and depression Current Visit: Yes Status: Chronic (4) Elevated troponin Current Visit: Yes Status: Acute - Plan Nephrology input appreciated. Continue IV Lasix for diuresis. Fluid restriction to 1500 mL per day Monitor BMP every 6 hours. Continue anxiety medications. Nephrology is following. Cardiology input appreciated. No echocardiogram on file. Obtain echo to assess her LV function.
[2020-12-27] MEDS: DOXYCYCLINE 100 MG CAP PO SCH ×2 (18:16→22:30)
[2020-12-27] MEDS: FLUOXETINE 20 MG CAP PO SCH (18:17)
[2020-12-27 19:28] LABS: Urine Protein/Creatinine Ratio 0.25 ratio (<0.15)
[2020-12-27 19:42] LABS: Urine Appearance CLEAR (Clear); Urine Bilirubin NEGATIVE (Negataive); Urine Blood TRACE (Negative); Urine Color YELLOW (Yellow); Urine Glucose NEGATIVE (Negative); Urine Protein NEGATIVE (Negative); Urine Urobilinogen 0.2 mg/dL (0.2-1.0)
[2020-12-27 20:42] LABS: Potassium 3.3 mmol/L (3.5-5.1)
[2020-12-27] MEDS ORDERED: HOME MED 1 EA UNK (Lactobacillus Acidophilus [Acidophilus Lactobacilli] Capsule) PO SCH (21:00)
[2020-12-27] MEDS ORDERED: BACLOFEN 10 MG TAB PO SCH (21:00)
[2020-12-27 21:29] LABS: Urine Microscopic Reflex ORDER UMIC
[2020-12-27 21:53] LABS: Urine Bacteria <20 /HPF (<20); Urine RBC <5 /HPF (NONE SEEN)
[2020-12-27] MEDS ORDERED: POTASSIUM CL SA 10 MEQ TAB PO ONE (22:00)
[2020-12-27] MEDS: AMOX/K CLAV 875 MG TAB PO SCH (22:29)
[2020-12-27] MEDS: LACTOBACILLUS/ACIDOPHILUS TAB PO SCH (22:30)
[2020-12-27] MEDS: BACLOFEN 10 MG TAB PO SCH (22:30)
[2020-12-28] MEDS: SODIUM CHLORIDE 1 GM TAB PO SCH ×6 (00:05→22:28)
[2020-12-28 04:03] LABS: Absolute Lymphocytes (CBC) 2.4 K/uL (0.7-4.9); Basophils % 0.3 % (0-1.3); Hematocrit 29.2 % (36.0-45.0); MPV 8.3 fL (7.6-11.3); RBC Red Blood Cell Count 3.49 M/uL (3.86-4.86)
[2020-12-28 04:52] LABS: Potassium 3.8 mmol/L (3.5-5.1)
--- NOTE | 2020-12-28 07:24 | EKG ---
Test Date: 2020-12-26 Test Time: 16:42:53 Support Manager: NHUNG MEASUREMENT RESULTS: Intervals: Rate: 108 NV: 156 QRSD: 94 QT: 346 QTc: 463 Benson: P: 83 NV: 156 QRS: 31 T: 55 INTERPRETIVE STATEMENTS: Sinus tachycardia Possible Left atrial enlargement Septal infarct, age undetermined Abnormal ECG Compared to ECG 10/17/2020 01:01:30 T-wave abnormality no longer present Possible ischemia no longer present Myocardial infarct finding still present Electronically Signed On 12-28-20 07:18:35 CDT by Prakash Biswas
[2020-12-28] MEDS: INSULIN -REGULAR HUMAN 50 UNIT/0.5 ML ML SQ SCH ×4 (07:30→21:00)
[2020-12-28] MEDS ORDERED: SODIUM CHLORIDE 1 GM TAB PO ONE (07:30)
[2020-12-28] MEDS: DOXYCYCLINE 100 MG CAP PO SCH ×2 (08:04→22:21)
[2020-12-28] MEDS: LACTOBACILLUS/ACIDOPHILUS TAB PO SCH ×3 (08:04→22:22)
[2020-12-28] MEDS: FUROSEMIDE 40 MG/4 ML VIAL IV SCH ×2 (08:05→16:24)
[2020-12-28] MEDS: AMOX/K CLAV 875 MG TAB PO SCH ×2 (08:05→22:22)
[2020-12-28] MEDS: FLUOXETINE 20 MG CAP PO SCH (08:05)
[2020-12-28 08:35] LABS: Potassium 3.5 mmol/L (3.5-5.1)
[2020-12-28] MEDS ORDERED: FLUOXETINE 20 MG CAP PO SCH (09:00)
[2020-12-28] MEDS ORDERED: POTASSIUM CL SA 10 MEQ TAB PO ONE (09:57)
--- NOTE | 2020-12-28 10:20 | RAD REPORT ---
EXAM DESCRIPTION: US - Renal Ultrasound-Complete - 12/28/2020 9:49 am CLINICAL HISTORY: hematuria Abdominal pain COMPARISON: Urinary Bladder dated 12/28/2020 FINDINGS: Both kidneys are normal in size, shape and echotexture. The right kidney measures 9.2 x 4.9 x 4.6 cm. Mild right renal pelviectasis. No focal mass or perinep hric fluid. The left kidney measures 10.4 x 5.0 x 4.7 cm. No hydronephrosis, focal mass or perinephric fluid. The urinary bladder is incompletely distended without gross abnormality seen. IMPRESSION: Mild right renal pelviectasis.
--- NOTE | 2020-12-28 10:22 | RAD REPORT ---
EXAM DESCRIPTION: US - Urinary Bladder - 12/28/2020 9:49 am CLINICAL HISTORY: HEMATURIA Pelvic pain COMPARISON: No comparisons TECHNIQUE: Real-time sonographic evaluation of the urinary bladder was performed. FINDINGS: No urinary bladder mass or ureterocele seen. Normal bladder volume is evident. IMPRESSION: Negative study.
[2020-12-28] MEDS ORDERED: TOLVAPTAN 15 MG TABLET PO ONE (15:00)
[2020-12-28 15:07] LABS: Potassium 3.7 mmol/L (3.5-5.1)
--- NOTE | 2020-12-28 18:55 | P.PN ---
Subjective Date of Service: 12/28/20 Primary Care Provider: none Chief Complaint: CHF exacerbation Patient reports feeling better compared to yesterday. She states the shortness of breath has improved. Her sodium level has only slightly improved since yesterday. Her troponin slightly elevated but trended flat. Physical Examination - Vital Signs Temperature: 98.7 F Blood Pressure: 126/64 Pulse: 99 Respirations: 17 Pulse Ox (%): 97 - Physical Exam General: Alert, In no apparent distress HEENT: Mucous membr. moist/pink Neck: JVD not distended Respiratory: Clear to auscultation bilaterally, Normal air movement Cardiovascular: No edema, Regular rate/rhythm Gastrointestinal: Normal bowel sounds, Soft and benign, Non-distended, No tenderness Musculoskeletal: No swelling Integumentary: No rashes Neurological: Normal strength at 5/5 x4 extr Assessment And Plan - Current Problems (Diagnosis) (1) Acute diastolic CHF (congestive heart failure) Current Visit: Yes Status: Acute (2) Hyponatremia Current Visit: Yes Status: Acute (3) Anxiety and depression Current Visit: Yes Status: Chronic (4) Elevated troponin Current Visit: Yes Status: Acute - Plan Nephrology is following. 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 Prozac discontinued. Trial of Tolvaptan per Dr. Sanchez recommendation. Continue IV Lasix for diuresis. Fluid restriction to 800 mL per day Continue to monitor BMP every 6 hours. Continue anxiety medications. Cardiology input appreciated.
--- NOTE | 2020-12-28 20:37 | P.PN ---
Date of Service: 12/28/20 Vital Signs Temp Pulse Resp BP Pulse Ox 98.7 F 99 H 17 126/64 97 12/28/20 18:55 12/28/20 18:55 12/28/20 18:55 12/28/20 18:55 12/28/20 18:55 Medications Acetaminophen (Acetaminophen 500 Mg Tab) 500 mg PO Q4HP PRN PRN Reason: Pain scale 2-4 (Mild) Albuterol Sulfate (Albuterol 2.5 Mg/3 Ml Neb Hanna) 2.5 mg NEB Q6HP PRN PRN Reason: SHORTNESS OF BREATH Last Admin: 12/27/20 08:05 Dose: 2.5 mg Documented by: Amoxicillin/Clavulanate Potassium (Amox/K Clav 875 Mg Tab) 875 mg PO BID [facility]; Protocol Last Admin: 12/28/20 08:05 Dose: 875 mg Documented by: Baclofen (Baclofen 10 Mg Tab) 10 mg PO BEDTIME [facility] Last Admin: 12/27/20 22:30 Dose: 10 mg Documented by: Doxycycline Monohydrate (Doxycycline 100 Mg Cap) 100 mg PO BID [facility]; Protocol Last Admin: 12/28/20 08:04 Dose: 100 mg Documented by: Furosemide (Furosemide 40 Mg/4 Ml Vial) 40 mg IV BIDL [facility] Last Admin: 12/28/20 16:24 Dose: 40 mg Documented by: Insulin Human Regular (Insulin -Regular Human 50 Unit/0.5 Ml Ml) 0 unit SQ ACHS [facility]; Protocol Last Admin: 12/28/20 16:17 Dose: Not Given Documented by: Lactobacillus Acidoph/Bulgaricus (Lactobacillus/Acidophilus Tab) 1 tab PO TID [facility] Last Admin: 12/28/20 13:31 Dose: 1 tab Documented by: Lorazepam (Lorazepam 0.5 Mg Tablet) 0.5 mg PO Q8H PRN PRN Reason: ANXIETY Last Admin: 12/27/20 06:58 Dose: 0.5 mg Documented by: Ondansetron HCl (Ondansetron 4 Mg/2 Ml Vial) 4 mg IV Q6HP PRN PRN Reason: NAUSEA / VOMITING Last Admin: 12/27/20 09:36 Dose: 4 mg Documented by: Sodium Chloride (Flush Normal Saline 10 Ml) 10 ml IV BID [facility] Last Admin: 12/28/20 08:05 Dose: 10 ml Documented by: Sodium Chloride (Sodium Chloride 1 Gm Tab) 1 gm PO QID [facility] Last Admin: 12/28/20 16:24 Dose: 1 gm Documented by: Microbiology Results 12/26/20 16:26 Blood - Blood Aerobic Blood Culture - Preliminary No growth in 24 hours. 12/26/20 16:26 Blood - Blood Anaerobic Blood Culture - Preliminary No growth in 24 hours. 12/26/20 16:10 Blood - Blood Aerobic Blood Culture - Preliminary No growth in 24 hours. 12/26/20 16:10 Blood - Blood Anaerobic Blood Culture - Preliminary No growth in 24 hours. Assessment/ Plan: Nephrology No acute cardiac or pulmonary complaints. No CP or SOB. No acute events overnight. Vitals, medications, blood work and imaging reviewed in the chart. General: Alert, Oriented x3, Cooperative, Mild distress HEENT: Atraumatic, Mucous membr. moist/pink Neck: Supple Respiratory: Expiratory wheezes Cardiovascular: Regular rate/rhythm, No rubs, Edema Gastrointestinal: Soft and benign, Non-distended, No guarding Musculoskeletal: No clubbing Integumentary: No rashes, No cyanosis Neurological: Normal speech Laboratory Data (last 24 hrs) 12/26/20 16:10: PT 13.1 H, INR 1.14, APTT 25.7 12/26/20 16:10: WBC 8.50 D, Hgb 11.0 L, Hct 33.2 L, Plt Count 328 12/26/20 16:10: Sodium 119 L*, Potassium 3.6, BUN 15, Creatinine 0.83, Glucose 214 H, Total Bilirubin 0.4, AST 36, ALT 27, Alkaline Phosphatase 64, Amylase 22 L, Lipase 100 Imagings Data: EXAM DESCRIPTION: Milly Single View12/26/2020 4:42 pm CLINICAL HISTORY: Shortness of breath COMPARISON: September 2020 FINDINGS: [id number] bilateral pulmonary opacities. Small pleural effusions. The heart is enlarged IMPRESSION: These findings probably represent CHF Conclusions/Impression: Hypervolemia Hyponatremia -Continue furosemide -Increase fluid restriction -Give salt tabs -Tolvaptan X1 dose Proteinuria -Renal bladder ultrasound reviewed Hematuria -Resolved Hypocalcemia -Start Vitamin D Diastolic CHF, A/C -Continue furosemide -Fluid restriction IFG -Monitor BG Anemia in chronic illness -Monitor H&H Case reviewed with Dr. Campa
[2020-12-28 20:59] LABS: Potassium 3.5 mmol/L (3.5-5.1)
[2020-12-28] MEDS ORDERED: BACLOFEN 10 MG TAB PO SCH (21:00)
[2020-12-28] MEDS: BACLOFEN 10 MG TAB PO SCH (22:22)
[2020-12-29 03:05] LABS: BUN Blood Urea Nitrogen 13 mg/dL (7-18); Bicarbonate 32 mmol/L (21-32); Glucose Level 91 mg/dL (74-106); Potassium 3.3 mmol/L (3.5-5.1); Sodium Level 134 mmol/L (136-145)
[2020-12-29] MEDS: INSULIN -REGULAR HUMAN 50 UNIT/0.5 ML ML SQ SCH ×4 (07:30→20:52)
--- NOTE | 2020-12-29 08:15 | ECHO ---
HEIGHT: 5 ft 2 in WEIGHT: 135 lb 0 oz DATE OF STUDY: 12/28/[address]: keyona rubi 2-DIMENSIONAL: YES M.MODE: YES DOPPLER: YES COLOR FLOW: YES TDS: PORTABLE: DEFINITY: BUBBLE STUDY: DIAGNOSIS: CONGESTIVE HEART FAILURE CARDIAC HISTORY: CATHERIZATION: NO SURGERY: NO PROSTHETIC VALVE: NO PACEMAKER: NO MEASUREMENTS (cm) DIASTOLIC (NORMALS) SYSTOLIC (NORMALS) IVSd 1.0 (0.6-1.2) LA Diam 2.8 (1.9-4.0) LVEF 42% LVIDd 3.7 (3.5-5.7) LVIDs 3.0 (2.0-3.5) %FS 20% LVPWd 1.0 (0.6-1.2) Ao Diam 2.5 (2.0-3.7) 2 DIMENSIONAL ASSESSMENT: RIGHT ATRIUM: NORMAL LEFT ATRIUM: NORMAL RIGHT VENTRICLE: NORMAL LEFT VENTRICLE: DEPRESSED TRICUSPID VALVE: MILD TRICUSPID REGURGITATION MITRAL VALVE: MODERATE TO SEVERE MITRAL REGURGITATION PULMONIC VALVE: NORMAL AORTIC VALVE: MILD AORTIC INSUFFIENCY PERICARDIAL EFFUSION: NONE AORTIC ROOT: NORMAL LEFT VENTRICULAR WALL MOTION: MILD GLOBAL HYPOKINESIS DOPPLER/COLOR FLOW: SEE BELOW COMMENTS: MILDLY DEPRESSED LEFT VENTRICULAR EJECTION FRACTION 40-45%. MILD GLOBAL HYPOKINESIS. MODERATE TO SEVERE MITRAL REGURGITATION (RECOMMEND TRANSESOPHAGEAL ECHOCARDIOGRAM). MILD AORTIC INSUFFIENCY. TECHNOLOGIST: DAMION SAMSON
[2020-12-29 08:35] LABS: Potassium 3.6 mmol/L (3.5-5.1)
[2020-12-29] MEDS: AMOX/K CLAV 875 MG TAB PO SCH ×2 (08:36→20:37)
[2020-12-29] MEDS: DOXYCYCLINE 100 MG CAP PO SCH ×2 (08:37→20:37)
[2020-12-29] MEDS: LACTOBACILLUS/ACIDOPHILUS TAB PO SCH ×3 (08:37→20:37)
[2020-12-29] MEDS: VITAMIN D 5,000 UNIT CAP PO SCH (08:37)
[2020-12-29] MEDS: SODIUM CHLORIDE 1 GM TAB PO SCH ×3 (08:37→16:51)
[2020-12-29] MEDS: CALCITROL 0.25 MCG CAP PO SCH (08:37)
[2020-12-29] MEDS: FUROSEMIDE 40 MG/4 ML VIAL IV SCH ×2 (08:38→16:53)
[2020-12-29 14:53] LABS: Potassium 3.4 mmol/L (3.5-5.1)
[2020-12-29] MEDS ORDERED: POTASSIUM CL SA 10 MEQ TAB PO ONE ×2 (17:00)
--- NOTE | 2020-12-29 18:18 | P.PN ---
Subjective Date of Service: 12/29/20 Primary Care Provider: none Chief Complaint: CHF exacerbation Patient reports she is much better today. She states the shortness of breath has improved. Her sodium has normalized. Physical Examination - Vital Signs Temperature: 98.2 F Blood Pressure: 99/46 Pulse: 96 Respirations: 18 Pulse Ox (%): 98 - Physical Exam General: Alert, In no apparent distress, Oriented x3 HEENT: Mucous membr. moist/pink Neck: Supple, JVD not distended Respiratory: Normal air movement, Crackles/rales (Mild bibasilar crackles) Cardiovascular: No edema, Regular rate/rhythm, Normal S1 S2 Gastrointestinal: Normal bowel sounds, Soft and benign, Non-distended, No tenderness Musculoskeletal: No swelling, No tenderness Integumentary: No rashes Neurological: Normal strength at 5/5 x4 extr, Cranial nerves 3-12 intact Assessment And Plan - Current Problems (Diagnosis) (1) Acute diastolic CHF (congestive heart failure) Current Visit: Yes Status: Acute (2) Hyponatremia Current Visit: Yes Status: Acute (3) Anxiety and depression Current Visit: Yes Status: Chronic (4) Elevated troponin Current Visit: Yes Status: Acute (5) Mitral regurgitation Current Visit: Yes Status: Acute - Plan 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 Prozac discontinued. Sodium level normalized with a single dose of Tolvaptan. Continue IV Lasix for diuresis. Fluid restriction to 800 mL per day per nephrology Continue to monitor BMP. Continue anxiety medications. Cardiology to follow regarding mildly depressed LV function and moderate to severe mitral regurgitation. Increase activity as tolerated. Weaned off oxygen as tolerated.
[2020-12-29] MEDS: ENOXAPARIN 40 MG/0.4 ML SQ SCH (18:33)
[2020-12-29] MEDS: BACLOFEN 10 MG TAB PO SCH (20:37)
--- NOTE | 2020-12-29 21:34 | P.PN ---
Date of Service: 12/29/20 Vital Signs Temp Pulse Resp BP Pulse Ox 98.2 F 96 H 18 99/46 L 98 12/29/20 18:18 12/29/20 18:18 12/29/20 18:18 12/29/20 18:18 12/29/20 18:18 Medications Acetaminophen (Acetaminophen 500 Mg Tab) 500 mg PO Q4HP PRN PRN Reason: Pain scale 2-4 (Mild) Albuterol Sulfate (Albuterol 2.5 Mg/3 Ml Neb Hanna) 2.5 mg NEB Q6HP PRN PRN Reason: SHORTNESS OF BREATH Last Admin: 12/27/20 08:05 Dose: 2.5 mg Documented by: Amoxicillin/Clavulanate Potassium (Amox/K Clav 875 Mg Tab) 875 mg PO BID [facility]; Protocol Last Admin: 12/29/20 20:37 Dose: 875 mg Documented by: Baclofen (Baclofen 10 Mg Tab) 10 mg PO BEDTIME [facility] Last Admin: 12/29/20 20:37 Dose: 10 mg Documented by: Calcitriol (Calcitrol 0.25 Mcg Cap) 0.5 mcg PO DAILY [facility] Last Admin: 12/29/20 08:37 Dose: 0.5 mcg Documented by: Cholecalciferol (Vitamin D 5,000 Unit Cap) 5,000 unit PO DAILY [facility] Last Admin: 12/29/20 08:37 Dose: 5,000 unit Documented by: Doxycycline Monohydrate (Doxycycline 100 Mg Cap) 100 mg PO BID [facility]; Protocol Last Admin: 12/29/20 20:37 Dose: 100 mg Documented by: Enoxaparin Sodium (Enoxaparin 40 Mg/0.4 Ml) 40 mg SQ DAILY [facility] Last Admin: 12/29/20 18:33 Dose: 40 mg Documented by: Furosemide (Furosemide 40 Mg/4 Ml Vial) 40 mg IV BIDL [facility] Last Admin: 12/29/20 16:53 Dose: 40 mg Documented by: Insulin Human Regular (Insulin -Regular Human 50 Unit/0.5 Ml Ml) 0 unit SQ ACHS [facility]; Protocol Last Admin: 12/29/20 20:52 Dose: Not Given Documented by: Lactobacillus Acidoph/Bulgaricus (Lactobacillus/Acidophilus Tab) 1 tab PO TID [facility] Last Admin: 12/29/20 20:37 Dose: 1 tab Documented by: Lorazepam (Lorazepam 0.5 Mg Tablet) 0.5 mg PO Q8H PRN PRN Reason: ANXIETY Last Admin: 12/27/20 06:58 Dose: 0.5 mg Documented by: Ondansetron HCl (Ondansetron 4 Mg/2 Ml Vial) 4 mg IV Q6HP PRN PRN Reason: NAUSEA / VOMITING Last Admin: 12/27/20 09:36 Dose: 4 mg Documented by: Sodium Chloride (Flush Normal Saline 10 Ml) 10 ml IV BID [facility] Last Admin: 12/29/20 20:37 Dose: 10 ml Documented by: Microbiology Results 12/26/20 16:26 Blood - Blood Aerobic Blood Culture - Preliminary No growth in 24 hours. 12/26/20 16:26 Blood - Blood Anaerobic Blood Culture - Preliminary No growth in 24 hours. 12/26/20 16:10 Blood - Blood Aerobic Blood Culture - Preliminary No growth in 24 hours. 12/26/20 16:10 Blood - Blood Anaerobic Blood Culture - Preliminary No growth in 24 hours. Assessment/ Plan: Nephrology No acute cardiac or pulmonary complaints. No CP or SOB. Feeling better No acute events overnight. Vitals, medications, blood work and imaging reviewed in the chart. General: Alert, Oriented x3, Cooperative, Mild distress HEENT: Atraumatic, Mucous membr. moist/pink Neck: Supple Respiratory: Expiratory wheezes Cardiovascular: Regular rate/rhythm, No rubs, Edema Gastrointestinal: Soft and benign, Non-distended, No guarding Musculoskeletal: No clubbing Integumentary: No rashes, No cyanosis Neurological: Normal speech Laboratory Data (last 24 hrs) 12/26/20 16:10: PT 13.1 H, INR 1.14, APTT 25.7 12/26/20 16:10: WBC 8.50 D, Hgb 11.0 L, Hct 33.2 L, Plt Count 328 12/26/20 16:10: Sodium 119 L*, Potassium 3.6, BUN 15, Creatinine 0.83, Glucose 214 H, Total Bilirubin 0.4, AST 36, ALT 27, Alkaline Phosphatase 64, Amylase 22 L, Lipase 100 Imagings Data: EXAM DESCRIPTION: Milly Banuelos View12/26/2020 4:42 pm CLINICAL HISTORY: Shortness of breath COMPARISON: September 2020 FINDINGS: [id number] bilateral pulmonary opacities. Small pleural effusions. The heart is enlarged IMPRESSION: These findings probably represent CHF Conclusions/Impression: Hypervolemic Hyponatremia -Continue furosemide -Discontinue salt tabs -Discontinue fluid restriction and restart as needed Proteinuria -Renal bladder ultrasound reviewed Hematuria -Resolved Hypocalcemia -Continue Vitamin D Diastolic CHF, A/C -Continue furosemide -Discontinue fluid restriction IFG -Monitor BG Anemia in chronic illness -Monitor H&H
[2020-12-29 21:46] LABS: Potassium 3.9 mmol/L (3.5-5.1)
[2020-12-30 07:12] LABS: Potassium 3.3 mmol/L (3.5-5.1)
[2020-12-30] MEDS: INSULIN -REGULAR HUMAN 50 UNIT/0.5 ML ML SQ SCH ×2 (07:30→11:30)
[2020-12-30] MEDS: ENOXAPARIN 40 MG/0.4 ML SQ SCH (09:00)
[2020-12-30] MEDS ORDERED: POTASSIUM CL SA 10 MEQ TAB PO ONE (09:00)
[2020-12-30] MEDS: CALCITROL 0.25 MCG CAP PO SCH (09:03)
[2020-12-30] MEDS: AMOX/K CLAV 875 MG TAB PO SCH (09:03)
[2020-12-30] MEDS: VITAMIN D 5,000 UNIT CAP PO SCH (09:04)
[2020-12-30] MEDS: LACTOBACILLUS/ACIDOPHILUS TAB PO SCH ×2 (09:04→13:29)
[2020-12-30] MEDS: FUROSEMIDE 40 MG/4 ML VIAL IV SCH (09:04)
[2020-12-30] MEDS: DOXYCYCLINE 100 MG CAP PO SCH (09:04)
[2020-12-30 10:03] VITALS: O2SAT 96
--- NOTE | 2020-12-30 10:21 | P.PN ---
Date of Service: 12/30/20 Vital Signs Temp Pulse Resp BP Pulse Ox 97.6 F 99 H 18 122/74 96 12/30/20 08:00 12/30/20 09:04 12/30/20 08:00 12/30/20 09:04 12/30/20 08:00 Medications Acetaminophen (Acetaminophen 500 Mg Tab) 500 mg PO Q4HP PRN PRN Reason: Pain scale 2-4 (Mild) Albuterol Sulfate (Albuterol 2.5 Mg/3 Ml Neb Hanna) 2.5 mg NEB Q6HP PRN PRN Reason: SHORTNESS OF BREATH Last Admin: 12/27/20 08:05 Dose: 2.5 mg Documented by: Amoxicillin/Clavulanate Potassium (Amox/K Clav 875 Mg Tab) 875 mg PO BID [facility]; Protocol Last Admin: 12/30/20 09:03 Dose: 875 mg Documented by: Baclofen (Baclofen 10 Mg Tab) 10 mg PO BEDTIME [facility] Last Admin: 12/29/20 20:37 Dose: 10 mg Documented by: Calcitriol (Calcitrol 0.25 Mcg Cap) 0.5 mcg PO DAILY [facility] Last Admin: 12/30/20 09:03 Dose: 0.5 mcg Documented by: Cholecalciferol (Vitamin D 5,000 Unit Cap) 5,000 unit PO DAILY [facility] Last Admin: 12/30/20 09:04 Dose: 5,000 unit Documented by: Doxycycline Monohydrate (Doxycycline 100 Mg Cap) 100 mg PO BID [facility]; Protocol Last Admin: 12/30/20 09:04 Dose: 100 mg Documented by: Enoxaparin Sodium (Enoxaparin 40 Mg/0.4 Ml) 40 mg SQ DAILY [facility] Last Admin: 12/30/20 09:00 Dose: 40 mg Documented by: Furosemide (Furosemide 40 Mg/4 Ml Vial) 40 mg IV BIDL [facility] Last Admin: 12/30/20 09:04 Dose: 40 mg Documented by: Insulin Human Regular (Insulin -Regular Human 50 Unit/0.5 Ml Ml) 0 unit SQ ACHS [facility]; Protocol Last Admin: 12/30/20 07:30 Dose: Not Given Documented by: Lactobacillus Acidoph/Bulgaricus (Lactobacillus/Acidophilus Tab) 1 tab PO TID [facility] Last Admin: 12/30/20 09:04 Dose: 1 tab Documented by: Lorazepam (Lorazepam 0.5 Mg Tablet) 0.5 mg PO Q8H PRN PRN Reason: ANXIETY Last Admin: 12/27/20 06:58 Dose: 0.5 mg Documented by: Ondansetron HCl (Ondansetron 4 Mg/2 Ml Vial) 4 mg IV Q6HP PRN PRN Reason: NAUSEA / VOMITING Last Admin: 12/27/20 09:36 Dose: 4 mg Documented by: Sodium Chloride (Flush Normal Saline 10 Ml) 10 ml IV BID [facility] Last Admin: 12/30/20 09:00 Dose: 10 ml Documented by: Microbiology Results 12/26/20 16:26 Blood - Blood Aerobic Blood Culture - Preliminary No growth in 24 hours. 12/26/20 16:26 Blood - Blood Anaerobic Blood Culture - Preliminary No growth in 24 hours. 12/26/20 16:10 Blood - Blood Aerobic Blood Culture - Preliminary No growth in 24 hours. 12/26/20 16:10 Blood - Blood Anaerobic Blood Culture - Preliminary No growth in 24 hours. Assessment/ Plan: Nephrology No acute cardiac or pulmonary complaints. No CP or SOB. Feeling better No acute events overnight. Vitals, medications, blood work and imaging reviewed in the chart. General: Alert, Oriented x3, Cooperative, Mild distress HEENT: Atraumatic, Mucous membr. moist/pink Neck: Supple Respiratory: Expiratory wheezes Cardiovascular: Regular rate/rhythm, No rubs, Edema Gastrointestinal: Soft and benign, Non-distended, No guarding Musculoskeletal: No clubbing Integumentary: No rashes, No cyanosis Neurological: Normal speech Laboratory Data (last 24 hrs) 12/26/20 16:10: PT 13.1 H, INR 1.14, APTT 25.7 12/26/20 16:10: WBC 8.50 D, Hgb 11.0 L, Hct 33.2 L, Plt Count 328 12/26/20 16:10: Sodium 119 L*, Potassium 3.6, BUN 15, Creatinine 0.83, Glucose 214 H, Total Bilirubin 0.4, AST 36, ALT 27, Alkaline Phosphatase 64, Amylase 22 L, Lipase 100 Imagings Data: EXAM DESCRIPTION: Milly Banuelos View12/26/2020 4:42 pm CLINICAL HISTORY: Shortness of breath COMPARISON: September 2020 FINDINGS: [id number] bilateral pulmonary opacities. Small pleural effusions. The heart is enlarged IMPRESSION: These findings probably represent CHF Conclusions/Impression: Hypervolemic Hyponatremia possible complicated by SIADH -Continue furosemide -Less restrictive fluid restriction Hypokalemia -Replete oral potassium Proteinuria -Renal bladder ultrasound reviewed Hematuria -Resolved Hypocalcemia -Continue Vitamin D Diastolic CHF, A/C -Continue furosemide -Less restrictive fluid restriction IFG -Monitor BG Anemia in chronic illness -Monitor H&H Case reviewed with Dr. Campa
--- NOTE | 2020-12-30 12:14 | P.DS ---
Admission Date: 12/26/20 Discharge Date: 12/30/20 Primary Care Provider: none Disposition: ROUTINE DISCHARGE Discharge Condition: FAIR Reason for Admission: CHF exacerbation - Problems (1) Acute diastolic CHF (congestive heart failure) Current Visit: Yes Status: Acute (2) Hyponatremia Current Visit: Yes Status: Acute (3) Anxiety and depression Current Visit: Yes Status: Chronic (4) Elevated troponin Current Visit: Yes Status: Acute (5) Mitral regurgitation Current Visit: Yes Status: Acute Brief History of Present Illness: 75 yo home with a history of anxiety and depression presented to the emergency department with a complaint of SOB and BRUNER since 12/23. She was hypoxic on arrival, oxygen level improved to 97% on 4L O2. Patient reported orthopnea. She was recently discharged from the hospital on 12/23 after treatment of a subperiosteal abscess within the left orbit. CXR was consistent with CHF. She also had hyponatremia with Na 119. Cl 84. HCO3 20. GFR 67. Glu 214. Lactate 2.3. Trop 0.07. Patient hospitalized for further management. Hospital Course: Patient admitted to the medical floor and treated for acute CHF with IV Lasix. She also had significant hyponatremia. Nephrology was consulted, patient treat ed with IV Lasix and fluid restriction. Her sodium level improved slightly with this measures. 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 She is on Prozac which was discontinued given SIADH. He was given a dose of Tolvaptan with significantly increased her sodium level. Her sodium level is now within normal limit. She was seen by cardiology for elevated troponin and CHF. Troponin trended negative. Echocardiogram demonstrates mildly reduced LV with EF of 40- 45%, moderate to severe mitral regurgitation. Patient respiratory symptoms resolved, she was weaned off oxygen by nasal cannula to room air. Patient has good oxygen saturation on room air. She denies any shortness of breath at the moment. Antibiotics for her orbital subperiosteal infection was continued. Bactrim was discontinued given that it can cause SIADH and replaced with doxycycline. Patient has clinically improved to baseline. Hyponatremia has resolved. She is discharged with oral Lasix maintenance for CHF and mitral regurgitation. She will continue taking her antibiotics for orbital subperiosteal infection. Vital Signs/Physical Exam: Temp Pulse Resp BP Pulse Ox 97.6 F 99 H 18 122/74 96 12/30/20 08:00 12/30/20 09:04 12/30/20 08:00 12/30/20 09:04 12/30/20 08:00 General: Alert, In no apparent distress, Oriented x3 HEENT: Mucous membr. moist/pink Neck: JVD not distended Respiratory: Clear to auscultation bilaterally, Normal air movement Cardiovascular: No edema, Regular rate/rhythm, Normal S1 S2 Gastrointestinal: Normal bowel sounds, Soft and benign, Non-distended, No tenderness Musculoskeletal: No swelling, No tenderness Integumentary: No rashes, No erythema Neurological: Normal strength at 5/5 x4 extr, Cranial nerves 3-12 intact Laboratory Data at Discharge: WBC 10.90 K/uL (4.3-10.9) 12/28/20 03:37 Hgb 10.2 g/dL (12.0-15.0) L 12/28/20 03:37 Hct 29.2 % (36.0-45.0) L 12/28/20 03:37 Plt Count 293 K/uL (152-406) 12/28/20 03:37 PT 13.1 SECONDS (9.5-12.5) H 12/26/20 16:10 INR 1.14 12/26/20 16:10 APTT 25.7 SECONDS (24.3-36.9) 12/26/20 16:10 Sodium 138 mmol/L (136-145) 12/30/20 06:46 Potassium 3.3 mmol/L (3.5-5.1) L 12/30/20 06:46 BUN 14 mg/dL (7-18) 12/30/20 06:46 Creatinine 0.70 mg/dL (0.55-1.3) 12/30/20 06:46 Glucose 98 mg/dL (74-106) 12/30/20 06:46 Uric Acid 3.1 mg/dL (2.6-6.0) 12/28/20 03:37 Phosphorus 3.0 mg/dL (2.5-4.9) 12/27/20 04:40 Magnesium 1.8 mg/dL (1.8-2.4) 12/27/20 04:40 Total Bilirubin 0.4 mg/dL (0.2-1.0) 12/27/20 04:40 AST 34 U/L (15-37) 12/27/20 04:40 ALT 23 U/L (12-78) 12/27/20 04:40 Alkaline Phosphatase 57 U/L (45-117) 12/27/20 04:40 Troponin I 0.06 ng/mL (0.0-0.045) H 12/27/20 14:46 Triglycerides 127 mg/dL (<150) 12/27/20 04:40 Cholesterol 144 mg/dL (<200) 12/27/20 04:40 HDL Cholesterol 50 mg/dL (40-60) 12/27/20 04:40 Cholesterol/HDL Ratio 2.88 12/27/20 04:40 Amylase 22 U/L (25-115) L 12/26/20 16:10 Lipase 100 U/L (73-393) 12/26/20 16:10 Home Medications: Triazolam 1 tab PO BEDTIME 12/19/20 Baclofen [Lioresal*] 10 mg PO BEDTIME 12/21/20 Amox/Clavulanate [Augmentin 875-125 Tab*] 1 each PO BID #14 tab 12/23/20 Lactobacillus Acidophilus [Acidophilus Lactobacilli] 1 each PO TID #28 capsule 12/23/20 Calcitrol [Rocaltrol*] 0.5 mcg PO DAILY #30 cap 12/30/20 Cholecalciferol (Vitamin D3) [Vitamin D 5,000 IU Cap*] 5,000 unit PO DAILY #30 cap 12/30/20 Doxycycline Hyclate [Vibramycin] 100 mg PO BID #14 capsule 12/30/20 Furosemide [Lasix] 20 mg PO DAILY #30 tablet 12/30/20 New Medications: Furosemide [Lasix] 20 mg PO DAILY #30 tablet Calcitrol [Rocaltrol*] 0.5 mcg PO DAILY #30 cap Doxycycline Hyclate [Vibramycin] 100 mg PO BID #14 capsule Cholecalciferol (Vitamin D3) [Vitamin D 5,000 IU Cap*] 5,000 unit PO DAILY #30 cap Physician Discharge Instructions: Restrict fluid to 2000 ml /day. Diet: AHA Activity: Ad lyn Followup: Kilo Sanchez DO [ACTIVE - CAN ADMIT] - 1-2 Weeks Prakash Biswas MD [ACTIVE - CAN ADMIT] - 1-2 Weeks NONE,NONE [Primary Care Provider] - Time spent managing pt's care (in minutes): 40
[2020-12-30 13:32] VITALS: BP 104/56; TEMP 97.5
--- NOTE | 2020-12-30 20:07 | CON ---
Date of Consultation: 12/27/2020 Reason For Consultation: Congestive heart failure. History Of Present Illness: Ms. Russ is a 75-year-old woman, who came into the emergency room in [facility] on 12/26/2020 with complaint of shortness of breath. She has had PND, orthopnea, and some pe praveen edema. She has had symptoms like this in the past. Her symptoms have been going on for about 3- 4 months. She does not have a history of congestive heart failure. She denied any chest pain, nause a, vomiting, diaphoresis, palpitations, or syncope. Denied any fever or chills. Allergies: SHE IS ALLERGIC TO CODEINE. Past Medical History: Include anxiety, depression, hypertension, dyslipidemia, vertigo. Review of Systems: Negative. Social History: Negative. Family History: Negative. Medications: At home include; 1.Antibiotics. 2.Calcitriol. 3.Lasix. 4.Triazolam. Physical Examination: Vital Signs: Stable, she was afebrile. HEENT: Negative. Neck: Supple with no bruit. Chest: Clear on the right, she has some rales on the left. Cardiac: Revealed irregular rhythm and rate without any murmurs, gallops, or rubs. Abdomen: Benign. Extremities: No clubbing, cyanosis, or edema. Diagnostic Data: She was hyponatremic with sodium of 124. She was hyperchloremic with a chloride of 85, normal creatinine. She had an elevated BNP of 25,000. Chest x-ray showed congestive heart fail ure. Troponin was 0.07. Impression And Plan: 1.Congestive heart failure. Echocardiogram is pending. 2.Elevated troponin and BNP secondary to congestive heart failure. 3.Hypertension. 4.Dyslipidemia. 5.Anxiety and depression. The patient is presently getting IV Lasix and I agree with our regimen. She is also on Lovenox. We will decide after the echocardiogram on what regimen to put her on. Case was discussed with Dr. Spencer brand. THOMAS/TOYA Voice ID: [id number] Report ID: [id number]
--- NOTE | 2020-12-30 20:22 | PN ---
Date of Progress Note: 12/28/2020 Subjective: Ms. Russ was admitted with new-onset congestive heart failure, has been diuresing we ll, and is feeling much better. Echocardiogram which was done yesterday, however, showed an ejection fraction of 40% to 45%, mild global hypokinesis, moderate to severe mitral regurgitation. She has m ild aortic insufficiency. I think she needs to be on REGINE inhibitors, beta-blockers, Lasix. She can go home whenever it is okay with Dr. Campa, and we will see her as an outpatient. Because of this n ew onset, she has elevated troponin, I think we are going to do FBI on her down the road and also has an echocardiogram once a year to reevaluate her mitral regurgitation. The case was discussed with Ellen Campa. THOMAS/TOYA Voice ID: [id number] Report ID: [id number]
== END 2020-12-30 14:10 | disposition home or self-care (01) | DRG 291 ==
LOC: ER 15:53 → ERHOLD 19:41 → 4TH 12-27 19:56
PROVIDERS: ADMIT Internal Medicine; ATTEND Internal Medicine
DX: I11.0 Hypertensive heart disease with heart failure (principal); I50.31 Acute diastolic (congestive) heart failure; E22.2 Syndrome of inappropriate secretion of antidiuretic hormone; E78.5 Hyperlipidemia, unspecified; D63.8 Anemia in other chronic diseases classified elsewhere; E87.6 Hypokalemia; F32.9 Major depressive disorder, single episode, unspecified; F41.9 Anxiety disorder, unspecified; I34.0 Nonrheumatic mitral (valve) insufficiency; E83.51 Hypocalcemia; I35.1 Nonrheumatic aortic (valve) insufficiency; T36.8X5A Adverse effect of other systemic antibiotics, initial encounter; R31.21 Asymptomatic microscopic hematuria; R77.8 Other specified abnormalities of plasma proteins; R73.01 Impaired fasting glucose; Z79.899 Other long term (current) drug therapy; Z88.5 Allergy status to narcotic agent; Z20.822 Contact with and (suspected) exposure to COVID-19
CPT/HCPCS: 36415; 71045; 76770; 76857; 80048; 80053; 80061; 80076; 81003; 81015; 82150; 82550; 82553; 82570; 82805; 82947; 83036; 83605; 83690; 83735; 83880; 83930; 83935; 84100; 84132; 84145; 84156; 84300; 84439; 84443; 84484; 84550; 85025; 85610; 85730; 87040; 90732; 93005; 93306; 93970; 94640; 94760; 96361; 96374; 99285; J1650; J1940; J2270; J2405; J7040; J8499; U0003

== ENCOUNTER 2021-08-20 01:18 | Emergency (ER) | payer OTHER ==
--- OUTSIDE RECORDS SUMMARY | 2021-08-20 01:37 | XMS REPORT | Continuity of Care Document ---
:1945 Author Organization [facility] t Address [address] [place] [address] Care Team Providers Name Role Phone MAGAÑA Attending Clinician Unavailable Melisa MARTEL Attending Clinician Unavailable Melisa MARTEL Admitting Clinician Unavailable Problems This patient has no known problems. Allergies, Adverse Reactions, Alerts This patient has no known allergies or adverse reactions. Medications This patient has no known medications. Procedures This patient has no known procedures. Encounters Start End Encounter Admission Attending Care Care Encounter Source Date/Time Date/Time Type Type Clinicians Facility Department ID 2021-05-16 2021-05-[address] [facility] [id number] [address] 00:00:00 00:00:00 [address] Results Test Description Test Time Test Comments Results Result [facility] e Comments CT, BRAIN, WITHOUT 2018-06-08 FINAL REPORT PATIENT CONTRAST 08:11:00 ID: [id number] CT head without contrast INDICATION: CVA, TIA. [...] Verified Date/Time: 06/08/2018 08:11:29 Reading Location: [facility] C013V Neuro Reading Room ESIUM 2018-06-08 06:22:00 Test Item Value Reference Range Interpretation Comme nts MAGNESIUM (BEAKER) (test code = 627) 2.1 mg/dL 1.6-2.6 BASIC METABOLIC [id number] 06:22:00 Test Item Value Reference Range Interpretation Comments SODIUM (BEAKER) 139 meq/L 136-145 (test code = 381) POTASSIUM (BEAKER) 3.9 meq/L 3.5-5.1 (test code = 379) CHLORIDE (BEAKER) 106 meq/L 98-107 (test code = 382) CO2 (BEAKER) (test 25 meq/L 22 code = 355) BLOOD UREA NITROGEN 9 [...] NOT APPLICABLE FOR DIALYSIS PATIEN TS. LIPID [id number] 06:22:00 Test Item Value Reference Range Interpretation [...] 130-159 High 160-189 Very High >=190HEPATIC FUNCTION [id number] 06:22:00 Test Item Value Reference Range Interpretation [...] code = 11 U/L 6-55 347) CALCIUM, [id number] 06:20:00 Test Item Value Reference Range Interpretation Comments CALCIUM IONIZED (BEAKER) (test 1.14 mmol/L 1.12-1.27 code = 698) PH, BLOOD (BEAKER) (test code = 7.41 1810) PROTHROMBIN [id number] 06:01:00 Test Item Value Reference Range Interpretation Comments PROTIME (BEAKER) (test code = 13.3 seconds 11.7-14.7 759) INR (BEAKER) (test code = 370) 1.0 <=5.9 RECOMMENDED COUMADIN/WARFARIN INR THERAPY RANGESSTANDARD DOSE: 2.0 - 3.0 Includes: PROPHYLAXIS forvenous thrombosis, systemic embolization; TREATMENT for venous thrombosis and/or pulmonary embolus.HIGH RISK: Target INR is 2.5-3.5 for patients with mechanical heart valves.MR, MRA, BRAIN, WITHOUT [id number] 21:28:00FINAL REPORT MR, MRA, BRAIN, WITHOUT CONTRAST, [...] MDReport Verified Date/Time: 06/07/2018 21:28:54 Reading Location: [address] Reading Room MR, MRA, NECK, WITHOUT IV [id number] 21:28:00FINAL REPORT MR, MRA, BRAIN, WITHOUT CONTRAST, [...] MDReport Verified Date/Time: 06/07/2018 21:28:54 Reading Location: [address] Reading Room CALCIUM, [id number] 03:12:00 Test Item Value Reference Range Interpretation Comments CALCIUM IONIZED (BEAKER) (test 1.15 mmol/L 1.12-1.27 code = 698) PH, BLOOD (BEAKER) (test code = 7.37 1810) PROTHROMBIN [id number] 02:47:00 Test Item Value Reference Range Interpretation [...] (BEAKER) (test code = 2801) COMPREHENSIVE METABOLIC [id number] 17:20:00 Test Item Value Reference Range Interpretation [...] (test code = 413) MR, BRAIN, WITHOUT [id number] 16:29:00FINAL REPORT MRI brain without contrast INDICATION: [...] Queta ified Date/Time: 06/06/2018 16:29:20 Reading Location: [facility] B1 C013V Neuro Reading Room
[2021-08-20] MEDS ORDERED: TOBRAMYCIN SULF 0.3% OPTH OINT ONE (04:10)
--- NOTE | 2021-08-20 04:19 | ER ---
Nurse's Notes [facility] Name: Sherry Russ Age: 75 yrs Sex: Female : 1945 Arrival Date: 08/20/2021 Time: 01:23 Bed 11 Private MD: Diagnosis: Left kain-orbital cellulitis Presentation: 08/20 02:16 Chief complaint: Patient states: has had swelling under left eye a couple days ago, now iw its red , had tear duct removed 9 years ago bc of recurring infections. Coronavirus screen: At this time, the client does not indicate any symptoms associated with coronavirus-19. Ebola Screen: Patient negative for fever greater than or equal to 101.5 degrees Fahrenheit, and additional compatible Ebola Virus Disease symptoms Patient denies exposure to infectious person. Patient denies travel to an Ebola-affected area in the 21 days before illness onset. No symptoms or risks identified at this time. Mechanism of Injury: No Mechanism of Injury. The patient denies any loss of vision. Initial Sepsis Screen: Does the patient meet any 2 criteria? No. Patient's initial sepsis screen is negative. Does the patient have a suspected source of infection? No. Patient's initial sepsis screen is negative. Risk Assessment: Do you want to hurt yourself or someone else? Patient reports no desire to harm self or others. Onset of symptoms was August 18, 2021. 02:16 Method Of Arrival: Ambulatory iw 02:19 Acuity: CHAD 4 iw Historical: - Allergies: 02:18 Codeine; gets weird; iw - PMHx: 02:18 Anxiety; Depression; eye problems; Hyperlipidemia; Hypertension; Vertigo; iw - Immunization history:: Client reports receiving the 2nd dose of the Covid vaccine. - Social history:: Smoking status: . Vital Signs: 02:16 BP 131 / 62; Pulse 92; Resp 16; Temp 97.2; Pulse Ox 98% on R/A; iw ED Course: :23 Patient arrived in ED. ja2 02:18 Arm band placed on. iw 02:19 Triage completed. iw 03:48 Andreia Turner, JERMAINE is Primary Nurse. iw 03:51 Velasquez Batista MD is Attending Physician. pkl 04:18 Jesus Garcia MD is Referral Physician. pkl 04:22 PT REFUSED VISUAL ACUITY EXAM STATES THAT THE AREA OF HER EYE IS NOT AFFECTING HER kj1 VISION NOTIFIED. Administered Medications: 04:10 Not Given (Duplicate Order): ToBREx (tobramycin) Drops (0.3 %) 2 drops Ophthalmic once iw 04:25 Drug: Rocephin (cefTRIAXone) 1 grams Route: IM; Site: right gluteus; iw 04:25 Drug: Tobrex (tobramycin) Ointment 0.3 % 1 application Route: Ophthalmic; Site: left iw eye; Outcome: 04:19 Discharge ordered by MD. haile 04:43 Patient left the ED. iw Signatures: Velasquez Batista MD MD pkl Williams, Irene, RN RN iw Brenda Mcclure kj1 Mona Hurtado
--- NOTE | 2021-08-20 04:20 | EDPHYS ---
Physician Documentation [facility] Name: Sherry Russ Age: 75 yrs Sex: Female : 1945 Arrival Date: 08/20/2021 Time: 01:23 Bed 11 Private MD: ED Physician Velasquez Batista HPI: 08/20 04:08 This 75 yrs old Female presents to ER via Ambulatory with complaints of Eye Swelling, pkl Eye Pain. 04:10 The patient is experiencing swelling below left eye. Onset: The symptoms/episode pkl began/occurred today. Patient said she had similar episode in November this year. Historical: - Allergies: 02:18 Codeine; gets weird; iw - PMHx: 02:18 Anxiety; Depression; eye problems; Hyperlipidemia; Hypertension; Vertigo; iw - Immunization history:: Client reports receiving the 2nd dose of the Covid vaccine. - Social history:: Smoking status: . ROS: 04:10 ENT: Negative for injury, pain, and discharge. pkl 04:10 Eyes: Positive for swelling, of the below left eye. 04:13 Neck: Negative for stiffness. pkl 04:13 Cardiovascular: Negative for chest pain. 04:13 Respiratory: Negative for cough, shortness of breath. 04:13 Abdomen/GI: Negative for abdominal pain, nausea, vomiting, and diarrhea. 04:13 Back: Negative for acute changes. 04:13 : Negative for urinary symptoms. 04:13 MS/extremity: Negative for acute changes. 04:13 Skin: Negative for rash. 04:13 Neuro: Negative for altered mental status, loss of consciousness. Exam: 04:14 ENT: Nares patent. No nasal discharge, no septal abnormalities noted. Tympanic pkl membranes are normal and external auditory canals are clear. Oropharynx with no redness, swelling, or masses, exudates, or evidence of obstruction, uvula midline. Mucous membranes moist. 04:14 Head/face: Noted is swelling, that is mild, of the . 04:14 Eyes: Conjunctiva: injected, in the left eye. 04:14 Neck: Exam negative for nuchal rigidity. 04:14 Chest/axilla: Exam negative for acute changes. 04:14 Cardiovascular: Rate: normal, Rhythm: regular. 04:14 Respiratory: the patient does not display signs of respiratory distress, Respirations: normal, Breath sounds: are clear throughout. 04:14 Abdomen/GI: Bowel sounds: normal, Palpation: abdomen is soft and non-tender, in all quadrants. 04:14 Back: Exam negative for acute changes. 04:14 : Exam negative for acute changes. 04:14 Musculoskeletal/extremity: Exam is negative for acute changes. 04:14 Skin: Exam negative for rash. 04:14 Neuro: Orientation: is normal, Mentation: is normal, Cranial nerves: grossly normal, Motor: is normal. Vital Signs: 02:16 BP 131 / 62; Pulse 92; Resp 16; Temp 97.2; Pulse Ox 98% on R/A; iw MDM: 03:51 Patient medically screened. pkl 04:16 Data reviewed: vital signs, nurses notes. ED course: Advised to follow up with Dr. Irina Garcia today. To return if necessary. Patient understood instruction. Administered Medications: 04:10 Not Given (Duplicate Order): ToBREx (tobramycin) Drops (0.3 %) 2 drops Ophthalmic once iw 04:25 Drug: Rocephin (cefTRIAXone) 1 grams Route: IM; Site: right gluteus; iw 04:25 Drug: Tobrex (tobramycin) Ointment 0.3 % 1 application Route: Ophthalmic; Site: left iw eye; Disposition Summary: 08/20/21 04:19 Discharge Ordered Location: Home pkl Problem: new pkl Symptoms: are unchanged pkl Condition: Stable pkl Diagnosis - Left kain-orbital cellulitis pkl Followup: pkl - With: Jesus Garcia MD - When: Today - Reason: Re-evaluation by your physician Discharge Instructions: - Discharge Summary Sheet pkl Forms: - Medication Reconciliation Form pkl - Thank You Letter pkl - Antibiotic Education pkl - Prescription Opioid Use pkl Prescriptions: - Augmentin 875-125 mg Oral Tablet - take 1 tablet by ORAL route every 12 hours for 7 days; 14 tablet; Refills: 0, pkl Product Selection Permitted Signatures: Velasquez Batista MD MD pkl Andreia Turner RN RN iw Corrections: (The following items were deleted from the chart) 04:23 04:09 Visual Acuity ordered. pkl iw
[2021-08-20] MEDS ORDERED: CEFTRIAXONE 1000 MG/VIAL ONE (04:27)
[2021-08-20] MEDS ORDERED: LIDOCAINE 1% MPF 5 ML VIAL ONE (04:27)
[2021-08-20 04:51] VITALS: BP 131/62; TEMP 97.2; O2SAT 98
== END 2021-08-20 04:43 | disposition home or self-care (01) ==
LOC: ER 01:18
DX: L03.213 Periorbital cellulitis (principal); I10 Essential (primary) hypertension; Z88.5 Allergy status to narcotic agent
CPT/HCPCS: 96372; 99282

== ENCOUNTER 2021-08-22 08:11 | Inpatient (IN) | payer OTHER ==
--- OUTSIDE RECORDS SUMMARY | 2021-08-22 08:13 | XMS REPORT | Continuity of Care Document ---
:1945 Author Organization [facility] t Address [address] [place] [address] Care Team Providers Name Role Phone MAGAÑA [...] Clinicians Facility Department ID 2021-05-16 2021-05-16 Outpatient [facility] [id number] [address] 00:00:00 00:00:00 [address] Results Test Description Test Time Test Comments Results Result [facility] e Comments CT, BRAIN, WITHOUT 2018-06-08 FINAL REPORT PATIENT CONTRAST 08:11:00 ID: [id number] CT head without contrast INDICATION: CVA, TIA. [...] MDReport Verified Date/Time: 06/08/2018 08:11:29 Reading Location: [facility] C013V Neuro Reading Room ESIUM 2018-06-08 06:22:00 Test Item Value Reference Range Interpretation Comme nts MAGNESIUM (BEAKER) (test code = 627) 2.1 mg/dL 1.6-2.6 BASIC METABOLIC [id number] 06:22:00 Test Item Value Reference Range Interpretation [...] NOT APPLICABLE FOR DIALYSIS PATIEN TS. LIPID [id number] 06:22:00 Test Item Value Reference Range Interpretation [...] 130-159 High 160-189 Very High >=190HEPATIC FUNCTION [id number] 06:22:00 Test Item Value Reference Range Interpretation [...] code = 11 U/L 6-55 347) CALCIUM, [id number] 06:20:00 Test Item Value Reference Range Interpretation Comments CALCIUM IONIZED (BEAKER) (test 1.14 mmol/L 1.12-1.27 code = 698) PH, BLOOD (BEAKER) (test code = 7.41 1810) PROTHROMBIN TIME/[id number] 06:01:00 Test Item Value Reference Range Interpretation Comments PROTIME (BEAKER) (test code = 13.3 seconds 11.7-14.7 759) INR (BEAKER) (test code = 370) 1.0 <=5.9 RECOMMENDED COUMADIN/WARFARIN INR THERAPY RANGESSTANDARD DOSE: 2.0 - 3.0 Includes: PROPHYLAXIS forvenous thrombosis, systemic embolization; TREATMENT for venous thrombosis and/or pulmonary embolus.HIGH RISK: Target INR is 2.5-3.5 for patients with mechanical heart valves.MR, MRA, BRAIN, WITHOUT [id number] 21:28:00FINAL REPORT MR, MRA, BRAIN, WITHOUT CONTRAST, [...] MDReport Verified Date/Time: 06/07/2018 21:28:54 Reading Location: [address] Reading Room MR, MRA, NECK, WITHOUT IV [id number] 21:28:00FINAL REPORT MR, MRA, BRAIN, WITHOUT CONTRAST, [...] MDReport Verified Date/Time: 06/07/2018 21:28:54 Reading Location: [address] Reading Room CALCIUM, [id number] 03:12:00 Test Item Value Reference Range Interpretation Comments CALCIUM IONIZED (BEAKER) (test 1.15 mmol/L 1.12-1.27 code = 698) PH, BLOOD (BEAKER) (test code = 7.37 1810) PROTHROMBIN [id number] 02:47:00 Test Item Value Reference Range Interpretation [...] (BEAKER) (test code = 2801) COMPREHENSIVE METABOLIC [id number] 17:20:00 Test Item Value Reference Range Interpretation [...] (test code = 413) MR, BRAIN, WITHOUT [id number] 16:29:00FINAL REPORT MRI brain without contrast INDICATION: [...] Queta ified Date/Time: 06/06/2018 16:29:20 Reading Location: [facility] B1 C013V Neuro Reading Room
[2021-08-22] MEDS ORDERED: CLINDAMYCIN IV 150 MG/ML (4 mL) VIAL ONE (09:11)
--- NOTE | 2021-08-22 10:31 | ER ---
Nurse's Notes [facility] Name: Sherry Russ Age: 75 yrs Sex: Female : 1945 Arrival Date: 08/22/2021 Time: 08:11 Bed 19 Private MD: Shashank Radford V; Jesus Garcia P Diagnosis: Cellulitis of left orbit;Failed outpatient antibiotic treatment Presentation: 08/22 08:31 Chief complaint: Patient states: was seen in ED a couple days ago for Cellulitis of vg1 Left eye. States 'figured it would be faster to be seen here that going to his office'. States 'my left eye is not getting better'. Coronavirus screen: Vaccine status: Patient reports receiving the 2nd dose of the covid vaccine. Client denies travel out of the [place] in the last 14 days. Ebola Screen: Patient negative for fever greater than or equal to 101.5 degrees Fahrenheit, and additional compatible Ebola Virus Disease symptoms. Initial Sepsis Screen: Does the patient meet any 2 criteria? No. Patient's initial sepsis screen is negative. Does the patient have a suspected source of infection?. Risk Assessment: Do you want to hurt yourself or someone else? Patient reports no desire to harm self or others. Onset of symptoms was August 19, 2021. 08:31 Method Of Arrival: Ambulatory vg1 08:31 Acuity: CHAD 3 vg1 Triage Assessment: 08:36 General: Appears in no apparent distress. comfortable, Behavior is calm, cooperative. vg1 Pain: Complains of pain in left eye. EENT: Eyes Left eye appears to be swollen and red. Historical: - Allergies: 08:36 Codeine; gets weird; vg1 - Home Meds: 08:36 baclofen 10 mg Oral tab nightly [Active]; fluoxetine 10 mg Oral cap 2 caps once daily vg1 [Active]; atorvastatin oral [Active]; Spironolactone Oral [Active]; Amoxicillin Oral [Active]; carvedilol oral [Active]; Tobrex Opht [Active]; - PMHx: 08:36 Anxiety; Depression; eye problems; Hyperlipidemia; Hypertension; Vertigo; vg1 - Immunization history:: Client reports receiving the 2nd dose of the Covid vaccine. - Social history:: Smoking status: Patient denies any tobacco usage or history of. Screenin:07 Abuse screen: Denies threats or abuse. Denies injuries from another. Nutritional jg9 screening: No deficits noted. Tuberculosis screening: No symptoms or risk factors identified. Fall Risk None identified. Assessment: 09:04 EENT: Eyes cellulitis in left eye, patient reports symptoms started on Friday08/19/21. jg9 Patient reports having tear duct removal years ago due to repeated infections. Patient reports moving a lot of stuff from garage that contained old furniture and it was gema and something may have gotten in her eye on Fri08/15/21. Patient reports that the cellulitis is getting worse, ABX therapy ongoing without improvement. patient reports 5/10 pain, denied any worsening vision. . 16:39 Reassessment: No changes from previously documented assessment. Patient and/or family jg9 updated on plan of care and expected duration. Pain level reassessed. Patient is alert, oriented x 3, equal unlabored respirations, skin warm/dry/pink. Vital Signs: 08:31 BP 94 / 55; Pulse 88; Resp 16; Temp 98.4(O); Pulse Ox 100% ; Weight 61.23 kg; Height 5 vg1 ft. 2 in. (157.48 cm); Pain 4/10; 09:00 BP 106 / 62; Pulse 80; Resp 17 S; Pulse Ox 98% on R/A; jg9 10:30 BP 91 / 70; Pulse 83; Resp 17 S; Pulse Ox 98% on R/A; jg9 11:30 BP 108 / 54; Pulse 86; Resp 19 S; Pulse Ox 95% on R/A; jg9 13:00 BP 108 / 46; Pulse 83; Resp 17 S; Pulse Ox 96% on R/A; jg9 14:00 BP 110 / 49; Pulse 82; Resp 17 S; Pulse Ox 97% on R/A; jg9 15:30 BP 119 / 46; Pulse 87; Resp 17 S; Pulse Ox 98% on R/A; jg9 16:30 BP 117 / 54; Pulse 82; Resp 19 S; Pulse Ox 94% on R/A; jg9 19:08 BP 114 / 58; Pulse 90; Resp 18; Pulse Ox 100% on R/A; sm5 08:31 Body Mass Index 24.69 (61.23 kg, 157.48 cm) vg1 [place] Coma Score: 09:00 Eye Response: spontaneous(4). Verbal Response: oriented(5). Motor Response: obeys jg9 commands(6). Total: 15. ED Course: 08:11 Patient arrived in ED. as 08:11 Shashank Radford MD is Private Physician. as 08:11 Dandre Gaming MD is Private Physician. as 08:12 Jesus Garcia MD is Private Physician. as 08:16 Balta Rapp MD is Attending Physician. kdr 08:36 Triage completed. vg1 08:36 Arm band placed on. vg1 08:56 Cecilia Ortiz is Primary Nurse. jg9 09:07 Patient has correct armband on for positive identification. Bed in low position. Call jg9 light in reach. Side rails up X 1. 10:29 Shashank Radford MD is Hospitalizing Provider. kdr 12:31 Inserted saline lock: 20 gauge in left antecubital area, using aseptic technique. jg9 12:40 Basic Metabolic Panel Sent. jg9 14:30 COVID swab sent to lab. jl7 19:10 Primary Nurse role handed off by Cecilia Ortiz [facility] 19:20 No provider procedures requiring assistance completed. mr2 20:06 Bernard Painting, RN is Primary Nurse. mr2 20:29 Patient admitted, IV remains in place. mr2 Administered Medications: 09:17 Drug: Clindamycin 600 mg Route: IM; Site: right vastus lateralis; jg9 12:40 Follow up: Response: No adverse reaction jg9 Outcome: 10:30 Decision to Hospitalize by Provider. kdr 20:28 Admitted to Med/surg accompanied by tech, via stretcher, Report called to 2nd floor mr2 20:28 Condition: stable 20:28 Instructed on the need for admit. 20:29 Patient left the ED. mr2 Signatures: Balta Rapp MD MD kdr Martinez, Amelia as Leal, Jahala, RN RN jl7 Srini Weinstein 4 Sommer Haro RN RN 1 Bernard Painting, JERMAINE RN mr2 Lucrecia Camacho, RN RN 5 Cecilia Ortiz jg9
--- NOTE | 2021-08-22 10:31 | EDPHYS ---
Physician Documentation [facility] Name: Sherry Russ Age: 75 yrs Sex: Female : 1945 Arrival Date: 08/22/2021 Time: 08:11 Bed 19 Private MD: Shashank Radford V; Jesus Garcia P ED Physician Balta Rapp HPI: 08/22 10:10 This 75 yrs old Female presents to ER via Ambulatory with complaints of Cellulitis- L kdr Eye. 10:10 The patient is experiencing pain, redness, Swelling to the medial and inferior aspect kdr of the left orbit., caused by an unknown mechanism. Onset: The symptoms/episode began/occurred gradually, 1 week(s) ago. Duration: the symptoms are continuous. Aggravated by nothing. Alleviated by nothing. Associated signs and symptoms: Pertinent positives: None. Patient wears glasses. Severity of symptoms: At their worst the symptoms were mild moderate. The patient has experienced a previous episode, Patient was seen in this ED back in November for the same problem. She was put on clindamycin for 10 days.. The patient has been recently seen by a physician: Patient was originally seen for this illness on Friday evening. She presented to Dr. Garcia's office the following day. On Friday day. She follow-up with Dr. Garcia on Friday as well. She had an appointment today at 8:30 AM but decided to come to the ED since she thought he would send her here anyway for admission. She states that she has been taking the medications as prescribed however she continues to have increased swelling and redness and tenderness to the same area.. The patient's had a prior removal of the drainage system on the medial canthus. This was done by Haroon Garcia some years ago. Patient denies any current increased watering discharge or purulent discharge. Historical: - Allergies: 08:36 Codeine; gets weird; vg1 - Home Meds: 08:36 baclofen 10 mg Oral tab nightly [Active]; fluoxetine 10 mg Oral cap 2 caps once daily vg1 [Active]; atorvastatin oral [Active]; Spironolactone Oral [Active]; Amoxicillin Oral [Active]; carvedilol oral [Active]; Tobrex Opht [Active]; - PMHx: 08:36 Anxiety; Depression; eye problems; Hyperlipidemia; Hypertension; Vertigo; vg1 - Immunization history:: Client reports receiving the 2nd dose of the Covid vaccine. - Social history:: Smoking status: Patient denies any tobacco usage or history of. ROS: 10:16 Constitutional: Negative for fever, chills, and weight loss, ENT: Negative for injury, kdr pain, and discharge, Neck: Negative for injury, pain, and swelling, Cardiovascular: Negative for chest pain, palpitations, and edema, Respiratory: Negative for shortness of breath, cough, wheezing, and pleuritic chest pain, Abdomen/GI: Negative for abdominal pain, nausea, vomiting, diarrhea, and constipation, Back: Negative for injury and pain, : Negative for injury, bleeding, discharge, and swelling, MS/Extremity: Negative for injury and deformity, Skin: Negative for injury, rash, and discoloration, Neuro: Negative for headache, weakness, numbness, tingling, and seizure activity. Psych: Negative for depression, anxiety, suicide ideation, homicidal ideation, and hallucinations, Allergy/Immunology: Negative for hives, rash, and allergies, Endocrine: Negative for neck swelling, polydipsia, polyuria, polyphagia, and marked weight changes, Hematologic/Lymphatic: Negative for swollen nodes, abnormal bleeding, and unusual bruising. 10:16 Eyes: Positive for pain, redness, swelling, of the left inner canthus and left lower eyelid. Exam: 10:16 Constitutional: This is a well developed, well nourished patient who is awake, alert, kdr and in no acute distress. Head/Face: Normocephalic, atraumatic. Neck: Trachea midline, no thyromegaly or masses palpated, and no cervical lymphadenopathy. Supple, full range of motion without nuchal rigidity, or vertebral point tenderness. No Meningismus. Chest/axilla: Normal chest wall appearance and motion. Nontender with no deformity. No lesions are appreciated. 10:16 Eyes: Periorbital structures: cellulitis, that is mild, on the medial canthus of left eye and left lower eyelid. Vital Signs: 08:31 BP 94 / 55; Pulse 88; Resp 16; Temp 98.4(O); Pulse Ox 100% ; Weight 61.23 kg; Height 5 vg1 ft. 2 in. (157.48 cm); Pain 4/10; 09:00 BP 106 / 62; Pulse 80; Resp 17 S; Pulse Ox 98% on R/A; jg9 10:30 BP 91 / 70; Pulse 83; Resp 17 S; Pulse Ox 98% on R/A; jg9 11:30 BP 108 / 54; Pulse 86; Resp 19 S; Pulse Ox 95% on R/A; jg9 13:00 BP 108 / 46; Pulse 83; Resp 17 S; Pulse Ox 96% on R/A; jg9 14:00 BP 110 / 49; Pulse 82; Resp 17 S; Pulse Ox 97% on R/A; jg9 15:30 BP 119 / 46; Pulse 87; Resp 17 S; Pulse Ox 98% on R/A; jg9 16:30 BP 117 / 54; Pulse 82; Resp 19 S; Pulse Ox 94% on R/A; jg9 19:08 BP 114 / 58; Pulse 90; Resp 18; Pulse Ox 100% on R/A; sm5 08:31 Body Mass Index 24.69 (61.23 kg, 157.48 cm) vg1 [place] Coma Score: 09:00 Eye Response: spontaneous(4). Verbal Response: oriented(5). Motor Response: obeys jg9 commands(6). Total: 15. MDM: 10:16 Data reviewed: vital signs, nurses notes. Counseling: I had a detailed discussion with kdr the patient and/or guardian regarding: the historical points, exam findings, and any diagnostic results supporting the discharge/admit diagnosis, the need for further work-up and treatment in the hospital. ED course: I contacted rn social services for consult and possible outpatient management of this problem however patient was refusing to work with rn social services to accommodate outpatient management. Given the fact that the patient has been on antibiotics now for about 3 days and is not improving but rather getting worse, patient be admitted for IV antibiotics. 10:30 Patient medically screened. kdr 08/22 10:31 Order name: CBC with Diff kdr 08/22 10:31 Order name: Chem 7 kdr 08/22 10:41 Order name: Vancomycin Level Trough EDMS 08/22 10:41 Order name: Vancomycin Peak EDMS 08/22 10:41 Order name: Basic Metabolic Panel EDMS 08/22 10:41 Order name: Basic Metabolic Panel EDMS 08/22 09:38 Order name: Social Service Consult EDMS 08/22 10:41 Order name: CBC with Automated Diff EDMS 08/22 10:41 Order name: CBC with Automated Diff EDMS 08/22 13:05 Order name: CBC Smear Scan EDMS 08/22 13:50 Order name: COVID-19 (Coronavirus) Document "Date of Onset" if Symptomatic jl7 08/22 15:33 Order name: CORONAVIRUS EDMA 08/22 16:17 Order name: SARS-COV-2 RT PCR EDMA 08/22 10:41 Order name: Regular EDMS 08/22 10:46 Order name: CONS Physician Consult EDMA Administered Medications: 09:17 Drug: Clindamycin 600 mg Route: IM; Site: right vastus lateralis; jg9 12:40 Follow up: Response: No adverse reaction jg9 Disposition Summary: 08/22/21 10:30 Hospitalization Ordered Hospitalization Status: Inpatient Admission kdr Provider: Shashank Radford Location: Telemetry/MedSurg (Inpatient) kdr Condition: Fair kdr Problem: new kdr Symptoms: have improved kdr Bed/Room Type: Standard kdr Room Assignment: 230(08/22/21 16:44) dw Diagnosis - Cellulitis of left orbit kdr - Failed outpatient antibiotic treatment kdr Forms: - Medication Reconciliation Form kdr - SBAR form kdr Signatures: Dispatcher [employer] EDMA Yuni Frederick RN RN dw Balta Rapp MD MD kdr Garcia, Victoria, RN RN vg1 Cecilia Otriz jg9 Corrections: (The following items were deleted from the chart) 16:44 10:30 kdr dw
[2021-08-22] MEDS ORDERED: ACETAMINOPHEN 500 MG TAB PO PRN (10:38)
[2021-08-22 12:16] LABS: Absolute Lymphocytes (CBC) 2.2 K/uL (0.7-4.9); Lymphocytes % 19.8 % (15.3-44.8); MPV 8.2 fL (7.6-11.3); RBC Red Blood Cell Count 4.24 M/uL (3.86-4.86)
[2021-08-22] MEDS ORDERED: VANCOMYCIN 1 GM in NA CHLORIDE 0.9% 250 ML IVPB ONE (12:30)
[2021-08-22 13:04] LABS: Blood Morphology Comment NOT SEEN (NOT SEEN); Platelet Estimate ADEQ; White Blood Cell Scan OK (OK)
[2021-08-22 22:15] VITALS: BMI 24.5
[2021-08-23] MEDS: VANCOMYCIN 1 GM in NA CHLORIDE 0.9% 250 ML IVPB SCH ×2 (00:01→23:36)
[2021-08-23 04:51] LABS: Hematocrit 34.8 % (36.0-45.0)
[2021-08-23 05:15] LABS: Potassium 3.7 mmol/L (3.5-5.1)
[2021-08-23] MEDS ORDERED: PNEUMOCOCCAL VACCINE 0.5 ML IMVAC ONE (09:00)
[2021-08-23] MEDS ORDERED: VANCOMYCIN 1 GM in NA CHLORIDE 0.9% 250 ML IVPB SCH (12:00)
--- NOTE | 2021-08-23 15:58 | P.HP ---
Certification for Inpatient Patient admitted to: Inpatient With expected LOS: >2 Midnights Practitioner: I am a practitioner with admitting privileges, knowledge of patient current condition, hospital course, and medical plan of care. Services: Services provided to patient in accordance with Admission requirements found in Title 42 Section 412.3 of the Code of Federal Regulations Patient History Date of Service: 08/23/21 Reason for admission: ABSCESS MEDIAL EYELID. History of Present Illness: PHAN HAS ABSCESS ON MEDIAL PART OF L LOWER EYELID NEAR THE CANTHUS. SHE FAILED ORAL ABX BY DR KHALIL. SHE HAS HAD RECURRENT ISSUE HERE FOR A WHILE. THIS IS A VERY PAINFUL ABSCESS. Allergies No Known Allergies Allergy (Verified 12/19/20 06:21) Home medications list reviewed: Yes Home Medications: Baclofen [Lioresal*] 10 mg PO BEDTIME 12/21/20 Amox/Clavulanate [Augmentin 875-125 Tab*] 1 each PO BID #14 tab 12/23/20 Lactobacillus Acidophilus [Acidophilus Lactobacilli] 1 each PO TID #28 capsule 12/23/20 Calcitrol [Rocaltrol*] 0.5 mcg PO DAILY #30 cap 12/30/20 Cholecalciferol (Vitamin D3) [Vitamin D 5,000 IU Cap*] 5,000 unit PO DAILY #30 cap 12/30/20 Doxycycline Hyclate [Vibramycin] 100 mg PO BID #14 capsule 12/30/20 Furosemide [Lasix] 20 mg PO DAILY #30 tablet 12/30/20 Atorvastatin Calcium 20 mg PO BEDTIME 08/22/21 Carvedilol [Coreg] 6.25 mg PO BID 08/22/21 Spironolactone 12.5 mg PO [id number] 08/22/21 - Past Medical/Surgical History Diabetic: No -: cataract -: depression -: anxiety -: depression -: anxiety -: cataract surgery Psychosocial/ Personal History: Patient lives at home with family - Family History Mother Notes: osteoporosis - Social History Smoking Status: Never smoker Alcohol use: No CD- Drugs: No Caffeine use: Yes Place of Residence: Home Review of Systems 10-point ROS is otherwise unremarkable Physical Examination - Vital Signs Temperature: 98.5 F Blood Pressure: 114/58 Pulse: 96 Respirations: 18 Pulse Ox (%): 96 - Physical Exam General: Oriented x3, Moderate distress HEENT: Atraumatic, PERRLA, Mucous membr. moist/pink, Other (MEDIAL LOWER LID ABSCESS ABOUT 1.5 CM DIAM), EOMI, Sclerae nonicteric Neck: Supple, 2+ carotid pulse no bruit, No LAD, Without JVD or thyroid abnormality Respiratory: Clear to auscultation bilaterally, Normal air movement Cardiovascular: Regular rate/rhythm, Normal S1 S2 Gastrointestinal: Normal bowel sounds, No tenderness Musculoskeletal: No tenderness Integumentary: No rashes Neurological: Normal gait, Normal speech, Normal strength at 5/5 x4 extr, Normal tone, Normal affect Lymphatics: No axilla or inguinal lymphadenopathy Assessment and Plan - Problems (Diagnosis) (1) Abscess, eyelid Current Visit: Yes Status: Acute Plan: THIS LOOKS LIKE MRSA ABSCESS. LATER TODAY IT STARTED TO DRAIN. I ASKED DR. LEE TO GIVE VANCOMYCIN IV AND NOT CLINDA. SHE IS STABLE. SHE MAY GO HOME IN AM ON ORAL ABX. Qualifiers: Laterality: left - Advance Directives Does patient have a Living Will: No Does patient have a Durable POA for Healthcare: Yes
[2021-08-24 06:02] VITALS: TEMP 97.2
[2021-08-24 08:40] VITALS: BP 102/49
[2021-08-24 08:51] VITALS: O2SAT 97
--- NOTE | 2021-08-24 14:55 | P.DS ---
Admission Date: 08/22/21 Discharge Date: 08/24/21 Disposition: ROUTINE DISCHARGE Discharge Condition: FAIR Reason for Admission: ABSCESS MEDIAL EYELID. - Problems (1) Abscess, eyelid Status: Acute Qualifiers: Laterality: left Brief History of Present Illness: PHAN HAS ABSCESS ON MEDIAL PART OF L LOWER EYELID NEAR THE CANTHUS. SHE FAILED ORAL ABX BY DR KHALIL. SHE HAS HAD RECURRENT ISSUE HERE FOR A WHILE. THIS IS A VERY PAINFUL ABSCESS. Hospital Course: MS [facility]ARSON IS DOING BETTER. HER ABSCESS DRAINED ITSELF. VANCOMYCIN WORKED. SHE IS LOT BETTER. HER SKIN AREA IS NOT A ERYTHEMATOUS ANY LONGER. SHE WILL TAKE BACTRIM DS BID FOR 10 DAYS AND WILL FU WITH OCCUPLASTIC PSYCHIATRIC NP. FU IN MY OFFICE IN ONE WEEK. Vital Signs/Physical Exam: Temp Pulse Resp BP Pulse Ox 97.2 F 89 18 102/49 L 99 08/24/21 08:00 08/24/21 08:00 08/24/21 08:00 08/24/21 08:00 08/24/21 08:00 Laboratory Data at Discharge: WBC 9.40 K/uL (4.3-10.9) D 08/23/21 04:18 Hgb 11.7 g/dL (12.0-15.0) L 08/23/21 04:18 Hct 34.8 % (36.0-45.0) L 08/23/21 04:18 Plt Count 222 K/uL (152-406) 08/23/21 04:18 Sodium 137 mmol/L (136-145) 08/23/21 04:18 Potassium 3.7 mmol/L (3.5-5.1) 08/23/21 04:18 BUN 14 mg/dL (7-18) 08/23/21 04:18 Creatinine 0.75 mg/dL (0.55-1.3) 08/23/21 04:18 Glucose 98 mg/dL (74-106) 08/23/21 04:18 Home Medications: Baclofen [Lioresal*] 10 mg PO BEDTIME 12/21/20 Lactobacillus Acidophilus [Acidophilus Lactobacilli] 1 each PO TID #28 capsule 12/23/20 Calcitrol [Rocaltrol*] 0.5 mcg PO DAILY #30 cap 12/30/20 Cholecalciferol (Vitamin D3) [Vitamin D 5,000 IU Cap*] 5,000 unit PO DAILY #30 cap 12/30/20 Furosemide [Lasix] 20 mg PO DAILY #30 tablet 12/30/20 Atorvastatin Calcium 20 mg PO BEDTIME 08/22/21 Carvedilol [Coreg] 6.25 mg PO BID 08/22/21 Spironolactone 12.5 mg PO [id number] 08/22/21 Sulfamethoxazole/Trimethoprim [Sulfamethoxazole-Tmp Ds Tablet] 1 each PO BID #28 tablet 08/24/21 New Medications: Sulfamethoxazole/Trimethoprim [Sulfamethoxazole-Tmp Ds Tablet] 1 each PO BID #28 tablet Followup: Joanie Alatorre [Other] ([facility] Appointment August @ 2:15pm) Shashank Radford MD [Primary Care Provider] - 1 Week (call to schedule an appointment )
== END 2021-08-24 10:23 | disposition home or self-care (01) | DRG 122 ==
LOC: ER 08:11 → ERHOLD 10:40 → 2ND 20:19
PROVIDERS: ADMIT Internal Medicine; ATTEND Internal Medicine
DX: H05.012 Cellulitis of left orbit (principal); E78.5 Hyperlipidemia, unspecified; I10 Essential (primary) hypertension; Z88.5 Allergy status to narcotic agent; Z79.899 Other long term (current) drug therapy; Z20.822 Contact with and (suspected) exposure to COVID-19
CPT/HCPCS: 36415; 80048; 85025; 87070; 87075; 87077; 87186; 87205; 96372; 99282; 99285; J3370; J7050; S0077; U0003